=== PATIENT | male | born 1940 | race Caucasian/White ===

== ENCOUNTER → 2018-01-02 02:54 | Outpatient (CLI) | payer MEDICARE, BC, SELFPAY ==
--- NOTE | 2018-01-02 15:45 | DI.REPORT_ITS ---
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 There is a mild mid cervical kyphosis. Imaging obtained through the posterior fossa is unremarkable. The spinal cord shows normal diameter and normal signal throughout. There is prominence of the disc osteophyte complex at the C 6 - 7 level. This causes mild narrowing of the spinal canal in the AP diameter without a clear cut central canal spinal stenosis. There is bilateral neural foraminal narrowing at C 6 - 7. At C 5 - 6 there is mild bilateral neural foraminal narrowing and no gross disc abnormality. At C 4 - 5 there appears to be mild bilateral neural foraminal narrowing. At C 3 - 4 there appears to be mild neural foraminal narrowing bilaterally. CONCLUSION: Multi-level neural foraminal narrowing as described above. Prominence of the disc osteophyte complex at C 6 - 7 without significant cord impingement or central canal spinal stenosis.
== END ==
PROVIDERS: PCP Internal Medicine; Visit Provider Internal Medicine
DX: M48.02 Spinal stenosis, cervical region (principal); M25.78 Osteophyte, vertebrae
CPT/HCPCS: 72141

== ENCOUNTER → 2018-01-07 12:02 | Outpatient (REF) | payer MEDICARE, BC, SELFPAY ==
[2018-01-07 19:33] LABS: Anion Gap 7.6 mmol/L (3-11); BUN 13 mg/dL (7-18); CO2 28.4 mmol/L (21.0-32.0); CREATININE 0.97 mg/dL (0.70-1.30); Calcium 8.6 mg/dL (8.5-10.1); Chloride 106 mmol/L (98-107); Cholesterol 109 mg/dL (50-200); Glucose 85 mg/dL (70-100); HDL Cholesterol 38 mg/dL (40-60); LDL CHOLESTEROL 60 mg/dL (<100); Potassium 3.7 mmol/L (3.5-5.1); Sodium 142 mmol/L (136-145); Triglyceride 100 mg/dL (30-150)
== END ==
LOC: LBN 12:02
PROVIDERS: PCP Internal Medicine; Visit Provider Internal Medicine
DX: E78.5 Hyperlipidemia, unspecified (principal); E88.81 Metabolic syndrome and other insulin resistance; R73.01 Impaired fasting glucose; I48.91 Unspecified atrial fibrillation
CPT/HCPCS: 80048; 80061; 83721

== ENCOUNTER 2018-01-21 14:30 | Outpatient (RCR) | payer MEDICARE, BC, SELFPAY | END 2018-02-08 23:59 | disposition home or self-care (01) | LOC: PRC 14:30 | PROVIDERS: PCP Internal Medicine; Visit Provider Internal Medicine | DX: J44.9 Chronic obstructive pulmonary disease, unspecified (principal); Z51.89 Encounter for other specified aftercare ==

== ENCOUNTER 2018-02-12 09:45 | Outpatient (CLI) | payer MEDICARE, BC, SELFPAY ==
[2018-02-12 10:00] VITALS: BP 113/67; PULSE 63; RESP 20; TEMP 36; O2SAT 97
[2018-02-12] MEDS: Omnipaque 240 MG/ML 50 ML BTL IJ (10:31)
[2018-02-12] MEDS: Dexamethasone Sod. Phos./Pres-Free 10 MG/ML VIAL IJ (10:31)
--- NOTE | 2018-02-12 10:32 | PDOC.PAIN ---
Pain Clinic Procedure Note Current Active Problems Problem Status Onset Lumbar radiculopathy Acute Lumbar Epidural Steroid Injection Procedure Note COMMENTS: He was previously evaluated by Lucy Moreno APRN in our clinic. DANICA CRUZ has been referred to the [facility] for lumbar epidural steroid injection. The patient was greeted by the nurse who verified patients name and . Patient was then taken to the fluoroscopy suite. The patient was interviewed and the medial record reviewed. There were no medical, pharmacologic, radiographic, or other structural contraindications to attempting fluoroscopically guided lumbar epidural steroid injection. Risks and expected side effects as well as potential benefits of the procedure were reviewed and voiced concerns expressed. The patient consent form was signed and witnessed. Standard patient time-out procedure was performed. The patient was placed in the prone position on the fluoroscopy table and automated blood pressure cuff and pulse oximeter applied. The skin entry point for entering/approaching the epidural space at L5-S1 and marked. Following thorough chlorhexadine preparation of the skin and draping and 1% lidocaine infiltration of the skin entry point and subcutaneous tissues, a 18 gauge Touhy needle was placed under fluoroscopic guidance and with loss of resistance technique into the epidural space. Needle tip placement and depth were aided and confirmed by fluoroscopy. There was no paresthesia or return of blood or CSF through the needle. 1 cc's of Omnipaque 240 was injected with clear epidural spread confirmed with fluoroscopy. 15mg Dexamethasone was injected. There was not any unusual discomfort expressed by DANICA CRUZ. Patient's vital signs were stable throughout the procedure and were as recorded in nursing records. Follow up plans and appointments were discussed with patient. Post procedure instruction was given as documented in nursing records and having met discharge criteria and was discharged from the [facility]. COMMENTS: This procedure can be completed up to 3 times per 12 months.
--- NOTE | 2018-02-12 10:37 | DI.RAD_ITS ---
SYMPTOMS/DIAGNOSIS: LUMBAR RADICULOPATHY PAIN CLINIC: Fluoroscopy Time: 16.6 sec Fluoroscopy was utilized by Dr. Card during the performance of a lumbar epidural steroid injection. Please refer to the procedure report for complete details.
[2018-02-12 10:50] VITALS: BP 123/61; PULSE 83; RESP 16; O2SAT 96
== END 2018-02-12 10:05 ==
PROVIDERS: PCP Internal Medicine; Visit Provider Preventive Medicine Occupational Medicine
DX: M54.16 Radiculopathy, lumbar region (principal)
CPT/HCPCS: 62323; 72100; Q9967

== ENCOUNTER 2018-02-16 16:15 | Outpatient (RCR) | payer MEDICARE, BC, SELFPAY | END 2018-03-11 23:59 | disposition home or self-care (01) | LOC: PRC 16:15 | PROVIDERS: PCP Internal Medicine; Visit Provider Internal Medicine | DX: J44.9 Chronic obstructive pulmonary disease, unspecified (principal); Z51.89 Encounter for other specified aftercare | CPT/HCPCS: G0424 ==

== ENCOUNTER 2018-02-23 01:14 | Outpatient (CLI) | payer MEDICARE, BC, SELFPAY ==
--- NOTE | 2018-02-23 14:00 | MERGE_ITS ---
*[facility]* *[facility]* [address] [place] [address] Date of study: 02/23/2018 Transthoracic Echocardiography M-mode, complete 2D, complete spectral Doppler, and color Doppler *STUDY CONCLUSIONS* Summary: 1. Left ventricle: The cavity size was normal. Systolic function was normal. The estimated ejection fraction was 60-65%. There was no evidence of elevated ventricular filling pressure by Doppler parameters. 2. Mitral valve: There was mild regurgitation. 3. Right ventricle: The cavity size was normal. Wall thickness was normal. Systolic function was normal. 4. Atrial septum: No defect or patent foramen ovale was identified. 5. Tricuspid valve: There was moderate regurgitation. 6. Pulmonary arteries: Pulmonary systolic pressure was in the range of 40mm Hg to 50mm Hg. 7. Inferior vena cava: The vessel was patent and normal in size. The respirophasic diameter changes were in the normal range (greater than or equal to 50%), consistent with normal central venous pressure. *PATIENT PRESENTATION* Height: 182.9cm ((72in) ) S/D Pressure: 87 / 50 Weight: 108.9kg ((239.5lb) ) BSA: 2.38m^2 Test start time: 02:10 PM. Test stop time: 03:10 PM. PERFORMING Unknown ORDERING Osiris Gibson REFERRING Osiris Gibson PERFORMING [facility] DIRECTOR OF ANALYTICS RT Pawel Loja)(ALISSA)TIMBO *PROCEDURE DATA* Procedure information: The patient was identified by two identifiers. This study was interpreted by [facility]. Pertinent images and digital data are archived for permanent storage and are available for subsequent review. Comparison was made to the study of 01/05/2016. Study status: Routine. Transthoracic echocardiography. M-mode, complete 2D, complete spectral Doppler, and color Doppler. A Transthoracic Echocardiogram was performed. Scanning was performed from the parasternal, apical, subcostal, and suprasternal notch acoustic windows. Images were obtained using an [id number] cardiac ultrasound machine. Image quality was adequate. Study completion: The patient tolerated the procedure well. History: PMH: Afib. hyperlipidemia, TR, *CARDIAC ANATOMY* Left ventricle: The cavity size was normal. Systolic function was normal. The estimated ejection fraction was 60-65%. The tissue Doppler parameters were normal. Diastolic parameters were normal for age. There was no evidence of elevated ventricular filling pressure by Doppler parameters. Aortic valve: Trileaflet. Doppler: There was no stenosis. There was no significant regurgitation. VTI ratio of LVOT to aortic valve: 0.73. Valve area (VTI): 2.2cm^2. Indexed valve area (VTI): 0.9cm^2/m^2. Peak velocity ratio of LVOT to aortic valve: 0.68. Valve area (Vmax): 2.1cm^2. Indexed valve area (Vmax): 0.9cm^2/m^2. Mean velocity ratio of LVOT to aortic valve: 0.68. Valve area (Vmean): 2.1cm^2. Indexed valve area (Vmean): 0.9cm^2/m^2. Mean gradient (S): 6.1mm Hg. Peak gradient (S): 10.2mm Hg. Aorta: Aortic root: The aortic root was normal in size. Ascending aorta: The ascending aorta was mildly dilated. Mitral valve: Doppler: There was no evidence for stenosis. There was mild regurgitation. Valve area by pressure half-time: 4.9cm^2. Indexed valve area by pressure half-time: 2.1cm^2/m^2. Peak gradient (D): 4.3mm Hg. Left atrium: The atrium was normal in size. Atrial septum: No defect or patent foramen ovale was identified. Right ventricle: The cavity size was normal. Wall thickness was normal. Systolic function was normal. Pulmonic valve: Doppler: There was no evidence for stenosis. There was mild regurgitation. Peak gradient (S): 3.9mm Hg. Tricuspid valve: Doppler: There was moderate regurgitation. Pulmonary artery: Poorly visualized. Pulmonary systolic pressure was in the range of 40mm Hg to 50mm Hg. Right atrium: The atrium was normal in size. Pericardium: There was no pericardial effusion. Systemic veins: Inferior vena cava: Well visualized. The vessel was patent and normal in size. The respirophasic diameter changes were in the normal range (greater than or equal to 50%), consistent with normal central venous pressure. Baseline ECG: Atrial fibrillation. Measurements Left ventricle Value Reference LV ID, ED, PLAX 5.3 cm 3.5 - 6.0 LV ID, ES, PLAX 3.9 cm 2.1 - 4.0 LV PW thickness, ED, PLAX 1.0 cm LV end-diastolic volume, 1-p A2C 79 ml LV ejection fraction, 1-p A2C 62 % LV end-diastolic volume, 1-p A4C 73 ml LV ejection fraction, 1-p A4C 59 % LV e', lateral 0.147 m/sec LV E/e', lateral 7 LV e', medial 0.091 m/sec LV E/e', medial 11 LV e', average 0.119 m/sec LV E/e', average 9 Ventricular septum Value Reference IVS thickness, ED, PLAX 1.3 cm LVOT Value Reference LVOT ID, A-P 2.0 cm LVOT area 3.1 cm^2 LVOT peak velocity, S 1.09 m/sec LVOT mean velocity, S 0.8 m/sec LVOT VTI, S 22.7 cm LVOT peak gradient, S 4.8 mm Hg LVOT mean gradient, S 2.8 mm Hg Stroke volume (SV), LVOT DP 70 ml Stroke index (SV/bsa), LVOT DP 29 ml/m^2 Aortic valve Value Reference Aortic valve peak velocity, S 1.6 m/sec Aortic valve mean velocity, S 1.18 m/sec Aortic valve VTI, S 31.0 cm Aortic mean gradient, S 6.1 mm Hg Aortic peak gradient, S 10.2 mm Hg VTI ratio, LVOT/AV 0.73 Aortic valve area, VTI 2.2 cm^2 Velocity ratio, peak, LVOT/AV 0.68 Aortic valve area, peak velocity 2.1 cm^2 Velocity ratio, mean, LVOT/AV 0.68 Aortic valve area, mean velocity 2.1 cm^2 Aortic valve area/bsa, mean velocity 0.9 cm^2/m^2 Aorta Value Reference Aortic root ID, ED 3.3 cm Ascending aorta ID, A-P, S 3.7 cm RVOT Value Reference RVOT VTI, S 16.7 cm Left atrium Value Reference LA ID, A-P, ES 4.6 cm LA ID/bsa, A-P 1.9 cm/m^2 <=2.2 LA area, ES, A4C (H) 26.4 cm^2 8.8 - 23.4 LA area, ES, A2C 24 cm^2 LA volume/bsa, ES, 1-p A4C 35 ml/m^2 LA volume, ES, 2-p 73 ml LA volume/bsa, ES, 2-p 31 ml/m^2 LA/aortic root ratio 1.42 Mitral valve Value Reference Mitral E-wave peak velocity 1.04 m/sec Mitral deceleration time 154 ms 150 - 230 Mitral pressure half-time 45 ms Mitral peak gradient, D 4.3 mm Hg Mitral valve area, PHT, DP 4.9 cm^2 Mitral peak LV-LA gradient, S 103.4 mm Hg Mitral maximal regurg velocity, PISA 5.08 m/sec Mitral regurg VTI, PISA 161.8 cm Tricuspid valve Value Reference Tricuspid regurg peak velocity 3 m/sec Tricuspid peak RV-RA gradient 35.2 mm Hg Right atrium Value Reference RA area, ES, A4C (H) 26.9 cm^2 8.3 - 19.5 Pulmonic valve Value Reference Pulmonic peak gradient, S 3.9 mm Hg Legend: (L) and (H) андрей values outside specified reference range. I have personally reviewed the images and have reviewed and edited the reported findings. Electronically signed by Tomas Guillermo MD 02/23/2018 17:18
== END 2018-02-23 01:34 ==
PROVIDERS: PCP Internal Medicine; Visit Provider Internal Medicine Cardiovascular Disease
DX: I48.91 Unspecified atrial fibrillation (principal); E78.5 Hyperlipidemia, unspecified; I08.1 Rheumatic disorders of both mitral and tricuspid valves
CPT/HCPCS: 93306

== ENCOUNTER → 2018-03-05 11:00 | Outpatient (BNVA) | payer MEDICARE, BC, SELFPAY | PROVIDERS: PCP Internal Medicine; Visit Provider Internal Medicine Cardiovascular Disease | DX: I48.2 Chronic atrial fibrillation (principal); I36.1 Nonrheumatic tricuspid (valve) insufficiency; I27.20 Pulmonary hypertension, unspecified; E78.5 Hyperlipidemia, unspecified; J44.9 Chronic obstructive pulmonary disease, unspecified; Z87.891 Personal history of nicotine dependence | CPT/HCPCS: 99214 ==

== ENCOUNTER 2018-05-19 08:31 | Outpatient (CLI) | payer MEDICARE, BC, SELFPAY ==
--- NOTE | 2018-05-19 06:00 | DI.RAD_ITS ---
SYMPTOM/DIAGNOSIS: LUMBAR RADICULOPATHY, EPIDURAL STEROID INJECTION C-ARM: Fluoroscopy Time: 18.3 seconds Fluoroscopy was utilized by Dr. Card during the performance of a lumbar epidural steroid injection. Please refer to the procedure report for complete details.
[2018-05-19 08:40] VITALS: BP 114/70; PULSE 85; RESP 24; TEMP 36.6; O2SAT 97
[2018-05-19 09:26] LABS: PTT Activated 24.1 sec (21.0-31.4); Prothrombin Time 9.6 sec (9.3-11.0)
[2018-05-19] MEDS: Omnipaque 240 MG/ML 50 ML BTL IJ (10:06)
--- NOTE | 2018-05-19 10:06 | PDOC.PAIN ---
Pain Clinic Procedure Note Current Active Problems Problem Status Onset Lumbar radiculopathy Acute Lumbar Epidural Steroid Injection Procedure Note COMMENTS: He has done very well since the last LESI on 02/12/18. His radicular complaints have been greatly reduced. He has been off Eliquis for 5 days and his PT/PTT/INR are normal today. DX: Lumbosacral radiculopathy DANICA CRUZ has been referred to the [facility] for lumbar epidural steroid injection. The patient was greeted by the nurse who verified patients name and . Patient was then taken to the fluoroscopy suite. The patient was interviewed and the medial record reviewed. There were no medical, pharmacologic, radiographic, or other structural contraindications to attempting fluoroscopically guided lumbar epidural steroid injection. Risks and expected side effects as well as potential benefits of the procedure were reviewed and voiced concerns expressed. The patient consent form was signed and witnessed. Standard patient time-out procedure was performed. The patient was placed in the prone position on the fluoroscopy table and automated blood pressure cuff and pulse oximeter applied. The skin entry point for entering/approaching the epidural space at L5-S1 and marked. Following thorough chlorhexadine preparation of the skin and draping and 1% lidocaine infiltration of the skin entry point and subcutaneous tissues, a 18 gauge Touhy needle was placed under fluoroscopic guidance and with loss of resistance technique into the epidural space. Needle tip placement and depth were aided and confirmed by fluoroscopy. There was no paresthesia or return of blood or CSF through the needle. 1 cc's of Omnipaque 240 was injected with clear epidural spread confirmed with fluoroscopy. 80mg depomedrol was injected. There was not any unusual discomfort expressed by DANICA CRUZ. Patient's vital signs were stable throughout the procedure and were as recorded in nursing records. Follow up plans and appointments were discussed with patient. Post procedure instruction was given as documented in nursing records and having met discharge criteria and was discharged from the [facility]. COMMENTS: This procedure can be completed up to 3 times per 12 months if it is found to be helpful.
[2018-05-19] MEDS: methylPREDNISolone ACETATE 80 MG/ML VIAL IM (10:18)
[2018-05-19 10:19] VITALS: BP 133/74; PULSE 89; RESP 19; O2SAT 97
== END 2018-05-19 08:51 ==
PROVIDERS: PCP Internal Medicine; Visit Provider Preventive Medicine Occupational Medicine
DX: M54.16 Radiculopathy, lumbar region (principal); Z79.01 Long term (current) use of anticoagulants
CPT/HCPCS: 62323; 72100; 85610; 85730; J1040; Q9967

== ENCOUNTER 2018-05-19 09:15 | Outpatient (CLI) | payer MEDICARE, BC, SELFPAY | END 2018-05-19 09:35 | PROVIDERS: PCP Internal Medicine; Visit Provider Preventive Medicine Occupational Medicine | DX: Z79.01 Long term (current) use of anticoagulants (principal) | CPT/HCPCS: 85610; 85730 ==

== ENCOUNTER 2018-05-25 08:53 | Emergency (ER) | payer MEDICARE, BC, SELFPAY ==
[2018-05-25] VITALS (44 sets, daily range): BP systolic 107–153; BP diastolic 69–121; PULSE 67–182; RESP 12–32; TEMP 37.1–37.2; O2SAT 91–97
--- NOTE | 2018-05-25 08:58 | ED.GENADUL_ITS ---
Discharge Plan Disposition Patient Disposition: HOME Condition: Fair Discharge Details Chief Complaint: GI Bleed Clinical Impression: Colitis Primary Care Provider: Sandra Piedra ED Provider: Tatyana Salinas Home Meds and New Rx's Prescriptions: New azithromycin 500 mg tablet 500 mg PO BID Qty: 6 RF: 0 Continued metoprolol succinate 100 mg tablet extended release 24 hr 150 mg PO DAILY Qty: 135 RF: 3 mupirocin 2 % ointment 1 applic TP TID Qty: 22 RF: 0 nystatin 100,000 unit/gram cream 1 applic TP TID Qty: 30 RF: 2 pantoprazole 40 mg tablet,delayed release (DR/EC) 40 mg PO DAILY Qty: 90 RF: 3 multivitamin 1 EACH tablet 1 ea PO DAILY RF: 0 lysine [L-Lysine] 500 MG tablet 500 mg PO DAILY RF: 0 One-Per-Day [place]-3 1 EACH capsule,delayed release(DR/EC) 1 ea PO DAILY RF: 0 polyethylene glycol 3350 [Miralax] 17 GM powder in packet 17 gm PO BID PRNRF: 0 acetaminophen 500 MG tablet 1,000 mg PO Q8H PRN RF: 0 Eliquis 5 MG tablet 5 mg PO BID 90 Days Qty: 180 RF: 3 Symbicort 10.2 GM HFA aerosol inhaler 2 puff Inhalation BID Qty: 3 RF: 3 Atorvastatin Calcium 20 MG tablet 20 mg PO DAILY Qty: 90 RF: 3 diltiazem HCl 240 MG capsule,extended release 24hr 240 mg PO DAILY Qty: 90 RF: 3 bupropion HCl 150 MG tablet extended release 24 hr 150 mg PO BID Qty: 180 RF: 3 Spiriva with HandiHaler 18 MCG capsule, w/inhalation device 18 mcg Inhalation DAILY Qty: 3 RF: 3 ProAir HFA 90 mcg/actuation HFA aerosol inhaler 2 puff Inhalation Q4H PRN Qty: 3 RF: 3 duloxetine 20 mg capsule,delayed release(DR/EC) 20 mg PO DAILY Qty: 90 RF: 1 vitamin B complex [B Complex 1] Tablet 1 tab PO DAILY RF: 0 gabapentin 600 mg tablet 600 mg PO TID RF: 0 Discharge Instructions Instructions: Colitis (ED) Additional Instructions: Encourage hydration. Take Azithromycin as prescribed. Continue with other medications as previously prescribed. You have repeat blood work ordered by primary care, this needs to be completed in the next 48 hours. Primary care will contact you with follow up appointment this week. If you develop fevers/chills, inability to stay hydrated, abdominal pain, increased bleeding, weakness or other new/worsening symptoms please seek care urgently once again. Referrals: Sandra Piedra MD [Primary Care Provider] - Medical Decision Making <REILLY Álvarez - Last Filed: 05/25/18 13:40> Patient is a 78 year old male with history of lumbar radiculopathy, spinal stenosis, sciatica, cardiomyopathy, emphesema, PVD, MARK, obesity, OA, elevated cholesterol, gout, depression, Afib, BPH, anxiety, depression and alcohol abuse. He is presenting today with c/c of bright red blood per rectum. Has had 3 such episodes over the past 3 days. Patient is on Eliquis for atrial fibrillation. Patient appears comfortable. He is tachycardic with irregularly irregular rhythm, HR 108. Patient typically takes Diltiazem and Metoprolol daily but has not had this yet today, will give his typical morning dose. Heme positive stool. No hemorrhoids noted, normal rectal tone, no prostate discomfort. Patient has obese abdomen with no tenderness on exam. However, given his cramping that is primarily located low on his abdomen, will obtain imaging to evaluate for possible diverticulitis, colitis vs. other etiology. EKG reviewed by Dr. Johnson. Noted to be in atrial fibrillation with rate 99 and irregular. Please see his note. Labs signficant for elevated WBC at 17.02. He is not anemic. Alk phos elevated at 125, this is new for the patient. Imaging pending consulted with radiologist regarding CT. She advised that she does see diverticulosis but no evidence of diverticulitis. He does have wall thickening of sigmoid colon concerning for colitis. This is consistent with patients cu rrent symptoms. contacted PCP to discuss Eliquis, awaiting call back. Consulted with Ofe Stockton NP, we discussed risks/benefits of continued Eliquis. She advised continuing with close monitoring with repeat CBC in the next 48 hours. She placed order and will have office staff contact the patient with prompt follow up appointment. Discussed this plan with the patient and his . Will place on Azithromycin for colitis per UpToDate recommendations. Enocuaged hydration. he will continue with medications as otherwise prescribed. He was given strict return precautions. Will follow up with PCP this week. All of their questions and concerns were addressed, they are in agreement with this plan. <Tomas Johnson MD - Last Filed: 05/25/18 09:22> ECG Data Attestation: I personally reviewed and interpreted this ECG (s) as follows: Prior ECG tracings: available for review Interpretation: atrial fibrillation, rate of 99, qtc 426, no acute st t wave ischemic findings HPI <REILLY Álvarez - Last Filed: 05/25/18 13:40> General Mode of arrival: wheelchair . Date/Time Provider Initiated Documentation: 05/25/18 08:54 . Limitations to Documentation: no limitations . Information obtained by: patient and family (accompanied by ) . HPI Narrative: Patient is a 78 year old male, accompanied by , with c/c of bright red blood per rectum. Reports that it started 3 days ago and has been p ersistent in his otherwise normal AM BM. States that he may have some cramping but is otherwise asymptomatic. Denies fevers/chills, no pain with BM, is not feeling weaker than typical. Endorses SOB at baseline with no recent change in this. Patient states that he has had difficulty with consitpation over the past few years. No change in urinary habits. States that he has had blood in stool before but that at that time it was associated with upper GI bleed, states that at that time stools were black. Surgical history significant for appendectomy and EGD for cauterization of bleeding ulcer. Denies recent illness. Anticoagulated on Eliquis, last took this last night. Related Data Home Medications Medication Instructions Recorded Confirmed One-Per-Day [place]-3 1 ea PO DAILY 07/20/12 05/25/18 lysine [L-Lysine] 500 mg PO DAILY 07/20/12 05/25/18 multivitamin 1 ea PO DAILY 07/20/12 05/25/18 acetaminophen 1,000 mg PO Q8H PRN tab-cap 03/10/17 05/25/18 polyethylene glycol 3350 [Miralax] 17 gm PO BID PRN gm 03/10/17 05/25/18 Eliquis 5 mg PO BID 90 Days #180 tab-cap 09/01/17 05/25/18 Symbicort 2 puff INHALATION BID #3 inhaler 10/17/17 05/25/18 Spiriva with HandiHaler 18 mcg INHALATION DAILY #3 box 01/07/18 05/25/18 bupropion HCl 150 mg PO BID #180 tabcr 01/07/18 05/25/18 diltiazem HCl 240 mg PO DAILY #90 tab-cap 01/07/18 05/25/18 nystatin 100,000 unit/gram topical 1 applic TP TID #30 gm 02/10/18 05/25/18 cream pantoprazole 40 mg tablet,delayed 40 mg PO DAILY #90 tabcr 02/10/18 05/25/18 release metoprolol succinate ER 100 mg 150 mg PO DAILY #135 tab 03/05/18 05/25/18 tablet,extended release 24 hr mupirocin 2 % topical ointment 1 applic TP TID #22 gm 03/11/18 05/25/18 albuterol sulfate HFA 90 2 puff INHALATION Q4H PRN #3 04/03/18 05/25/18 mcg/actuation aerosol inhaler inhaler duloxetine 20 mg capsule,delayed 20 mg PO DAILY #90 cap 04/21/18 05/25/18 release azithromycin 500 mg PO BID #6 tab 05/25/18 gabapentin 600 mg PO TID 05/25/18 05/25/18 vitamin B complex [B Complex 1] 1 tab PO DAILY 05/25/18 05/25/18 Previous Rx's Medication Instructions Recorded Eliquis 5 mg PO BID 90 Days #180 tab-cap 09/01/17 Symbicort 2 puff INHALATION BID #3 inhaler 10/17/17 Spiriva with HandiHaler 18 mcg INHALATION DAILY #3 box 01/07/18 bupropion HCl 150 mg PO BID #180 tabcr 01/07/18 diltiazem HCl 240 mg PO DAILY #90 tab-cap 01/07/18 nystatin 100,000 unit/gram topical 1 applic TP TID #30 gm 02/10/18 cream pantoprazole 40 mg tablet,delayed 40 mg PO DAILY #90 tabcr 02/10/18 release metoprolol succinate ER 100 mg 150 mg PO DAILY #135 tab 03/05/18 tablet,extended release 24 hr mupirocin 2 % topical ointment 1 applic TP TID #22 gm 03/11/18 albuterol sulfate HFA 90 2 puff INHALATION Q4H PRN #3 04/03/18 mcg/actuation aerosol inhaler inhaler duloxetine 20 mg capsule,delayed 20 mg PO DAILY #90 cap 04/21/18 release azithromycin 500 mg PO BID #6 tab 05/25/18 Allergies Allergy/AdvReac Type Severity Reaction Status Date / Time No Known Allergies Allergy Verified 05/25/18 09:25 Review of Systems <REILLY Álvarez - Last Filed: 05/25/18 13:40> Constitutional Reports as per HPI, Denies chills, Denies fatigue, Denies fever(s), Denies headache(s), Denies poor appetite and Denies weakness ENT Denies headache(s) Cardiovascular Reports as per HPI, Denies chest pain and Reports dyspnea (chronic, unchanged. Associated with COPD) Respiratory Denies chest congestion, Denies cough and Reports dyspnea (chronic, unchanged. Associated with COPD) Gastrointestinal Reports as per HPI, Denies bloating, Reports change in bowel habits (intermittent constipation for several years), Denies diarrhea, Denies nausea and Denies vomiting Genitourinary Denies system reviewed and no additional complaints, except as docu (patient denies any change in urinary habits) Musculoskeletal Reports as per HPI and Reports back pain (chronic back pain, no recent change) Integumentary/Breasts Reports as per HPI and Denies rash Neurologic Denies headache(s) and Denies weakness Endocrine Denies fatigue PFSH <REILLY Álvarez - Last Filed: 05/25/18 13:40> Medical History Actinic keratosis Anxiety disorder Atrial fibrillation BPH (benign prostatic hyperplasia) Basal cell carcinoma COPD (chronic obstructive pulmonary disease) Cardiomyopathy Central stenosis of spinal canal Chronic pruritus Chronic toe pain, bilateral DJD (degenerative joint disease) Depression Diastasis recti Diverticula of colon Dyslipidemia Dysmetabolic syndrome Epididymitis Gout History of ETOH abuse Left testicular pain MARK (obstructive sleep apnea) Obesity Orchitis PVD (peripheral vascular disease) Peripheral sensory neuropathy Prostatism Pulmonary emphysema Right sided sciatica Sciatica Tubular adenoma Surgical History EGD w/ BX 04/18/16 L ant Total Hip Arthroplasty (03/03/17) Shave C and D, biopsy proven BCCA (08/04/14) egd/KELLI test, cauterization of ulcer (12/30/15) Family History Mother No problems noted. Father No problems noted. Brother No problems noted. Brother Age: 75 No problems noted. Brother Age: 68 No problems noted. 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 working smoke detector in home: Yes fire extinguisher in home: Yes carbon monox detector in home: Yes Exam <REILLY Álvarez - Last Filed: 05/25/18 13:40> Const General: cooperative, healthy appearing, comfortable, no acute distress and well developed Nutritional Appearance: average body habitus and well nourished Orientation: alert and awake HENMT Head: normal to inspection Mouth: moist mucous membranes Resp Effort & Inspection: normal respiratory effort, able to speak in complete sentences and no respiratory distress Auscultation: clear to auscultation bilaterally, no rales, no rhonchi and no wheezes Cardio Rate: tachycardic Rhythm: abnormal rhythm irregularly irregular Heart Sounds: S1 normal and S2 normal GI Inspection: no edema, obesity and no visible herniation Palpation: soft, no hepatosplenomegaly, no aortic enlargement, not firm, no guarding, no hernias, not rigid and nontender Percussion: normal to percussion Auscultation: normal bowel sounds Rectal Exam: visual inspection normal, normal sphincter tone, prostate normal, heme positive stool, No hemorrhoids and No laceration Back/Spine/Pelvis Back: no CVA tenderness Skin General skin exam: no rashes or lesions noted Trauma: no lacerations or abrasions Neuro General: alert and awake Cognition: normal cognition Speech: speech normal Psych Appearance: grossly normal and well kempt Mental Status: mental status grossly normal Speech and Movement: speech and movement normal
[2018-05-25] MEDS: Normal Saline Flush 10 ML SYR IVP (09:00)
[2018-05-25] MEDS: Normal Saline 1,000 ML 125 ML IV (09:15)
[2018-05-25 09:17] LABS: HCT 46.6 % (40.0-50.0); HGB 14.8 g/dL (13.5-17.5); Mean Corp. HGB Concentration 31.8 g/dL (32.0-36.0); Mean Corpuscular Hemoglobin 27.4 pg (27.0-33.0); Mean Corpuscular Volume 86.3 fL (80-95); Mean Platelet Volume 9.5 fL (8.0-11.0); Platelet Count 337 x1000/uL (130-400); RBC Distribution Width 16.3 % (11.8-14.1); White Blood Cell Count 17.02 k/cumm (4.4-10.8)
[2018-05-25 09:30] LABS: Prothrombin Time 10.1 sec (9.3-11.0)
[2018-05-25 09:41] LABS: ALT 19 U/L (12-78); AST 15 U/L (15-37); Absolute Neutrophil Count 11.74 k/cumm (1.2-6.7); Albumin 3.7 g/dL (3.4-5.0); Alkaline Phosphatase 125 U/L (46-116); Anion Gap 8.7 mmol/L (3-11); Atypical Lymphocytes % 3; BUN 15 mg/dL (7-18); Bilirubin, Total 0.8 mg/dL (0.2-1.0); CO2 28.3 mmol/L (21.0-32.0); CREATININE 1.13 mg/dL (0.70-1.30); Calcium 9.2 mg/dL (8.5-10.1); Chloride 103 mmol/L (98-107); Glucose 115 mg/dL (70-100); Lipase 82 U/L (73-393); Magnesium 1.9 mg/dL (1.8-2.4); Potassium 4.2 mmol/L (3.5-5.1); Sodium 140 mmol/L (136-145); Total Protein 7.5 g/dL (6.4-8.2); Troponin I < 0.02 ng/mL (0.00-0.06)
[2018-05-25 09:42] LABS: Absolute Lymphocyte Count 3.57 k/cumm (1.2-3.4); Absolute Monocyte Count 1.02 k/cumm (0.11-0.7)
[2018-05-25 09:43] LABS: Diff Comment Manual Differential; RBC Morphology Normal
[2018-05-25] MEDS: Metoprolol 50 MG TAB 100 MG PO (09:53)
[2018-05-25] MEDS: Metoprolol 50 MG TAB PO (09:59)
[2018-05-25] MEDS: Breeza Beverage 473 ML BTL PO (10:00)
[2018-05-25] MEDS: Omnipaque 350 MG/ML 50 ML BTL PO (10:00)
[2018-05-25] MEDS: Omnipaque 350 MG/ML 100 ML BTL IJ (11:07)
--- NOTE | 2018-05-25 11:30 | DI.CT_ITS ---
SYMPTOM/DIAGNOSIS: BLOOD IN STOOL, 'CRAMPING' IN LOWER ABDOMEN. CT ABDOMEN AND PELVIS: Comparison is made with August 21. Images were performed from the lung bases through the ischial tuberosities after IV and oral contrast. The oral contrast extends to the level of the rectum. The colon is mainly decompressed. There is no significant stool. Diverticula are noted. There is no evidence of diverticulitis There is a question of wall thickening of the distal sigmoid and rectum which could indicate colitis vs decompressed bowel. There is no small bowel dilatation, free air or free fluid. The lung bases show mild respiratory motion. The liver, gallbladder, spleen, adrenals and pancreas are unremarkable. There are multiple small bilateral renal cysts. No stones or hydronephrosis is seen. There is symmetric renal perfusion. There is mild bilateral perinephric stranding. The prostate is enlarged. There is a left hip prosthesis which creates artifact in the pelvis. The urinary bladder is somewhat distended. No focal mass or wall thickening is visible. There is calcification in the abdominal aorta which shows slight dilatation distally to 2.8 cm. IMPRESSION: Question of wall thickening of the rectosigmoid vs decompression. Enlarged prostate and distended urinary bladder.
[2018-05-25 11:55] LABS: Bilirubin Negative (Negative); Blood Negative (Negative); Clarity Clear; Glucose Negative (Negative); Ketones Negative (Negative); Leukocyte Esterase Negative (Negative); Nitrite Negative (Negative); Urobilinogen 0.2 EU/dL (Up TO 0.2)
--- NOTE | 2018-05-25 13:37 | NUR.NOTE ---
Nursing Note: PLEASE NOTE THE TELE HR READING IS HIGH BECAUSE THE MONITOR WAS DOUBLE COUNTING PLEASE USE THE SPO2 MONITOR RATE.
== END 2018-05-25 13:34 | disposition home or self-care (01) ==
PROVIDERS: Emergency Provider Physician Assistant; PCP Internal Medicine
DX: K52.9 Noninfective gastroenteritis and colitis, unspecified (principal); R00.0 Tachycardia, unspecified; K57.31 Diverticulosis of large intestine without perforation or abscess with bleeding; I48.91 Unspecified atrial fibrillation; Z79.01 Long term (current) use of anticoagulants
CPT/HCPCS: 36415; 80053; 83690; 93005; 96360; 96361; 99285; 74177; 81003; 83735; 84484; 85025; 85610; 93010; J3490; Q9967

== ENCOUNTER 2018-05-26 10:28 | Outpatient (CLI) | payer MEDICARE, BC, SELFPAY ==
[2018-05-26 11:21] LABS: Abs Immature Grans 0.35 k/cumm (0.0-0.09); HCT 44.4 % (40.0-50.0); HGB 14.2 g/dL (13.5-17.5); Mean Corpuscular Hemoglobin 27.4 pg (27.0-33.0); Mean Corpuscular Volume 85.7 fL (80-95); Mean Platelet Volume 9.9 fL (8.0-11.0); Platelet Count 309 x1000/uL (130-400); RBC 5.18 m/cumm (4.50-6.00); RBC Distribution Width 16.1 % (11.8-14.1); White Blood Cell Count 15.27 k/cumm (4.4-10.8)
[2018-05-26 11:53] LABS: Absolute Lymphocyte Count 1.83 k/cumm (1.2-3.4); Absolute Monocyte Count 1.53 k/cumm (0.11-0.7); Absolute Neutrophil Count 11.61 k/cumm (1.2-6.7); Atypical Lymphocytes % 3; Diff Comment Manual Differential
[2018-05-26 11:54] LABS: Polychromasia Present
== END 2018-05-26 10:48 ==
PROVIDERS: Nurse Practitioner Adult Health; PCP Internal Medicine; Visit Provider Internal Medicine
DX: D72.829 Elevated white blood cell count, unspecified (principal); K62.5 Hemorrhage of anus and rectum
CPT/HCPCS: 36415; 85025

== ENCOUNTER 2018-08-06 08:54 | Outpatient (CLI) | payer MEDICARE, BC, SELFPAY ==
[2018-08-06 10:26] LABS: Anion Gap 10.6 mmol/L (3-11); BUN 13 mg/dL (7-18); CO2 25.4 mmol/L (21.0-32.0); CREATININE 1.01 mg/dL (0.70-1.30); Calcium 9.1 mg/dL (8.5-10.1); Chloride 105 mmol/L (98-107); Glucose 112 mg/dL (70-100); NT-proBNP 408 pg/mL; Sodium 141 mmol/L (136-145)
== END 2018-08-06 09:14 ==
PROVIDERS: PCP Internal Medicine; Visit Provider Internal Medicine
DX: R60.0 Localized edema (principal); R06.02 Shortness of breath
CPT/HCPCS: 36415; 80048; 83880

== ENCOUNTER → 2018-09-10 12:55 | Outpatient (BNVA) | payer MEDICARE, BC, SELFPAY | PROVIDERS: PCP Internal Medicine; Visit Provider Internal Medicine Cardiovascular Disease | DX: I48.2 Chronic atrial fibrillation (principal); Z79.01 Long term (current) use of anticoagulants; E78.5 Hyperlipidemia, unspecified; I36.1 Nonrheumatic tricuspid (valve) insufficiency; I27.20 Pulmonary hypertension, unspecified; J44.9 Chronic obstructive pulmonary disease, unspecified; Z87.891 Personal history of nicotine dependence | CPT/HCPCS: 99214 ==

== ENCOUNTER → 2018-10-12 08:42 | Outpatient (BNVA) | payer MEDICARE, BC, SELFPAY | PROVIDERS: PCP Internal Medicine; Visit Provider Urology | DX: N50.812 Left testicular pain (principal); J44.9 Chronic obstructive pulmonary disease, unspecified | CPT/HCPCS: 99213 ==

== ENCOUNTER → 2019-03-18 10:57 | Outpatient (BNVA) | payer MEDICARE, BC, SELFPAY | PROVIDERS: PCP Internal Medicine; Referring Provider Internal Medicine; Visit Provider Internal Medicine Cardiovascular Disease | DX: I48.20 Chronic atrial fibrillation, unspecified (principal); Z79.01 Long term (current) use of anticoagulants; R06.02 Shortness of breath; J44.9 Chronic obstructive pulmonary disease, unspecified; Z87.891 Personal history of nicotine dependence | CPT/HCPCS: 99214 ==

== ENCOUNTER 2019-05-13 09:32 | Outpatient (CLI) | payer MEDICARE, BC, SELFPAY ==
[2019-05-13 09:47] LABS: HCT 41.8 % (40.0-50.0); HGB 13.6 g/dL (13.5-17.5); Mean Corp. HGB Concentration 32.5 g/dL (32.0-36.0); Mean Corpuscular Hemoglobin 28.9 pg (27.0-33.0); Mean Corpuscular Volume 88.7 fL (80-95); Mean Platelet Volume 9.2 fL (8.0-11.0); Platelet Count 299 x1000/uL (130-400); RBC 4.71 m/cumm (4.50-6.00); White Blood Cell Count 13.37 k/cumm (4.4-10.8)
[2019-05-13 10:43] LABS: Anion Gap 9.9 mmol/L (3-11); BUN 14 mg/dL (7-18); CO2 30.1 mmol/L (21.0-32.0); CREATININE 1.11 mg/dL (0.70-1.30); Calculated LDL 79 mg/dL; Chloride 104 mmol/L (98-107); Cholesterol 142 mg/dL (<200); Glucose 103 mg/dL (74-106); HDL Cholesterol 35 mg/dL (40-60); Potassium 4.5 mmol/L (3.5-5.1); Sodium 144 mmol/L (136-145); Triglyceride 141 mg/dL (<150)
== END 2019-05-13 09:52 ==
PROVIDERS: PCP Internal Medicine; Visit Provider Internal Medicine
DX: I10 Essential (primary) hypertension (principal); E78.5 Hyperlipidemia, unspecified; E88.81 Metabolic syndrome and other insulin resistance; J44.9 Chronic obstructive pulmonary disease, unspecified
CPT/HCPCS: 36415; 80048; 80061; 85027

== ENCOUNTER 2019-06-08 01:31 | Outpatient (CLI) | payer MEDICARE, BC, SELFPAY ==
--- NOTE | 2019-06-08 13:31 | PFT_ITS ---
PULMONARY FUNCTION TEST REPORT DATE OF SERVICE: June 08, 2019 REQUESTING PROVIDER: Dr. Sandra Piedra Spirometry shows severe obstructive airways disease with significant bronchodilator response. Lung volumes show no evidence of restriction. There is mild hyperinflation and air trapping. Diffusion capacity severely reduced, which is mildly reduced when corrected to alveolar volume. Airways resistance markedly elevated. IMPRESSION: Severe obstructive airways disease with significant bronchodilator response. This is associated with severe diffusion defect and mild to moderate hyperinflation and air trapping. Clinical correlation recommended. When this study was compared to previous ones from 05/08/05, 11/08/05, 12/02/05, 01/14/07, 05/31/10, 04/13/13, the patient has a gradual and substantial decline in FVC of a total of 2510 cc's. FEV1 overall has declined by 1440 cc's. Since 2012 there is a 480 cc's decline in FVC and a 310 cc's decline in FEV1. ISABEL/rohan D/
== END 2019-06-08 01:51 ==
PROVIDERS: PCP Internal Medicine; Visit Provider Internal Medicine
DX: J44.9 Chronic obstructive pulmonary disease, unspecified (principal)
CPT/HCPCS: 94060; 94726; 94729

== ENCOUNTER 2019-07-09 14:00 | Outpatient (RCR) | payer MEDICARE, BC, SELFPAY | END 2019-07-10 23:59 | disposition home or self-care (01) | LOC: PRC 14:00 | PROVIDERS: PCP Internal Medicine; Visit Provider Family Medicine | DX: J44.9 Chronic obstructive pulmonary disease, unspecified (principal); G47.33 Obstructive sleep apnea (adult) (pediatric); Z51.89 Encounter for other specified aftercare | CPT/HCPCS: G0424 ==

== ENCOUNTER 2019-07-19 14:00 | Outpatient (RCR) | payer MEDICARE, BC, SELFPAY | END 2019-08-10 23:59 | disposition home or self-care (01) | LOC: PRC 14:00 | PROVIDERS: PCP Internal Medicine; Visit Provider Family Medicine | DX: J44.9 Chronic obstructive pulmonary disease, unspecified (principal); G47.33 Obstructive sleep apnea (adult) (pediatric); Z51.89 Encounter for other specified aftercare | CPT/HCPCS: G0424 ==

== ENCOUNTER 2019-07-26 00:28 | Outpatient (CLI) | payer MEDICARE, BC, SELFPAY ==
--- NOTE | 2019-07-26 | DI.CT_ITS ---
EXAM: CT CHEST WO CLINICAL HISTORY: CHRONIC OBSTRUCTIVE LUNG DISEASE, J44.9. TECHNIQUE: Imaging protocol: Axial computed tomography images were obtained and coronal and sagittal reformatted images were created and reviewed. COMPARISON: CHEST WITH CONTRAST from 08/19/2011 FINDINGS: Tracheobronchial tree: Patent where visualized. Mediastinum and [place]: There is a 4.9 transverse by 3.2 AP by 3.2 craniocaudad cm mass in the superior mediastinum. It is isodense to muscle. It is contiguous with the thyroid gland. Pulmonary parenchyma: No areas of consolidation. There is a 0.8 cm nodule in the posterior aspect of the right upper lobe. Atelectasis or scarring is seen in the lung bases. Pleura: No effusion or pneumothorax. Heart: The heart is not dilated. Mild coronary artery calcification. Significant pericardial effusio n. Aorta: Thoracic aorta non-dilated. Atherosclerosis. Upper abdomen: Colonic diverticulosis. No evidence of acute diverticulitis. Right renal cyst. Lymph nodes: Within normal limits. Bones:Degenerative changes. Old healed sternal fracture. IMPRESSION: 1. 0.8 cm pulmonary nodule in the right upper lobe. Please correlate with the patient's past medical history. Follow-up CT scan in 6 months is recommended for re-evaluation. 2. 4.9 x 3.2 x 3.2 cm superior mediastinal mass. Diagnostic considerations include thyroid or thymic mass. Thoracic adenopathy should be considered. A post contrast CT scan of the chest is recommende d. Thyroid imaging may also be considered. DATA REPOSITORY: All CT scans at this facility are submitted to the National Radiology Data Registry (NRDR) Dose Index Registry (DIR) with the [employer] ([employer]). RADIATION OPTIMIZATION: All CT scans at this facility use at least one of these dose optimization te chniques: automated exposure control; mA and/or kV adjustment per patient size (includes targeted exa ms where dose is matched to clinical indication); or iterative reconstruction.
== END 2019-07-26 00:48 ==
PROVIDERS: PCP Internal Medicine; Visit Provider Internal Medicine
DX: J44.9 Chronic obstructive pulmonary disease, unspecified (principal); R91.1 Solitary pulmonary nodule; I31.3 Pericardial effusion (noninflammatory); J98.59 Other diseases of mediastinum, not elsewhere classified
CPT/HCPCS: 71250

== ENCOUNTER 2019-07-30 11:28 | Outpatient (CLI) | payer MEDICARE, BC, SELFPAY ==
[2019-07-30 12:41] LABS: CREATININE 1.17 mg/dL (0.70-1.30)
== END 2019-07-30 11:48 ==
PROVIDERS: PCP Internal Medicine; Visit Provider Internal Medicine
DX: R22.2 Localized swelling, mass and lump, trunk (principal)
CPT/HCPCS: 36415; 82565

== ENCOUNTER 2019-09-30 02:08 | Outpatient (CLI) | payer MEDICARE, BC, SELFPAY ==
--- NOTE | 2019-09-30 | DI.CT_ITS ---
EXAM: CT NECK W CLINICAL HISTORY: PRIMARY THYROID CA,C73,SMALL 8-10 MM SUSPICIOUS LATERAL. TECHNIQUE: Imaging Protocol: Axial computed tomography images with coronal and sagittal reformatted images were created and reviewed CONTRAST MATERIAL: Intravenous: Omnipaque 350 Contrast volume:100 mL COMPARISON: CT CT CHEST WO from 07/26/2019 FINDINGS: Parotids/submandibular: Within normal limits. Thyroid gland: There is a complex cystic and solid mass centered at the isthmus of the thyroid gland . It measures 5.1 x 3.8 x 4.4 cm. Lymphadenopathy: There is scattered lymph nodes seen along the level one to level three all measurin g less than 8 mm in short axis diameter which are physiologic in nature. Carotids/Jugular: Within normal limits. Minimal atherosclerosis in the carotid arteries. Oropharynx: Within normal limits. Nasopharynx: Within normal limits. Retropharyngeal space: Within normal limits. Larynx: Within normal limits. Bones: Within normal limits for the patient's age. Multilevel degenerative changes are present. Orbits and orbital soft tissues: Within normal limits. Visualized paranasal sinuses: Clear. Lung apices: Unchanged scarring in the right upper lobe. Soft tissues: Within normal limits. IMPRESSION: 5.1 x 3.8 x 4.4 cm complex mass centered in the isthmus of the thyroid gland. Primary diagnostic con cern is thyroid carcinoma. Adenoma or lymphoma may also be considered. No significant cervical diamond opathy. RADIATION DOSE DELIVERED: 652.6mGy.cm Total DLP DATA REPOSITORY: All CT scans at this facility are submitted to the National Radiology Data Registry (NRDR) Dose Index Registry (DIR) with the [employer] (ACR). RADIATION OPTIMIZATION: All CT scans at this facility use at least one of these dose optimization te chniques: automated exposure control; mA and/or kV adjustment per patient size (includes targeted exa ms where dose is matched to clinical indication); or iterative reconstruction.
[2019-09-30 14:46] LABS: CREATININE 1.14 mg/dL (0.70-1.30)
[2019-09-30] MEDS: Normal Saline Flush 10 ML SYR IVP (15:14)
[2019-09-30] MEDS: Omnipaque 350 MG/ML 100 ML BTL IJ (15:15)
[2019-09-30] MEDS: Normal Saline - Diluent 50 ML VIAL IV (15:16)
== END 2019-09-30 02:28 ==
PROVIDERS: PCP Internal Medicine; Visit Provider Nurse Practitioner Adult Health
DX: C73 Malignant neoplasm of thyroid gland (principal); R59.0 Localized enlarged lymph nodes; J98.4 Other disorders of lung; Z13.89 Encounter for screening for other disorder
CPT/HCPCS: 36415; 70491; 82565; J3490

== ENCOUNTER 2019-10-10 13:51 | Emergency (ER) | payer MEDICARE, BC, SELFPAY ==
[2019-10-10 13:58] VITALS: BP 93/68; PULSE 103; RESP 16; TEMP 36.8; O2SAT 94
--- NOTE | 2019-10-10 14:13 | W.ED.GENAD ---
Discharge Plan Disposition Patient Disposition: HOME Condition: Stable Discharge Details Chief Complaint: GenMedical Clinical Impression: Beauchamp catheter problem Primary Care Provider: Sandra Piedra ED Provider: Braydon Douglas Home Meds and New Rx's Prescriptions: Continued albuterol sulfate [ProAir HFA] 90 mcg/actuation HFA aerosol inhaler 2 puff Inhalation Q4H PRN Qty: 3 RF: 3 duloxetine 20 mg capsule,delayed release(DR/EC) 20 mg PO .4x/week RF: 0 Hold Instructions: Home Medication placed on hold at Doctor's office multivitamin 1 EACH tablet 1 ea PO DAILY RF: 0 acetaminophen 500 MG tablet 1,000 mg PO Q8H PRN RF: 0 atorvastatin 20 mg tablet 20 mg PO QHS Qty: 90 RF: 2 budesonide-formoterol [Symbicort] 160-4.5 mcg/actuation HFA aerosol inhaler 2 puff Inhalation BID Qty: 3 RF: 3 bupropion HCl 150 mg tablet extended release 24 hr 150 mg PO BID Qty: 180 RF: 3 diltiazem HCl 240 mg capsule,extended release 24hr 240 mg PO DAILY Qty: 90 RF: 3 pantoprazole 40 mg tablet,delayed release (DR/EC) 40 mg PO DAILY Qty: 90 RF: 3 Eliquis 5 mg tablet 5 mg PO BID Qty: 180 RF: 3 metoprolol succinate 100 mg tablet extended release 24 hr 150 mg PO DAILY Qty: 135 RF: 3 furosemide 20 mg tablet 20 mg PO DAILY Qty: 90 RF: 2 Stiolto Respimat 2.5-2.5 mcg/actuation mist 2 puff IH DAILY RF: 0 gabapentin 600 mg tablet 600 mg PO TID Qty: 270 RF: 1 Discharge Instructions Instructions: Beauchamp Catheter Placement and Care (ED) Additional Instructions: It appears that your Beauchamp catheter was clogged, it flushed easily and is now functioning properly. Urinalysis does not reveal any obvious signs of infection, culture pending. Please watch for new or worsening symptoms and return to the ER for any concerns. I do recommend following up with your surgical team this week as already scheduled for postsurgical care and Beauchamp catheter removal Medical Decision Making <REILLY Borrero - Last Filed: 10/10/19 14:51> Patient presents status post thyroidectomy at [facility] 3 days ago for Beauchamp catheter leaking. He is otherwise asymptomatic. He appears well, nontoxic. Initial vital signs did reveal mild tachycardia and hypotension however multiple subsequent vital sign checks revealed heart rate in the 80s and 90s and he was normotensive. Beauchamp catheter easily flushed and now appears to be functioning normally. Urinalysis obtained, no obvious UTI, culture is pending. Case discussed with Dr. Hollingsworth who evaluated the patient in the ER. Please see her note Medical Records Medical records reviewed: Yes I reviewed the patient's medical records. Lab Data Lab results reviewed: Yes I reviewed the patient's lab results. Lab results narrative: 10/10/19 14:15 Urine - Reflex from Ua Urine Culture - Pending Laboratory Tests Range/Units 10/10/19 14:15 Urine Color (Yellow) Yellow Urine Clarity (Clear) Clear Urine pH (5-8) 5.5 Ur Specific [place] (1.005-1.025) 1.015 Urine Protein (Negative) mg/dL Negative Urine Ketones (Negative) mg/dL Negative Urine Blood (Negative) Moderate H Urine Nitrite (Negative) Negative Urine Bilirubin (Negative) Negative Urine Urobilinogen (Up TO 0.2) EU/dL 0.2 Ur Leukocyte Esterase (Negative) Trace H Urine RBC (0-2) HPF >50 H Urine WBC (0-5) HPF 3-5 Ur Epithelial Cells (Negative) HPF Rare Urine Crystals (Negative) HPF Negative Urine Bacteria (Negative) HPF Few Urine Casts (Negative) LPF 5-10 hyaline Urine Mucus (Negative) Trace Ur Culture Indicated? Yes Urine Glucose (Negative) mg/dL Negative <Tona Hollingsworth DO - Last Filed: 10/10/19 14:48> I have seen and examined this patient. I discussed case and reviewed note with the PA and I agree with plan and note as documented. Patient is post thyroidectomy at [facility] 3 days ago with Beauchamp catheter placement. Presented with leakage around Beauchamp catheter which was likely due to obstruction which resolved with flushing. He had no fever, nausea, vomiting or pain. Patient felt much better after catheter flushed. Plan is for follow-up with PCP Dr. Piedra with referral to Dr. Murrieta for Beauchamp removal. Medical Records Medical records reviewed: Yes I reviewed the patient's medical records. HPI <REILLY Borrero - Last Filed: 10/10/19 14:51> General Mode of arrival: ambulatory. Date/Time Provider Initiated Documentation: 10/10/19 13:52. Limitations to Documentation: no limitations. Information obtained by: patient. HPI Narrative: 79-year-old gentleman with a past medical history of A. fib, BPH, cardiomyopathy, spinal stenosis, COPD, depression, obesity, PVD, anticoagulated, who reports a thyroidectomy last at [facility] presenting because he is having issues with his Beauchamp catheter. Catheter was placed at time of the surgery, last night he was manipulating the tubing and felt as though he may have caused an issue. This morning he noticed that there was leaking around the catheter from his penis. He is otherwise asymptomatic. Reports the surgery went well, denies fever, chest pain, change of his chronic shortness of breath, abdominal pain, dysuria, hematuria. He is scheduled to be seen this week to have the catheter removed. Related Data Home Medications Medication Instructions Recorded Confirmed multivitamin 1 ea PO DAILY 07/20/12 10/10/19 acetaminophen 1,000 mg PO Q8H PRN tab-cap 03/10/17 10/10/19 atorvastatin 20 mg tablet 20 mg PO QHS #90 tab 10/20/18 10/10/19 budesonide-formoterol HFA 160 2 puff INHALATION BID #3 inhaler 10/28/18 10/10/19 mcg-4.5 mcg/actuation aerosol inhaler bupropion HCl 150 mg 24 hr tablet, 150 mg PO BID #180 tabcr 01/12/19 10/10/19 extended release diltiazem HCl 240 mg 240 mg PO DAILY #90 tab-cap 01/12/19 10/10/19 capsule,extended release 24 hr pantoprazole 40 mg tablet,delayed 40 mg PO DAILY #90 tabcr 02/09/19 10/10/19 release apixaban 5 mg tablet 5 mg PO BID #180 tab-cap 03/15/19 10/10/19 duloxetine 20 mg capsule,delayed 20 mg PO .4x/week cap 03/18/19 10/10/19 release metoprolol succinate 100 mg 150 mg PO DAILY #135 tab 03/30/19 10/10/19 tablet,extended release 24 hr albuterol sulfate 90 mcg/actuation 2 puff INHALATION Q4H PRN #3 04/21/19 10/10/19 aerosol inhaler inhaler furosemide 20 mg tablet 20 mg PO DAILY #90 tab 06/29/19 10/10/19 tiotropium 2.5 mcg-olodaterol 2.5 2 puff IH DAILY 07/22/19 10/10/19 mcg/actuation mist for inhalation gabapentin 600 mg tablet 600 mg PO TID #270 tab 08/10/19 10/10/19 Previous Rx's Medication Instructions Recorded atorvastatin 20 mg tablet 20 mg PO QHS #90 tab 10/20/18 budesonide-formoterol HFA 160 2 puff INHALATION BID #3 inhaler 10/28/18 mcg-4.5 mcg/actuation aerosol inhaler bupropion HCl 150 mg 24 hr tablet, 150 mg PO BID #180 tabcr 01/12/19 extended release diltiazem HCl 240 mg 240 mg PO DAILY #90 tab-cap 01/12/19 capsule,extended release 24 hr pantoprazole 40 mg tablet,delayed 40 mg PO DAILY #90 tabcr 02/09/19 release apixaban 5 mg tablet 5 mg PO BID #180 tab-cap 03/15/19 metoprolol succinate 100 mg 150 mg PO DAILY #135 tab 03/30/19 tablet,extended release 24 hr albuterol sulfate 90 mcg/actuation 2 puff INHALATION Q4H PRN #3 04/21/19 aerosol inhaler inhaler furosemide 20 mg tablet 20 mg PO DAILY #90 tab 06/29/19 gabapentin 600 mg tablet 600 mg PO TID #270 tab 08/10/19 Allergies Allergy/AdvReac Type Severity Reaction Status Date / Time No Known Allergies Allergy Verified 10/10/19 14:01 General Stated Complaint: GenMedical ANDERS: 3 Review of Systems <REILLY Borrero - Last Filed: 10/10/19 14:51> Constitutional Constitutional: Denies fever(s) Cardiovascular Cardiovascular: Denies chest pain Respiratory Respiratory: Denies cough Gastrointestinal Gastrointestinal: Denies abdominal pain, Denies nausea and Denies vomiting Genitourinary Genitourinary: Denies hematuria and Denies dysuria Integumentary/Breasts Skin/Breast: Denies rash PFSH <REILLY Borrero - Last Filed: 10/10/19 14:51> Medical History Actinic keratosis Anxiety disorder Atrial fibrillation Basal cell carcinoma BPH (benign prostatic hyperplasia) Cardiomyopathy Central stenosis of spinal canal Chronic pruritus Chronic toe pain, bilateral COPD (chronic obstructive pulmonary disease) Depression Depressive disorder (Chronic 05/22/11) Diastasis recti Diverticula of colon DJD (degenerative joint disease) Dyslipidemia Dysmetabolic syndrome Epididymitis Gout History of ETOH abuse 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 Cooper Dsouza Family History Mother , old age at age 93. No problems noted. Father , CVA at age 82. No problems noted. Brother No problems noted. Brother Age: 76 No problems noted. Brother Age: 70 No problems noted. Other Alcohol abuse Social History Smoking/Tobacco Use Status: Former Tobacco Use Quit Date: 08/10/1968 Alcohol Intake: former Drug use: Never Substance use type: does not use Household members: spouse Housing: house Number of Children: 2 Communication Needs: Corrective Lenses current occupation: Retired [employer] Pets and animals: No Current gender identity: male What is your relationship status?: Panel score (0-1 are the most socially isolated patients): 1 What type of physical activity do you participate in: none Frequency: 1-2 times per week Seatbelt use: always Drive intox or ride w/intox refuse driver: No Working smoke detector in home: Yes Fire extinguisher in home: Yes Carbon monox detector in home: Yes Do you feel safe at home: Yes Do you feel safe in your relationship?: Yes Exam <REILLY Borrero - Last Filed: 10/10/19 14:51> Const General: cooperative, healthy appearing, comfortable and no acute distress Orientation: alert, awake and oriented x3 HENMT Head: normal to inspection, normocephalic and atraumatic Mouth: moist mucous membranes Eyes Conjunctivae: conjunctivae normal Neck Neck: trachea midline, supple and other (Anterior aspect with ecchymosis, well-healing surgical incision) Resp Effort & Inspection: normal respiratory effort and able to speak in complete sentences Auscultation: clear to auscultation bilaterally Cardio Rhythm: abnormal rhythm irregularly irregular (Rate in the 80s) GI Inspection: normal to inspection Palpation: soft, not firm, no guarding, not rigid and nontender Auscultation: normal bowel sounds Male General Exam: Yes normal external exam (Beauchamp catheter in place) Skin General skin exam: no rashes or lesions noted Neuro General: patient alert, patient awake, moves all extremities and no focal motor deficits Sensory Exam: no sensory deficits noted Psych Appearance: grossly normal Mental Status: mental status grossly normal Course <REILLY Borrero - Last Filed: 10/10/19 14:51> Vital Signs Vital signs: Vital Signs Temperature 36.8 C 10/10/19 13:58 Pulse 103 H 10/10/19 13:58 Respiratory Rate 16 10/10/19 13:58 Blood Pressure 93/68 L 10/10/19 13:58 Pulse Oximetry 94 L 10/10/19 13:58 Temperature 36.8 C 10/10/19 13:58 Temperature Source Tympanic 10/10/19 13:58 Pulse 103 H 10/10/19 13:58 Respiratory Rate 16 10/10/19 13:58 Respiratory Effort Non-Labored 10/10/19 14:00 Blood Pressure 93/68 L 10/10/19 13:58 Blood Pressure Position Sitting 10/10/19 13:58 Pulse Oximetry 94 L 10/10/19 13:58 Oxygen Delivery Method Room Air 10/10/19 13:58 Oxygen Flow Rate 0 10/10/19 13:58 Pain Level 0 10/10/19 13:58
[2019-10-10 14:14] VITALS: RESP 16
[2019-10-10 14:19] LABS: Bilirubin Negative (Negative); Blood Moderate (Negative); Clarity Clear (Clear); Glucose Negative (Negative); Ketones Negative (Negative); Leukocyte Esterase Trace (Negative); Nitrite Negative (Negative); Specific Gravity 1.015 (1.005-1.025); Urobilinogen 0.2 EU/dL (Up TO 0.2); pH 5.5 (5-8)
[2019-10-10 14:31] LABS: Bacteria Few HPF (Negative); C & S Indicated? Yes; Casts 5-10 Hyaline LPF (Negative); Crystals Negative HPF (Negative); Epithelial Cells Rare HPF (Negative); Mucus Trace (Negative); RBC >50 HPF (0-2)
== END 2019-10-10 14:50 | disposition home or self-care (01) ==
PROVIDERS: Emergency Provider Physician Assistant; PCP Internal Medicine
DX: T83.031A Leakage of indwelling urethral catheter, initial encounter (principal); T83.091A Other mechanical complication of indwelling urethral catheter, initial encounter; Y84.6 Urinary catheterization as the cause of abnormal reaction of the patient, or of later complication, without mention of misadventure at the time of the procedure; N40.0 Benign prostatic hyperplasia without lower urinary tract symptoms; R00.0 Tachycardia, unspecified; J44.9 Chronic obstructive pulmonary disease, unspecified; Z87.891 Personal history of nicotine dependence
CPT/HCPCS: 99284; 81003; 81015; 87086; 99283

== ENCOUNTER → 2019-10-12 12:20 | Outpatient (BNVA) | payer MEDICARE, BC, SELFPAY | PROVIDERS: PCP Internal Medicine; Referring Provider Internal Medicine; Visit Provider Urology | DX: N99.89 Other postprocedural complications and disorders of genitourinary system (principal); R33.8 Other retention of urine; J44.9 Chronic obstructive pulmonary disease, unspecified; Z87.891 Personal history of nicotine dependence | CPT/HCPCS: 99212; 99213 ==

== ENCOUNTER → 2019-10-15 10:00 | Outpatient (BNVA) | payer MEDICARE, BC, SELFPAY | PROVIDERS: PCP Internal Medicine; Referring Provider Internal Medicine; Visit Provider Urology | DX: N40.0 Benign prostatic hyperplasia without lower urinary tract symptoms (principal); J44.9 Chronic obstructive pulmonary disease, unspecified; Z87.891 Personal history of nicotine dependence | CPT/HCPCS: 81003; 99213 ==

== ENCOUNTER 2019-10-15 16:06 | Outpatient (REF) | payer MEDICARE, BC, SELFPAY | END 2019-10-15 16:26 | LOC: LBN 16:06 | PROVIDERS: PCP Internal Medicine; Visit Provider Urology | DX: R30.0 Dysuria (principal); N40.0 Benign prostatic hyperplasia without lower urinary tract symptoms | CPT/HCPCS: 87077; 87086; 87186 ==

== ENCOUNTER → 2019-10-25 10:50 | Outpatient (BNVA) | payer MEDICARE, BC, SELFPAY | PROVIDERS: PCP Internal Medicine; Referring Provider Internal Medicine; Visit Provider Internal Medicine Cardiovascular Disease | DX: I48.20 Chronic atrial fibrillation, unspecified (principal); J44.9 Chronic obstructive pulmonary disease, unspecified; Z87.891 Personal history of nicotine dependence; R06.02 Shortness of breath | CPT/HCPCS: 99214; 99442 ==

== ENCOUNTER 2019-12-28 22:49 | Outpatient (REF) | payer MEDICARE, BC, SELFPAY ==
[2019-12-28 20:26] LABS: Anion Gap 10.3 mmol/L (3-11); BUN 16 mg/dL (7-18); CO2 26.7 mmol/L (21.0-32.0); CREATININE 1.41 mg/dL (0.70-1.30); Calcium 9.4 mg/dL (8.5-10.1); Chloride 104 mmol/L (98-107); Estimated GFR 48.61 (mL/min/1.73m2); Glucose 152 mg/dL (74-106); Potassium 4.5 mmol/L (3.5-5.1); Sodium 141 mmol/L (136-145)
== END 2019-12-28 23:09 ==
LOC: LBN 22:49
PROVIDERS: PCP Internal Medicine; Visit Provider Internal Medicine
DX: I95.9 Hypotension, unspecified (principal)
CPT/HCPCS: 80048

== ENCOUNTER 2020-01-02 14:56 | Inpatient (IN) | payer MEDICARE, BC, SELFPAY ==
[2020-01-02] VITALS (117 sets, daily range): BP systolic 80–145; BP diastolic 44–128; PULSE 51–97; RESP 12–23; TEMP 36.8–36.9; O2SAT 93–100
--- NOTE | 2020-01-02 15:15 | DI.RAD_ITS ---
EXAM: XR TIB/FIB RT CLINICAL HISTORY: s/p fall, r/o acute fracture TECHNIQUE: COMPARISON: CR XR ANKLE RT COMPLETE from 01/02/2020 FINDINGS: Three views of the leg and three views of the ankle were obtained. There is a fracture dislocation w ith comminuted fracture of the distal fibula and marked displacement of the tibia from the tibiotalar joint. The distal fibula appears fairly normally aligned with regard to the talofibular joint. Posterior aspect of the distal tibia is poorly visualized and there may be a fracture of the posterio r malleolus as well. Additional evaluation with CT suggested to more accurately define the fracture. IMPRESSION: RADIATION DOSE DELIVERED: Total DLP
--- NOTE | 2020-01-02 15:15 | RT.EKG_ITS ---
APPROVED REPORT Exam: Resting ECG Patient Location: E HR:65 bpm ECG Measurements Heart Rate 65 AXIS W[place] [id number] P [id number] QRSd 97 QRS 16 QT 422 T 50 QTc 439 Conclusion Atrial fibrillation...V-rate 57- 57, irreg A-activity Ventricular premature complex...V complex w/ short R-R interval Low voltage, extremity leads...all extremity leads <0.5mV Consider anterior infarct...Q >30mS in V2-V5 Repol abnrm, prob ischemia, anterolateral lds...ST dep, T neg, I aVL V2-V6. Occasional PVCs. Less than 1mm ST depression. No STEMI.
--- NOTE | 2020-01-02 15:26 | W.ED.GENAD ---
Discharge Plan Disposition Patient Disposition: [facility] INPATIENT Condition: Stable Discharge Details Chief Complaint: GenMedical Clinical Impression: Displaced trimalleolar fracture of right ankle, Dizziness, Generalized weakness, UTI (urinary tract infection) Primary Care Provider: Sandra Piedra ED Provider: Tona Hollingsworth Home Meds and New Rx's Prescriptions: No Action albuterol sulfate [ProAir HFA] 90 mcg/actuation HFA aerosol inhaler 2 puff Inhalation Q4H PRN Qty: 3 RF: 3 bupropion HCl 150 mg tablet extended release 24 hr 150 mg PO BID Qty: 180 RF: 3 diltiazem HCl 240 mg capsule,extended release 24hr 240 mg PO DAILY Qty: 90 RF: 3 gabapentin 600 mg tablet 600 mg PO TID Qty: 270 RF: 3 duloxetine 20 mg capsule,delayed release(DR/EC) 20 mg PO .4x/week RF: 0 Hold Instructions: Home Medication placed on hold at Doctor's office multivitamin 1 EACH tablet 1 ea PO DAILY RF: 0 acetaminophen 500 MG tablet 1,000 mg PO Q8H PRN RF: 0 pantoprazole 40 mg tablet,delayed release (DR/EC) 40 mg PO DAILY Qty: 90 RF: 3 Eliquis 5 mg tablet 5 mg PO BID Qty: 180 RF: 3 metoprolol succinate 100 mg tablet extended release 24 hr 150 mg PO DAILY Qty: 135 RF: 3 furosemide 20 mg tablet 20 mg PO DAILY Qty: 90 RF: 2 Hold Instructions: dehydration Stiolto Respimat 2.5-2.5 mcg/actuation mist 2 puff IH DAILY RF: 0 levothyroxine 200 mcg tablet 200 mcg PO DAILY RF: 0 atorvastatin 20 mg tablet 20 mg PO QHS Qty: 90 RF: 3 budesonide-formoterol [Symbicort] 160-4.5 mcg/actuation HFA aerosol inhaler 2 puff Inhalation BID Qty: 3 RF: 3 Medical Decision Making 1530 -- 79-year-old male with multiple medical problems including atrial fibrillation on Eliquis, COPD, thyroid cancer, obesity, peripheral vascular disease presents for right ankle injury after legs gave out yesterday during an episode of weakness. Right ankle appears deformed with tenting of skin and small bleeding abrasion on medial malleolus. Neurovascularly intact. 1+ pitting edema to the right lower extremity. As patient complained of dizziness and weakness while walking, will check screening labs, urinalysis and give fluids, pain control and obtain a right ankle and tib-fib x-rays. 1700 -- Labs and imaging reviewed. White blood cell count 13. Urinalysis notes UTI. Troponin negative. EKG notes a rate of 65, atrial fibrillation with no evidence of STEMI. Right ankle x-ray notes trimalleolar fracture with disruption of ankle mortise. Case discussed with Dr. Webber who agrees with plan for attempting reduction here and splinting. Will need surgical fixation. Patient given 4 mg of morphine, 1 mg of Versed and reduction attempted at bedside with what appeared to be minimal reduction and improvement of deformity. X-rays did not note any significant reduction. This was discussed with Dr. Webber who states this is likely expected given the injury yesterday and need for surgical repair Considering patient's age and history, would be beneficial for admission overnight with plan for operative repair in the morning. Patient and agreeable with this plan. 1819 -- Case discussed with hospitalist who accepts patient for admission. Rocephin ordered for UTI. Medical Records Medical records reviewed: Yes I reviewed the patient's medical records. Imaging Data Radiologic Study: Radiologist's impression: XR TIB/FIB RT CLINICAL HISTORY: s/p fall, r/o acute fracture TECHNIQUE: COMPARISON: CR XR ANKLE RT COMPLETE from 01/02/2020 FINDINGS: Three views of the leg and three views of the ankle were obtained. There is a fracture dislocation with comminuted fracture of the distal fibula and marked displacement of the tibia from the tibiotalar joint. The distal fibula appears fairly normally aligned with regard to the talofibular joint. Posterior aspect of the distal tibia is poorly visualized and there may be a fracture of the posterior malleolus as well. Additional evaluation with CT suggested to more accurately define the fracture. XR Right Ankle Exam date and time: 01/02/2020 6:08 PM Age: 79 years old Clinical indication: Other: S/P fall, post reduction xray, assess reduction TECHNIQUE: Imaging protocol: XR Right ankle. Views: 1 or 2 views. COMPARISON: CR XR ANKLE RT COMPLETE 01/02/2020 4:13 PM FINDINGS: Bones/joints: Appearance of the ankle and imaged foot including comminuted fibular fracture and dislocation/subluxation of the tibia in relation to the talus and likely of the talus in relation to the calcaneus is not significantly changed since the prior study. Bony detail is slightly limited due to overlying material now present on the current study. Soft tissues: Redemonstrated prominent soft tissue swelling about the ankle. IMPRESSION: No significant change in appearance or alignment of the ankle compared to prior same-day dam. XR Chest, 1 View Exam date and time: 01/02/2020 7:27 PM Age: 79 years old Clinical indication: Patient HX: Dizziness, R/O acute disease TECHNIQUE: Imaging protocol: XR of the chest Views: 1 view. COMPARISON: No relevant comparison study. FINDINGS: Lungs: Increased left retrocardiac density consistent with atelectasis versus infiltrate. Right upper lobe lateral pleural thickening. Pleural space: Indistinctness or blunting of the left lateral costophrenic angle may represent a pleural effusion. Heart/Mediastinum: Cardiomegaly. Bones/joints: Multilevel degenerative changes of the thoracic spine. IMPRESSION: 1. Cardiomegaly. 2. Left retrocardiac density with blunting of the left costophrenic angle may represent a small effusion, atelectasis, or infiltrate. 3. Right upper lobe pleural thickening. Lab Data Lab results reviewed: Yes I reviewed the patient's lab results. Labs: 01/02/20 16:28 Urine - Reflex from Ua Urine Culture - Pending Laboratory Tests Range/Units 01/02/20 01/02/20 01/02/20 15:47 15:47 15:47 WBC (4.4-10.8) 10^3/uL 13.34 H RBC (4.36-5.78) 10^6/uL 4.11 L Hgb (13.5-17.5) g/dL 11.7 L Hct (40.0-50.0) % 36.1 L MCV (80-95) fL 87.8 MCH (27.0-33.0) pg 28.5 MCHC (32.0-36.0) % 32.4 RDW (11.8-14.1) % 16.6 H Plt Count (130-400) 10^3/uL 277 MPV (8.0-11.0) fL 10.3 Immature Gran % 0.9 Neutrophils % 73.8 Lymphocytes % 10.5 Monocytes % 14.2 Eosinophils % 0.5 Basophils % 0.1 Nucleated RBC % % 0 Absolute Neutrophils (1.2-6.7) 10^3/uL 9.84 H Absolute Lymphocytes (1.2-3.4) 10^3/uL 1.40 Absolute Monocytes (0.1-0.8) 10^3/uL 1.89 H Absolute Eosinophils (0.0-0.7) 10^3/uL 0.07 Absolute Basophils (0.0-0.2) 10^3/uL 0.01 PT (9.3-11.0) sec 11.3 H INR (0.9-1.1) 1.1 APTT (21.0-31.4) sec 27.7 Sodium (136-145) mmol/L 135 L Potassium (3.5-5.1) mmol/L 4.5 Chloride (98-107) mmol/L 99 Carbon Dioxide (21.0-32.0) mmol/L 29.6 Anion Gap (3-11) mmol/L 6.4 BUN (7-18) mg/dL 18 Creatinine (0.70-1.30) mg/dL 1.61 H Estimated GFR/1.73 m2 (mL/min/1.73m2) 41.71 Glucose (74-106) mg/dL 121 H Calcium (8.5-10.1) mg/dL 8.6 Magnesium (1.8-2.4) mg/dL 2.3 Total Bilirubin (0.2-1.0) mg/dL 1.3 H AST (15-37) U/L 19 ALT (16-63) U/L 18 Alkaline Phosphatase (46-116) U/L 101 Troponin I (<0.06) ng/mL < 0.05 Total Protein (6.4-8.2) g/dL 7.2 Albumin (3.4-5.0) g/dL 3.5 Urine Color (Yellow) Urine Clarity (Clear) Urine pH (5-8) Ur Specific [place] (1.005-1.025) Urine Protein (Negative) mg/dL Urine Ketones (Negative) mg/dL Urine Blood (Negative) Urine Nitrite (Negative) Urine Bilirubin (Negative) Urine Urobilinogen (Up TO 0.2) EU/dL Ur Leukocyte Esterase (Negative) Urine RBC Urine WBC (0-5) HPF Ur Epithelial Cells Urine Crystals Urine Bacteria (Negative) HPF Urine Mucus Ur Culture Indicated? Urine Glucose (Negative) mg/dL Range/Units 01/02/20 16:28 WBC (4.4-10.8) 10^3/uL RBC (4.36-5.78) 10^6/uL Hgb (13.5-17.5) g/dL Hct (40.0-50.0) % MCV (80-95) fL MCH (27.0-33.0) pg MCHC (32.0-36.0) % RDW (11.8-14.1) % Plt Count (130-400) 10^3/uL MPV (8.0-11.0) fL Immature Gran % Neutrophils % Lymphocytes % Monocytes % Eosinophils % Basophils % Nucleated RBC % % Absolute Neutrophils (1.2-6.7) 10^3/uL Absolute Lymphocytes (1.2-3.4) 10^3/uL Absolute Monocytes (0.1-0.8) 10^3/uL Absolute Eosinophils (0.0-0.7) 10^3/uL Absolute Basophils (0.0-0.2) 10^3/uL PT (9.3-11.0) sec INR (0.9-1.1) APTT (21.0-31.4) sec Sodium (136-145) mmol/L Potassium (3.5-5.1) mmol/L Chloride (98-107) mmol/L Carbon Dioxide (21.0-32.0) mmol/L Anion Gap (3-11) mmol/L BUN (7-18) mg/dL Creatinine (0.70-1.30) mg/dL Estimated GFR/1.73 m2 (mL/min/1.73m2) Glucose (74-106) mg/dL Calcium (8.5-10.1) mg/dL Magnesium (1.8-2.4) mg/dL Total Bilirubin (0.2-1.0) mg/dL AST (15-37) U/L ALT (16-63) U/L Alkaline Phosphatase (46-116) U/L Troponin I (<0.06) ng/mL Total Protein (6.4-8.2) g/dL Albumin (3.4-5.0) g/dL Urine Color (Yellow) Yellow Urine Clarity (Clear) Cloudy Urine pH (5-8) 6.0 Ur Specific [place] (1.005-1.025) 1.020 Urine Protein (Negative) mg/dL Trace H Urine Ketones (Negative) mg/dL Negative Urine Blood (Negative) Small H Urine Nitrite (Negative) Positive H Urine Bilirubin (Negative) Negative Urine Urobilinogen (Up TO 0.2) EU/dL 1.0 H Ur Leukocyte Esterase (Negative) Large H Urine RBC Not Applicable Urine WBC (0-5) HPF >50 H Ur Epithelial Cells Not Applicable Urine Crystals Not Applicable Urine Bacteria (Negative) HPF Packed Urine Mucus Not Applicable Ur Culture Indicated? Yes Urine Glucose (Negative) mg/dL Negative ECG Data Attestation: I personally reviewed and interpreted this ECG (s) as follows: Interpretation: Rate of 65, atrial fibrillation, less than [address] depression in lead II. No acute ST elevation. Occasional PVCs. WI 214. QRS 97. QTc 439. HPI General Mode of arrival: EMS. Date/Time Provider Initiated Documentation: 01/02/20 15:10. Limitations to Documentation: no limitations. Information obtained by: patient. HPI Narrative: Patient is a 79-year-old male with multiple medical problems including atrial fibrillation on Eliquis, COPD, depression, gout, thyroid cancer, obesity, former alcohol abuse who presents for ankle injury that was sustained yesterday. Patient states he started a diet recently in preparation for his radiation for his thyroid cancer and he feels that this is making him weak. He states yesterday he was walking when his legs gave out due to his weakness and he twisted his right ankle. He has been ambulating on it since yesterday. He denies any other injuries. He denies chest pain or shortness of breath prior to fall. Related Data Home Medications Medication Instructions Recorded Confirmed multivitamin 1 ea PO DAILY 07/20/12 01/02/20 acetaminophen 1,000 mg PO Q8H PRN tab-cap 03/10/17 01/02/20 pantoprazole 40 mg tablet,delayed 40 mg PO DAILY #90 tabcr 02/09/19 01/02/20 release apixaban 5 mg tablet 5 mg PO BID #180 tab-cap 03/15/19 01/02/20 duloxetine 20 mg capsule,delayed 20 mg PO .4x/week cap 03/18/19 01/02/20 release metoprolol succinate 100 mg 150 mg PO DAILY #135 tab 03/30/19 01/02/20 tablet,extended release 24 hr albuterol sulfate 90 mcg/actuation 2 puff INHALATION Q4H PRN #3 04/21/19 01/02/20 aerosol inhaler inhaler furosemide 20 mg tablet 20 mg PO DAILY #90 tab 06/29/19 01/02/20 tiotropium 2.5 mcg-olodaterol 2.5 2 puff IH DAILY 07/22/19 01/02/20 mcg/actuation mist for inhalation levothyroxine 200 mcg tablet 200 mcg PO DAILY 10/11/19 01/02/20 atorvastatin 20 mg tablet 20 mg PO QHS #90 tab 11/02/19 01/02/20 budesonide-formoterol HFA 160 2 puff INHALATION BID #3 inhaler 11/02/19 01/02/20 mcg-4.5 mcg/actuation aerosol inhaler bupropion HCl 150 mg 24 hr tablet, 150 mg PO BID #180 tabcr 12/29/19 01/02/20 extended release diltiazem HCl 240 mg 240 mg PO DAILY #90 tab-cap 12/29/19 01/02/20 capsule,extended release 24 hr gabapentin 600 mg tablet 600 mg PO TID #270 tab 12/29/19 01/02/20 Previous Rx's Medication Instructions Recorded pantoprazole 40 mg tablet,delayed 40 mg PO DAILY #90 tabcr 02/09/19 release apixaban 5 mg tablet 5 mg PO BID #180 tab-cap 03/15/19 metoprolol succinate 100 mg 150 mg PO DAILY #135 tab 03/30/19 tablet,extended release 24 hr albuterol sulfate 90 mcg/actuation 2 puff INHALATION Q4H PRN #3 04/21/19 aerosol inhaler inhaler furosemide 20 mg tablet 20 mg PO DAILY #90 tab 06/29/19 atorvastatin 20 mg tablet 20 mg PO QHS #90 tab 11/02/19 budesonide-formoterol HFA 160 2 puff INHALATION BID #3 inhaler 11/02/19 mcg-4.5 mcg/actuation aerosol inhaler bupropion HCl 150 mg 24 hr tablet, 150 mg PO BID #180 tabcr 12/29/19 extended release diltiazem HCl 240 mg 240 mg PO DAILY #90 tab-cap 12/29/19 capsule,extended release 24 hr gabapentin 600 mg tablet 600 mg PO TID #270 tab 12/29/19 Allergies Allergy/AdvReac Type Severity Reaction Status Date / Time No Known Allergies Allergy Verified 01/02/20 15:06 General Stated Complaint: Orthopedic ANDERS: 4 Review of Systems All systems reviewed & are unremarkable except as noted in HPI and below Constitutional Constitutional: Reports as per HPI, Denies chills, Denies fever(s) and Reports weakness Eyes Eyes: Denies blurry vision ENT Ears, Nose, Mouth, and Throat: Denies dizziness, Denies sore throat and Denies throat swelling Cardiovascular Cardiovascular: Denies chest pain and Denies dyspnea Respiratory Respiratory: Denies cough and Denies dyspnea Gastrointestinal Gastrointestinal: Denies abdominal pain, Denies diarrhea and Denies vomiting Genitourinary Genitourinary: Denies hematuria and Denies dysuria Musculoskeletal Musculoskeletal: Denies back pain, Denies numbness and Reports other (Right ankle injury) Integumentary/Breasts Skin/Breast: Denies lesions and Denies rash Neurologic Neurologic: Denies dizziness, Denies localized weakness, Denies numbness and Reports weakness Allergic/Immunologic Allergic/Immunologic: Denies throat swelling [facility] Medical History (Updated 01/02/20 @ 18:23 by Tona Hollingsworth DO) Actinic keratosis Anxiety disorder Atrial fibrillation Basal cell carcinoma BPH (benign prostatic hyperplasia) Cardiomyopathy Central stenosis of spinal canal Chronic pruritus Chronic toe pain, bilateral COPD (chronic obstructive pulmonary disease) Depression Depressive disorder (Chronic 05/22/11) Diastasis recti Diverticula of colon DJD (degenerative joint disease) Dyslipidemia Dysmetabolic syndrome Epididymitis Gout History of ETOH abuse 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 Cooper Dsouza Status post thyroidectomy (Acute 10/09/19) Limited neck dissection Family History Mother , old age at age 93. No problems noted. Father , CVA at age 82. No problems noted. Brother No problems noted. Brother Age: 76 No problems noted. Brother Age: 70 No problems noted. Other Alcohol abuse Social History Smoking/Tobacco Use Status: Former Tobacco Use Quit Date: 08/10/1968 Alcohol Intake: former Drug use: Never Substance use type: does not use Household members: spouse Housing: house Number of Children: 2 Communication Needs: Corrective Lenses current occupation: Retired [employer] Pets and animals: No Current gender identity: male What is your relationship status?: Panel score (0-1 are the most socially isolated patients): 1 What type of physical activity do you participate in: none Frequency: 1-2 times per week Seatbelt use: always Drive intox or ride w/intox stud driver: No Working smoke detector in home: Yes Fire extinguisher in home: Yes Carbon monox detector in home: Yes Do you feel safe at home: Yes Do you feel safe in your relationship?: Yes Exam Const General: cooperative, no acute distress and ill appearing chronically Orientation: alert, awake and oriented x3 [facility] Head: normal to inspection Face and sinus: normal facial exam Eyes General: appearance normal, both eyes and all related structures EOM: EOM intact bilaterally Neck Neck: normal visual inspection and No submandibular swelling Lymphatic: no lymphadenopathy noted Chest Chest: normal inspection of the chest and no tenderness Resp Effort & Inspection: normal respiratory effort and able to speak in complete sentences Auscultation: clear to auscultation bilaterally Cardio Rate: regular rate Rhythm: regular rhythm GI Inspection: normal to inspection and obesity Palpation: soft, not firm, not rigid and nontender Auscultation: normal bowel sounds Skin General skin exam: no rashes or lesions noted Neuro General: patient alert, patient awake and patient oriented x3 Cognition: normal cognition Speech: speech normal Motor: muscle tone normal throughout Sensory Exam: no sensory deficits noted Extrem Other: Deformity noted to right ankle with tenting of skin on medial malleolus. Distal leg deviated medially and right foot deviated laterally. Right DP/PT pulses intact. There is 1+ pitting edema to the right lower extremity with fluid-filled blisters noted anteriorly. Psych Appearance: grossly normal Mental Status: mental status grossly normal Speech and Movement: speech and movement normal Affect: normal affect Course Vital Signs Vital signs: Vital Signs Temperature 98.4 F 01/02/20 14:59 Pulse 69 01/02/20 14:59 Respiratory Rate 16 01/02/20 14:59 Blood Pressure 108/53 L 01/02/20 14:59 Pulse Oximetry 96 01/02/20 14:59 Temperature 98.4 F 01/02/20 14:59 Temperature Source Skin 01/02/20 14:59 Pulse 69 01/02/20 14:59 Respiratory Rate 16 01/02/20 14:59 Respiratory Effort Non-Labored 01/02/20 14:59 Blood Pressure 108/53 L 01/02/20 14:59 Blood Pressure Position Supine 01/02/20 14:59 Pulse Oximetry 96 01/02/20 14:59 Oxygen Delivery Method Room Air 01/02/20 14:59 Oxygen Flow Rate 0 01/02/20 14:59 Pain Level 10 01/02/20 15:13 Procedures Orthopedic Fracture Reduction Fracture #1: Time Out Performed: Yes Side: right Fracture Reduction Location: tibia and fibula Analgesia: procedural sedation Technique: direct manipulation Post Reduction X-rays Demonstrate: other (no significant reduction) Post-reduction neuro exam: intact Post-reduction vascular exam: intact Splint Applied: Yes Patient Tolerated Procedure: well
[2020-01-02 15:54] LABS: Abs Immature Grans 0.12 10^3/uL (0.0-0.06); Absolute Eosinophil Count 0.07 10^3/uL (0.0-0.7); Absolute Monocyte Count 1.89 10^3/uL (0.1-0.8); Absolute Neutrophil Count 9.84 10^3/uL (1.2-6.7); Basophils % 0.1; Eosinophils % 0.5; HCT 36.1 % (40.0-50.0); HGB 11.7 g/dL (13.5-17.5); Immature Grans % 0.9; Lymphocytes % 10.5; MCH 28.5 pg (27.0-33.0); MCHC 32.4 % (32.0-36.0); MCV 87.8 fL (80-95); MPV 10.3 fL (8.0-11.0); Monocytes % 14.2; Neutrophils % 73.8; Nucleated RBC 0 %; Platelet Count 277 10^3/uL (130-400); RBC 4.11 10^6/uL (4.36-5.78); RDW 16.6 % (11.8-14.1); WBC 13.34 10^3/uL (4.4-10.8)
[2020-01-02 15:55] LABS: Absolute Basophil Count 0.01 10^3/uL (0.0-0.2)
[2020-01-02 16:10] LABS: ALT 18 U/L (16-63); AST 19 U/L (15-37); Albumin 3.5 g/dL (3.4-5.0); Alkaline Phosphatase 101 U/L (46-116); Anion Gap 6.4 mmol/L (3-11); BUN 18 mg/dL (7-18); Bilirubin, Total 1.3 mg/dL (0.2-1.0); CO2 29.6 mmol/L (21.0-32.0); CREATININE 1.61 mg/dL (0.70-1.30); Calcium 8.6 mg/dL (8.5-10.1); Chloride 99 mmol/L (98-107); Estimated GFR 41.71 (mL/min/1.73m2); Glucose 121 mg/dL (74-106); INR 1.1 (0.9-1.1); Magnesium 2.3 mg/dL (1.8-2.4); PTT Activated 27.7 sec (21.0-31.4); Potassium 4.5 mmol/L (3.5-5.1); Prothrombin Time 11.3 sec (9.3-11.0); Sodium 135 mmol/L (136-145); Total Protein 7.2 g/dL (6.4-8.2); Troponin I < 0.05 ng/mL (<0.06)
[2020-01-02 16:16] LABS: Diff Comment Agrees w/ Instrument
[2020-01-02 16:43] LABS: Bilirubin Negative (Negative); Blood Small (Negative); Clarity Cloudy (Clear); Glucose Negative (Negative); Ketones Negative (Negative); Leukocyte Esterase Large (Negative); Nitrite Positive (Negative)
[2020-01-02] MEDS: Normal Saline 250 ML IV ×2 (16:44→16:55)
[2020-01-02 17:08] LABS: Bacteria Packed HPF (Negative); C & S Indicated? Yes; WBC >50 HPF (0-5)
[2020-01-02] MEDS: Midazolam 2 MG/2 ML VIAL IVP (17:44)
[2020-01-02] MEDS: fentaNYL 100 MCG/2 ML VIAL IVP (17:55)
--- NOTE | 2020-01-02 18:15 | DI.RAD_ITS ---
EXAM: XR ANKLE RT 2V CLINICAL HISTORY: s/p fall, post reduction xray, assess reduction TECHNIQUE: COMPARISON: CR XR ANKLE RT COMPLETE from 01/02/2020 FINDINGS: Two views were obtained and show the ankle in a splint. Fractures of the distal tibia and fibula aga in noted with persistent marked displacement at the tibiotalar joint. IMPRESSION: RADIATION DOSE DELIVERED: Total DLP
--- NOTE | 2020-01-02 18:51 | DI.VRAD_ITS ---
PROCEDURE INFORMATION: Exam: XR Right Ankle Exam date and time: 01/02/2020 6:08 PM Age: 79 years old Clinical indication: Other: S/P fall, post reduction xray, assess reduction TECHNIQUE: Imaging protocol: XR Right ankle. Views: 1 or 2 views. COMPARISON: CR XR ANKLE RT COMPLETE 01/02/2020 4:13 PM FINDINGS: Bones/joints: Appearance of the ankle and imaged foot including comminuted fibular fracture and dislocation/subluxation of the tibia in relation to the talus and likely of the talus in relation to the calcaneus is not significantly changed since the prior study. Bony detail is slightly limited due to overlying material now present on the current study. Soft tissues: Redemonstrated prominent soft tissue swelling about the ankle. IMPRESSION: No significant change in appearance or alignment of the ankle compared to prior same-day dam. Dictated and Authenticated by: Nas Seymour MD. Ordering:RYAN Carbone MD
[2020-01-02] MEDS: fentaNYL 100 MCG/2 ML VIAL 50 MCG IVP (19:20)
[2020-01-02] MEDS: cefTRIAXone 1 GM/50 ML BAG IVPB (19:21)
--- NOTE | 2020-01-02 19:25 | DI.RAD_ITS ---
EXAM: XR PORTABLE CHEST AP CLINICAL HISTORY: dizziness, r/o acute disease TECHNIQUE: COMPARISON: CR CHEST 2 VIEWS PA,LAT from 01/02/2018 FINDINGS: Heart is at the upper limits of normal in size. Question streaky retrocardiac radiodensity, consolid ation and/or atelectasis may be present. Otherwise lungs are grossly clear. IMPRESSION: Question left lower lobe process, PA and lateral chest suggested for correlation. RADIATION DOSE DELIVERED: Total DLP
--- NOTE | 2020-01-02 19:52 | DI.VRAD_ITS ---
PROCEDURE INFORMATION: Exam: XR Chest, 1 View Exam date and time: 01/02/2020 7:27 PM Age: 79 years old Clinical indication: Patient HX: Dizziness, R/O acute disease TECHNIQUE: Imaging protocol: XR of the chest Views: 1 view. COMPARISON: No relevant comparison study. FINDINGS: Lungs: Increased left retrocardiac density consistent with atelectasis versus infiltrate. Right upper lobe lateral pleural thickening. Pleural space: Indistinctness or blunting of the left lateral costophrenic angle may represent a pleural effusion. Heart/Mediastinum: Cardiomegaly. Bones/joints: Multilevel degenerative changes of the thoracic spine. IMPRESSION: 1. Cardiomegaly. 2. Left retrocardiac density with blunting of the left costophrenic angle may represent a small effusion, atelectasis, or infiltrate. 3. Right upper lobe pleural thickening. Dictated and Authenticated by: Ryann Torres MD. Ordering:RYAN Carbone MD
[2020-01-02] MEDS: ACETAMINOPHEN 1,000 MG/100 ML BTL 400 MG IVPB (20:43)
--- NOTE | 2020-01-02 22:21 | HPE_ITS ---
Date of service: 01/02/20 Time of Service: 22:21 Assessment and Plan Assessment and plan (1) Generalized weakness: Status: Acute Assessment and plan: Patient's fall and ankle fracture excluded precipita db by progressive general weakness. Is evident this weakness followed his diet changes including a drastic reduction in sodium intake, which resulted in a significant decrease in his blood pressure. I am going to slightly decrease his diltiazem in an effort to allow the blood pressure to come up somewhat. He would like to go back to regular diet after surgery, which will also likely increase his blood pressure and improve his symptoms. Not improving, consider repeat echocardiogram. (2) Displaced trimalleolar fracture of right ankle: Status: Acute Assessment and plan: Case was reviewed with Dr. Webber, who feels like a surgical approach is the best option. Patient will be n.p.o. pending surgery tomorrow. He can take his regular medications with sips of water. This difficult to assess the patient's functional status with his recent symptoms, however before the symptoms he was reaching 4 METS. At some uncertainty, I do not think the patient would benefit from postponing the surgery for any further preoperative cardiac testing. Regional anesthesia would be preferable to limit marcelina-cardiac risk. Is not taking his apixaban since this morning, will continue to hold it. I will defer to his surgeon whether skipping 2 doses is enough prior to his procedure is tentatively scheduled for tomorrow. (3) UTI (urinary tract infection): Status: Acute Assessment and plan: Patient's urinalysis is quite consistent with UTI with many white cells and positive nitrate. His weakness may be partially attributed to this. Will treat with ceftriaxone. (4) Hurthle cell carcinoma of thyroid: Status: Acute Assessment and plan: Patient is status post thyroidectomy, with radioactive ablation planned for this week. I encouraged the patient not to give up on this procedure, as it is typically very well-tolerated with minimal side effects, and is already under the worst part of the procedure, which is the dietary changes leading up to it. I hate to see him risk similar injuries in the future due to going through another several weeks dietary restriction. He w as eating a turkey sandwich with mustard when I came in the room, as he is decided to postpone his treatment. I think this point, we should touch base with his treating radiation oncologist about his options after surgery. (5) Chronic airway obstruction, not elsewhere classified: Status: Chronic Assessment and plan: No active exacerbation, continue chronic inhalers (6) Obstructive sleep apnea syndrome: Status: Chronic Assessment and plan: Try to get his home BiPAP (7) Atrial fibrillation: Status: Acute Assessment and plan: Has been controlled on metoprolol and diltiazem. His rate has not been high, so I think he can tolerate a reduction in his diltiazem. His apixaban is held due to pending surgery. Qualifiers: Atrial fibrillation type: chronic Qualified Code(s): I48.2 - Chronic atrial fibrillation (8) Peripheral vascular disease of lower extremity: Status: Chronic Assessment and plan: Does not appear to be acutely worse. Continue sta tin. (9) Acute kidney injury: Status: Acute Assessment and plan: Creatinine is above baseline. I think this is prerenal with diminished perfusion with a low blood pressure. Will follow. (10) DVT prophylaxis: Status: Acute Assessment and plan: Holding apixaban, resume after surgery (11) Discharge planning issues: Status: Acute Assessment and plan: Confirm DNR/DNI, we did discuss this may be waived during surgery. History of Present Illness History of Present Illness Chief Complaint: Fall with ankle trauma, generally weak Narrative: 71-year-old man with history of Hurthle cell thyroid cancer, COPD, peripheral artery disease, and atrial fibrillation on apixaban presented to the emergency room after a fall with severe right ankle trauma and pain that happened in the setting of generalized weakness progressing over the past 2 weeks. Patient states that he has felt more generally weak than usual over the past 6 weeks since he had to start restricting his diet to avoid all forms of iodide in preparation for radioactive iodide I-131 ablation. General weakness associated with lightheadedness while standing got worse over the past 2 weeks. On December 27, presented to his primary care physician Dr. Piedra with these complaints, was found to have a blood pressure of 90/60. There is instructed to stop his furosemide for now, but his symptoms have not significantly improved. The day prior to admission, he felt like his legs gave out while walking and he fell resulting in right ankle pain and deformity. Pain was increasing and pres ented to the emergency room today. Patient has been following a strict low iodine diet, which precludes many of his regular foods including anything with added salt. He attributes his symptoms to this diet. Denies any other medical changes other than stopping the furosemide as above. Patient received 1 dose of medication which I presume was recombinant thyrotropin in preparation for his ablation, which is scheduled on January 03. He was scheduled to have another injection tomorrow. Reduction was attempted in the emergency room, without complete success. Case was discussed with Dr. Webber in the emergency room. Review of Systems Narrative: General: No fevers or chills. No weight changes. Normal appetite HEENT: No headaches. No vision changes or double vision. No sore throat or nasal congestion. His voice has been hoarse since his thyroid surgery at the end of September, but this has improved. No difficulty swallowing. He has not noted any neck lumps or swelling. Lungs: No coughing or wheezing. No shortness of breath. Cardiovascular: No chest pain currently or associated with the generalized weakness. No palpitations. No orthopnea or increased swelling. GI: No nausea or vomiting. No diarrhea or constipation, though he is rest regular since his change in diet. No blood in the stool or melena : No difficulty urinating or change in urine flow. No dysuria or polyuria. MSK: It he has chronic sciatica, but no new back or joint pain. Skin: No rashes, large bruising, or other skin lesions. Heme: No bleeding or significant bruising. Neurologic: No focal weakness. He does feel like his right foot is a little numb around his injury when they recommended up. He states he has some chronic numbness in the left leg from his sciatica. No vertigo. No tremor. Psychologic: No mood changes. 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 Cooper Dsouza Status post thyroidectomy (Acute 10/09/19) Limited neck dissection Family History Mother , old age at age 93. No problems noted. Father , CVA at age 82. No problems noted. Brother No problems noted. Brother Age: 76 No problems noted. Brother Age: 70 No problems noted. Other Alcohol abuse Social History (Updated 01/02/20 @ 22:32 by Tima Cameron) Smoking/Tobacco Use Status: Former Tobacco Use Quit Date: 08/10/1968 Alcohol Intake: former Drug use: Never Substance use type: does not use Household members: spouse Housing: house Number of Children: 2 Communication Needs: Corrective Lenses current occupation: Retired [employer] Pets and animals: No Current gender identity: male What is your relationship status?: Panel score (0-1 are the most socially isolated patients): 1 What type of physical activity do you participate in: none Frequency: 1-2 times per week Seatbelt use: always Drive intox or ride w/intox city route driver: No Working smoke detector in home: Yes Fire extinguisher in home: Yes Carbon monox detector in home: Yes Do you feel safe at home: Yes Do you feel safe in your relationship?: Yes Additional Social history: Lives with in [place]. Former [place] [employer], retired in early . Meds Home Medications and Allergies Home Medications Medication Instructions Recorded Confirmed Type multivitamin 1 ea PO DAILY 07/20/12 01/02/20 History acetaminophen 1,000 mg PO Q8H PRN tab-cap 03/10/17 01/02/20 History pantoprazole 40 mg tablet,delayed 40 mg PO DAILY #90 tabcr 02/09/19 01/02/20 Rx release apixaban 5 mg tablet 5 mg PO BID #180 tab-cap 03/15/19 01/02/20 Rx duloxetine 20 mg capsule,delayed 20 mg PO .4x/week cap 03/18/19 01/02/20 His tory release metoprolol succinate 100 mg 150 mg PO DAILY #135 tab 03/30/19 01/02/20 Rx tablet,extended release 24 hr albuterol sulfate 90 mcg/actuation 2 puff INHALATION Q4H PRN #3 04/21/19 01/02/20 Rx aerosol inhaler inhaler furosemide 20 mg tablet 20 mg PO DAILY #90 tab 06/29/19 01/02/20 Rx tiotropium 2.5 mcg-olodaterol 2.5 2 puff IH DAILY 07/22/19 01/02/20 History mcg/actuation mist for inhalation levothyroxine 200 mcg tablet 200 mcg PO DAILY 10/11/19 01/02/20 History atorvastatin 20 mg tablet 20 mg PO QHS #90 tab 11/02/19 01/02/20 Rx budesonide-formoterol HFA 160 2 puff INHALATION BID #3 inhaler 11/02/19 01/02/20 Rx mcg-4.5 mcg/actuation aerosol inhaler bupropion HCl 150 mg 24 hr tablet, 150 mg PO BID #180 tabcr 12/29/19 01/02/20 Rx extended release diltiazem HCl 240 mg 240 mg PO DAILY #90 tab-cap 12/29/19 01/02/20 Rx capsule,extended release 24 hr gabapentin 600 mg tablet 600 mg PO TID #270 tab 12/29/19 01/02/20 Rx Allergies Allergy/AdvReac Type Severity Reaction Status Date / Time No Known Allergies Allergy Verified 01/02/20 15:06 Exam Narrative Exam Narrative: General: Alert and oriented x3. Lying in bed sitting speaking in full sentences with no apparent distress. Gives a coherent history. Pleasant. HEENT: Atraumatic. Pupils equal round reactive light with extraocular motions intact. Conjunctive are clear, no icterus. No rhinorrhea. Mucous membranes moist with oropharynx benign. Neck is supple with surgical scars well-healed and no masses or lymphadenopathy palpable. Lungs: Diffusely diminished, but clear to auscultation bilaterally with no rales or wheezes. Cardiovascular: Somewhat irregular, no murmurs, gallops, rubs. Abdomen: Active bowel sounds, soft, nontender nondistended. No hepatosplenomegaly or other masses. MSK: No joint redness or swelling Extremities: Right ankle wrapped with a splint. No cyanosis or clubbing. Cap refill less than 2 seconds in toes bilaterally. Trace edema on left, unable to fully assess on right. Neurologic: Cranial nerves II through XII grossly intact. Moving all 4 extremities. No tremor. Psychiatric: Normal mood and affect. Results Imaging EKG: report reviewed Labs Result diagrams: 01/02/20 15:47 01/02/20 15:47 Labs: Laboratory Results - last 24 hr 01/02/20 01/02/20 01/02/20 15:47 15:47 15:47 WBC 13.34 H RBC 4.11 L Hgb 11.7 L Hct 36.1 L MCV 87.8 MCH 28.5 MCHC 32.4 RDW 16.6 H Plt Count 277 MPV 10.3 Immature Gran % 0.9 Neutrophils % 73.8 Lymphocytes % 10.5 Monocytes % 14.2 Eosinophils % 0.5 Basophils % 0.1 Nucleated RBC % 0 Absolute Neutrophils 9.84 H Absolute Lymphocytes 1.40 Absolute Monocytes 1.89 H Absolute Eosinophils 0.07 Absolute Basophils 0.01 PT 11.3 H INR 1.1 APTT 27.7 Sodium 135 L Potassium 4.5 Chloride 99 Carbon Dioxide 29.6 Anion Gap 6.4 BUN 18 Creatinine 1.61 H Estimated GFR/1.73 m2 41.71 Glucose 121 H Calcium 8.6 Magnesium 2.3 Total Bilirubin 1.3 H AST 19 ALT 18 Alkaline Phosphatase 101 Troponin I < 0.05 Total Protein 7.2 Albumin 3.5 Urine Color Urine Clarity Urine pH Ur Specific [place] Urine Protein Urine Ketones Urine Blood Urine Nitrite Urine Bilirubin Urine Urobilinogen Ur Leukocyte Esterase Urine RBC Urine WBC Ur Epithelial Cells Urine Crystals Urine Bacteria Urine Mucus Ur Culture Indicated? Urine Glucose 01/02/20 16:28 WBC RBC Hgb Hct MCV MCH MCHC RDW Plt Count MPV Immature Gran % Neutrophils % Lymphocytes % Monocytes % Eosinophils % Basophils % Nucleated RBC % Absolute Neutrophils Absolute Lymphocytes Absolute Monocytes Absolute Eosinophils Absolute Basophils PT INR APTT Sodium Potassium Chloride Carbon Dioxide Anion Gap BUN Creatinine Estimated GFR/1.73 m2 Glucose Calcium Magnesium Total Bilirubin AST ALT Alkaline Phosphatase Troponin I Total Protein Albumin Urine Color Yellow Urine Clarity Cloudy Urine pH 6.0 Ur Specific [place] 1.020 Urine Protein Trace H Urine Ketones Negative Urine Blood Small H Urine Nitrite Positive H Urine Bilirubin Negative Urine Urobilinogen 1.0 H Ur Leukocyte Esterase Large H Urine RBC Not Applicable Urine WBC >50 H Ur Epithelial Cells Not Applicable Urine Crystals Not Applicable Urine Bacteria Packed Urine Mucus Not Applicable Ur Culture Indicated? Yes Urine Glucose Negative Last Vital Signs Temp 36.8 C 01/02/20 21:37 Pulse 61 01/02/20 21:37 Resp 18 01/02/20 21:37 BP 105/55 L 01/02/20 21:37 Pulse Ox 97 01/02/20 21:37 COVID-19 Screening Have you,or household,traveled outside [place] in last 14 days?: No Had IN PERSON contact w/suspected or confirmed C-19 person: No
[2020-01-02] MEDS: Atorvastatin 20 MG TAB PO (22:47)
[2020-01-03] VITALS (8 sets, daily range): BP systolic 104–126; BP diastolic 39–68; PULSE 67–76; RESP 16–22; TEMP 36.4–37.2; O2SAT 94–99
[2020-01-03] MEDS: Levothyroxine 200 MCG TAB PO (06:48)
[2020-01-03] MEDS: Budesonide/Formoterol 160/4.5 6 GM 60 PUFF INH IH ×2 (08:22→21:24)
[2020-01-03] MEDS: Metoprolol CR 100 MG TABCR 150 MG PO (08:44)
[2020-01-03] MEDS: dilTIAZem CD 180 MG CAPCR PO (08:45)
[2020-01-03] MEDS: Normal Saline Flush 10 ML SYR IVP (09:07)
[2020-01-03] MEDS: Lidocaine 2% Jelly 11 ML SYR UR (09:09)
[2020-01-03] MEDS: Acetaminophen 500 MG TAB 1000 MG PO (11:27)
--- NOTE | 2020-01-03 12:05 | INITIAL_ITS ---
- If Service Date Differs Date of service: 01/03/20 Time of Service: 14:38 Care Management Initial Assess REASON FOR HOSPITALIZATION:: Ankle fracture, weakness, UTI PAST MEDICAL HISTORY/PAST SURGICAL HISTORY:: Atrial fibrillation, COPD, Fractured sternum (2004), Hyperlipidemia, Shingles, Osteoarthritis (L) Hip, Alcoholism. PREVIOUS FUNCTIONAL STATUS/SOCIAL/FAMILY SUPPORTS:: Mario resides with his of 53 years; Bekah in [place]. The couple have two children, a son in [place], and a daughter in [place], [place], Mario shares both of his children are very supportive. Mario also reports he no longer drives, and his assists with transportation when needed. 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 CURRENT FUNCTIONAL STATUS:: Mario was brought to the OR today, and will be evaluated further during recovery. Anticipate PT/OT consults. CM continues to follow. ADVANCE DIRECTIVES:: None on file at [facility]. Has patient been provided with info about the portal/API?: Yes Did the patient sign up for the portal?: No CODE STATUS:: Full Code INSURANCE COVERAGE / FINANCIAL ISSUES:: Medicare. BC/BS CURRENT HOME/COMMUNITY SERVICES/EQUIPMENT:: Cane which is utilized, walker in the home. PRIMARY CARE PHYSICIAN:: Sandra Piedra POTENTIAL DISCHARGE NEEDS:: Follow up appointments with outpatient providers. PT evaluation. PATIENT/FAMILY EDUCATION NEEDS:: Review discharge instructions, discuss Ask Me Three to confirm patient understanding of self care needs upon discharge. ANTICIPATED BARRIERS TO DISCHARGE:: None identified. TRANSPORTATION:: Via private vehicle with his , Bekah. PLAN:: Mario will continue to be monitored at this time and discharge home when ready per MD. No additional services anticipated at this time. Mario will transport via private vehicle with his , Bekah.
[2020-01-03] MEDS: Gabapentin 600 MG TAB PO ×2 (12:17→21:23)
[2020-01-03] MEDS: Pantoprazole 40 MG TABCR PO (12:17)
--- NOTE | 2020-01-03 13:03 | W.NUTRFU ---
Date of service: 01/03/20 Time of Service: 13:03 Nutritional Follow up NOTE: 79 year old male admitted with ankle fracture, NPO for surgery later today. Hx of Thyroid cancer, when diet advanced will provide Low Iodine Diet- no diary, seafood, egg or iodized salt or products containing such. BMI indicates class 1 obesity, has been stable > 1 year. Will follow/monitor. Time Spent in Nutritional Counseling and Treatment: 0 time spent face to face
[2020-01-03 13:24] LABS: HCT 31.4 % (40.0-50.0); HGB 9.8 g/dL (13.5-17.5); MCHC 31.2 % (32.0-36.0); MCV 89.7 fL (80-95); MPV 10.6 fL (8.0-11.0); Platelet Count 225 10^3/uL (130-400); RDW 16.6 % (11.8-14.1); RDW-SD 54.1 fL; WBC 11.84 10^3/uL (4.4-10.8)
[2020-01-03 13:30] LABS: Anion Gap 7.3 mmol/L (3-11); BUN 17 mg/dL (7-18); CO2 24.7 mmol/L (21.0-32.0); Calcium 8.3 mg/dL (8.5-10.1); Chloride 106 mmol/L (98-107); Estimated GFR 49.01 (mL/min/1.73m2); Glucose 96 mg/dL (74-106); Potassium 4.1 mmol/L (3.5-5.1); Sodium 138 mmol/L (136-145)
--- NOTE | 2020-01-03 13:38 | W.PM.PROGNOT ---
Date of Service Date of service: 01/03/20 Time of Service: 13:38 Assessment and Plan Assessment and plan (1) Displaced trimalleolar fracture of right ankle: Status: Acute Assessment and plan: The plan is for Mr. Gallardo to go to the OR for repair with Dr. Webber today. He reports pain 10/10, throbbing, advised that he has PRN IV morphine. Apixiban on hold for surgery (last dose 01/01 am). Morphine for pain. (2) UTI (urinary tract infection): Status: Acute Assessment and plan: Urine culture growing Gram negative rods. Dixon placed for retention, initially bloody urine, appears to be clearing. H&H down slightly, stable. Continue ceftriaxone, monitor cultures. Repeat CBC, BMP tomorrow morning. 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 The procedure will be postponed at this point, per patient. He was supposed to be admitted to [facility] tomorrow. He has been on a low iodine diet, resume low iodine diet after surgery. Follow up with oncology as an outpatient. (4) Chronic airway obstruction, not elsewhere classified: Status: Chronic Assessment and plan: No acute exacerbation. Continue chronic inhalers, pharmacy reviewing inhaler orders. (5) Obstructive sleep apnea syndrome: Status: Chronic Assessment and plan: On BiPAP at home. Family to bring his unit from home. (6) Atrial fibrillation: Status: Acute Assessment and plan: Rate controlled on BB and diltiazem. Diltiazem dose decreased on admission due to lightheadedness with fall. Apixiban held for surgery. Resume Apixiban after surgery based on ortho recommendations. Qualifiers: Atrial fibrillation type: chronic Qualified Code(s): I48.2 - Chronic atrial fibrillation (7) Acute kidney injury: Status: Acute Assessment and plan: Improved, cr 1.4, not yet at baseline. Continue IV fluids. Repeat BMP tomorrow morning. (8) Generalized weakness: Status: Acute Assessment and plan: Likely r/t hypotension in the setting of low iodine diet. His weakness has been progressive and was noted to have low blood pressure in the recent past. Diltiazem decreased on admission. BP stable, continue to monitor. (9) DVT prophylaxis: Status: Acute Assessment and plan: As above, apixiban on hold for surgery, to be resumed after procedure. (10) Discharge planning issues: Status: Acute Assessment and plan: He is a DNR/DNI. He will likely be discharged home within 24 hours of surgery. Subjective Subjective Interval history since last seen: Mr. Gallardo continues to have right foot pain. He describes the pain as throbbing. He rates the pain 10/10. He has only taken APAP. He is advised that he has Morphine IV ordered PRN. He was mildly nauseated this morning, the nausea has resolved. He had difficulty urinating this morning. A dixon catheter was placed, there was initially blood in the dixon bag, the urine appears to be clearing. He was seen by Dr. Webber. The plan is to go to the OR this afternoon for repair of his right trimaleolar ankle fracture. Exam Narrative Exam Narrative: General: pale appearing 79 year old man, laying in bed, in NAD. Alert and oriented, pleasant and cooperative. HEENT: normocephalic, atraumatic, pupils equal and round, EOMI, mucous membranes moist. Neck: supple. Cardiovascular: heart has regular rate and rhythm, no murmur appreciated. Respiratory: respirations appear even and unlabored, lung sounds clear on anterior and lateral exam. GI: large, round abdomen, +bowel sounds, nontender on palpation, nondistended. : dixon catheter draining bloody urine, appears to be clearing. Extremities: RLE splinted, cap refill <3 seconds, toes pink and warm, pt can move his toes. LLE without edema, pedal pulse faint. Objective Objective Clinical Data: Abnormal lab results 01/02/20 01/02/20 01/02/20 Range/Units 15:47 15:47 15:47 WBC 13.34 H (4.4-10.8) 10^3/uL RBC 4.11 L (4.36-5.78) 10^6/uL Hgb 11.7 L (13.5-17.5) g/dL Hct 36.1 L (40.0-50.0) % MCHC (32.0-36.0) % RDW 16.6 H (11.8-14.1) % Absolute Neutrophils 9.84 H (1.2-6.7) 10^3/uL Absolute Monocytes 1.89 H (0.1-0.8) 10^3/uL PT 11.3 H (9.3-11.0) sec Sodium 135 L (136-145) mmol/L Creatinine 1.61 H (0.70-1.30) mg/dL Glucose 121 H (74-106) mg/dL Calcium (8.5-10.1) mg/dL Total Bilirubin 1.3 H (0.2-1.0) mg/dL Urine Protein (Negative) mg/dL Urine Blood (Negative) Urine Nitrite (Negative) Urine Urobilinogen (Up TO 0.2) EU/dL Ur Leukocyte Esterase (Negative) Urine WBC (0-5) HPF 01/02/20 01/03/20 01/03/20 Range/Units 16:28 12:50 12:50 WBC 11.84 H (4.4-10.8) 10^3/uL RBC 3.50 L (4.36-5.78) 10^6/uL Hgb 9.8 L (13.5-17.5) g/dL Hct 31.4 L (40.0-50.0) % MCHC 31.2 L (32.0-36.0) % RDW 16.6 H (11.8-14.1) % Absolute Neutrophils (1.2-6.7) 10^3/uL Absolute Monocytes (0.1-0.8) 10^3/uL PT (9.3-11.0) sec Sodium (136-145) mmol/L Creatinine 1.40 H (0.70-1.30) mg/dL Glucose (74-106) mg/dL Calcium 8.3 L (8.5-10.1) mg/dL Total Bilirubin (0.2-1.0) mg/dL Urine Protein Trace H (Negative) mg/dL Urine Blood Small H (Negative) Urine Nitrite Positive H (Negative) Urine Urobilinogen 1.0 H (Up TO 0.2) EU/dL Ur Leukocyte Esterase Large H (Negative) Urine WBC >50 H (0-5) HPF Vital Signs Temperature 37.2 C 01/03/20 07:35 Temperature Source Temporal Artery Scan 01/03/20 07:35 Pulse 67 01/03/20 07:35 Pulse Rhythm Regular 01/03/20 08:27 Pulse 65 08/23/20 21:01 Respiratory Rate 18 01/03/20 07:35 Respiratory Effort 01/03/20 08:27 Respiratory Depth Normal 01/03/20 08:27 Respiratory Pattern Normal 01/03/20 08:27 Blood Pressure 113/60 01/03/20 07:35 Blood Pressure Mean 65 01/02/20 21:01 Blood Pressure Position Supine 01/02/20 14:59 Pulse Oximetry 95 01/03/20 07:35 Respiratory End-tidal CO2 9 01/02/20 20:49 Oxygen Delivery Method Room Air 01/03/20 07:35 Oxygen Flow Rate 0 01/03/20 07:35 Pain Level 10 01/03/20 11:27 Intake & Output 01/02/20 01/03/20 01/03/20 23:59 11:59 23:59 Intake Total 550 / 550 Output Total 1150 / 1150 Balance 550 / 550 -1150 / -1150 Weight 111.13 kg Intake: IV 550 / 550 Output: Urine 1150 / 1150 Other: Urine Color Straw Urine Appearance Cloudy Comment output blood tinged, thick, yellow, team updated Voiding Methods Urinal Laboratory Results WBC 11.84 10^3/uL (4.4-10.8) H 01/03/20 12:50 RBC 3.50 10^6/uL (4.36-5.78) L 01/03/20 12:50 Hgb 9.8 g/dL (13.5-17.5) L 01/03/20 12:50 Hct 31.4 % (40.0-50.0) L 01/03/20 12:50 MCV 89.7 fL (80-95) 01/03/20 12:50 MCH 28.0 pg (27.0-33.0) 01/03/20 12:50 MCHC 31.2 % (32.0-36.0) L 01/03/20 12:50 RDW 16.6 % (11.8-14.1) H 01/03/20 12:50 Plt Count 225 10^3/uL (130-400) 01/03/20 12:50 MPV 10.6 fL (8.0-11.0) 01/03/20 12:50 Immature Gran % 0.9 01/02/20 15:47 Neutrophils % 73.8 08/23/20 15:47 Lymphocytes % 10.5 01/02/20 15:47 Monocytes % 14.2 01/02/20 15:47 Eosinophils % 0.5 01/02/20 15:47 Basophils % 0.1 01/02/20 15:47 Nucleated RBC % 0 % 01/02/20 15:47 Absolute Neutrophils 9.84 10^3/uL (1.2-6.7) H 01/02/20 15:47 Absolute Lymphocytes 1.40 10^3/uL (1.2-3.4) 01/02/20 15:47 Absolute Monocytes 1.89 10^3/uL (0.1-0.8) H 01/02/20 15:47 Absolute Eosinophils 0.07 10^3/uL (0.0-0.7) 01/02/20 15:47 Absolute Basophils 0.01 10^3/uL (0.0-0.2) 01/02/20 15:47 PT 11.3 sec (9.3-11.0) H 01/02/20 15:47 INR 1.1 (0.9-1.1) 01/02/20 15:47 APTT 27.7 sec (21.0-31.4) 01/02/20 15:47 Sodium 138 mmol/L (136-145) 01/03/20 12:50 Potassium 4.1 mmol/L (3.5-5.1) 01/03/20 12:50 Chloride 106 mmol/L (98-107) 01/03/20 12:50 Carbon Dioxide 24.7 mmol/L (21.0-32.0) 01/03/20 12:50 Anion Gap 7.3 mmol/L (3-11) 01/03/20 12:50 BUN 17 mg/dL (7-18) 01/03/20 12:50 Creatinine 1.40 mg/dL (0.70-1.30) H 01/03/20 12:50 Estimated GFR/1.73 m2 49.01 (mL/min/1.73m2) 01/03/20 12:50 Glucose 96 mg/dL (74-106) 01/03/20 12:50 Calcium 8.3 mg/dL (8.5-10.1) L 01/03/20 12:50 Magnesium 2.3 mg/dL (1.8-2.4) 01/02/20 15:47 Total Bilirubin 1.3 mg/dL (0.2-1.0) H 01/02/20 15:47 AST 19 U/L (15-37) 01/02/20 15:47 ALT 18 U/L (16-63) 01/02/20 15:47 Alkaline Phosphatase 101 U/L (46-116) 01/02/20 15:47 Troponin I < 0.05 ng/mL (<0.06) 01/02/20 15:47 Total Protein 7.2 g/dL (6.4-8.2) 01/02/20 15:47 Albumin 3.5 g/dL (3.4-5.0) 01/02/20 15:47 Urine Color Yellow (Yellow) 01/02/20 16:28 Urine Clarity Cloudy (Clear) 01/02/20 16:28 Urine pH 6.0 (5-8) 01/02/20 16:28 Ur Specific [place] 1.020 (1.005-1.025) 01/02/20 16:28 Urine Protein Trace mg/dL (Negative) H 01/02/20 16:28 Urine Ketones Negative mg/dL (Negative) 01/02/20 16:28 Urine Blood Small (Negative) H 01/02/20 16:28 Urine Nitrite Positive (Negative) H 01/02/20 16:28 Urine Bilirubin Negative (Negative) 01/02/20 16:28 Urine Urobilinogen 1.0 EU/dL (Up TO 0.2) H 01/02/20 16:28 Ur Leukocyte Esterase Large (Negative) H 01/02/20 16:28 Urine RBC Not Applicable 01/02/20 16:28 Urine WBC >50 HPF (0-5) H 01/02/20 16:28 Ur Epithelial Cells Not Applicable 01/02/20 16:28 Urine Crystals Not Applicable 01/02/20 16:28 Urine Bacteria Packed HPF (Negative) 01/02/20 16:28 Urine Mucus Not Applicable 01/02/20 16:28 Ur Culture Indicated? Yes 01/02/20 16:28 Urine Glucose Negative mg/dL (Negative) 01/02/20 16:28
[2020-01-03 14:47] LABS: COVID-19 RT-PCR UVMMC Result Negative (Negative)
--- NOTE | 2020-01-03 15:00 | DI.RAD_ITS ---
EXAM: XR ANKLE RT 2V CLINICAL HISTORY: RIGHT ANKLE ORIF TECHNIQUE: COMPARISON: CR,XR XR ANKLE RT 2V from 01/02/2020 FINDINGS: C-arm fluoroscopy was utilized by Dr. Franchesca brown during open reduction and internal fixation of fracture dislocation of the ankle. Hard copies show plate and screw fixation of the distal fibula and tibial fibular joint with suture anchor in place in the anterior tibia as well. There is mild asymmetry of the ankle mortise with a valgus talar tilt. Fluoro time, 15 seconds. IMPRESSION: RADIATION DOSE DELIVERED: Total DLP
[2020-01-03] MEDS: Lactated Ringers 1,000 ML 30 ML IV (15:30)
--- NOTE | 2020-01-03 17:26 | DI.RAD_ITS ---
EXAM: XR ANKLE RT COMPLETE CLINICAL HISTORY: check reduction after ORIF of Bimalleolar Fx ankle TECHNIQUE: COMPARISON: CR,XR XR ANKLE RT 2V from 01/02/2020 FINDINGS: Three views were obtained and show plate and screw fixation of the distal fibula and tibial fibular j oint with a suture anchor in place in the anterior tibia medially. Posterior malleolar fracture agai n noted. Ankle mortise appears well maintained. IMPRESSION: RADIATION DOSE DELIVERED: Total DLP
--- NOTE | 2020-01-03 17:39 | W.PM.OP ---
Date of service: 01/03/20 Time of Service: 16:00 Operative Note Operative Note DATE OF PROCEDURE: 01/03/20 PRE-OP DIAGNOSIS: Bimalleolar fracture equivalent right ankle POST-OP DIAGNOSIS: same PROCEDURE: ORIF of bimalleolar fracture equivalent right ankle, application of Cantu compressive dressing and short leg posterior splint. SURGEON: Power Webber FUNCTIONAL TESTER: Edouard Fernández ANESTHESIA: GETA PATHOLOGY: none sent COMPLICATIONS: None Patient was transported to: PACU Patient's condition: stable Implants: 7 hole Synthes recon plate on fibula, 5 mm suture anchor in the medial malleolus. Indications: Is a 71-year-old white male with multiple significant medical conditions who fell in his garage and twisted his ankle on 01/01/2020. He did not seek medical attention until the following afternoon when he went to the ER. In the ER he was noted to have a bimalleolar fracture dislocation of his right ankle. He had a fracture of his fibula at the level of the tibial plafond as well as a complete rupture of the deltoid ligament. The callus was dislocated laterally about 50% of its width. Close reduction of the dislocation was attempted unsuccessfully. There appeared to be a soft tissue block to reduction. Patient was placed in a posterior splint admitted to the hospital for definitive treatment on 01/03/2020. Open reduction internal fixation was recommended as optimal choice. The risk complication procedure explained to the patient and his in detail preop. It was having proceed soon as possible. Findings: Patient had a significant abrasion over the medial malleolus but it was not full-thickness. Patient was developing fracture blisters on his anterior leg proximal to the fracture. The blisters were not near any of the incisions. Procedure Description: Patient was taken the operating room in the afternoon on 01/03/2020. Ankle block was administered. After successful ankle block patient was made supine operating table in a generalized that was administered. Proximal tourniquet was applied to the right thigh. The right foot ankle and lower leg were then prepped and draped free in usual sterile fashion. Under proximal tourniquet control I first made a slightly curved the anterior incision of the medial malleolus. Incision was placed anterior to the abraded skin over the medial malleolus. After I cut through the skin and subcu I was immediately into the ankle joint. Ankle joint was irrigated and the articular surfaces were inspected. There was no injury to the articular cartilage of the tibial plafond or the talus. The posterior tibial tendon was interposed between the talus and the medial malleolus preventing reduction of the talus. Using a clamp I simply push the posterior tibial tendon posteriorly and medial along the talus to reduce. There was significant tearing of the periosteum and joint capsule on either medial portion of his ankle joint. Attention was turned to the lateral side. A longitudinal incision was made beginning at the distal tip of the fibula and extending proximally about 5 to 6 inches. Incision was carried down through the skin and subcu to the fibula. Proximally the sural nerve was identified and protected. Fracture hematoma was then irrigated and curetted from the fracture site of the distal fibula. With the talus allowed to reduce, I was able to be easily reduced the fibular fracture with a self-centering towel clip. C-arm imaging showed an anatomic reduction of the fibula fracture and an anatomic reduction of the ankle mortise. I then proceeded to secure the reduction with a 7 hole Synthes reconstruction plate contoured to fit the lateral fibula. I chose the recon plate because it was stronger than the one third tubular plate. I felt because of his medical comorbidities and his size that a stronger plate would be more protective in preserving his anatomic reduction. I secured the plate to the fibula with a nonlocking 3.5 cortical screw. I then fixed the distal 2 screw holes with appropriate length locking 3.5 cortical screws. Through the hole that was 3 screw holes from the distal end of the plate I placed a 3.5 cortical screw through the plate and through the lateral cortex of the tibia for additional strength to the fixation construct. 3 plate holes proximal to the fracture were filled with appropriate length 3.5 cortical screws. Reduction was then checked with the C-arm image intensifier. The reduction was anatomic in AP and lateral views. At the shoulder of the medial ankle joint I placed a 5 mm suture anchor. I predrilled with a 2.5 drill. I then took the preloaded #2 FiberWire sutures from the anchor and passed them through the anterior capsule and periosteum on the medial side of the joint in a horizontal mattress fashion. The sutures were then tied approximating the capsule to the periosteum. Wounds were irrigated with Betadine and saline solution. The wound margins were infiltrated 0.5% Marcaine with epinephrine solution. The medial skin edges were approximated with near far far near sutures of the 3-0 nylon to take all tension off the skin edges. In the lateral incision the subcu was approximated interrupted 2-0 Vicryl sutures and skin edges were approximated with near far far near tension relieving sutures of 3-0 nylon. Wounds were dressed with Xeroform gauze, gauze 4 x 4's, ABD pads and wrapped with a 4 inch Kerlix bandage. A short leg Cantu compressive dressing was then applied. A short leg posterior splint was then applied over the Cantu dressing with 6 inch Brennan bandages. The tourniquet was released. There is no breakthrough bleeding through the dressings. Patient's anesthesia was reversed without complications. He was discharged to recovery room in good condition.
[2020-01-03] MEDS: cefTRIAXone 1 GM/50 ML BAG IVPB (18:54)
[2020-01-03] MEDS: Normal Saline 1,000 ML 100 ML IV (18:56)
[2020-01-03] MEDS: Atorvastatin 20 MG TAB PO (21:23)
[2020-01-03] MEDS: buPROPion-XL 150 MG TABCR PO (21:23)
[2020-01-04] VITALS (8 sets, daily range): BP systolic 106–111; BP diastolic 61–66; PULSE 82–100; RESP 17–20; TEMP 35.9–36.9; O2SAT 90–99
--- NOTE | 2020-01-04 02:42 | PTTR_ITS ---
Date of service: 01/04/20 Time of Service: 14:42 PT Notes Visit Reasons: ANKLE FRACTURE,WEAKNESS,UTI PT Inpatient Treatment Note Date: 01/04/2020 Precautions: Fall. Standard. NWB on R LE. Subjective: Reported fatigue after strengthening activity but felt good. he said he has not worked out like that before and he knows he really needs to get more fit. and patient are both considering SNF placement for increased mobility performance. Objective: General Observation: RAMONE wraps over Cantu compression dressing and posterior splint on the R leg and foot. Beauchamp catheter in place. IV in the R UE. TEDS on the L leg. Mental Status: Alert and oriented x4 Pain: Reported 4?5/10 in the right LE with NWB stance; discomfort in B UE with WB Bed Mobility/Transfers: Rolling standby assist Supine to sit standby assist with HOB at 45 degrees Sit to stand minimal assist Stand to sit moderate assist THERA EX: Patient tolerated strengthening exercises consisting of seated LAQs x 10, seated hip flexion x 10, seated knee flexion x 10, and ankle [umps using a 2.5 lb AW. UE strengthening ex included shoulder flexion/extension x 10, elbow flexion/extension x 10, chair push-ups x 10 with minimal assist, and chest expansion exercises incorporating shoulder horizontal abduction adduction x 5 for 5 sets after each exercise. Balance: Normal Static Sitting: Normal Dynamic Sitting: Normal Static Standing: Poor Dynamic Standing: Poor Assessment: Mario demonstrates significant functional mobility decline requiring physical assistance and use of a front wheel walker for all mobility ADL performance, difficulty with walking, unsteadiness with gait, discomfort in BUE/LE, and increased risk for falling due to admitting diagnoses and postoperative status. 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 Plan of Care/Treatment Plan: 1-2x/day, 7 days/week x 1 week. Plan of care has been reviewed with the GROUP MANAGING DIRECTOR providing the service under Physical Therapy direction. Initiate Physical Therapy intervention for strengthening, bed mobility, transfers, gait, stairs, balance training, use of assistive device. DISCHARGE RECOMMENDATIONS: Patient will benefit from senior living facility placement for continued skilled physical therapy services in order to progress mobility level, strength, and balance in preparation for a safe discharge to home. TREATMENT CODE/TIME: 89111 x 28 minutes beginning at 2:42 PM.
[2020-01-04] MEDS: Normal Saline 1,000 ML 100 ML IV (05:30)
[2020-01-04] MEDS: Levothyroxine 200 MCG TAB PO (05:30)
[2020-01-04 07:30] LABS: HCT 29.4 % (40.0-50.0); HGB 9.3 g/dL (13.5-17.5); MCH 28.2 pg (27.0-33.0); MCHC 31.6 % (32.0-36.0); MCV 89.1 fL (80-95); MPV 10.7 fL (8.0-11.0); Platelet Count 201 10^3/uL (130-400); RDW 16.3 % (11.8-14.1); RDW-SD 53.2 fL; WBC 12.14 10^3/uL (4.4-10.8)
[2020-01-04] MEDS: dilTIAZem CD 180 MG CAPCR PO (07:57)
[2020-01-04] MEDS: Gabapentin 600 MG TAB PO ×2 (07:57→20:00)
[2020-01-04] MEDS: DULoxetine 20 MG CAP PO (07:57)
[2020-01-04] MEDS: buPROPion-XL 150 MG TABCR PO ×2 (07:57→19:59)
[2020-01-04] MEDS: Pantoprazole 40 MG TABCR PO (07:58)
[2020-01-04] MEDS: Metoprolol CR 100 MG TABCR 150 MG PO (07:58)
[2020-01-04] MEDS: oxyCODONE 5 mg/Acetaminophen 325 mg TAB 1 TAB PO (08:07)
[2020-01-04 08:09] LABS: Anion Gap 5.9 mmol/L (3-11); BUN 16 mg/dL (7-18); CO2 27.1 mmol/L (21.0-32.0); CREATININE 1.11 mg/dL (0.70-1.30); Calcium 8.1 mg/dL (8.5-10.1); Chloride 108 mmol/L (98-107); Glucose 138 mg/dL (74-106); Potassium 4.6 mmol/L (3.5-5.1); Sodium 141 mmol/L (136-145)
--- NOTE | 2020-01-04 08:19 | IN_ITS ---
Date of service: 01/04/20 Time of Service: 08:19 PT Notes Visit Reasons: ANKLE FRACTURE,WEAKNESS,UTI Physical Therapy Inpatient Initial Evaluation Date: 01/04/2020 Referring Doctor: Power Webber MD PT Orders: PT CONSULT: Status post Ortho surgery. NWB on right foot. Precautions: Fall. Standard. NWB on R LE. Patient Profile/Admitting Diagnosis: Mario is a 79-year-old male who presented to the ED on 01/02/2020 with a right ankle injury sustained from a fall due to legs giving out from progressive weakness. Patient is diagnosed with acute kidney injury, atrial fibrillation, Hurthle Cell Carcinoma of thyroid, dizziness, generalized weakness, urinary tract infection, and displaced trimalleolar fracture of the right ankle and is status post ORIF with application of Cantu compression dressing and short leg posterior splint on 01/03/2020. 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 Cooper Dsouza Status post thyroidectomy (Acute 10/09/19) Limited neck dissection Social History/Home Situation: Lives with in a private home with 2 steps to enter Equipment Owned/DME: Front wheel walker, single-point cane, shower chair Subjective: Mario reports that he has pre-existing neuropathy in both of his feet which limits his ability to walk. He also states that he has had right s ided sciatica that has also compounded his mobility ADL performance. He voices that his has been really feeling the burden of assisting with all his ADL needs that he hopes to get help from home health as soon as he goes home. He complained of fatigue, weakness, and discomfort in his B LE and UE while walking a short distance from his bed during thsi consult. Objective: General Observation: RAMONE wraps over Cantu compression dressing and posterior splint on the R leg and foot. Beauchamp catheter in place. IV in the R UE. TEDS on the L leg. Mental Status: Alert and oriented x4 Pain: Reported 4?5/10 in the right LE with NWB stance; discomfort in B UE with WB ROM: Right Upper Extremity: Shoulder Flexion WFL. Shoulder abduction WFL. Elbow flexion WFL. Wrist flexion WFL. Opening and closing of hand WFL. Left Upper Extremity: Shoulder Flexion WFL. Shoulder abduction WFL. Elbow flexion WFL. Wrist flexion WFL. Opening and closing of hand WFL. Right Lower Extremity: Hip flexion WFL. Hip abduction WFL. Knee flexion WFL. Ankle dorsiflexion WFL. Ankle plantarflexion WFL. Left Lower Extremity: Hip flexion WFL. Hip abduction WFL. Knee flexion WFL. Ankle dorsiflexion NT. Ankle plantarflexion NT. Strength: Right Upper Extremity: Shoulder flexors 5/5. Shoulder abductors 5/5. Elbow flexors 5/5. Elbow extensors 5/5. Plywood Layup Line Core Feeder strong. Left Upper Extremity: Shoulder flexors 5/5. Shoulder abductors 5/5. Elbow flexors 5/5. Elbow extensors 5/5. Plywood Layup Line Core Feeder strong. Right Lower Extremity: Hip flexors 4/5. Hip abductors 4/5. Knee flexors 4/5. Knee extensors 4/5. Ankle dorsiflexors 4/5. Ankle plantarflexors 4/5. Left Lower Extremity:Hip flexors -=/5. Hip abductors 4-/5. Knee flexors 3/5. Knee extensors NT. Ankle dorsiflexors NT. Ankle plantarflexors NT. Sensation: Reports numbness in B feet Bed Mobility/Transfers: Rolling standby assist Supine to sit standby assist with HOB at 45 degrees Sit to stand minimal assist Stand to sit moderate assist Bed to chair moderate assist Chair to bed moderate assist Gait: Patient only tolerated 8 feet short distance ambulation using front wheeled walker with NWB on the right LE requiring minimal assist of 2 for safety with report of pain in back and BUE/LE. Decreased dixie. Not fully compliant with NWB status due to fear of falling requiring cueing for overall safety. Balance: Normal Static Sitting: Normal Dynamic Sitting: Normal Static Standing: Poor Dynamic Standing: Poor Special Tests: Mobility Limitations Standardized Measure [facility] AM-PAC 6 clicks Basic Mobility Inpatient Short Form: Raw Score: 14 CMS Score: 61% deficit Informed Consent/Education: Patient instructed in purpose of PT consult and plan of care. Assessment: Mario demonstrates significant functional mobility decline requiring physical assistance and use of a front wheel walker for all mobility ADL performance, difficulty with walking, unsteadiness with gait, discomfort in BUE/LE, and increased risk for falling due to admitting diagnoses and postoperative status. His non-weight bearing status on the right LE, pre- existing bilateral peripheral neuropathy in B legs and feet, dizziness, right- sided sciatica, and generalized weakness may require assisted facility placement in order to facilitate independent mobility level as may not be able to physically provide assistance for patient at home at this time. Patient presents with clinical signs and symptoms consistent with current/admitting diagnoses that have resulted to mobility limitations, gait instability, generalized weakness, and impairment of motor control as demonstrated by the following impairment level findings: 1. Decreased strength to be LE major muscle groups 2. Impaired standing balance 3. Impaired activity tolerance 4. Limitation of joint range of motion in right ankle Impairments are contributing to the following functional limitations: 1. Dependent bed mobility skills 2. Increased dependence with transfers 3. Inability to safely ambulate without assistive device and physical assistance 4. Increase completion time for mobility ADL performance 5. Increased fall risk 6. Inability to negotiate steps alone safely Patient is assessed as a 72304 high complexity based on the following: History: 79-year-old male with impairment level findings, functional limitations, and past medical history as indicated above Examination: Demonstrable impairment in strength, balance, and mobility level with underlying impairments and functional limitations as documented above Presentation:Evolving Decision Makin high complexity Goals: Goals X1 week 1. Supine-Sit independent 2. Sit-Supine independent 3. Sit-Stand standby assist 4. Stand-Sit standby assist 5. Bed-Chair standby assist 6. Chair-Bed standby assist 7. Standby assist gait on level surface with use of least restrictive device for at least 300 feet without report of pain nor dyspnea 8. Standby assist stair negotiation while holding onto bilateral rails for at least 10 steps without report of pain nor dyspnea 9. Independent with home exercise program 10. Good static and dynamic standing balance/tolerance Plan of Care/Treatment Plan: 1-2x/day, 7 days/week x 1 week. Plan of care has been reviewed with the PRENATAL NURSE providing the service under Physical Therapy direction. Initiate Physical Therapy intervention for strengthening, bed mobility, transfers, gait, stairs, balance training, use of assistive device. DISCHARGE RECOMMENDATIONS: Patient will benefit from assisted facility placement for continued skilled physical therapy services in order to progress mobility level, strength, and balance in preparation for a safe discharge to home. TREATMENT CODE/TIME: 65583 x 30 minutes, 58980 x 10 minutes beginning at 8:19 AM. Thank you for the opportunity to participate in the care of this patient. Basia Urrutia PT, DPT, CLT [facility] [place], [place]
[2020-01-04] MEDS: Tiotropium/Olodaterol 10 PUFF INHALER 2 PUFF IH (08:22)
[2020-01-04] MEDS: Budesonide/Formoterol 160/4.5 6 GM 60 PUFF INH IH ×2 (08:23→20:38)
--- NOTE | 2020-01-04 09:44 | PDOC.CMPRO ---
Care Management Progress Note S/O: Mario was sitting up in his chair when CM met with him. He described his reasoning for seeking SNF, which PT recommends as well. CM faxed referrals to [facility] and will follow up for bed availability. CM continues to follow. A: 79 year old male admitted to [facility] 01/02/20 for Ankle fracture, Weakness, UTI P: Mario will continue to be monitored at this time and discharge home when ready per MD. SNF recommended for discharge at this time, referrals faxed to local facilities. Mario will transport via private vehicle with his , Bekah.
--- NOTE | 2020-01-04 11:58 | W.PM.PROGNOT ---
Date of Service Date of service: 01/04/20 Time of Service: 11:58 Assessment and Plan Assessment and plan (1) Displaced trimalleolar fracture of right ankle: Start date: 01/04/20 Start time: 12:07 Status: Acute Assessment and plan: POD 1, pain improved. Leg elevated in reclining care in cast Multiple modalities for pain management Followed by ortho, will seek recommendation when to restart apixaban PT/OT IS (2) UTI (urinary tract infection): Start date: 01/04/20 Start time: 12:14 Status: Acute Assessment and plan: Urine culture growing kleb, oxyt sensitive to ceftriaxone Dixon placed for retention H&H, stable. Continue ceftriaxone, monitor cultures. Repeat CBC, BMP tomorrow morning. (3) Hurthle cell carcinoma of thyroid: Start date: 01/04/20 Start time: 12:17 Status: Acute Assessment and plan: Patient is status post thyroidectomy, with radioactive ablation planned for today. The procedure will be postponed at this point, per patient. He was supposed to be admitted to [facility] today He has been on a low iodine diet, resume low iodine diet after surgery. Follow up with oncology as an outpatient. (4) Chronic airway obstruction, not elsewhere classified: Start date: 01/04/20 Start time: 12:18 Status: Chronic Assessment and plan: No acute exacerbation. Continue chronic inhalers, pharmacy reviewing inhaler orders. (5) Obstructive sleep apnea syndrome: Start date: 01/04/20 Start time: 12:18 Status: Chronic Assessment and plan: On BiPAP at home. Family to bring his unit from home. (6) Atrial fibrillation: Start date: 01/04/20 Start time: 12:18 Status: Acute Assessment and plan: Rate controlled on BB and diltiazem. Diltiazem dose decreased on admission due to lightheadedness with fall. Apixiban held for surgery. Will Resume Apixiban based on ortho recommendations. Qualifiers: Atrial fibrillation type: chronic Qualified Code(s): I48.2 - Chronic atrial fibrillation (7) Acute kidney injury: Start date: 01/04/20 Start time: 12:19 Status: Acute Assessment and plan: Improved at baseline 1.11. Tolerating liquids will d/c IVF and Repeat BMP tomorrow morning. (8) Generalized weakness: Start date: 01/04/20 Start time: 12:21 Status: Acute Assessment and plan: Likely r/t hypotension in the setting of low iodine diet. His weakness has been progressive . Diltiazem decreased on admission. BP stable, continue to monitor. He would benefit from rehab admission of strength (9) DVT prophylaxis: Start date: 01/04/20 Start time: 12:21 Status: Acute Assessment and plan: As above, apixiban on hold for surgery, to be resumed after procedure. (10) Discharge planning issues: Start date: 01/04/20 Start time: 12:21 Status: Acute Assessment and plan: He is a DNR/DNI. There is concern for being discharged home. At this time patient is unable to make it in the house. feels she can not safely take care of at home and if an emergency were to happen he would not make outside. I have spoke with CM regarding their concerns. He has lost what sounds to be a lot of strength over last couple of weeks especially with change in diet and will need to resume diet. He would benefit from rehab. above case discussed with Dr. Dawson who is in agreement. Subjective Subjective Interval history since last seen: Pain improved. He does feel weaker, he was due for his second dose of medication yesterday with ablation today. Due to inability to receive dose and ablation he will have to restart the diet on discharge, at this time, he is concerned for inability to be able to get into house. He has deconditioning and weakness due to diet, coupled with the fact he will have to restart diet he would benefit from inpatient rehab for strength training and stability. Both him and his are concerned that he would not be able to easily get in and out of the house, especially in case of emergency. Spoke with CM and they will speak to patient and and refer to rehab. He denies CP, SOB, n/v/d. Exam Narrative Exam Narrative: General: pale appearing 79 year old man, sitting up in recliner, in NAD. Alert and oriented, pleasant and cooperative. HEENT: normocephalic, atraumatic, pupils equal and round, EOMI, mucous membranes moist. Neck: supple. Cardiovascular: heart has regular rate and rhythm, no murmur appreciated. Respiratory: respirations appear even and unlabored, lung sounds clear on anterior and lateral exam. GI: large, round abdomen, +bowel sounds, nontender on palpation, nondistended. : dixon catheter draining bloody urine, appears to be clearing. Extremities: RLE is elevated in cast with jane wraps, sock over toe, toes pink and warm, pt can move his toes. LLE without edema, pedal pulse faint. Objective Objective Clinical Data: Abnormal lab results 01/03/20 01/03/20 01/04/20 Range/Units 12:50 12:50 07:05 WBC 11.84 H (4.4-10.8) 10^3/uL RBC 3.50 L (4.36-5.78) 10^6/uL Hgb 9.8 L (13.5-17.5) g/dL Hct 31.4 L (40.0-50.0) % MCHC 31.2 L (32.0-36.0) % RDW 16.6 H (11.8-14.1) % Chloride 108 H (98-107) mmol/L Creatinine 1.40 H (0.70-1.30) mg/dL Glucose 138 H (74-106) mg/dL Calcium 8.3 L 8.1 L (8.5-10.1) mg/dL 01/04/20 Range/Units 07:05 WBC 12.14 H (4.4-10.8) 10^3/uL RBC 3.30 L (4.36-5.78) 10^6/uL Hgb 9.3 L (13.5-17.5) g/dL Hct 29.4 L (40.0-50.0) % MCHC 31.6 L (32.0-36.0) % RDW 16.3 H (11.8-14.1) % Chloride (98-107) mmol/L Creatinine (0.70-1.30) mg/dL Glucose (74-106) mg/dL Calcium (8.5-10.1) mg/dL Vital Signs Temperature 35.9 C L 01/04/20 07:35 Temperature Source Tympanic 01/04/20 07:35 Pulse 84 01/04/20 07:35 Pulse Rhythm Regular 01/04/20 00:20 Pulse 65 01/02/20 21:01 Respiratory Rate 18 01/04/20 07:35 Respiratory Effort 01/04/20 00:20 Respiratory Depth Normal 01/04/20 00:20 Respiratory Pattern Normal 01/04/20 00:20 Blood Pressure 110/66 01/04/20 07:35 Blood Pressure Mean 65 01/02/20 21:01 Blood Pressure Position Supine 01/02/20 14:59 Pulse Oximetry 93 L 01/04/20 09:08 Respiratory End-tidal CO2 29 01/03/20 17:42 Oxygen Delivery Method Room Air 01/04/20 09:08 Oxygen Flow Rate 0 01/04/20 09:08 Pain Level 5 01/04/20 08:07 Comment 01/04/20 00:05 Intake & Output 01/03/20 01/03/20 01/04/20 11:59 23:59 11:59 Intake Total 800 / 800 1780 / 1780 Output Total 1150 / 2000 850 / 2000 500 / 500 Balance -1150 / -1200 -50 / -1200 1280 / 1280 Intake: IV 800 / 800 1010 / 1010 Oral 770 / 770 Output: Urine 1150 / 2000 850 / 2000 500 / 500 Other: Urine Color Straw [place] Straw Urine Appearance Cloudy Cloudy Cloudy Sediment Comment output blood tinged, thick, yellow, team updated Emesis Description None Voiding Methods Urinal Laboratory Results WBC 12.14 10^3/uL (4.4-10.8) H 01/04/20 07:05 RBC 3.30 10^6/uL (4.36-5.78) L 01/04/20 07:05 Hgb 9.3 g/dL (13.5-17.5) L 01/04/20 07:05 Hct 29.4 % (40.0-50.0) L 01/04/20 07:05 MCV 89.1 fL (80-95) 01/04/20 07:05 MCH 28.2 pg (27.0-33.0) 01/04/20 07:05 MCHC 31.6 % (32.0-36.0) L 01/04/20 07:05 RDW 16.3 % (11.8-14.1) H 01/04/20 07:05 Plt Count 201 10^3/uL (130-400) 01/04/20 07:05 MPV 10.7 fL (8.0-11.0) 01/04/20 07:05 Immature Gran % 0.9 01/02/20 15:47 Neutrophils % 73.8 01/02/20 15:47 Lymphocytes % 10.5 01/02/20 15:47 Monocytes % 14.2 01/02/20 15:47 Eosinophils % 0.5 01/02/20 15:47 Basophils % 0.1 01/02/20 15:47 Nucleated RBC % 0 % 01/02/20 15:47 Absolute Neutrophils 9.84 10^3/uL (1.2-6.7) H 01/02/20 15:47 Absolute Lymphocytes 1.40 10^3/uL (1.2-3.4) 01/02/20 15:47 Absolute Monocytes 1.89 10^3/uL (0.1-0.8) H 01/02/20 15:47 Absolute Eosinophils 0.07 10^3/uL (0.0-0.7) 01/02/20 15:47 Absolute Basophils 0.01 10^3/uL (0.0-0.2) 01/02/20 15:47 PT 11.3 sec (9.3-11.0) H 01/02/20 15:47 INR 1.1 (0.9-1.1) 01/02/20 15:47 APTT 27.7 sec (21.0-31.4) 01/02/20 15:47 Sodium 141 mmol/L (136-145) 01/04/20 07:05 Potassium 4.6 mmol/L (3.5-5.1) 01/04/20 07:05 Chloride 108 mmol/L (98-107) H 01/04/20 07:05 Carbon Dioxide 27.1 mmol/L (21.0-32.0) 01/04/20 07:05 Anion Gap 5.9 mmol/L (3-11) 01/04/20 07:05 BUN 16 mg/dL (7-18) 01/04/20 07:05 Creatinine 1.11 mg/dL (0.70-1.30) 01/04/20 07:05 Estimated GFR/1.73 m2 >= 60.00 (mL/min/1.73m2) 01/04/20 07:05 Glucose 138 mg/dL (74-106) H 01/04/20 07:05 Calcium 8.1 mg/dL (8.5-10.1) L 01/04/20 07:05 Magnesium 2.3 mg/dL (1.8-2.4) 01/02/20 15:47 Total Bilirubin 1.3 mg/dL (0.2-1.0) H 01/02/20 15:47 AST 19 U/L (15-37) 01/02/20 15:47 ALT 18 U/L (16-63) 01/02/20 15:47 Alkaline Phosphatase 101 U/L (46-116) 01/02/20 15:47 Troponin I < 0.05 ng/mL (<0.06) 01/02/20 15:47 Total Protein 7.2 g/dL (6.4-8.2) 01/02/20 15:47 Albumin 3.5 g/dL (3.4-5.0) 01/02/20 15:47 Urine Color Yellow (Yellow) 01/02/20 16:28 Urine Clarity Cloudy (Clear) 01/02/20 16:28 Urine pH 6.0 (5-8) 01/02/20 16:28 Ur Specific [place] 1.020 (1.005-1.025) 01/02/20 16:28 Urine Protein Trace mg/dL (Negative) H 01/02/20 16:28 Urine Ketones Negative mg/dL (Negative) 01/02/20 16:28 Urine Blood Small (Negative) H 01/02/20 16:28 Urine Nitrite Positive (Negative) H 01/02/20 16:28 Urine Bilirubin Negative (Negative) 01/02/20 16:28 Urine Urobilinogen 1.0 EU/dL (Up TO 0.2) H 01/02/20 16:28 Ur Leukocyte Esterase Large (Negative) H 01/02/20 16:28 Urine RBC Not Applicable 01/02/20 16:28 Urine WBC >50 HPF (0-5) H 01/02/20 16:28 Ur Epithelial Cells Not Applicable 01/02/20 16:28 Urine Crystals Not Applicable 01/02/20 16:28 Urine Bacteria Packed HPF (Negative) 01/02/20 16:28 Urine Mucus Not Applicable 01/02/20 16:28 Ur Culture Indicated? Yes 01/02/20 16:28 Urine Glucose Negative mg/dL (Negative) 01/02/20 16:28 COVID-19 PCR Negative (Negative) 01/02/20 19:45 Nasopharyn COVID-19 PCR Not Applicable 01/02/20 19:45 Ref Test Perform Site [facility] 01/02/20 19:45
--- NOTE | 2020-01-04 13:42 | PT.INTREAT ---
Date of service: 01/04/20 Time of Service: 14:42 PT Notes Visit Reasons: ANKLE FRACTURE,WEAKNESS,UTI Physical Therapy Inpatient Treatment Note Date: 01/04/2020 Precautions: Fall. Standard. NWB on R LE. Subjective: Mario states that he is agreeable to Dr. Webber's recommendation of going to a nursing home facility for rehabilitation so he can get strong prior to going home with his . present during session and is agreeable to his going to a SNF. Objective: General Observation: RAMONE wraps over Cantu compression dressing and posterior splint on the R leg and foot. Beauchamp catheter in place. IV in the R UE. TEDS on the L leg. Mental Status: Alert and oriented x4 Pain: Reported 5/10 in the right LE at rest THERA EX: Patient tolerated B UE strengthening exercises using 2 lb DB to increase shoulder flexion/extension as ewll as elbow flexion/extension strength. He aslo toelrated B LE exercises in sitting with 2.5 lb AW to L LE working on increasing hip/knee flexion and extension. Functional task training of chair push-ups was introduced to client today and he was able to tolerate x10 reps with minimal assist PT. Chest expansion exercises with deep breathing exercises were incorporated into strengthening to minimize fatigue and SOB. Assessment: Patient tolerated seated exercises incorporating chest expansion exercises well. Mario demonstrates significant functional mobility decline requiring physical assistance and use of a front wheel walker for all mobility ADL performance, difficulty with walking, unsteadiness with gait, discomfort in BUE/LE, and increased risk for falling due to admitting diagnoses and postoperative status. His non-weight bearing status on the right LE, pre-existing peripheral neuropathy in B legs and feet, dizziness, right-sided sciatica, and generalized weakness may require nursing home facility placement in order to facilitate independent mobility level as may not be able to physically provide assistance for patient at home at this time. DISCHARGE RECOMMENDATIONS: Patient will benefit from nursing home facility placement for continued skilled physical therapy services in order to progress mobility level, strength, and balance in preparation for a safe discharge to home. TREATMENT CODE/TIME: 73184 x 28 minutes beginning at 14:42 PM.
--- NOTE | 2020-01-04 14:12 | PGE_ITS ---
Date of Service Date of service: 01/04/20 Time of Service: 14:12 Assessment and Plan Assessment and plan (1) Bimalleolar fracture of right ankle: Status: Acute Assessment and plan: Assessment: Stable postop day #1 ORIF of a bimalleolar fracture dislocation of the right ankle. I think because of his size age and medical comorbidities he is going to be a little slow to mobilize. I think he can go home once he is independent with transfers and limited ambulation. He needs to stay nonweightbearing on the right for 6 weeks postop. Plan: Should follow-up with me in 2 weeks after discharge. Qualifiers: Encounter type: subsequent encounter Fracture type: closed Subjective Subjective Patient reports: feels better, pain is less and tolerating liquids well Exam Narrative Exam Narrative: He is resting comfortably sitting in chair. Toes of right foot are pink with good capillary refill. He has good light touch sensation in the toes and has good active motion of his toes on command. Physical therapy said he was a little bit shaky with ambulation today. Objective Objective Clinical Data: Abnormal lab results 01/04/20 01/04/20 Range/Units 07:05 07:05 WBC 12.14 H (4.4-10.8) 10^3/uL RBC 3.30 L (4.36-5.78) 10^6/uL Hgb 9.3 L (13.5-17.5) g/dL Hct 29.4 L (40.0-50.0) % MCHC 31.6 L (32.0-36.0) % RDW 16.3 H (11.8-14.1) % Chloride 108 H (98-107) mmol/L Glucose 138 H (74-106) mg/dL Calcium 8.1 L (8.5-10.1) mg/dL Vital Signs Temperature 35.9 C L 01/04/20 07:35 Temperature Source Tympanic 01/04/20 07:35 Pulse 84 01/04/20 07:35 Pulse Rhythm Regular 01/04/20 00:20 Pulse 65 01/02/20 21:01 Respiratory Rate 18 01/04/20 07:35 Respiratory Effort 01/04/20 00:20 Respiratory Depth Normal 01/04/20 00:20 Respiratory Pattern Normal 01/04/20 00:20 Blood Pressure 110/66 01/04/20 07:35 Blood Pressure Mean 65 01/02/20 21:01 Blood Pressure Position Supine 01/02/20 14:59 Pulse Oximetry 93 L 01/04/20 09:08 Respiratory End-tidal CO2 29 01/03/20 17:42 Oxygen Delivery Method Room Air 01/04/20 09:08 Oxygen Flow Rate 0 01/04/20 09:08 Pain Level 5 01/04/20 08:07 Comment 01/04/20 00:05 Intake & Output 01/03/20 01/04/20 01/04/20 23:59 11:59 23:59 Intake Total 800 / 800 1780 / 2836.667 1056.667 / 2836.667 Output Total 850 / 2000 500 / 500 Balance -50 / -1200 1280 / 2336.667 1056.667 / 2336.667 Intake: IV 800 / 800 1010 / 1826.667 816.667 / 1826.667 Oral 770 / 1010 240 / 1010 Output: Urine 850 / 2000 500 / 500 Other: Urine Color [place] Straw Dark Laura Urine Appearance Cloudy Cloudy Mucous Threads Sediment Emesis Description None Laboratory Results WBC 12.14 10^3/uL (4.4-10.8) H 01/04/20 07:05 RBC 3.30 10^6/uL (4.36-5.78) L 01/04/20 07:05 Hgb 9.3 g/dL (13.5-17.5) L 01/04/20 07:05 Hct 29.4 % (40.0-50.0) L 01/04/20 07:05 MCV 89.1 fL (80-95) 01/04/20 07:05 MCH 28.2 pg (27.0-33.0) 01/04/20 07:05 MCHC 31.6 % (32.0-36.0) L 01/04/20 07:05 RDW 16.3 % (11.8-14.1) H 01/04/20 07:05 Plt Count 201 10^3/uL (130-400) 01/04/20 07:05 MPV 10.7 fL (8.0-11.0) 01/04/20 07:05 Immature Gran % 0.9 01/02/20 15:47 Neutrophils % 73.8 01/02/20 15:47 Lymphocytes % 10.5 01/02/20 15:47 Monocytes % 14.2 01/02/20 15:47 Eosinophils % 0.5 01/02/20 15:47 Basophils % 0.1 01/02/20 15:47 Nucleated RBC % 0 % 01/02/20 15:47 Absolute Neutrophils 9.84 10^3/uL (1.2-6.7) H 01/02/20 15:47 Absolute Lymphocytes 1.40 10^3/uL (1.2-3.4) 01/02/20 15:47 Absolute Monocytes 1.89 10^3/uL (0.1-0.8) H 01/02/20 15:47 Absolute Eosinophils 0.07 10^3/uL (0.0-0.7) 01/02/20 15:47 Absolute Basophils 0.01 10^3/uL (0.0-0.2) 01/02/20 15:47 PT 11.3 sec (9.3-11.0) H 01/02/20 15:47 INR 1.1 (0.9-1.1) 01/02/20 15:47 APTT 27.7 sec (21.0-31.4) 01/02/20 15:47 Sodium 141 mmol/L (136-145) 01/04/20 07:05 Potassium 4.6 mmol/L (3.5-5.1) 01/04/20 07:05 Chloride 108 mmol/L (98-107) H 01/04/20 07:05 Carbon Dioxide 27.1 mmol/L (21.0-32.0) 01/04/20 07:05 Anion Gap 5.9 mmol/L (3-11) 01/04/20 07:05 BUN 16 mg/dL (7-18) 01/04/20 07:05 Creatinine 1.11 mg/dL (0.70-1.30) 01/04/20 07:05 Estimated GFR/1.73 m2 >= 60.00 (mL/min/1.73m2) 01/04/20 07:05 Glucose 138 mg/dL (74-106) H 01/04/20 07:05 Calcium 8.1 mg/dL (8.5-10.1) L 01/04/20 07:05 Magnesium 2.3 mg/dL (1.8-2.4) 01/02/20 15:47 Total Bilirubin 1.3 mg/dL (0.2-1.0) H 01/02/20 15:47 AST 19 U/L (15-37) 01/02/20 15:47 ALT 18 U/L (16-63) 01/02/20 15:47 Alkaline Phosphatase 101 U/L (46-116) 01/02/20 15:47 Troponin I < 0.05 ng/mL (<0.06) 01/02/20 15:47 Total Protein 7.2 g/dL (6.4-8.2) 01/02/20 15:47 Albumin 3.5 g/dL (3.4-5.0) 01/02/20 15:47 Urine Color Yellow (Yellow) 01/02/20 16:28 Urine Clarity Cloudy (Clear) 01/02/20 16:28 Urine pH 6.0 (5-8) 01/02/20 16:28 Ur Specific [place] 1.020 (1.005-1.025) 01/02/20 16:28 Urine Protein Trace mg/dL (Negative) H 01/02/20 16:28 Urine Ketones Negative mg/dL (Negative) 01/02/20 16:28 Urine Blood Small (Negative) H 01/02/20 16:28 Urine Nitrite Positive (Negative) H 01/02/20 16:28 Urine Bilirubin Negative (Negative) 01/02/20 16:28 Urine Urobilinogen 1.0 EU/dL (Up TO 0.2) H 01/02/20 16:28 Ur Leukocyte Esterase Large (Negative) H 01/02/20 16:28 Urine RBC Not Applicable 01/02/20 16:28 Urine WBC >50 HPF (0-5) H 01/02/20 16:28 Ur Epithelial Cells Not Applicable 01/02/20 16:28 Urine Crystals Not Applicable 01/02/20 16:28 Urine Bacteria Packed HPF (Negative) 01/02/20 16:28 Urine Mucus Not Applicable 01/02/20 16:28 Ur Culture Indicated? Yes 01/02/20 16:28 Urine Glucose Negative mg/dL (Negative) 01/02/20 16:28 COVID-19 PCR Negative (Negative) 01/02/20 19:45 Nasopharyn COVID-19 PCR Not Applicable 01/02/20 19:45 Ref Test Perform Site [facility] lab 01/02/20 19:45
[2020-01-04] MEDS: cefTRIAXone 1 GM/50 ML BAG IVPB (18:05)
[2020-01-04] MEDS: Docusate Sodium 100 MG CAP PO (19:59)
[2020-01-04] MEDS: Apixaban 5 MG TAB PO (20:00)
[2020-01-04] MEDS: Polyethylene Glycol 3350 17 GM PACKET PO (20:00)
[2020-01-04] MEDS: Atorvastatin 20 MG TAB PO (21:07)
[2020-01-05] MEDS: oxyCODONE 5 mg/Acetaminophen 325 mg TAB 1 TAB PO (03:23)
[2020-01-05 05:33] VITALS: BP 107/58; PULSE 98; RESP 18; TEMP 36.4; O2SAT 96
[2020-01-05] MEDS: Levothyroxine 200 MCG TAB PO (05:55)
[2020-01-05 07:28] VITALS: BP 107/67; PULSE 70; RESP 20; TEMP 36.8; O2SAT 95
[2020-01-05] MEDS: Tiotropium/Olodaterol 10 PUFF INHALER 2 PUFF IH (07:41)
[2020-01-05] MEDS: Budesonide/Formoterol 160/4.5 6 GM 60 PUFF INH IH (07:42)
--- NOTE | 2020-01-05 08:12 | OTIE_ITS ---
Occupational Therapy Notes Inpatient Occupational Therapy Evaluation Date: 01/05/20 Referring Doctor: Ofe De La Rosa NP OT Orders: Urgent Precautions: Fall, Standard, DNR/DNI, Non Weightbearing (R) UE PATIENT PROFILE/ADMITTING DIAGNOSIS: Pt is a 79 year old male who presented to the ER on 01/01 for a displaced trimalleolar fx to his (R) ankle, dizziness, generalized weakness and UTI. Pt has a significant past medical hx of A-fib, COPD, thyrod cancer, peripheral vascular disease. 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 Cooper Dsouza Status post thyroidectomy (Acute 10/09/19) Limited neck dissection Current Functional Limitations: Ankle dressing on (R) ankle, Non weightbearing for the next 6 weeks, pain in (R) LE, back pain (chronic), decreased overall strength in (B) LE, decreased functional activity tolerance, impairments in ADL/IADL and leisure activities. Social History/Home Situation: Pt lives in a private home with his . He has 4 steps to go into his home from the front and 4 steps with a (B) railing in the garage. He states that he has a tub shower with a shower bench which he utilized at baseline for his bathing routines as well as grab bars, he has a raised toilet seat as well. He reports that he utilizes an office chair at baseline to sit at when he performs his shaving and oral hygiene. He notes that he was (I) with dressing and he refers to himself as retired and his is retired as well. He is currently undergoing cancer tx at [facility] which he reports he is placing on hold due to his ankle fx. He states that the past month has been exhausting and wearing on him. At baseline he utilizes a FWW and a cane due to his LOB and balance issues. Equipment owned/DME: raised toilet seat, FWW, cane, grab bars, shower bench SUBJECTIVE: Pt states that he is worried about getting into his home due to the stairs. He states that his is there but he doesn't want her to feel overwhelmed. He states that he is receptive to rehab but wants it as a last resort as he would like to return home with services. OBJECTIVE: General Observation: Pleasant and able to answer questions appropriately. Pt has dixon with blood in bad which RN was being notified about per FINAL OPERATIONS TECHNICIAN- pt reports that he was clogged last night and they had to re-insert the dixon which was painful. Mental Status: A&Ox3 Pain: no c/o pain ROM: RUE AROM WFL L UE AROM WFL STRENGTH: RUE Shoulder flexion 5/5, bicep 4/5, tricep 4+/5, title investigator is strong and symmetrical, wrist extensors 5/5, wrist flexors 5/5 LUE Shoulder flexion 5/5, bicep 4+/5, tricep 4+/5, title investigator is strong and symmetrical, wrist extensors 5/5, wrist flexors 5/5 SENSATION: Intact (B) UE FUNCTIONAL MOBILITY/ADLS: Transfers Supine-sit (S) Sit-Stand CGAx2 Stand-sit CGAx2 Bed-Chair Pivot with FWW, CGA x2 and min vc BATHING Pt denies bathing routine and reports that he is not interested in performing this at this time. He was able to transition to the sitting position and demonstrated AROM WFL to be able to perform his bathing routine but would require set up (A)/clean up (A). DRESSING Sitting on side of the bed Dressing UE (I[facility] Dressing LE OT educated and trained pt in adaptive equipment for dressing routine with vc provided to pt that when don and doffing his pants/underwear to go in first (with affected leg), and out last (with affected leg) as his (L) LE is able to bend and move through AROM more freely. Pt was then educated in use of sock aid, systems analysis manager, dressing stick and long handled shoe horn with education provided to pt on sitting ADLs to decrease fatigue and strain on (R) LE. Pt was receptive to education and training and able to demonstrate with good technique with min vc provided. GROOMING NT TOILETING Dixon in place. EATING Sitting in chair pt was (I) with eating routine, able to bring food to mouth with good technique, opening containers and swallowing without difficulty when OT was present. BALANCE: Static sitting Normal Dynamic Sitting Normal Static Standing Fair Dynamic Standing Fair SPECIAL TESTS: Daily Activity Limitations Standardized Measure [facility] AM -PAC ?6 clicks? Daily Activity Inpatient Short Form: Raw score: 18 Standardized score: 38.66 CMS score: 46.65% INFORMED CONSENT/EDUCATION: Pt instructed in purpose of OT Consult and plan of care. ASSESSMENT: Patient is a 79-year-old female referred to occupational therapy services with diagnosis of displaced trimalleolar fx to his (R) ankle, dizziness, generalized weakness and UTI. Pt has a significant past medical hx of A-fib, COPD, thyrod cancer, peripheral vascular disease. Patient presents with clinical signs and symptoms consistent with dx, as demonstrated by the following impairment level findings: Ankle dressing on (R) ankle, Non weightbearing for the next 6 weeks, pain in (R) LE, back pain (chronic), decreased overall strength in (B) LE, decreased functional activity tolerance, impairments in ADL/IADL and leisure activities. Impairments are contributing to the following functional limitations: Not able to perform his ADL/IADL routines at baseline level of function, decrease standing tolerance and functional mobility required for ADLs, decreased LE dressing and bathing, unable to perform stairs limiting him in getting in and out of his home, pain limiting his functional (I). [facility] score 18 Patient is assessed as a Moderate [id number] complexity based on the following: History: See above Examination: see functional limitations as noted above Presentation: Evolving Decision Making: AMPAC score 18 GOALS Goals x1 week 1. Transfers with FWW (S) 2. Dressing- pt will be able to demonstrate mod (I) with dressing (B) LE with pants and mod (I) with sock for (L) LE 3. Bathing- Sitting in chair with max (A) set up/clean up, pt will be able to (I) wash his (B) UE, abdomen, and face as well as [place] area and (B) LE 4. Toileting on commode with min (A) PLAN OF CARE/TREATMENT PLAN: 1x/day, 5 days/ week x 1week Initiate Occupational Therapy Services for bathing, dressing, grooming, toileting, eating, transfer training. DISCHARGE RECOMMENDATIONS- Pt is limited in his functional ADLs/IADLs due to his non weight bearing status and pain in his low back, (L) LE and shoulders with prolonged functional mobility. He is not able to perform his ADLs at his baseline due to these limitations and reports that he is open to SNF but would like to return home. OT feels that pt would benefit from short term stay at SNF to increase his strength, functional activity tolerance and functional (I) in ADLs with modifications/adaptive equipment. Versus, if pt returns home OT feels that pt will require HH OT/PT with a limitation barrier that pt is unable to enter his home at this time due to the stairs into his home and non weight bearing status. Pt is considered a high fall risk due to previous falls prior to fx and significant medical hx. OT will continue to work with patient on progressing his functional (I) with adherence to precautions and protocols. TREATMENT TIME/MINUTES/CODES [id number], [id number], 40 minutes (07:20) Mikayla Thao OTR/L [facility]
[2020-01-05] MEDS: Metoprolol CR 100 MG TABCR 150 MG PO (08:44)
[2020-01-05] MEDS: Apixaban 5 MG TAB PO (08:44)
[2020-01-05] MEDS: buPROPion-XL 150 MG TABCR PO (08:44)
[2020-01-05] MEDS: Gabapentin 600 MG TAB PO (08:45)
[2020-01-05] MEDS: Polyethylene Glycol 3350 17 GM PACKET PO (08:45)
[2020-01-05] MEDS: dilTIAZem CD 180 MG CAPCR PO (08:45)
[2020-01-05] MEDS: Pantoprazole 40 MG TABCR PO (08:45)
[2020-01-05 09:14] LABS: Anion Gap 8.5 mmol/L (3-11); BUN 13 mg/dL (7-18); CO2 26.5 mmol/L (21.0-32.0); CREATININE 1.08 mg/dL (0.70-1.30); Calcium 8.2 mg/dL (8.5-10.1); Chloride 104 mmol/L (98-107); Glucose 124 mg/dL (74-106); Sodium 139 mmol/L (136-145)
[2020-01-05 09:18] LABS: Abs Immature Grans 0.15 10^3/uL (0.0-0.06); Absolute Basophil Count 0.01 10^3/uL (0.0-0.2); Absolute Lymphocyte Count 1.25 10^3/uL (1.2-3.4); Basophils % 0.1; Eosinophils % 0.2; HCT 30.9 % (40.0-50.0); HGB 9.6 g/dL (13.5-17.5); Immature Grans % 1.2; Lymphocytes % 9.9; MCH 28.3 pg (27.0-33.0); MCHC 31.1 % (32.0-36.0); MCV 91.2 fL (80-95); MPV 10.8 fL (8.0-11.0); Monocytes % 9.2; Neutrophils % 79.4; Nucleated RBC 0 %; Platelet Count 230 10^3/uL (130-400); RBC 3.39 10^6/uL (4.36-5.78); RDW 16.7 % (11.8-14.1); RDW-SD 55.8 fL; WBC 12.67 10^3/uL (4.4-10.8)
[2020-01-05 09:22] LABS: Absolute Eosinophil Count 0.03 10^3/uL (0.0-0.7); Absolute Monocyte Count 1.17 10^3/uL (0.1-0.8); Absolute Neutrophil Count 10.06 10^3/uL (1.2-6.7)
[2020-01-05] MEDS: Tamsulosin 0.4 MG CAPCR PO (10:24)
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
--- NOTE | 2020-01-05 12:51 | CMDISCH_ITS ---
- If Service Date Differs Date of service: 01/05/20 Time of Service: 12:51 LACE Index Scoring Tool - Questions: Length of Stay (in days): 3 Acuity (Admit via E.D.?): Yes Comorbidities: Mild Liver/Renal Disease, Any Tumor E.D. Visits: 2 - Answers: Total Score: 13 Risk of Readmission: High Risk Care Management Discharge Reason for Hospitalization: Ankle fracture, weakness, UTI Discharge Plan: Mario will go to [facility] for a short rehab stay prior to returning home. He will transport via [facility] w/c van, coordinated by CM. CM called [facility] to discuss his discharge plan with his RN, Samina. Samina reported that she understood that the plan was for him to hold his cancer treatments until after he recovers from his ankle fracture. She stated that she would discuss this with his Oncologist, and would reach out to the patient if he felt that he should not hold his treatment. [facility] had some concerns that were shared with MENDY, who coordinated with the provider and RN to address the concerns. He is happy with the plan. Patient/Family Education Needs: Review discharge instructions with pt and staff at accepting facility, discussion of self care needs including ask me three. Services Needed at Discharge: Long Term Facility ([facility]), Transportation (w/c van)
--- NOTE | 2020-01-06 07:21 | OTDS_ITS ---
Date of service: 01/06/20 Time of Service: 07:21 Occupational Therapy Notes Occupational Therapy Inpatient Discharge Summary Date: 01/06/20 Dates of Service: 01/05/20 then discharged after consult. Referring Doctor: Ofe De La Rosa NP OT Orders: Urgent Precautions: Fall, Standard, DNR/DNI, Non Weightbearing (R) UE PATIENT PROFILE/ADMITTING DIAGNOSIS: Pt is a 79 year old male who presented to the ER on 01/01 for a displaced trimalleolar fx to his (R) ankle, dizziness, generalized weakness and UTI. Pt has a significant past medical hx of A-fib, COPD, thyrod cancer, peripheral vascular disease. 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 mk Left testicular pain Obesity Orchitis MARK (obstructive sleep apnea) Peripheral sensory neuropathy Prostatism Pulmonary emphysema PVD (peripheral vascular disease) Right sided sciatica Sciatica Tubular adenoma Surgical History EGD w/ BX 04/18/16 egd/KELLI test, cauterization of ulcer (12/30/15) L ant Total Hip Arthroplasty (03/03/17) 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 Cooper Dsouza Status post thyroidectomy (Acute 10/09/19) Limited neck dissection Current Functional Limitations: Ankle dressing on (R) ankle, Non weightbearing for the next 6 weeks, pain in (R) LE, back pain (chronic), decreased overall strength in (B) LE, decreased functional activity tolerance, impairments in ADL/IADL and leisure activities. Social History/Home Situation: Pt lives in a private home with his . He has 4 steps to go into his home from the front and 4 steps with a (B) railing in the garage. He states that he has a tub shower with a shower bench which he utilized at baseline for his bathing routines as well as grab bars, he has a raised toilet seat as well. He reports that he utilizes an office chair at baseline to sit at when he performs his shaving and oral hygiene. He notes that he was (I) with dressing and he refers to himself as retired and his is retired as we ll. He is currently undergoing cancer tx at [facility] which he reports he is placing on hold due to his ankle fx. He states that the past month has been exhausting and wearing on him. At baseline he utilizes a FWW and a cane due to his LOB and balance issues. Equipment owned/DME: raised toilet seat, FWW, cane, grab bars, shower bench SUBJECTIVE: NT OBJECTIVE: Information below is based on Initial Consult- no skilled OT services performed for this documentation, this is a summary of pts care. ROM: RUE AROM WFL L UE AROM WFL STRENGTH: RUE Shoulder flexion 5/5, bicep 4/5, tricep 4+/5, student recruiter is strong and symmetrical, wrist extensors 5/5, wrist flexors 5/5 LUE Shoulder flexion 5/5, bicep 4+/5, tricep 4+/5, student recruiter is strong and symmetrical, wrist extensors 5/5, wrist flexors 5/5 SENSATION: Intact (B) UE FUNCTIONAL MOBILITY/ADLS: Transfers Supine-sit (S) Sit-Stand CGAx2 Stand-sit CGAx2 Bed-Chair Pivot with FWW, CGA x2 and min vc BATHING Pt denies bathing routine and reports that he is not interested in performing this at this time. He was able to transition to the sitting position and demonstrated AROM WFL to be able to perform his bathing routine but would require set up (A)/clean up (A). DRESSING Sitting on side of the bed Dressing UE (I) don and doffing [facility] gown Dressing LE OT educated and trained pt in adaptive equipment for dressing routine with vc provided to pt that when don and doffing his pants/underwear to go in first (with affected leg), and out last (with affected leg) as his (L) LE is able to bend and move through AROM more freely. Pt was then educated in use of sock aid, general ophthalmologist, dressing stick and long handled shoe horn with education provided to pt on sitting ADLs to decrease fatigue and strain on (R) LE. Pt was receptive to education and training and able to demonstrate with good technique with min vc provided. GROOMING NT TOILETING Beauchamp in place. EATING Sitting in chair pt was (I) with eating routine, able to bring food to mouth with good technique, opening containers and swallowing without difficulty when OT was present. BALANCE: Static sitting Normal Dynamic Sitting Normal Static Standing Fair Dynamic Standing Fair ASSESSMENT: Patient is a 79-year-old female referred to occupational therapy services with diagnosis of displaced trimalleolar fx to his (R) ankle, dizziness, generalized weakness and UTI. Pt has a significant past medical hx of A-fib, COPD, thyrod cancer, peripheral vascular disease. Pt was seen for OT consult only and then discharged later that day to [facility]. No assessment on pts goals due to this. GOALS not met as pt was seen for OT consult only and then discharged to &R 1. Transfers with FWW (S) 2. Dressing- pt will be able to demonstrate mod (I) with dressing (B) LE with pants and mod (I) with sock for (L) LE 3. Bathing- Sitting in chair with max (A) set up/clean up, pt will be able to (I) wash his (B) UE, abdomen, and face as well as [place] area and (B) LE 4. Toileting on commode with min (A) PLAN OF CARE/TREATMENT PLAN: Discharged to [facility] on 01/05/20 DISCHARGE RECOMMENDATIONS- Pt is limited in his functional ADLs/IADLs due to his non weight bearing status and pain in his low back, (L) LE and shoulders with prolonged functional mobility. He is not able to perform his ADLs at his baseline due to these limitations and reports that he is open to SNF but would like to return home. OT feels that pt would benefit from short term stay at SNF to increase his strength, functional activity tolerance and functional (I) in ADLs with modifications/adaptive equipment. Versus, if pt returns home OT feels that pt will require HH OT/PT with a limitation barrier that pt is unable to enter his home at this time due to the stairs into his home and non weight bearing status. Pt is considered a high fall risk due to previous falls prior to fx and significant medical hx. TREATMENT TIME/MINUTES/CODES N/A Mikayla Thao, OTR/L [facility]
--- NOTE | 2020-01-10 18:00 | INDS_ITS ---
Date of service: 01/10/20 Time of Service: 16:00 PT Notes Visit Reasons: ANKLE FRACTURE,WEAKNESS,UTI Inpatient Physical Therapy Discharge Summary Dates: 01/10/2020 Dates of Service: 01/04/2020 through 01/05/2020 Referring Doctor: Power Webber MD PT Orders: PT CONSULT: Status post Ortho surgery. NWB on right foot. Precautions: Fall. Standard. NWB on R LE. Patient Profile/Admitting Diagnosis: Mario is a 79-year-old male who presented to the ED on 01/02/2020 with a right ankle injury sustained from a fall due to legs giving out from progressive weakness. Patient is diagnosed with acute kidney injury, atrial fibrillation, Hurthle Cell Carcinoma of thyroid, dizziness, generalized weakness, urinary tract infection, and displaced trimalleolar fracture of the right ankle and is status post ORIF with application of Cantu compression dressing and short leg posterior splint on 01/03/2020. 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 Cooper Dsouza Status post thyroidectomy (Acute 10/09/19) Limited neck dissection Social History/Home Situation: Lives with in a private home with 2 steps to enter Equipment Owned/DME: Front wheel walker, single-point cane, shower chair Subjective: Agreeable to going to a ANF for continued mobility progression. Continues to report pain with movement. Objective: General Observation: RAMONE wraps over Cantu compression dressing and posterior splint on the R leg and foot. Beauchamp catheter in place. IV in the R UE. TEDS on the L leg. Mental Status: Alert and oriented x4 Pain: Reported 5-6/10 in the right LE with NWB stance; discomfort in B UE with WB ROM: Right Upper Extremity: Shoulder Flexion WFL. Shoulder abduction WFL. Elbow flexion WFL. Wrist flexion WFL. Opening and closing of hand WFL. Left Upper Extremity: Shoulder Flexion WFL. Shoulder abduction WFL. Elbow flexion WFL. Wrist flexion WFL. Opening and closing of hand WFL. Right Lower Extremity: Hip flexion WFL. Hip abduction WFL. Knee flexion WFL. Ankle dorsiflexion WFL. Ankle plantarflexion WFL. Left Lower Extremity: Hip flexion WFL. Hip abduction WFL. Knee flexion WFL. Ankle dorsiflexion NT. Ankle plantarflexion NT. Strength: Right Upper Extremity: Shoulder flexors 5/5. Shoulder abductors 5/5. Elbow flexors 5/5. Elbow extensors 5/5. Computer Language Coder strong. Left Upper Extremity: Shoulder flexors 5/5. Shoulder abductors 5/5. Elbow flexors 5/5. Elbow extensors 5/5. Computer Language Coder strong. Right Lower Extremity: Hip flexors 4/5. Hip abductors 4/5. Knee flexors 4/5. Knee extensors 4/5. Ankle dorsiflexors 4/5. Ankle plantarflexors 4/5. Left Lower Extremity:Hip flexors -=/5. Hip abductors 4-/5. Knee flexors 3/5. Knee extensors NT. Ankle dorsiflexors NT. Ankle plantarflexors NT. Sensation: Reports numbness in B feet Bed Mobility/Transfers: Rolling standby assist Supine to sit standby assist with HOB at 45 degrees Sit to stand minimal assist Stand to sit moderate assist Bed to chair moderate assist Chair to bed moderate assist Gait: Patient only tolerated 4-8 feet short distance ambulation using front wheeled walker with NWB on the right LE requiring minimal assist of 2 for safety with report of pain in back and BUE/LE. Decreased dixie. Not fully compliant with NWB status due to fear of falling requiring cueing for overall safety. Balance: Normal Static Sitting: Normal Dynamic Sitting: Normal Static Standing: Poor Dynamic Standing: Poor Assessment: Mario continues to demonstrate significant functional mobility decline requiring physical assistance and use of a front wheel walker for all mo bility ADL performance, difficulty with walking, unsteadiness with gait, discomfort in BUE/LE, and increased risk for falling due to admitting diagnoses and postoperative status. His non-weight bearing status on the right LE, pre- existing bilateral peripheral neuropathy in B legs and feet, dizziness, right- sided sciatica, and generalized weakness may require residential facility placement in order to facilitate independent mobility level as may not be able to physically provide assistance for patient at home at this time. Patient continues to present with clinical signs and symptoms consistent with current/admitting diagnoses that have resulted to mobility limitations, gait instability, generalized weakness, and impairment of motor control as demonstrated by the following impairment level findings: 1. Decreased strength to be LE major muscle groups 2. Impaired standing balance 3. Impaired activity tolerance 4. Limitation of joint range of motion in right ankle Impairments are continuing to contribute to the following functional limitations: 1. Dependent bed mobility skills 2. Increased dependence with transfers 3. Inability to safely ambulate without assistive device and physical assistance 4. Increase completion time for mobility ADL performance 5. Increased fall risk 6. Inability to negotiate steps alone safely Goals: Goals X1 week 1. Supine-Sit independent MET 2. Sit-Supine independent MET 3. Sit-Stand standby assist NOT MET 4. Stand-Sit standby assist NOT MET 5. Bed-Chair standby assist NOT MET 6. Chair-Bed standby assist NOT MET 7. Standby assist gait on level surface with use of least restrictive device for at least 300 feet without report of pain nor dyspnea NOT MET 8. Standby assist stair negotiation while holding onto bilateral rails for at least 10 steps without report of pain nor dyspnea NOT MET 9. Independent with home exercise program NOT MET 10. Good static and dynamic standing balance/tolerance NOT MET DISCHARGE RECOMMENDATIONS: Patient will benefit from residential facility placement for continued skilled physical therapy services in order to progress mobility level, strength, and balance in preparation for a safe discharge to home. TREATMENT CODE/TIME: Session 1- 96096 x 33 minutes beginning at 9:15 AM. Session 2- [id number] x 17 minutes beginning at 10:18 AM. Thank you for the opportunity to participate in the care of this patient. Basia Urrutia PT, DPT, CLT [facility] [place], [place]
== END 2020-01-05 14:27 | disposition skilled nursing facility (03) | DRG 493 ==
LOC: ER 19:00 → MS 21:06
PROVIDERS: Nurse Practitioner; Nurse Practitioner Family; Orthopaedic Surgery; Admitting Provider Family Medicine; Emergency Provider Physician Assistant; PCP Internal Medicine; Visit Provider Internal Medicine
PROC: 0QSJ04Z Reposition Right Fibula with Internal Fixation Device, Open Approach (ICD-10-PCS; CPT 27792; principal; 2020-01-03 15:30)
DX: S82.841A Displaced bimalleolar fracture of right lower leg, initial encounter for closed fracture (principal); N39.0 Urinary tract infection, site not specified; N17.9 Acute kidney failure, unspecified; Z16.11 Resistance to penicillins; Z16.19 Resistance to other specified beta lactam antibiotics; S93.421A Sprain of deltoid ligament of right ankle, initial encounter; W18.39XA Other fall on same level, initial encounter; Y92.015 Private garage of single-family (private) house as the place of occurrence of the external cause; R53.1 Weakness; G89.18 Other acute postprocedural pain; C73 Malignant neoplasm of thyroid gland; E03.8 Other specified hypothyroidism; G47.33 Obstructive sleep apnea (adult) (pediatric); I48.91 Unspecified atrial fibrillation; Z79.01 Long term (current) use of anticoagulants; B96.89 Other specified bacterial agents as the cause of diseases classified elsewhere; J44.9 Chronic obstructive pulmonary disease, unspecified; I73.9 Peripheral vascular disease, unspecified; R33.9 Retention of urine, unspecified; Z74.1 Need for assistance with personal care; Z74.2 Need for assistance at home and no other household member able to render care; Z66 Do not resuscitate
CPT/HCPCS: 27792; 27695; 29515; 36415; 76942; 80048; 80053; 85027; 87077; 93005; 94640; 96361; 96365; 96375; 96376; 97110; 97163; 97166; 97530; 97535; 99222; 99233; 99239; 99285; C1713; NC; U0003; 71045; 73590; 73600; 73610; 81003; 81015; 83735; 84484; 85025; 85610; 85730; 87086; 87186; 93010; J0131; J0690; J0696; J1100; J2001; J2250; J2405; J2704; J3010

== ENCOUNTER 2020-01-10 13:37 | Outpatient (REF) | payer SELFPAY ==
[2020-01-10 13:35] LABS: Bilirubin Moderate (Negative); Blood Moderate (Negative); Clarity Cloudy (Clear); Glucose 100 mg/dL (Negative); Ketones Negative (Negative); Leukocyte Esterase Negative (Negative); Nitrite Negative (Negative); Specific Gravity >= 1.030 (1.005-1.025); Urobilinogen >=8.0 EU/dL (Up TO 0.2)
[2020-01-10 14:01] LABS: WBC 0-2 HPF (0-5)
[2020-01-10 14:02] LABS: Bacteria Negative HPF (Negative); C & S Indicated? No; Casts Negative LPF (Negative); Crystals Negative HPF (Negative); Epithelial Cells Few HPF (Negative); Mucus Negative (Negative)
[2020-01-11 16:26] LABS: COVID-19 RT-PCR Result Not Detected ((See Note))
== END 2020-01-10 13:57 ==
LOC: LBN 13:37
PROVIDERS: PCP Internal Medicine; Visit Provider Family Medicine
DX: N39.0 Urinary tract infection, site not specified (principal); Z11.59 Encounter for screening for other viral diseases
CPT/HCPCS: U0003; 81003; 81015

== ENCOUNTER 2020-01-11 23:29 | Emergency (ER) | payer MEDICARE, BC, SELFPAY ==
[2020-01-11 23:31] VITALS: BP 90/64; PULSE 109; RESP 16; TEMP 36.3; O2SAT 97
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
[2020-01-11 23:54] LABS: Abs Immature Grans 0.28 10^3/uL (0.0-0.06); Absolute Basophil Count 0.02 10^3/uL (0.0-0.2); Basophils % 0.1; Eosinophils % 0.5; HCT 29.7 % (40.0-50.0); HGB 9.4 g/dL (13.5-17.5); Immature Grans % 1.8; Lymphocytes % 7.2; MCH 28.1 pg (27.0-33.0); MCHC 31.6 % (32.0-36.0); MCV 88.9 fL (80-95); MPV 9.7 fL (8.0-11.0); Monocytes % 8.8; Neutrophils % 81.6; Nucleated RBC 0 %; Platelet Count 280 10^3/uL (130-400); RBC 3.34 10^6/uL (4.36-5.78); RDW 16.8 % (11.8-14.1); RDW-SD 54.4 fL; WBC 15.26 10^3/uL (4.4-10.8)
--- NOTE | 2020-01-12 | DI.CT_ITS ---
EXAM: CT ABDOMEN PELVIS W CLINICAL HISTORY: hematuria, abdominal pain TECHNIQUE: Imaging Protocol: Axial computed tomography images with coronal and sagittal reformatted images were created and reviewed CONTRAST MATERIAL: Intravenous: Omnipaque 350 Contrast volume:100 mL Oral: No FINDINGS: ABDOMEN: Lung Bases: Normal where visualized. Liver: Normal density. No measurable mass. Portal, Superior Mesenteric, and Splenic Veins: Unremarkable. Gallbladder and Biliary Tract: No radiodense calculus or dilation. Pancreas: Normal density, no abnormal calcifications or inflammatory process. Spleen: Normal. Adrenals: No masses seen. Kidneys: Normal size, contour and axis. 2 mm nonobstructing stone in the superior pole of the left ki dney. Bilateral renal cysts. Mild bilateral hydroureteronephrosis. Abdominal Aorta: Abdominal aorta measuring 3 cm in transverse diameter. Atherosclerosis. Bowel: No obstruction or bowel wall thickening. No evidence of acute appendicitis. Colonic diverticul osis but no evidence of acute diverticulitis. Peritoneal Cavity: No ascites, collection or mesenteric inflammatory response. Lymph Nodes: Within normal limits. Bones: Artifact from the patient's left total hip replacement. Degenerative changes in the spine. Old L1 compression deformity. Soft Tissues: Unremarkable. PELVIS: Bladder: Distended urinary bladder. There is high density material layering in the dependent portion of the urinary bladder. There is air seen in the dependent portion of the urinary bladder which may r eflect recent instrumentation. Mild stranding around the urinary bladder. Reproductive Organs: Mildly enlarged prostate gland. Lymph Nodes: Within normal limits. Bones: Please see above. IMPRESSION: 1. Urinary bladder distended. Large amount of high-density material layering in the urinary bladder w hich may represent blood/clot. 2. Small amount of air within the urinary bladder which may reflect recent catheterization. 3. Mild infiltration in the surrounding soft tissues about the urinary bladder. This may be an inflam matory infectious process. Bladder injury cannot be excluded. Please correlate clinically. 4. 3 cm abdominal aortic aneurysm. 5. Colonic diverticulosis without evidence of acute diverticulitis. RADIATION DOSE DELIVERED: 1,175.42mGy.cm Total DLP DATA REPOSITORY: All CT scans at this facility are submitted to the National Radiology Data Registry (NRDR) Dose Index Registry (DIR) with the [employer] (ACR). RADIATION OPTIMIZATION: All CT scans at this facility use at least one of these dose optimization te chniques: automated exposure control; mA and/or kV adjustment per patient size (includes targeted exa ms where dose is matched to clinical indication); or iterative reconstruction.
[2020-01-12 00:01] LABS: Absolute Eosinophil Count 0.08 10^3/uL (0.0-0.7); Absolute Monocyte Count 1.34 10^3/uL (0.1-0.8); Absolute Neutrophil Count 12.45 10^3/uL (1.2-6.7)
[2020-01-12 00:07] LABS: ALT 328 U/L (16-63); AST 244 U/L (15-37); Albumin 2.5 g/dL (3.4-5.0); Alkaline Phosphatase 396 U/L (46-116); BUN 12 mg/dL (7-18); Bilirubin, Total 2.3 mg/dL (0.2-1.0); CREATININE 1.31 mg/dL (0.70-1.30); Calcium 8.4 mg/dL (8.5-10.1); Chloride 105 mmol/L (98-107); Estimated GFR 52.92 (mL/min/1.73m2); Glucose 211 mg/dL (74-106); Lipase 56 U/L (73-393); Magnesium 1.9 mg/dL (1.8-2.4); Sodium 139 mmol/L (136-145); Total Protein 6.1 g/dL (6.4-8.2)
[2020-01-12 00:15] VITALS: BP 104/67; PULSE 106; O2SAT 97
[2020-01-12] MEDS: fentaNYL 100 MCG/2 ML VIAL 50 MCG IVP (00:15)
[2020-01-12 00:20] LABS: INR 1.2 (0.9-1.1); PTT Activated 27.4 sec (21.0-31.4); Prothrombin Time 11.9 sec (9.3-11.0)
[2020-01-12] MEDS: Normal Saline 1,000 ML 1000 ML IV (00:31)
[2020-01-12] MEDS: Omnipaque 350 MG/ML 100 ML BTL IJ (00:44)
[2020-01-12] MEDS: Normal Saline - Diluent 50 ML VIAL IV (00:44)
[2020-01-12 00:45] VITALS: BP 122/81; PULSE 101; O2SAT 97
[2020-01-12] MEDS: HYDROmorphone 2 MG/ML VIAL 1 MG IVP (00:50)
[2020-01-12 01:00] VITALS: BP 108/78; PULSE 105; O2SAT 96
--- NOTE | 2020-01-12 01:02 | DI.VRAD_ITS ---
PROCEDURE INFORMATION: Exam: CT Abdomen And Pelvis With Contrast Exam date and time: 01/12/2020 12:35 AM Age: 79 years old Clinical indication: Localized; Prior surgery; Surgery date: 6+ months; Surgery type: Hip replacement; Patient HX: Lower abdominal pain, hematuria TECHNIQUE: Imaging protocol: Computed tomography of the abdomen and pelvis with intravenous contrast. Radiation optimization: All CT scans at this facility use at least one of these dose optimization techniques: automated exposure control; mA and/or kV adjustment per patient size (includes targeted exams where dose is matched to clinical indication); or iterative reconstruction. Contrast material: OMNIPAQUE 350; Contrast volume: 100 ml; Contrast route: INTRAVENOUS (IV); COMPARISON: CT Abdomen^ROUTINE ABDOMEN PELVIS WITH CONTRAST (Adult) 05/25/2018 11:21 AM FINDINGS: Liver: Question minimally nodular contour to the liver No mass. Gallbladder and bile ducts: Normal. No calcified stones. No ductal dilation. Pancreas: Normal. No ductal dilation. Spleen: Normal. No splenomegaly. Adrenals: Normal. No mass. Kidneys and ureters: Renal cysts noted. Mild bilateral hydroureteronephrosis Stomach and bowel: Colonic diverticulosis. No obstruction. No mucosal thickening. Appendix: No evidence of appendicitis. Intraperitoneal space: Unremarkable. No free air. No significant fluid collection. Vasculature: 3 cm abdominal aortic aneurysm noted. Lymph nodes: Unremarkable. No enlarged lymph nodes. Bladder: Distended with large heterogeneous density layering posteriorly and small amount of air. Minimal pericystic fluid/infiltration Reproductive: Moderate enlargement of the prostate gland Bones/joints: Left hip arthroplasty. No acute fracture. Soft tissues: Unremarkable. IMPRESSION: Presumed large amount of blood layering posteriorly/clot in a distended bladder. Small amount of air may be related to recent catheterization. Mild nonspecific infiltration/minimal fluid surrounding the bladder. Subtle bladder injury not excluded Mild bilateral hydroureteronephrosis Incidental 3 cm abdominal aortic aneurysm Colonic diverticulosis without diverticulitis Question cirrhosis Dictated and Authenticated by: Richi Booth MD. Ordering:LIBRADO Marin MD
[2020-01-12 01:15] VITALS: BP 104/68; PULSE 107; O2SAT 93
[2020-01-12 02:00] VITALS: BP 92/49; PULSE 106; O2SAT 96
[2020-01-12 02:08] LABS: Clarity Cloudy (Clear); Specific Gravity 1.025 (1.005-1.025)
[2020-01-12 02:11] LABS: Glucose Color Interference mg/dL (Negative); Leukocyte Esterase Color Interference (Negative); Nitrite Color Interference (Negative)
[2020-01-12 02:12] LABS: Bilirubin Color Interference (Negative); Blood Color Interference (Negative); Ketones Color Interference mg/dL (Negative); Urobilinogen Color Interference EU/dL (Up TO 0.2)
[2020-01-12 02:36] VITALS: BP 92/49; PULSE 106; RESP 13; O2SAT 96
[2020-01-12 06:15] LABS: C & S Indicated? C&S Done As Ordered; RBC >50 HPF (0-2)
== END 2020-01-12 02:20 ==
PROVIDERS: Emergency Provider Emergency Medicine; PCP Internal Medicine
DX: R33.8 Other retention of urine (principal); N32.89 Other specified disorders of bladder; N13.39 Other hydronephrosis; Z79.01 Long term (current) use of anticoagulants; J44.9 Chronic obstructive pulmonary disease, unspecified; Z87.891 Personal history of nicotine dependence
CPT/HCPCS: 36415; 51703; 80053; 83690; 86850; 86900; 86901; 96361; 96374; 96375; 99285; 74177; 81003; 81015; 83735; 85025; 85610; 85730; 87086; J3010; J3490

== ENCOUNTER 2020-01-16 08:23 | Emergency (ER) | payer MEDICARE, BC, SELFPAY ==
[2020-01-16 08:28] VITALS: BP 121/79; PULSE 120; RESP 15; TEMP 36.4; O2SAT 98
--- NOTE | 2020-01-16 09:09 | NUR.NOTE ---
Nursing Note: Bladder scan revealed greater that 999ml urine retained. Urinary catheter flushed and irrigated with sterile water. No visible clots seen, however drainage resumed. 1600 out put obtained.
[2020-01-16 09:29] LABS: Bilirubin Negative (Negative); Blood Large (Negative); Clarity Cloudy (Clear); Glucose Negative (Negative); Ketones Negative (Negative); Leukocyte Esterase Large (Negative); Nitrite Negative (Negative); Urobilinogen 0.2 EU/dL (Up TO 0.2)
[2020-01-16] MEDS: dilTIAZem CD 120 MG CAPCR 240 MG PO (09:36)
[2020-01-16 09:37] LABS: Bacteria Many HPF (Negative); C & S Indicated? Yes; Casts Negative LPF (Negative); Crystals Negative HPF (Negative); Epithelial Cells Few HPF (Negative); Mucus Trace (Negative); RBC 20-50 HPF (0-2); WBC 20-50 HPF (0-5)
--- NOTE | 2020-01-16 09:37 | ED.GENADUL_ITS ---
Discharge Plan Disposition Patient Disposition: HOME Condition: Stable Discharge Details Chief Complaint: Urinary Clinical Impression: Acute urinary retention, UTI (urinary tract infection) Primary Care Provider: Sandra Piedra ED Provider: Braydon Douglas Home Meds and New Rx's Prescriptions: New cephalexin [Keflex] 500 mg capsule 500 mg PO BID 7 Days Qty: 14 RF: 0 Continued diltiazem HCl 240 mg capsule,extended release 24hr 240 mg PO DAILY Qty: 90 RF: 3 gabapentin 600 mg tablet 600 mg PO TID Qty: 270 RF: 3 multivitamin 1 EACH tablet 1 ea PO DAILY RF: 0 acetaminophen 500 MG tablet 1,000 mg PO Q8H PRN PRNRF: 0 pantoprazole 40 mg tablet,delayed release (DR/EC) 40 mg PO DAILY Qty: 90 RF: 3 Eliquis 5 mg tablet 5 mg PO BID Qty: 180 RF: 3 metoprolol succinate 100 mg tablet extended release 24 hr 150 mg PO DAILY Qty: 135 RF: 3 Stiolto Respimat 2.5-2.5 mcg/actuation mist 2 puff IH DAILY RF: 0 levothyroxine 200 mcg tablet 200 mcg PO HS RF: 0 atorvastatin 20 mg tablet 20 mg PO QHS Qty: 90 RF: 3 budesonide-formoterol [Symbicort] 160-4.5 mcg/actuation HFA aerosol inhaler 2 puff Inhalation BID Qty: 3 RF: 3 polyethylene glycol 3350 17 gram Powder In Packet 17 g PO BID Qty: 20 RF: 0 oxycodone-acetaminophen 5-325 mg Tablet 1 tab PO Q4H PRN PRNQty: 20 RF: 0 tamsulosin 0.4 mg Capsule 0.4 mg PO DAILY Qty: 14 RF: 0 docusate sodium [Colace] 100 mg Capsule 100 mg PO BID PRN PRNQty: 20 RF: 0 levofloxacin [Levaquin] 750 mg Tablet 750 mg PO DAILY@1800 Qty: 7 RF: 0 bupropion HCl 150 mg tablet extended release 24 hr 150 mg PO DAILY RF: 0 magnesium hydroxide [Milk of Magnesia] 400 mg/5 mL Suspension 30 ml PO HS PRNRF: 0 phenazopyridine [Pyridium] 100 mg Tablet 100 mg PO Q6H PRN (Reason: Bladder Spasms) RF: 0 Fleet Enema 19-7 gram/118 mL Enema 118 ml MD ONCE PRN (Reason: Constipation) RF: 0 melatonin 5 mg Tablet 5 mg PO HS RF: 0 albuterol sulfate [ProAir HFA] 90 mcg/actuation HFA aerosol inhaler 2 puff Inhalation Q4H PRN PRNRF: 0 finasteride 5 mg tablet 5 mg PO DAILY RF: 0 Discharge Instructions Instructions: Urinary Retention in Men (ED), Urinary Tract Infection in Men (ED) Additional Instructions: Your catheter is working appropriately after flushing. There appears to be an urinary tract infection present, take Keflex as directed. Urinary culture is pending. Continue your Beauchamp care as directed by the urology team at [facility]. I personally spoke with Dr. Murrieta regarding your visit here in the ER today. He would like you to contact his office on Friday and he will direct you as to what the next step in your evaluation will be and when your outpatient appointment will take place. Please watch for new or worsening symptoms and return to the ER for any concerns Referrals: Nguyễn Murrieta MD [ [facility] STAFF PHYSICIAN] - Medical Decision Making 79-year-old gentleman who was seen in our ER earlier this week and subsequently transferred to [facility] secondary to urinary retention and clots within his bladder. He was discharged yesterday after cystoscopy to manually remove the clots, plan is now to keep Beauchamp catheter in place, has discontinued any anticoagulation until reevaluation with urology. Now with urinary retention over the past 12 hours. Bladder scan greater than 1000 cc. I was able to obtain and review the records from [facility]. Patient was transferred there from our ER, subsequently saw urology, cystoscopy, now discharged as of yesterday with indwelling Beauchamp catheter and plan to follow-up with urology as an outpatient here, Dr. Murrieta. Placed a call to Dr. Murrieta. In the meantime we will attempt to flush the catheter and if this is unsuccessful we will likely attempt try to change the catheter. The catheter began freely flowing after flushing, a total of 1600 cc of blood tinged urine with clots. Patient is now asymptomatic. I no longer feel any mass in the suprapubic region. He has not taken his diltiazem today. We will give a single dose of diltiazem now. I was able to speak with Dr. Murrieta, he will reviewed the records from [facility] and he would recommend that the patient contact his office on Friday for outpatient evaluation and further investigation of his hematuria. He has no additional suggestions at this time Urinalysis appears to have early urinary tract infection, will initiate Keflex therapy. I was able to speak with the patient's on the phone, she is getting family to help him get up the ramp at their house into their home. She is comfortable caring for him in his current condition. Medical Records Medical records reviewed: Yes I reviewed the patient's medical records. Lab Data Lab results reviewed: Yes I reviewed the patient's lab results. Lab results narrative: 01/16/20 09:25 Urine - Reflex from Ua Urine Culture - Pending Laboratory Tests Range/Units 01/16/20 09:25 Urine Color (Yellow) Yellow Urine Clarity (Clear) Cloudy Urine pH (5-8) 6.0 Ur Specific [place] (1.005-1.025) 1.010 Urine Protein (Negative) mg/dL 100 H Urine Ketones (Negative) mg/dL Negative Urine Blood (Negative) Large H Urine Nitrite (Negative) Negative Urine Bilirubin (Negative) Negative Urine Urobilinogen (Up TO 0.2) EU/dL 0.2 Ur Leukocyte Esterase (Negative) Large H Urine RBC (0-2) HPF 20-50 H Urine WBC (0-5) HPF 20-50 H Ur Epithelial Cells (Negative) HPF Few Urine Crystals (Negative) HPF Negative Urine Bacteria (Negative) HPF Many Urine Casts (Negative) LPF Negative Urine Mucus (Negative) Trace Ur Culture Indicated? Yes Urine Glucose (Negative) mg/dL Negative HPI General Mode of arrival: EMS . Date/Time Provider Initiated Documentation: 01/16/20 08:30 . Limitations to Documentation: no limitations . Information obtained by: patient and EMS . HPI Narrative: This is a 79-year-old gentleman with history of A. fib, chronic anticoagulation, hypertension, recent bimalleolar fracture of the right ankle and even more recent acute urinary retention. He was seen in our ER on the second, had a high clot burden in his bladder and unable to pass urine. Dr. Murrieta was consulted and subsequently transferred to [facility] for urology consultation. I was able to review there records, it appears as though he required cystoscopy and a subsequent manually remove the clots. He is to hold his Eliquis and will follow-up with Dr. Murrieta. Patient reports that he was discharged from [facility] yesterday and everything was functioning properly. Sometime yesterday evening or late last night he stopped passing urine. He now feels as though he needs to urinate but no urine is coming through the catheter. He reports a lower abdominal pressure but no true pain. Denies fever, nausea, vomiting. Reports that the small amount of urine that is in the leg bag does have a blood tinged appearance Related Data Home Medications Medication Instructions Recorded Confirmed multivitamin 1 ea PO DAILY 07/20/12 01/16/20 acetaminophen 1,000 mg PO Q8H PRN PRN tab-cap 03/10/17 01/16/20 pantoprazole 40 mg tablet,delayed 40 mg PO DAILY #90 tabcr 02/09/19 01/16/20 release apixaban 5 mg tablet 5 mg PO BID #180 tab-cap 03/15/19 01/12/20 metoprolol succinate 100 mg 150 mg PO DAILY #135 tab 03/30/19 01/16/20 tablet,extended release 24 hr tiotropium 2.5 mcg-olodaterol 2.5 2 puff IH DAILY 07/22/19 01/16/20 mcg/actuation mist for inhalation levothyroxine 200 mcg tablet 200 mcg PO HS 10/11/19 01/16/20 atorvastatin 20 mg tablet 20 mg PO QHS #90 tab 11/02/19 01/16/20 budesonide-formoterol HFA 160 2 puff INHALATION BID #3 inhaler 11/02/19 01/16/20 mcg-4.5 mcg/actuation aerosol inhaler diltiazem HCl 240 mg 240 mg PO DAILY #90 tab-cap 12/29/19 01/16/20 capsule,extended release 24 hr gabapentin 600 mg tablet 600 mg PO TID #270 tab 12/29/19 01/16/20 docusate sodium [Colace] 100 mg PO BID PRN PRN #20 cap 01/05/20 01/16/20 levofloxacin [Levaquin] 750 mg PO DAILY@1800 #7 tab 01/05/20 01/16/20 oxycodone-acetaminophen 1 tab PO Q4H PRN PRN #20 tab 01/05/20 01/16/20 polyethylene glycol 3350 17 g PO BID #20 ea 01/05/20 01/16/20 tamsulosin 0.4 mg PO DAILY #14 cap 01/05/20 01/16/20 Fleet Enema 118 ml MD ONCE PRN 01/12/20 01/16/20 albuterol sulfate [ProAir HFA] 2 puff INHALATION Q4H PRN PRN 01/12/20 01/16/20 bupropion HCl 150 mg PO DAILY 01/12/20 01/16/20 magnesium hydroxide [Milk of 30 ml PO HS PRN 01/12/20 01/16/20 Magnesia] melatonin 5 mg PO HS 01/12/20 01/16/20 phenazopyridine [Pyridium] 100 mg PO Q6H PRN 01/12/20 01/16/20 cephalexin [Keflex] 500 mg PO BID 7 Days #14 cap 01/16/20 finasteride 5 mg PO DAILY 01/16/20 01/16/20 Previous Rx's Medication Instructions Recorded pantoprazole 40 mg tablet,delayed 40 mg PO DAILY #90 tabcr 02/09/19 release apixaban 5 mg tablet 5 mg PO BID #180 tab-cap 03/15/19 metoprolol succinate 100 mg 150 mg PO DAILY #135 tab 03/30/19 tablet,extended release 24 hr atorvastatin 20 mg tablet 20 mg PO QHS #90 tab 11/02/19 budesonide-formoterol HFA 160 2 puff INHALATION BID #3 inhaler 11/02/19 mcg-4.5 mcg/actuation aerosol inhaler diltiazem HCl 240 mg 240 mg PO DAILY #90 tab-cap 12/29/19 capsule,extended release 24 hr gabapentin 600 mg tablet 600 mg PO TID #270 tab 12/29/19 docusate sodium [Colace] 100 mg PO BID PRN PRN #20 cap 01/05/20 levofloxacin [Levaquin] 750 mg PO DAILY@1800 #7 tab 01/05/20 oxycodone-acetaminophen 1 tab PO Q4H PRN PRN #20 tab 01/05/20 polyethylene glycol 3350 17 g PO BID #20 ea 01/05/20 tamsulosin 0.4 mg PO DAILY #14 cap 01/05/20 cephalexin [Keflex] 500 mg PO BID 7 Days #14 cap 01/16/20 Allergies Allergy/AdvReac Type Severity Reaction Status Date / Time No Known Allergies Allergy Verified 01/16/20 08:39 General Stated Complaint: Urinary ANDERS: 3 Review of Systems Constitutional Constitutional: Denies fever(s) Cardiovascular Cardiovascular: Denies chest pain and Denies dyspnea Respiratory Respiratory: Denies cough and Denies dyspnea Gastrointestinal Gastrointestinal: Denies abdominal pain, Denies nausea and Denies vomiting Genitourinary Genitourinary: Reports hematuria and Reports urinary hesitancy Musculoskeletal Musculoskeletal: Denies back pain Integumentary/Breasts Skin/Breast: Denies rash Hematologic/Lymphatic Hematologic/Lymphatic: Reports easy bleeding and Reports easy bruising [facility] Medical History Actinic keratosis Alcohol abuse, episodic (Inactive) Alcohol abuse, unspecified (Inactive 08/14/11) [place] [facility] [place] [facility] [place]300,000[place] DWI PROBATION Anxiety disorder Anxiety disorder (Inactive 05/22/11) FAMILY WORK ?OCD Atrial fibrillation Atrial fibrillation (Inactive 05/22/11) 07/2010 CHADS 2 =0 WARFARIN D/C, ECHO 07/2010 45%, MR; repeat ECHO 08/2011 55%; Rpt [facility] 12/2015 60%, pulm hypertension; [id number] score 1 Basal cell carcinoma Benign prostatic hyperplasia (Inactive 05/22/11) BPH (benign prostatic hyperplasia) Cardiomyopathy Central stenosis of spinal canal Central stenosis of spinal canal (Inactive 11/11/17) Chronic airway obstruction, not elsewhere classified (Inactive 05/12/10) emphysema; 04/2013 FEV1 1.5, 43% predicted post bronchodilator GOLD 3 - severe; QUIT SMOKING 08/1968, 2nd hand to 1990 Chronic pruritus Chronic toe pain, bilateral Chronic toe pain, bilateral (Inactive 01/20/17) peripheral neuropathy: stocking glove COPD (chronic obstructive pulmonary disease) Depression Depressive disorder (Inactive 05/22/11) Diastasis recti Discharge planning issues (Inactive) Diverticula of colon Dizziness (Inactive) DJD (degenerative joint disease) Duodenal ulcer (Resolved) Duodenal ulcer hemorrhagic (Resolved) DVT prophylaxis (Inactive) Dyslipidemia Dysmetabolic syndrome Dysmetabolic syndrome X (Inactive 05/22/11) METABOLIC SYNDROME Epididymitis Erectile dysfunction (Inactive) Gout Gout (Inactive 05/22/11) RT FOOT History of ETOH abuse 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 mk Left testicular pain Left testicular pain (Inactive 03/31/17) Lumbar radiculopathy (Inactive) Memory loss or impairment (Inactive) Obesity Obesity (BMI 30-39.9) (Inactive 05/22/11) GOAL 225-230 Orchitis MARK (obstructive sleep apnea) Osteoarthritis of left hip (Inactive) Osteoarthrosis, unspecified whether generalized or localized, forearm (Inactive 05/22/11) L HIP LS SPINE; 12/2011 MOD SEV L HIP XRAY; hip inj [place] Peripheral sensory neuropathy Peripheral vascular disease of lower extremity (Inactive 01/20/17) absent DP pulses Prostatism Pulmonary emphysema PVD (peripheral vascular disease) Right sided sciatica Sciatica Sciatica (Inactive 05/22/11) 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 Cooper Dsouza Status post thyroidectomy (Acute 10/08/19) Limited neck dissection Family History Mother , old age at age 93. No problems noted. Father , CVA at age 82. No problems noted. Brother No problems noted. Brother Age: 76 No problems noted. Brother Age: 70 No problems noted. Other Alcohol abuse Social History Smoking/Tobacco Use Status: Former Tobacco Use Quit Date: 08/10/1968 Alcohol Intake: former Drug use: Never Substance use type: does not use Household members: spouse Housing: house Number of Children: 2 Communication Needs: Corrective Lenses current occupation: Retired [employer] Pets and animals: No Current gender identity: male What is your relationship status?: Panel score (0-1 are the most socially isolated patients): 1 What type of physical activity do you participate in: none Frequency: 1-2 times per week Seatbelt use: always Drive intox or ride w/intox tow motor driver: No Working smoke detector in home: Yes Fire extinguisher in home: Yes Carbon monox detector in home: Yes Do you feel safe at home: Yes Do you feel safe in your relationship?: Yes Additional Social history: Lives with in [place]. 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 01/12/2020: Exam Const General: cooperative, healthy appearing, comfortable and no acute distress Orientation: alert, awake and oriented x3 HENMT Head: normal to inspection, normocephalic and atraumatic Face and sinus: normal facial exam Mouth: moist mucous membranes Eyes Conjunctivae: conjunctivae normal Sclera: sclerae normal Neck Neck: normal visual inspection, full ROM, trachea midline and supple Resp Effort & Inspection: normal respiratory effort and able to speak in complete sentences Auscultation: clear to auscultation bilaterally Cardio Rate: tachycardic (120) Rhythm: abnormal rhythm irregularly irregular GI Inspection: normal to inspection Palpation: soft, mass (Suprapubic region) and nontender Auscultation: normal bowel sounds Penis: normal penis and other (Beauchamp catheter in place) Meatus: meatus normal Scrotum: scrotum normal Testes: normal Back/Spine/Pelvis Back: No back tenderness Skin General skin exam: no rashes or lesions noted Neuro General: patient alert, patient awake, moves all extremities and no focal motor deficits Sensory Exam: no sensory deficits noted Extrem Other: Right lower extremity in a posterior Ortho-Glass splint Psych Appearance: grossly normal Mental Status: mental status grossly normal Course Vital Signs Vital signs: Vital Signs Temperature 36.4 C L 01/16/20 08:28 Pulse 120 H 01/16/20 08:28 Respiratory Rate 15 01/16/20 08:28 Blood Pressure 121/79 01/16/20 08:28 Pulse Oximetry 98 01/16/20 08:28 Temperature 36.4 C L 01/16/20 08:28 Temperature Source Tympanic 01/16/20 08:28 Pulse 120 H 01/16/20 08:28 Respiratory Rate 15 01/16/20 08:28 Respiratory Effort Non-Labored 01/16/20 08:33 Blood Pressure 121/79 01/16/20 08:28 Blood Pressure Position Sitting 01/16/20 08:28 Pulse Oximetry 98 01/16/20 08:28 Oxygen Delivery Method Room Air 01/16/20 08:28 Oxygen Flow Rate 0 01/16/20 08:28 Pain Level 8 01/16/20 08:35 Lab/Test Results Lab/Test Results: Laboratory Tests Range/Units 01/16/20 09:25 Urine Color (Yellow) Yellow Urine Clarity (Clear) Cloudy Urine pH (5-8) 6.0 Ur Specific [place] (1.005-1.025) 1.010 Urine Protein (Negative) mg/dL 100 H Urine Ketones (Negative) mg/dL Negative Urine Blood (Negative) Large H Urine Nitrite (Negative) Negative Urine Bilirubin (Negative) Negative Urine Urobilinogen (Up TO 0.2) EU/dL 0.2 Ur Leukocyte Esterase (Negative) Large H Urine Glucose (Negative) mg/dL Negative
--- NOTE | 2020-01-16 09:37 | NUR.NOTE ---
Nursing Note: re-scan of bladder revealed 22ml retained. Irrigation successful.
[2020-01-16 10:00] VITALS: BP 112/63; PULSE 94; RESP 18; O2SAT 98
[2020-01-16] MEDS: Cephalexin 500 MG CAP PO (10:00)
== END 2020-01-16 10:10 | disposition home or self-care (01) ==
PROVIDERS: Emergency Provider Physician Assistant; PCP Internal Medicine
DX: N39.0 Urinary tract infection, site not specified (principal); R33.9 Retention of urine, unspecified; Z96.0 Presence of urogenital implants; I10 Essential (primary) hypertension; J44.9 Chronic obstructive pulmonary disease, unspecified; Z87.891 Personal history of nicotine dependence
CPT/HCPCS: 51700; 99284; 81003; 81015; 87086; 99283

== ENCOUNTER 2020-01-21 08:49 | Outpatient (CLI) | payer MEDICARE, BC, SELFPAY ==
--- NOTE | 2020-01-21 08:30 | DI.RAD_ITS ---
EXAM: XR ANKLE RT COMPLETE INDICATION: F/U FRACTURE. COMPARISON: CR XR ANKLE RT COMPLETE from 01/03/2020 TECHNIQUE: 2D digital imaging was performed. FINDINGS: The splint has been removed. Soft tissue swelling remains present. There has been no change in alig nment of the fibular fracture or hardware alignment. Vascular calcifications are noted. DATA REPOSITORY: RADIATION DOSE DELIVERED:
== END 2020-01-21 09:09 ==
PROVIDERS: PCP Internal Medicine; Referring Provider Internal Medicine; Visit Provider Orthopaedic Surgery
DX: S82.841D Displaced bimalleolar fracture of right lower leg, subsequent encounter for closed fracture with routine healing; X58.XXXD Exposure to other specified factors, subsequent encounter; Z98.890 Other specified postprocedural states; J44.9 Chronic obstructive pulmonary disease, unspecified
CPT/HCPCS: 73610

== ENCOUNTER → 2020-02-08 10:43 | Outpatient (BNVA) | payer MEDICARE, BC, SELFPAY | PROVIDERS: PCP Internal Medicine; Referring Provider Internal Medicine; Visit Provider Nurse Practitioner Gerontology | DX: N39.490 Overflow incontinence (principal); L89.90 Pressure ulcer of unspecified site, unspecified stage; Z46.6 Encounter for fitting and adjustment of urinary device; J44.9 Chronic obstructive pulmonary disease, unspecified; Z87.891 Personal history of nicotine dependence | CPT/HCPCS: 51702; 99214 ==

== ENCOUNTER 2020-02-16 11:37 | Outpatient (CLI) | payer MEDICARE, BC, SELFPAY ==
--- NOTE | 2020-02-16 11:22 | DI.RAD_ITS ---
EXAM: XR ANKLE RT COMPLETE CLINICAL HISTORY: right ankle fracture TECHNIQUE: COMPARISON: CR XR ANKLE RT COMPLETE from 01/21/2020 FINDINGS: Three views were obtained and show previous described fixation of the distal fibula and tibiofibular joint with a suture anchor in place in the medial malleolus. Mild widening of the ankle mortise is n oted medially. Alignment appears essentially unchanged in comparison with previous examination Chad mbgregg 11th. IMPRESSION: RADIATION DOSE DELIVERED: Total DLP
== END 2020-02-16 11:57 ==
PROVIDERS: PCP Internal Medicine; Referring Provider Internal Medicine; Visit Provider Orthopaedic Surgery
DX: S82.61XA Displaced fracture of lateral malleolus of right fibula, initial encounter for closed fracture (principal); S82.841D Displaced bimalleolar fracture of right lower leg, subsequent encounter for closed fracture with routine healing; X58.XXXD Exposure to other specified factors, subsequent encounter
CPT/HCPCS: 73610

== ENCOUNTER → 2020-03-02 13:49 | Outpatient (BNVA) | payer MEDICARE, BC, SELFPAY | PROVIDERS: PCP Internal Medicine; Referring Provider Internal Medicine; Visit Provider Urology | DX: R31.0 Gross hematuria (principal); J44.9 Chronic obstructive pulmonary disease, unspecified; Z87.891 Personal history of nicotine dependence | CPT/HCPCS: 99213 ==

== ENCOUNTER 2020-03-09 08:07 | Outpatient (CLI) | payer MEDICARE, BC, SELFPAY ==
[2020-03-10 15:09] LABS: SARS-CoV-2 RNA Not Detected (NotDetected); SARS-CoV-2 RNA Source Nasal/Nares
== END 2020-03-09 08:27 ==
PROVIDERS: Nurse Practitioner Gerontology; PCP Internal Medicine; Visit Provider Urology
DX: Z11.59 Encounter for screening for other viral diseases (principal); Z01.818 Encounter for other preprocedural examination
CPT/HCPCS: U0003

== ENCOUNTER 2020-03-13 07:29 | Day surgery (SDC) | payer MEDICARE, BC, SELFPAY ==
[2020-03-13] VITALS (8 sets, daily range): BP systolic 97–130; BP diastolic 39–109; PULSE 84–93; RESP 18–22; TEMP 36.2–36.7; O2SAT 96–99
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
[2020-03-13] MEDS: Lactated Ringers 1,000 ML 80 ML IV (08:38)
[2020-03-13] MEDS: ceFAZolin 2 GM/50 ML BAG IVPB (09:56)
[2020-03-13] MEDS: Lidocaine 2% Jelly 6 ML SYR (10:18)
[2020-03-13] MEDS: Omnipaque 300 MG/ML 50 ML BTL (10:20)
--- NOTE | 2020-03-13 10:29 | W.PM.DSUDISC ---
Discharge Plan Disposition Patient Disposition: HOME Condition: Stable Discharge Details Reason For Visit: Hematuria Attending Provider: Nguyễn Murrieta Primary Care Provider: Sandra Piedra Home Meds and New Rx's Prescriptions: No Action diltiazem HCl 240 mg capsule,extended release 24hr 240 mg PO DAILY Qty: 90 RF: 3 gabapentin 600 mg tablet 600 mg PO TID Qty: 270 RF: 3 tamsulosin 0.4 mg capsule 0.8 mg PO DAILY Qty: 180 RF: 3 finasteride 5 mg tablet 5 mg PO DAILY Qty: 90 RF: 3 multivitamin 1 EACH tablet 1 ea PO DAILY RF: 0 acetaminophen 500 MG tablet 1,000 mg PO Q8H PRN PRNRF: 0 Stiolto Respimat 2.5-2.5 mcg/actuation mist 2 puff IH DAILY RF: 0 levothyroxine 200 mcg tablet 200 mcg PO HS RF: 0 atorvastatin 20 mg tablet 20 mg PO QHS Qty: 90 RF: 3 budesonide-formoterol [Symbicort] 160-4.5 mcg/actuation HFA aerosol inhaler 2 puff Inhalation BID Qty: 3 RF: 3 furosemide 20 mg tablet 20 mg PO DAILY RF: 0 nystatin 100,000 unit/gram powder 1 applic topical BID Qty: 60 RF: 0 pantoprazole 40 mg tablet,delayed release (DR/EC) 40 mg PO DAILY Qty: 90 RF: 3 Eliquis 5 mg tablet 5 mg PO BID Qty: 180 RF: 3 metoprolol succinate 100 mg tablet extended release 24 hr 150 mg PO DAILY Qty: 135 RF: 3 polyethylene glycol 3350 17 gram Powder In Packet 17 g PO BID Qty: 20 RF: 0 oxycodone-acetaminophen 5-325 mg Tablet 1 tab PO Q4H PRN PRNQty: 20 RF: 0 docusate sodium [Colace] 100 mg Capsule 100 mg PO BID PRN PRNQty: 20 RF: 0 levofloxacin [Levaquin] 750 mg Tablet 750 mg PO DAILY@1800 Qty: 7 RF: 0 bupropion HCl 150 mg tablet extended release 24 hr 150 mg PO DAILY RF: 0 magnesium hydroxide [Milk of Magnesia] 400 mg/5 mL Suspension 30 ml PO HS PRNRF: 0 phenazopyridine [Pyridium] 100 mg Tablet 100 mg PO Q6H PRN (Reason: Bladder Spasms) RF: 0 Fleet Enema 19-7 gram/118 mL Enema 118 ml CO ONCE PRN (Reason: Constipation) RF: 0 melatonin 5 mg Tablet 5 mg PO HS RF: 0 albuterol sulfate [ProAir HFA] 90 mcg/actuation HFA aerosol inhaler 2 puff Inhalation Q4H PRN PRNRF: 0 Discharge Instructions Additional Instructions: Followup @ 1 month Dixon to gravity until pt returns to DSU If urine remains clear, may D/C dixon prior to discharge If urine still pink tinged, pain send home with catheter hooked to catheter plug OK to restart Eliquis on 03/14 Activity:: Activity as Tolerated Shower/Bathe:: 24 hours Diet:: As Tolerated Discharge Orders Discharge Orders: Discharge Order (Routine); Ordered 03/13/20 Ordered By: Nguyễn Murrieta DS: Diagnosis Discharge Diagnosis (1) Gross hematuria: Status: Acute
--- NOTE | 2020-03-13 10:34 | ROE_ITS ---
Date of service: 03/13/20 Time of Service: 10:34 Operative Note Operative Note DATE OF PROCEDURE: 03/13/20 PRE-OP DIAGNOSIS: Gross hematuria PROCEDURE: Cystoscopy with bilateral retrograde pyelogram SURGEON: Nguyễn Murrieta ANESTHESIA: STEPH ESTIMATED BLOOD LOSS: 5 PATHOLOGY: none sent COMPLICATIONS: None Patient was transported to: PACU Patient's condition: stable Indications: This is a 80-year-old gentleman who sustained a fall resulting in an ankle fracture. He required a surgical repair. He then developed urinary retention with hematuria. He was evaluated with a CT scan which showed a 2 mm stone in the left kidney but no solid renal masses. Our surgical time hospital staff was unable to place a catheter and I was unable to perform surgery at that time, so he was transferred to the [facility]. He had a catheter placed and continuous bladder irrigation for 24 hours. He was then taken to the operating room for cystoscopy clot evacuation. He has had no further episodes of retention, but has had some hematuria. He presents for cystoscopy and retrograde pyelogram to complete his hematuria work-up Findings: No bladder tumor Vascular prostate Procedure Description: The patient was brought to the operating room on 03/13/2020. After successful induction of general anesthesia, he was placed in the dorsal lithotomy position. His indwelling catheter was removed. His genitalia was prepped and draped. 2% Xylocaine jelly was instilled into the urethra to act as a local anesthetic. A 22 Cypriot rigid cystoscope was then passed through the urethra into the bladder. The urethra and bladder were inspected using the 30 degree lens. The pendulous, bulbous and membranous urethra was appeared normal with no strictures. The prostatic urethra showed some inflammatory changes especially by the verumontanum. These changes were associated with increased vascularity and a very small clot attached to the area. The bladder neck was elevated. Once we entered the bladder neck, the bladder mucosa showed some inflammatory changes just at the trigone. I suspect this is related to catheter cystitis rather than malignancy. The remainder of the bladder wall was smooth with no papillary or nodular lesions. These findings were confirmed on reinspection of the bladder using a 70 degree lens. Each ureteral orifice was identified. No blood was seen coming from either side. A 6 Cypriot access catheter was then utilized to cannulate each orifice. Retrograde films were obtained by injecting Omnipaque through the access catheter under fluoroscopic guidance. Both ureters and collecting systems appeared normal. Both sides drained promptly on 5-minute drainage films. Based on today's examination, the likely source of his hematuria is his vascular prostate. He is already on finasteride. If he continues to have bleeding, we could always cauterize the prostate using bipolar cautery.
--- NOTE | 2020-03-13 10:35 | DI.RAD_ITS ---
EXAM: XR RETROGRADE IN OR CLINICAL HISTORY: stone TECHNIQUE: 2D and realtime digital imaging was performed. CONTRAST MATERIAL: Refer to procedure report. COMPARISON: No exams were available for comparison FINDINGS: Fluoroscopy was provided for Dr. Murrieta during the performance of a retrograde evaluation of the dickson l collecting system. Please refer to the procedure report for complete details. Fluoro time: 41.2 seconds IMPRESSION: RADIATION DOSE DELIVERED:
[2020-03-13] MEDS: Phenazopyridine 200 MG TAB PO (11:36)
== END 2020-03-13 12:45 | disposition home or self-care (01) ==
PROVIDERS: PCP Internal Medicine; Visit Provider Urology
PROC: (CPT 74450; principal; 2020-03-13 09:30)
DX: R31.0 Gross hematuria (principal); I42.9 Cardiomyopathy, unspecified; I48.91 Unspecified atrial fibrillation; J44.9 Chronic obstructive pulmonary disease, unspecified; G47.33 Obstructive sleep apnea (adult) (pediatric); Z79.01 Long term (current) use of anticoagulants; E03.9 Hypothyroidism, unspecified; E88.81 Metabolic syndrome and other insulin resistance
CPT/HCPCS: 52005; NC; 74420; J0690; J2001; Q9967

== ENCOUNTER 2020-03-15 14:30 | Outpatient (CLI) | payer MEDICARE, BC, SELFPAY ==
--- NOTE | 2020-03-15 10:00 | DI.RAD_ITS ---
EXAM: XR ANKLE RT COMPLETE CLINICAL HISTORY: s/p ORIF R ANKLE. TECHNIQUE: 2D digital imaging was performed. COMPARISON: CR,XR XR ANKLE RT 2V from 01/02/2020 CR XR ANKLE RT COMPLETE from 02/16/2020 FINDINGS: BONES: There are stable post operative changes present. No new fracture or dislocation. There is con tinued healing of the distal fibular fracture. JOINTS: The joint spaces are well maintained. No joint effusion is present. SOFT TISSUE: Persistent soft tissue swelling of the ankle. IMPRESSION: Stable postoperative changes. DATA REPOSITORY: RADIATION DOSE DELIVERED:
== END 2020-03-15 14:50 ==
PROVIDERS: PCP Internal Medicine; Referring Provider Internal Medicine; Visit Provider Orthopaedic Surgery
DX: S82.491A Other fracture of shaft of right fibula, initial encounter for closed fracture (principal); S82.841D Displaced bimalleolar fracture of right lower leg, subsequent encounter for closed fracture with routine healing; X58.XXXD Exposure to other specified factors, subsequent encounter
CPT/HCPCS: 99213; 73610

== ENCOUNTER 2020-03-27 00:29 | Outpatient (CLI) | payer MEDICARE, BC, SELFPAY ==
--- NOTE | 2020-03-27 12:45 | DI.CT_ITS ---
EXAM: CT CHEST WO CLINICAL HISTORY: COPD,J44.9 TECHNIQUE: Imaging Protocol: Axial computed tomography images with coronal and sagittal reformatted images were created and reviewed CONTRAST MATERIAL: Intravenous: Omnipaque 350 Contrast volume:structured data in ml. COMPARISON: CT CT CHEST WO from 07/26/[address] CHEST WO from 07/26/2019 CR,XR XR PORTABLE CHEST AP from 01/02/[address] ABDOMEN PELVIS W from 01/12/[address] ABDOMEN PELVIS W from 01/12/2020 FINDINGS: Tracheobronchial tree: Patent where visualized. Mediastinum and Francisca: No dominant adenopathy or fluid collection. The patient is status post thyroide ctomy. Pulmonary parenchyma: No focal consolidation. There is a stable area of nodularity and scarring in t he posterior aspect of the right upper lobe. Bilateral basilar scarring. Pleura: No effusion or pneumothorax. Heart: The heart is not dilated. Mild coronary artery calcification. No significant pericardial effu [place]. Aorta: Thoracic aorta non-dilated. Moderate atherosclerosis. Upper abdomen: Stable bilateral renal cysts. Lymph nodes: Within normal limits. Bones: Degenerative changes. Old sternal fracture. Old L1 compression fracture deformity. Soft tissues: Mild bilateral gynecomastia. IMPRESSION: 1. Stable nodularity and scarring in the posterior aspect of the right upper lobe. 2. No acute pulmonary process. 3. Status post thyroidectomy. RADIATION DOSE DELIVERED: 796.09mGy.cm Total DLP DATA REPOSITORY: All CT scans at this facility are submitted to the National Radiology Data Registry (NRDR) Dose Index Registry (DIR) with the [employer] (A[employer]). RADIATION OPTIMIZATION: All CT scans at this facility use at least one of these dose optimization te chniques: automated exposure control; mA and/or kV adjustment per patient size (includes targeted exa ms where dose is matched to clinical indication); or iterative reconstruction.
== END 2020-03-27 00:49 ==
PROVIDERS: PCP Internal Medicine; Visit Provider Internal Medicine
DX: J44.9 Chronic obstructive pulmonary disease, unspecified (principal)
CPT/HCPCS: 71250

== ENCOUNTER 2020-04-12 13:52 | Outpatient (REF) | payer MEDICARE, BC, SELFPAY ==
[2020-04-12 20:08] LABS: TSH (W/Ref FT4) 1.72 uIU/mL (0.36-3.74)
== END 2020-04-12 14:12 ==
LOC: LBO 13:52
PROVIDERS: PCP Internal Medicine; Visit Provider Internal Medicine
DX: E89.0 Postprocedural hypothyroidism (principal)
CPT/HCPCS: 84443

== ENCOUNTER → 2020-04-20 10:48 | Outpatient (BNVA) | payer MEDICARE, BC, SELFPAY | PROVIDERS: PCP Internal Medicine; Referring Provider Internal Medicine; Visit Provider Urology | DX: R31.0 Gross hematuria (principal) | CPT/HCPCS: 99213 ==

== ENCOUNTER 2020-04-25 18:49 | Outpatient (CLI) | payer MEDICARE, BC, SELFPAY ==
[2020-04-25 10:27] LABS: Abs Immature Grans 0.13 10^3/uL (0.0-0.06); Absolute Basophil Count 0.03 10^3/uL (0.0-0.2); Absolute Lymphocyte Count 1.18 10^3/uL (1.2-3.4); Absolute Monocyte Count 1.12 10^3/uL (0.1-0.8); Basophils % 0.3; Eosinophils % 1.9; HCT 35.6 % (40.0-50.0); HGB 10.3 g/dL (13.5-17.5); Immature Grans % 1.2; MCH 23.8 pg (27.0-33.0); MCHC 28.9 % (32.0-36.0); MCV 82.4 fL (80-95); MPV 9.7 fL (8.0-11.0); Monocytes % 10.4; Neutrophils % 75.2; Nucleated RBC 0 %; Platelet Count 286 10^3/uL (130-400); RBC 4.32 10^6/uL (4.36-5.78); RDW 19.3 % (11.8-14.1); RDW-SD 57.1 fL; WBC 10.76 10^3/uL (4.4-10.8)
[2020-04-25 10:47] LABS: TSH 0.91 uIU/mL (0.36-3.74)
[2020-04-26 12:00] LABS: Thyroglobulin Antibody <1.8 IU/mL (<1.8); Thyroglobulin Tumor Marker 0.5 ng/mL
== END 2020-04-25 19:09 ==
PROVIDERS: PCP Internal Medicine; Visit Provider Preventive Medicine Undersea and Hyperbaric Medicine
DX: C73 Malignant neoplasm of thyroid gland (principal); I48.20 Chronic atrial fibrillation, unspecified; E78.2 Mixed hyperlipidemia; Z79.01 Long term (current) use of anticoagulants; J44.9 Chronic obstructive pulmonary disease, unspecified; Z87.891 Personal history of nicotine dependence
CPT/HCPCS: 36415; 99214; 84432; 84443; 85025; 86800

== ENCOUNTER 2020-05-16 09:05 | Emergency (ER) | payer MEDICARE, BC, SELFPAY ==
[2020-05-16] VITALS (23 sets, daily range): BP systolic 85–134; BP diastolic 47–78; PULSE 73–113; RESP 13–23; TEMP 36.4–37.1; O2SAT 95–98
--- NOTE | 2020-05-16 09:00 | RT.EKG_ITS ---
APPROVED REPORT Exam: Resting ECG Patient Location: E HR:96 bpm ECG Measurements Heart Rate 96 AXIS NH [id number] P [id number] QRSd 100 QRS 54 QT 358 T 95 QTc 452 Conclusion Atrial fibrillation...V-rate 83-112, irreg A-activity Low voltage, extremity leads...all extremity leads <0.5mV I have reviewed and interpreted ECG and agree with software generated interpretation.
--- NOTE | 2020-05-16 09:30 | ED.GENADUL_ITS ---
Discharge Plan Disposition Patient Disposition: HOME Condition: Stable Discharge Details Clinical Impression: Abdominal pain Primary Care Provider: Sandra Piedra ED Provider: Braydon Douglas Home Meds and New Rx's Prescriptions: Continued diltiazem HCl 240 mg capsule,extended release 24hr 240 mg PO DAILY Qty: 90 RF: 3 gabapentin 600 mg tablet 600 mg PO TID Qty: 270 RF: 3 finasteride 5 mg tablet 5 mg PO DAILY Qty: 90 RF: 3 ferrous sulfate 325 mg (65 mg iron) tablet 325 mg PO DAILY RF: 0 metoprolol succinate 100 mg tablet extended release 24 hr 150 mg PO DAILY RF: 0 tamsulosin 0.4 mg capsule 0.4 mg PO DAILY Qty: 90 RF: 3 multivitamin 1 EACH tablet 1 ea PO DAILY RF: 0 acetaminophen 500 MG tablet 1,000 mg PO Q8H PRN PRNRF: 0 Stiolto Respimat 2.5-2.5 mcg/actuation mist 2 puff IH DAILY RF: 0 levothyroxine 200 mcg tablet 200 mcg PO HS RF: 0 atorvastatin 20 mg tablet 20 mg PO QHS Qty: 90 RF: 3 budesonide-formoterol [Symbicort] 160-4.5 mcg/actuation HFA aerosol inhaler 2 puff Inhalation BID Qty: 3 RF: 3 furosemide 20 mg tablet 20 mg PO DAILY RF: 0 nystatin 100,000 unit/gram powder 1 applic topical BID Qty: 60 RF: 0 pantoprazole 40 mg tablet,delayed release (DR/EC) 40 mg PO DAILY Qty: 90 RF: 3 Eliquis 5 mg tablet 5 mg PO BID Qty: 180 RF: 3 duloxetine [Cymbalta] 20 mg capsule,delayed release(DR/EC) 20 mg PO .qod Qty: 30 RF: 0 polyethylene glycol 3350 17 gram Powder In Packet 17 g PO BID Qty: 20 RF: 0 docusate sodium [Colace] 100 mg Capsule 100 mg PO BID PRN PRNQty: 20 RF: 0 bupropion HCl 150 mg tablet extended release 24 hr 150 mg PO DAILY RF: 0 magnesium hydroxide [Milk of Magnesia] 400 mg/5 mL Suspension 30 ml PO HS PRNRF: 0 phenazopyridine [Pyridium] 100 mg Tablet 100 mg PO Q6H PRN (Reason: Bladder Spasms) RF: 0 Fleet Enema 19-7 gram/118 mL Enema 118 ml NH ONCE PRN (Reason: Constipation) RF: 0 albuterol sulfate [ProAir HFA] 90 mcg/actuation HFA aerosol inhaler 2 puff Inhalation Q4H PRN PRNRF: 0 Discharge Instructions Instructions: Abdominal Pain (ED) Additional Instructions: At this time your laboratory values do not reveal any obvious emergent process. No signs of anemia. Your digital rectal examination was negative, no signs of bleeding. Please watch for new or worsening symptoms and return to the ER for any concerns. I would like you to reach out to your primary care provider today for prompt outpatient reevaluation. Medical Decision Making 80-year-old gentleman who is anticoagulated, presents concerned about a GI bleed given his darker stools than usual over the past several days. He did recently start a iron pill. Clinically he appears well, nontoxic. Rectal exam is nontender, heme-negative. Given this, I would tend to believe that his darker stools are likely secondary to his iron. Given his age and multiple comorbidities I do believe initiating a work-up is reasonable. Orthostatic vital signs were obtained and it does appear as though he is orthostatic. Patient to be given Protonix and famotidine. We will give IV fluid as well. Patient given the Laboratory values obtained, white blood cell count of 12.96, patient does appear to have chronic proptosis. Hemoglobin 12.2 which is higher than his baseline. Hematocrit 40.3 platelet count 268. Electrolytes unremarkable. Creatinine 1.11 with a GFR greater than 60. Calcium 8.8 troponin less than 0.05 lipase 52. Blood type O-. Work-up does not reveal any signs of anemia or obvious GI bleed. Again, rectal exam was unremarkable, negative guaiac. Patient was able to tolerate p.o. intake without difficulty. He reports that he is relieved based upon his work-up, feeling asymptomatic and comfortable going home. He does remain mildly orthostatic. Will provide a second liter of IV fluid. Upon reevaluation his orthostatic vital signs are much improved. He appears well, nontoxic. Is able to ambulate steadily using his cane. Abdomen soft, nontender. She remains hemodynamically stable. Patient has no additional questions or concerns and will be discharged at this time. He was encouraged to return to the ER for new or worsening symptoms. Otherwise he will contact his primary care provider for prompt outpatient reevaluation. Medical Records Medical records reviewed: Yes I reviewed the patient's medical records. Lab Data Lab results reviewed: Yes I reviewed the patient's lab results. Labs: Laboratory Tests Range/Units 05/16/20 05/16/20 05/16/20 09:40 09:40 09:40 WBC (4.4-10.8) 10^3/uL 12.96 H RBC (4.36-5.78) 10^6/uL 4.86 Hgb (13.5-17.5) g/dL 12.2 L Hct (40.0-50.0) % 40.3 MCV (80-95) fL 82.9 MCH (27.0-33.0) pg 25.1 L MCHC (32.0-36.0) % 30.3 L RDW (11.8-14.1) % 20.7 H Plt Count (130-400) 10^3/uL 268 MPV (8.0-11.0) fL 10.4 Immature Gran % 1.4 Neutrophils % 80.0 Lymphocytes % 9.3 Monocytes % 8.0 Eosinophils % 1.1 Basophils % 0.2 Nucleated RBC % % 0 Absolute Neutrophils (1.2-6.7) 10^3/uL 10.37 H Absolute Lymphocytes (1.2-3.4) 10^3/uL 1.21 Absolute Monocytes (0.1-0.8) 10^3/uL 1.04 H Absolute Eosinophils (0.0-0.7) 10^3/uL 0.14 Absolute Basophils (0.0-0.2) 10^3/uL 0.03 RBC Morphology See below Polychromasia Present Hypochromasia 2+ Poikilocytosis 1+ Anisocytosis 3+ Microcytosis 1+ Macrocytosis 1+ PT (9.3-11.0) sec 10.4 INR (0.9-1.1) 1.0 Sodium (136-145) mmol/L 138 Potassium (3.5-5.1) mmol/L 3.9 Chloride (98-107) mmol/L 105 Carbon Dioxide (21.0-32.0) mmol/L 26.8 Anion Gap (3-11) mmol/L 6.2 BUN (7-18) mg/dL 12 Creatinine (0.70-1.30) mg/dL 1.11 Estimated GFR/1.73 m2 (mL/min/1.73m2) >= 60.00 Glucose (74-106) mg/dL 118 H Calcium (8.5-10.1) mg/dL 8.8 Magnesium (1.8-2.4) mg/dL 2.1 Total Bilirubin (0.2-1.0) mg/dL 0.9 AST (15-37) U/L 15 ALT (16-63) U/L 18 Alkaline Phosphatase (46-116) U/L 116 Troponin I (<0.06) ng/mL < 0.05 Total Protein (6.4-8.2) g/dL 7.5 Albumin (3.4-5.0) g/dL 3.6 Lipase (73-393) U/L 52 Patient ABO/Rh Antibody Screen Range/Units 05/16/20 05/16/20 09:40 12:25 WBC (4.4-10.8) 10^3/uL RBC (4.36-5.78) 10^6/uL Hgb (13.5-17.5) g/dL Hct (40.0-50.0) % MCV (80-95) fL MCH (27.0-33.0) pg MCHC (32.0-36.0) % RDW (11.8-14.1) % Plt Count (130-400) 10^3/uL MPV (8.0-11.0) fL Immature Gran % Neutrophils % Lymphocytes % Monocytes % Eosinophils % Basophils % Nucleated RBC % % Absolute Neutrophils (1.2-6.7) 10^3/uL Absolute Lymphocytes (1.2-3.4) 10^3/uL Absolute Monocytes (0.1-0.8) 10^3/uL Absolute Eosinophils (0.0-0.7) 10^3/uL Absolute Basophils (0.0-0.2) 10^3/uL RBC Morphology Polychromasia Hypochromasia Poikilocytosis Anisocytosis Microcytosis Macrocytosis PT (9.3-11.0) sec INR (0.9-1.1) Sodium (136-145) mmol/L Potassium (3.5-5.1) mmol/L Chloride (98-107) mmol/L Carbon Dioxide (21.0-32.0) mmol/L Anion Gap (3-11) mmol/L BUN (7-18) mg/dL Creatinine (0.70-1.30) mg/dL Estimated GFR/1.73 m2 (mL/min/1.73m2) Glucose (74-106) mg/dL Calcium (8.5-10.1) mg/dL Magnesium (1.8-2.4) mg/dL Total Bilirubin (0.2-1.0) mg/dL AST (15-37) U/L ALT (16-63) U/L Alkaline Phosphatase (46-116) U/L Troponin I (<0.06) ng/mL Cancelled Total Protein (6.4-8.2) g/dL Albumin (3.4-5.0) g/dL Lipase (73-393) U/L Patient ABO/Rh O Negative Antibody Screen Negative ECG Data Attestation: I personally reviewed and interpreted this ECG (s) as follows: Interpretation: Please see official report by Dr. Hollingsworth. Atrial fibrillation, ventricular rate of 96. No STEMI. HPI General Date/Time Provider Initiated Documentation: 05/16/20 09:05 . Limitations to Documentation: no limitations . Information obtained by: patient . HPI Narrative: This is a 80-year-old gentleman with past medical history that includes alcohol abuse, sober for several years, anxiety, A. fib, BPH, cardiomyopathy, COPD, duodenal ulcer, obesity, PVD, chronic back pain with right-sided sciatica, chronic anticoagulation, presents to the ER for evaluation. He states that he began taking an iron supplement a couple of weeks ago and has noticed for the last several days that his stool has been darker than usual. He has not noticed any black tarry stools or bright red blood in his stools. He had a bleeding ulcer a few years ago that required several units of blood and he is concerned that this could be what happening again. He has had intermittent right-sided abdominal pain he says for many months, primarily with movement, none now. He wonders if the pain he has experienced in the past could have anything to do today with his darker stools. He also complains of his chronic neuropathy in his bilateral feet, this is unchanged. He denies recent illness or trauma. He denies headache, visual change, chest pain, shortness of breath, fever, nausea, vomiting, diarrhea, constipation or dysuria, hematuria. He does report some generalized weakness that is his baseline, potentially slightly worse upon standing. Once he stands for a little while he feels like it goes away. Related Data Home Medications Medication Instructions Recorded Confirmed multivitamin 1 ea PO DAILY 07/20/12 05/16/20 acetaminophen 1,000 mg PO Q8H PRN PRN tab-cap 03/10/17 05/16/20 tiotropium 2.5 mcg-olodaterol 2.5 2 puff IH DAILY 07/22/19 05/16/20 mcg/actuation mist for inhalation levothyroxine 200 mcg tablet 200 mcg PO HS 10/11/19 05/16/20 atorvastatin 20 mg tablet 20 mg PO QHS #90 tab 11/02/19 05/16/20 budesonide-formoterol HFA 160 2 puff INHALATION BID #3 inhaler 11/02/19 05/16/20 mcg-4.5 mcg/actuation aerosol inhaler diltiazem HCl 240 mg 240 mg PO DAILY #90 tab-cap 12/29/19 05/16/20 capsule,extended release 24 hr gabapentin 600 mg tablet 600 mg PO TID #270 tab 12/29/19 05/16/20 docusate sodium [Colace] 100 mg PO BID PRN PRN #20 cap 01/05/20 05/16/20 polyethylene glycol 3350 17 g PO BID #20 ea 01/05/20 05/16/20 Fleet Enema 118 ml NH ONCE PRN 01/12/20 05/10/20 albuterol sulfate [ProAir HFA] 2 puff INHALATION Q4H PRN PRN 01/12/20 05/16/20 bupropion HCl 150 mg PO DAILY 01/12/20 05/16/20 magnesium hydroxide [Milk of 30 ml PO HS PRN 01/12/20 05/16/20 Magnesia] phenazopyridine [Pyridium] 100 mg PO Q6H PRN 01/12/20 05/16/20 furosemide 20 mg tablet 20 mg PO DAILY 01/31/20 05/16/20 nystatin 100,000 unit/gram topical 1 applic TOPICAL BID #60 g 02/02/20 05/16/20 powder finasteride 5 mg tablet 5 mg PO DAILY #90 tab 02/08/20 05/16/20 apixaban 5 mg tablet 5 mg PO BID #180 tab-cap 02/22/20 05/16/20 pantoprazole 40 mg tablet,delayed 40 mg PO DAILY #90 tabcr 02/22/20 05/16/20 release ferrous sulfate 325 mg (65 mg 325 mg PO DAILY 04/13/20 05/16/20 iron) tablet duloxetine 20 mg capsule,delayed 20 mg PO .qod #30 tab-cap 04/17/20 05/16/20 release metoprolol succinate 100 mg 150 mg PO DAILY tab 04/20/20 05/16/20 tablet,extended release 24 hr tamsulosin 0.4 mg capsule 0.4 mg PO DAILY #90 cap 04/20/20 05/16/20 Previous Rx's Medication Instructions Recorded atorvastatin 20 mg tablet 20 mg PO QHS #90 tab 11/02/19 budesonide-formoterol HFA 160 2 puff INHALATION BID #3 inhaler 11/02/19 mcg-4.5 mcg/actuation aerosol inhaler diltiazem HCl 240 mg 240 mg PO DAILY #90 tab-cap 12/29/19 capsule,extended release 24 hr gabapentin 600 mg tablet 600 mg PO TID #270 tab 12/29/19 docusate sodium [Colace] 100 mg PO BID PRN PRN #20 cap 01/05/20 polyethylene glycol 3350 17 g PO BID #20 ea 01/05/20 nystatin 100,000 unit/gram topical 1 applic TOPICAL BID #60 g 02/02/20 powder finasteride 5 mg tablet 5 mg PO DAILY #90 tab 02/08/20 apixaban 5 mg tablet 5 mg PO BID #180 tab-cap 02/22/20 pantoprazole 40 mg tablet,delayed 40 mg PO DAILY #90 tabcr 02/22/20 release duloxetine 20 mg capsule,delayed 20 mg PO .qod #30 tab-cap 04/17/20 release tamsulosin 0.4 mg capsule 0.4 mg PO DAILY #90 cap 04/20/20 Allergies Allergy/AdvReac Type Severity Reaction Status Date / Time No Known Allergies Allergy Verified 05/16/20 09:19 General Stated Complaint: GI Bleed ANDERS: 2 Review of Systems Constitutional Constitutional: Denies fatigue, Denies fever(s), Denies headache(s) and Denies weakness (Generalized) Eyes Eyes: Denies change in vision ENT Ears, Nose, Mouth, and Throat: Denies headache(s) and Denies neck pain Cardiovascular Cardiovascular: Denies chest pain and Denies dyspnea Respiratory Respiratory: Denies cough and Denies dyspnea Gastrointestinal Gastrointestinal: Reports abdominal pain, Denies melena, Denies hematochezia, Denies constipation, Denies diarrhea, Denies loose stools, Denies nausea and Denies vomiting Genitourinary Genitourinary: Denies dysuria Musculoskeletal Musculoskeletal: Denies neck pain, Reports numbness and Reports tingling (Baseline neuropathy) Integumentary/Breasts Skin/Breast: Denies rash Neurologic Neurologic: Denies headache(s), Reports numbness, Reports tingling (Baseline neuropathy) and Denies weakness Endocrine Endocrine: Denies fatigue [facility] Medical History Actinic keratosis Alcohol abuse, episodic Alcohol abuse, unspecified (08/14/11) [place] [facility] [place] DWI PROBATION Anxiety disorder Anxiety disorder (05/22/11) FAMILY WORK ?OCD Atrial fibrillation Atrial fibrillation (05/22/11) 07/2010 CHADS 2 =0 [facility] D/C, ECHO 07/2010 45%, MR; repeat ECHO 08/2011 55%; Rpt [facility] 12/2015 60%, pulm hypertension; [id number] score 1 Basal cell carcinoma Benign prostatic hyperplasia (05/22/11) BPH (benign prostatic hyperplasia) Cardiomyopathy F/U with cardiology Dr. Ortiz Central stenosis of spinal canal Central stenosis of spinal canal (11/11/17) Chronic airway obstruction, not elsewhere classified (05/12/10) emphysema; 04/2013 FEV1 1.5, 43% predicted post bronchodilator GOLD 3 - severe; QUIT SMOKING 08/1968, 2nd hand to 1990 Chronic pruritus Chronic toe pain, bilateral Chronic toe pain, bilateral (01/20/17) peripheral neuropathy: stocking glove COPD (chronic obstructive pulmonary disease) Depression Depressive disorder (05/22/11) Diastasis recti Discharge planning issues Diverticula of colon Dizziness DJD (degenerative joint disease) Duodenal ulcer Duodenal ulcer hemorrhagic DVT prophylaxis Dyslipidemia Dysmetabolic syndrome Dysmetabolic syndrome X (05/22/11) METABOLIC SYNDROME Epididymitis Erectile dysfunction Gout Gout (05/22/11) RT FOOT Gross hematuria History of ETOH abuse 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 Cooper Dsouza Status post thyroidectomy (10/08/19) Limited neck dissection Family History Mother , old age at age 93. No problems noted. Father , CVA at age 82. No problems noted. Brother No problems noted. Brother Age: 77 No problems noted. Brother Age: 70 No problems noted. Other Alcohol abuse Social History Smoking/Tobacco Use Status: Former Tobacco Use Quit Date: 08/10/1968 Smoking risk assessment performed?: Yes Alcohol Intake: former Drug use: Current Sobriety Substance use type: does not use Household members: spouse Housing: house Number of Children: 2 Communication Needs: Corrective Lenses current occupation: Retired [employer] Pets and animals: No Current gender identity: male What is your relationship status?: Panel score (0-1 are the most socially isolated patients): 1 What type of physical activity do you participate in: none Frequency: 1-2 times per week Seatbelt use: always Drive intox or ride w/intox trackless trolley driver: No Working smoke detector in home: Yes Fire extinguisher in home: Yes Carbon monox detector in home: Yes Do you feel safe at home: Yes Do you feel safe in your relationship?: Yes Additional Social history: Lives with in [place]. Former [place] [employer], retired in early . 01/12/2020: Exam Const General: cooperative, healthy appearing, comfortable and no acute distress Orientation: alert, awake and oriented x3 HENMT Head: normal to inspection, normocephalic and atraumatic Mouth: moist mucous membranes abnormal (Slightly dry) Eyes General: appearance normal, both eyes and all related structures Alignment and Position: alignment normal Periorbital: periorbital findings normal Eyelids: eyelids normal Conjunctivae: conjunctivae normal Sclera: sclerae normal Cornea: corneas normal Pupils: PERRL EOM: EOM intact bilaterally Direct ophthalmoscopy: normal light reflex Neck Neck: normal visual inspection, full ROM, no meningeal signs, trachea midline, supple and nontender Resp Effort & Inspection: normal respiratory effort and able to speak in complete sentences Auscultation: clear to auscultation bilaterally Cardio Rate: regular rate Rhythm: regular rhythm GI Inspection: normal to inspection Palpation: soft, not firm, no guarding, no pulsatile masses and nontender Auscultation: normal bowel sounds Rectal Exam: visual inspection normal, heme negative stool and No tenderness Back/Spine/Pelvis Back: No back tenderness Skin General skin exam: no rashes or lesions noted Neuro General: patient alert, patient awake, patient oriented x3, moves all extremities and no focal motor deficits Cognition: normal cognition Speech: speech normal Gait: normal gait (Using a cane) Motor: muscle tone normal throughout Sensory Exam: no sensory deficits noted Extrem General: normal to inspection, full ROM, capillary refill normal and no calf tenderness Psych Appearance: grossly normal Mental Status: mental status grossly normal Course Vital Signs Vital signs: Vital Signs Temperature 36.4 C L 05/16/20 09:13 Pulse 86 05/16/20 09:13 Respiratory Rate 16 05/16/20 09:13 Blood Pressure 133/62 05/16/20 09:13 Pulse Oximetry 98 05/16/20 09:13 Temperature 36.4 C L 05/16/20 09:13 Temperature Source Skin 05/16/20 09:13 Pulse 86 05/16/20 09:13 Respiratory Rate 16 05/16/20 09:13 Respiratory Effort Non-Labored 05/16/20 09:13 Blood Pressure 133/62 05/16/20 09:13 Blood Pressure Position Sitting 05/16/20 09:13 Pulse Oximetry 98 05/16/20 09:13 Oxygen Delivery Method Room Air 05/16/20 09:13 Oxygen Flow Rate 0 05/16/20 09:13 Pain Level 2 05/16/20 09:13
--- OUTSIDE RECORDS SUMMARY | 2020-05-16 09:38 | XMS_ITS ---
:1940 Author Care Team Providers Name Role Phone FRANDY MANJARREZ Primary Care Provider [phone] KATE BLANCO MD Call Specialist [phone] [facility] OTHER [phone] MEGA REINA General Surgeon [phone] PARISH SWARTZ MD Fundraising Consultant [phone] ALVIN RIVERA Hematology/Oncology [phone] Allergies Code Code System Name Reaction Severity Status Onset NKDA ? Medications Name Status Start Date Stop Date ? ? acetaminophen 325 mg tablet Active ? Not available Take 1 tablet every day by oral route. amoxicillin 500 mg tablet Completed ? 2019 Take 4 tablets as needed by oral route. aspirin 81 mg tablet,delayed release Completed ? 11/10/2018 Take 2 tablets every day by oral route. atorvastatin 20 mg tablet Active ? Not av ailable Take 1 tablet every day by oral route. bupropion HCl 150 mg tablet,12 hr sustained-release(smoking dete rrent) Active ? Not available Take 1 tablet twice a day by oral route. Diltiazem HCl CR 240 mg/24hr capsule, extended release Active ? Not available Take 1 capsule every day by oral route. duloxetine 20 mg capsule,delayed release Active ? Not available Take 1 capsule every day by oral route. DuoNeb 0.5 mg-3 mg(2.5 mg base)/3 mL solution for nebulization A ctive ? Not available Inhale 3 mL 4 times a day by nebulization route. Eliquis 5 mg tablet Active ? Not availabl e Take 1 tablet twice a day by oral route. furosemide 20 mg tablet Active ? Not avai lable Take 1 tablet every day by oral route. gabapentin 600 mg tablet Active ? Not siri ilable Take 1 tablet 3 times a day by oral route. lysine 500 mg tablet Completed ? 11/10/2018 Take 1 tablet every day by oral route. metoprolol succinate ER 100 mg capsule sprinkle, ext. release 24 hr Active ? Not available Take 1 capsule every day by oral route. metoprolol succinate ER 200 mg tablet,extended release 24 hr Act ryan ? Not available Take 1 tablet every day by oral route. multivitamin Active ? Not available 1 tab daily Igo 3 Completed ? 11/10/2018 1 cap daily pantoprazole 40 mg tablet,delayed release Active ? Not available Take 1 tablet every day by oral route. paroxetine 40 mg tablet Active ? Not avai lable Take 1 tablet every day by oral route. Stiolto Respimat 2.5 mcg-2.5 mcg/actuation solution for inhalati on Active ? Not available Inhale 2 puffs every day by inhalation route. Symbicort 160 mcg-4.5 mcg/actuation HFA aerosol inhaler Active ? Not available Inhale 2 puffs twice a day by inhalation route. tiotropium bromide 18 mcg capsule with inhalation device Active ? Not available Inhale 1 capsule every day by inhalation route. Ventolin HFA Active ? Not available 2 puff Q4hrs PRN Problems Name Status Onset Date Source ? Hyperlipidemia Active 11/03/2018 ? Gout Active 11/03/2018 ? Obesity Active 11/03/2018 ? Anxiety Active 11/03/2018 ? Alcoholism Active 11/03/2018 ? Depressive Disorder Active 11/03/2018 ? Obstructive Sleep Apnea Syndrome Active 11/03/2018 ? Cardiomyopathy Active 11/03/2018 ? Atrial Fibrillation Active 11/03/2018 ? Chronic Obstructive Lung Disease Active 11/03/2018 ? Benign Prostatic Hyperplasia Active 11/03/2018 ? Osteoarthritis Active 11/03/2018 ? Sciatica Active 11/03/2018 ? Dyspnea Unknown 11/03/2018 ? Insomnia Active 11/10/2018 ? Procedures Date Name Performed by ? 05/12/2011 Colonoscopy Information not avai lable Notes: last one at age 72, negative p er pt. ? Hip Replacement Information not avai lable Notes: [place], around [place] [facility] [place] Tonsillectomy Information not avai lable Notes: as kid ? Appendectomy Information not avai lable Notes: as kid 07/22/2019 CT, Chest, W/o Contrast Xray [facility] [address] [place], [place] [address] (Work [address]) 07/30/2019 CT, Chest, W/ Contrast [facility] [address] [place] [address] (Work Place) 07/30/2019 CT, Chest, W/ Contrast [facility] Radiology (Internal) [address] [place] [address] (Work Place) 08/02/2019 US, Thyroid [facility] [address] [place] [address] (Work Place) 08/09/2019 US, Guidance [facility] (Internal) [address] [place] [address] (Work Place) 09/03/2019 CT, Chest, W/o Contrast Xray [facility] [address] [place], [place] [address] (Work Place) 09/07/2019 US, Head + Neck, Soft Tissue [facility] Radiology (Internal) [address] [place] [address] (Work Place) 09/09/2019 US, Echocardiogram [facility] (Internal) [address] [place] [address] (Work Place) 03/17/2020 CT, Chest, W/o Contrast Xray [facility] [address] [place], [place] [address] (Work Place) Results Lab Results Date Name Specimen Result Interpretation Description Value Range Status Address ? 08/25/2019 Cytology, TISS ? Report (see ? Final [facility] Non-gynecological, below) Hospital Lab Unspecified Specimen (Internal): [address] Past Encounters 04/14/2020 Chronic Obstructive Lung Disease; Obstru ctive Sleep Apnea Syndrome Nessa Garcia MD: [address] [place] [address] Dr ryan Valdes [address] [place] [phone], Ph. 03/17/2020 Chronic Obstructive Lung Disease; Obstru ctive Sleep Apnea Syndrome; Papillary Thyroid Carcinoma Nessa Garcia MD: [address] [place] [address] Dr ryan Valdes [address] [place] [phone], Ph. 09/17/2019 Papillary Thyroid Carcinoma Mega Reina MD: [address] [place] [address], Ph. 09/16/2019 Parish Swartz MD: [address] [place] [address], Ph. 09/07/2019 Papillary Thyroid Carcinoma Mega Reina MD: [address] [place] [address], Ph. 09/03/2019 Papillary Thyroid Carcinoma; Chronic Obs tructive Lung Disease Nessa Garcia MD: [address] [place] [address] Dr ryan aVldes [address] [place] [phone], Ph. 07/30/2019 Mediastinal Mass; Chronic Obstructive Sirisha ng Disease; Obstructive Sleep Apnea Syndrome Nessa Garcia MD: [address] [place] [address] Dr ryan Valdes [address] [place] [phone], Ph. 07/22/2019 Chronic Obstructive Lung Disease; Obstru ctive Sleep Apnea Syndrome Nessa Garcia MD: [address] [place] [address] Dr ryan Valdes [address] [place] [phone], Ph. 01/14/2019 Obstructive Sleep Apnea Syndrome Cheri Velasco CHIEF GREEN OFFICER: [address] [place] [phone], Ph. Social History Tobacco Smoking Status Former Smoker Notes: quit in 1968 Vaccine List Vaccine Type influenza, injectable, quadrivalent 01/20/2019 03/10/2020 pneumococcal conjugate PCV 13 07/22/2014 pneumococcal polysaccharide PPV23 05/23/2006 Tdap 05/08/2012 Plan of Care Reminders Provider Appointments None ? ? recorded. Lab None ? ? recorded. Referral None ? ? recorded. Procedures None ? ? recorded. Surgeries None ? ? recorded. Imaging None ? ? recorded. Vitals 04/14/2020 11:30AM Office 15 Height Weight BMI Blood Pressure 182.88 cm 114 kg 34.1 kg/m2 100/54 mm[Hg] 03/17/2020 03:30PM Office 15 Height Weight BMI Blood Pressure 182.88 cm 113.15 kg 33.8 kg/m2 122/78 mm[Hg] 09/17/2019 01:30PM Acute 15 Height 182.88 cm 09/07/2019 02:15PM Office 15 Height Weight BMI Blood Pressure 182.88 cm 120.25 kg 36 kg/m2 108/60 mm[Hg] 09/03/2019 11:30AM Office 15 Height Weight BMI 182.88 cm 114 kg 34.1 kg/m2 07/30/2019 11:00AM Office 15 Height Weight BMI Blood Pressure 182.88 cm 118 kg 35.3 kg/m2 123/75 mm[Hg] 07/22/2019 09:00AM Office 15 Height Weight BMI Blood Pressure 182.88 cm 117.6 kg 35.2 kg/m2 164/74 mm[Hg] 01/14/2019 10:15AM Office 30 Height Weight BMI Blood Pressure 182.88 cm 112.58 kg 33.7 kg/m2 110/60 mm[Hg] 11/10/2018 12:30PM Office 30 Height Weight BMI Blood Pressure 182.88 cm 112.81 kg 33.7 kg/m2 110/64 mm[Hg]
--- OUTSIDE RECORDS SUMMARY | 2020-05-16 09:38 | XMS_ITS | Encounter Summary ---
:1940 Author Care Team Providers Name Role Phone Sandra Piedra Primary Care Provider [phone] Osiris Gibson MD Correctional Case Records Supervisor [phone] [facility] OTHER [phone] Mega Parrish General Surgeon [phone] Parish Santos MD Batterboard Setter [phone] Marcie Woo Hematology/Oncology [phone] Reason for Visit None recorded. Assessment and Plan 1. Chronic obstructive lung dise ase He has severe COPD and had wor sening symptoms until he was switched to Stiolto. On that he is doing very well, much less short of breath. Therefore we will continue with Stiolto and Symbicort. He has significant bronchodilator respon se on recent pulmonary function testing he also has severe diffusion defect he has fairly minimal previous smoking history and is very distant. Repeat spirometry will be carried out at next visit on the Stiolto, Based on recent testing he does not need supplemental oxygen administration at rest or on exertion, and no oxygen need to be bled into his BiPAP machine At next visit alpha-1 antitrypsin defic iency genetic testing will be offered He needs to go back to pulmonary rehab a s soon as they reopen after the coronavirus outbreak The 7 x 7 mm right upper lobe nodule th at is partially calcified will be followed in 6 months with noncontrast chest CT. This was ordered for January, but it was not carried out as he was still rehabbing from ankle fracture. This is n ow reordered, it will be done in the next week and he will follow-up with me right after 2 review the images with him He already got the flu shot. ? CT, chest, w/o contrast 2. Obstructive sleep apnea syndr ome He has excellent BiPAP complia nce and excellent elimination of the AHI. He will continue with the current setting on his BiPAP. Overnight oximetry 07/28/2019 on BiPAP on room air shows that the patient spent 1 minute and 48 seconds below the saturation of 88%. Based on this, he does not need supplemental oxygen to be bled into his BiPAP Continue with auto BiPAP IMAX 20, E mini mum 10, pressure support 4 3. 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 Subsequent total thyroidectomy 10/08/2019 was successful, neck lymph node dissection showed 6+ lymph nodes. He is now scheduled for radioactive iodine therapy. Discussion Note More than 25 minutes were spent wit h the patient , more than 50% of the time counseling Patient educational handouts: No information available. Plan of Care Reminders Provider Appointments Return to on or around ? Office 04/14/2021 Lab None ? ? recorded. Referral None ? ? recorded. Procedures None ? ? recorded. Surgeries None ? ? recorded. Imaging CT, Chest, 03/17/2020 [facility] X ray W/o Contrast Medications Name Start Date ? ? acetaminophen 325 mg tablet ? Take 1 tablet every day by oral route. atorvastatin 20 mg tablet ? Take 1 tablet every day by oral route. bupropion HCl 150 mg tablet,12 hr sustained-release(sm oking deterrent) ? Take 1 tablet twice a day by oral route. Diltiazem HCl CR 240 mg/24hr capsule, extended release ? Take 1 capsule every day by oral route. duloxetine 20 mg capsule,delayed release ? Take 1 capsule every day by oral route. DuoNeb 0.5 mg-3 mg(2.5 mg base)/3 mL solution for nebu lization ? Inhale 3 mL 4 times a day by nebulization route. Eliquis 5 mg tablet ? Take 1 tablet twice a day by oral route. furosemide 20 mg tablet ? Take 1 tablet every day by oral route. gabapentin 600 mg tablet ? Take 1 tablet 3 times a day by oral route. metoprolol succinate ER 100 mg capsule sprinkle, ext. release 24 hr ? Take 1 capsule every day by oral route. metoprolol succinate ER 200 mg tablet,extended release 24 hr ? Take 1 tablet every day by oral route. multivitamin ? 1 tab daily pantoprazole 40 mg tablet,delayed release ? Take 1 tablet every day by oral route. paroxetine 40 mg tablet ? Take 1 tablet every day by oral route. Stiolto Respimat 2.5 mcg-2.5 mcg/actuation solution fo r inhalation ? Inhale 2 puffs every day by inhalation route. Symbicort 160 mcg-4.5 mcg/actuation HFA aerosol inhale r ? Inhale 2 puffs twice a day by inhalation route. tiotropium bromide 18 mcg capsule with inhalation barney ce ? Inhale 1 capsule every day by inhalation route. Ventolin HFA ? 2 puff Q4hrs PRN Medications Administered None recorded. Vitals Height Weight BMI Blood Pressure 6 ft 113.15 kg 33.8 kg/m2 122/78 mm[Hg] Results Lab Results None recorded. Allergies Code Code System Name Reaction Severity Onset NKDA ? ? ? Problems Name Status Onset Date Source ? [...] Active 11/03/2018 ? Sciatica Active 11/03/2018 ? Insomnia Active 11/10/2018 ? Procedures Date Name Performed by ? 05/12/2011 Colonoscopy Information not avai lable Notes: last one at age 72, negative p er pt. ? Hip Replacement Information not avai lable Notes: left, around 2016 at [facility] [place] ? Tonsillectomy Information not avai lable Notes: as kid ? Appendectomy Information not avai lable Notes: as kid 03/17/2020 CT, Chest, W/o Contrast [facility] [address] [place], [place] [address] (Work Place) Vaccine List Vaccine Type influenza, injectable, quadrivalent 01/20/2019 03/10/2020 pneumococcal conjugate PCV 13 07/22/2014 pneumococcal polysaccharide PPV23 05/23/2006 Tdap 05/08/2012 Social History Tobacco Smoking Status Former Smoker Notes: quit in 1968 Exposure to Asbestos Y Notes: was in se rvice Exposure to Chemicals or Toxins Y Are you currently employed? N Blind or serious difficulty seeing Y Not es: reading glasses Have you had close contact with N someone who travelled internationally and was ill? Most Recent Tobacco Use Screening 11/10/2018 Exposure to Silica N Alcohol intake None Live alone or with others? with others Notes: wif e Pets? N Language Difficulties No Hard of hearing or deaf in one or N both ears? Caffeine intake Notes: large unsw eetened tea 2 weekly Have you traveled internationally? N Occupation retired Functional Status Blind or serious Yes difficulty seeing? Past Encounters 03/17/2020 Chronic Obstructive Lung Disease; Obstru ctive Sleep Apnea Syndrome; Papillary Thyroid Carcinoma Nessa Garcia MD: [address] [place] [address] Dr davis [facility] [address], [place] [address], Ph. History of Present Illness Note: <p>80-year-old man who comes in for follow-up on severe COPD with worsening shortness of breath and on recent ultrasound guided biopsy of the thyroid gland</p><p>
</p& gt;<p>
</p><p>He had worsening shortness of breath a few years ago, but lately once he was switched from Spiriva to Stiolto, his breathing has improved remarkably. He is staying on that as well as on Symbicort and doing quite well. His weight has been stable for the last 5 years. He is needing albuterol once a day. He is very happy with the Stiolto. He does not use his nebulizer.</p><p>He also has underlying atrial fibrillation which is fairly well-controlled now. His real estate transaction coordinator does not think that cardiac dysfunction contributes to his shortness of breath. He is on Eliquis. He has moderate pulmonary hypertension.</p><p>He has severe obstructivesleep apnea, currently on auto BiPAP IMAX 20, a minimum 10, pressure support 4, he is using it very compliantly and benefiting from it. He had an overnight oximetry on room air on BiPAP and did not need supplemental oxygen bled into the BiPAP. Overnight oximetry on 07/28/2019 shows that the patient spen t 1 minute and 48 seconds below the saturation of 88% on room air on BiPAP</p><p>Since the last visit with me, he was found to have papillary carcinoma of the thyroid, underwent total thyroidectomy on 10/08/2019, the neck lymph node dissection showed 6+ lymph nodes. He was then scheduled for radioactive iodine therapy for December,, but unfortunately he broke his ankle and needed surgery for that, so this treatment was postponed. So far he has not gotten the radioactive iodine. He recovered well from the neck surgery. He was supposed to have a follow-up chest CT to follow-up on the previously seen right upper lobe nodule, this was scheduled for January but because of his ankle fracture, this has not gotten done.
</p><p>He is now participating in rehab
</p><p>He offers no other complaints.</p><p>
</p><p>Social history: Quit smoking in August,, smoked from age [age] 1-2 packs a day, overall 90-[id number]-[id number] history. He then had a lot of secondhand smoke exposure throughout the rest of his life. He has no asbestos exposure. 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
</p><p>Family history Father had asthma. No other lung disease in the family.</p> Review of Systems ? Notes: <p>As above
</p> Physical Exam ? Notes: <p>Elderly man in no acute d istress
</p><p>chest: bilateral air entry, with clear breath sounds, no wheezing but he has minimal basal inspiratory crepitation, no crackles. No prolonged expiratory phase on forceful exhalation</p><p>Heart, S1, S2 normal</p><p>Neuro; A/O x 3</p><p>Extremities: No club vicente, no edema, no cyanosis
</p>
--- OUTSIDE RECORDS SUMMARY | 2020-05-16 09:38 | XMS_ITS | Encounter Summary ---
:1940 Author Care Team Providers Name Role Phone Sandra Piedra Primary Care Provider [phone] Osiris Gibson MD Spare Person [phone] [facility] OTHER [phone] Mega Parrish General Surgeon [phone] Parish Santos MD Biochemistry Technician [phone] Marcie Woo Hematology/Oncology [phone] Reason for Visit None recorded. Assessment and Plan 1. Chronic obstructive lung dise ase He has severe COPD and had wor sening symptoms until he was switched to Stiolto. On that he is doing very well, much less short of breath. Therefore we will continue with Stiolto and Symbicort. He feels that the Stiolto was not carryi ng him through the day but his shortness of breath overall has not worsened. Spirometry will be carried out today in the office. I reminded him that it is absolut chelsy okay to use his albuterol even up to 4 times a day. I think his more recent shortness of dora ath may be related to his ongoing anemia. If his blood count is not going up with iron supplementation, he may need a unit of blood. Based on recent testing he does not need supplemental oxygen administration at rest or on exertion, and no oxygen need to be bled into his BiPAP machine He needs to go back to pulmonary rehab a s soon as they reopen after the coronavirus outbreak The 7 x 7 mm right upper lobe nodule th at is partially calcified will be followed in 12 months with [address]. This was ordered for March,. If for follow-up on the thyroid can cer he gets CT of the chest done at a di fferent interval, will use that as the follow-up. If there is no change by March, , no further will need to be done for this abnormality, per se. I did not order that chest CT, we will s ee what imaging gets done in the next year, but he will follow-up with me in March,. He already got the flu shot. Addendum: Spirometry in the office 04/14/2020 shows FEV1/FVC 56, FEV1 46%, 1.46 L, FVC 59%, 2.61 L, while this still shows severe obstruction, is improved from previous one from May, when FEV1 was 37%, 1.20 L 2. Obstructive sleep apnea syndr ome He [...] E mini mum 10, pressure support 4 He will bring in his downloadable card i n the next couple days Discussion Note More than 25 minutes were [...] ? recorded. Imaging None ? ? recorded. Medications Name Start Date ? ? acetaminophen 325 mg tablet ? Take 1 tablet every day by oral route. atorvastatin 20 mg tablet ? Take 1 tablet every day by oral route. bupropion HCl 150 mg tablet,12 hr sustained-release(ede oking deterrent) ? Take 1 tablet twice [...] Height Weight BMI Blood Pressure 6 ft 114 kg 34.1 kg/m2 100/54 mm[Hg] Results Lab Results None recorded. Allergies [...] avai lable Notes[place] [facility] [place] Tonsillectomy Information not avai lable Notes: as kid ? Appendectomy Information not avai lable Notes: as kid 03/17/2020 CT, Chest, W/o Contrast Xray [facility] [address] [place], [place] [address] (Work Place) Vaccine List Vaccine Type influenza, injectable, quadrivalent 01/20/2019 03/10/2020 pneumococcal conjugate PCV 13 07/22/2014 pneumococcal polysaccharide PPV23 05/23/2006 Tdap 05/08/2012 Social History Tobacco Smoking Status Former Smoker Notes: quit in 1969 Exposure to Asbestos Y Notes: was in [...] or serious Yes difficulty seeing? Past Encounters 04/14/2020 Chronic Obstructive Lung Disease; Obstru ctive Sleep Apnea Syndrome Nessa Garcia MD: [address] [place] [address] [address] [phone], Ph. 03/17/2020 Chronic Obstructive Lung Disease; Obstru ctive Sleep Apnea Syndrome; Papillary Thyroid Carcinoma Nessa Garcia MD: [address] [place] [address] [address] [phone], Ph. History of Present Illness Note: <p>80-year-old man who comes in for follow-up on severe COPD with worsening shortness of breath and on recent chest CT.</p><p>
</p><p>
</p>< p>He had worsening shortness of breath a few years ago, but lately once he was switched from Spiriva to Stiolto, his breathing has improved remarkably. He is staying on that as well as on Symbicort and doing quite well. His weight has been stable for the last 5 years. He says that the Stiolto wearsoff a little too early and then he needs albuterol. All in all, he needs 3–4 times a day of albuterol. Overall, he feels that his breathing is stable.
</p><p>He was found recently to be severely anemic, hemoglobin on the low 9 range. He is now on iron supplementation, his blood count has not come up much so far. His baseline was at 13.
</p><p>
</p><p>He does not use his nebulizer.</p><p>He also has underlying atrial fibrillation which is fairly well-controlled now. His wheel borer does not think that cardiac dysfunction contributes to his shortness of breath. He is on Eliquis. He has moderate pulmonary hypertension.</p><p>He has severe obstructive sleep apnea, currently on auto BiPAP IMAX 20, a minimum 10, pressure support 4, he is using it very compliantly and benefiting from it. He had an overnight oximetry on room air on BiPAP and did not need supplemental oxygen bled into the BiPAP. Overnight oximetry on 07/28/2019 shows that the patient spent 1 minute and 48 seconds below the saturation of 88% on room air on BiPAP</p><p>Earlier this year, he was found to have papillary carcinoma ofthe thyroid, underwent total thyroidectomy on 10/08/2019, the [...] his ankle fracture, this has not gotten done, so now he got done in March, and he is here to review images</p><p>
</p><p>He offers no other compla ints.</p><p>
</p><p>Social history: Quit smoking in August,, smoked from age [age] 1-2 packs a day, overall 44-niig-brrg smoking history. He then had a lot of secondhand smoke exposure throughout the rest of his life. He has no asbestos exposure. 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
</p><p>Family history Father had asthma. No other lung disease in the family.</p> Review of Systems ? Notes: <p>As above
</p> Physical Exam ? Notes: <p>Elderly man in no acute d istress</p><p>chest: bilateral air entry, with clear breath sounds, no whee zing but he has minimal basal inspiratory crepitation, no crackles. No prolonged expiratory phase, but slightly prolonged expiratory phase o n forceful exhalation with minimal end expiratory wheezing</p><p>Heart, S1, S2 normal</p><p>Neuro; A/O x 3</p><p>Extremities: No clubbing, no edema, no cy anosis</p>
[2020-05-16] MEDS: Normal Saline 1,000 ML 1000 ML IV (09:41)
[2020-05-16] MEDS: Pantoprazole 40 MG VIAL 80 MG IVP (09:47)
[2020-05-16] MEDS: FAMOTIDINE 20 MG/50 ML BAG 100 MG IVPB (09:47)
[2020-05-16 09:51] LABS: Abs Immature Grans 0.18 10^3/uL (0.0-0.06); Absolute Basophil Count 0.03 10^3/uL (0.0-0.2); Absolute Eosinophil Count 0.14 10^3/uL (0.0-0.7); Absolute Lymphocyte Count 1.21 10^3/uL (1.2-3.4); Absolute Monocyte Count 1.04 10^3/uL (0.1-0.8); Basophils % 0.2; Eosinophils % 1.1; HCT 40.3 % (40.0-50.0); HGB 12.2 g/dL (13.5-17.5); Immature Grans % 1.4; Lymphocytes % 9.3; MCH 25.1 pg (27.0-33.0); MCHC 30.3 % (32.0-36.0); MCV 82.9 fL (80-95); MPV 10.4 fL (8.0-11.0); Nucleated RBC 0 %; RBC 4.86 10^6/uL (4.36-5.78); RDW 20.7 % (11.8-14.1); RDW-SD 61.3 fL; WBC 12.96 10^3/uL (4.4-10.8)
[2020-05-16 09:52] LABS: Absolute Neutrophil Count 10.37 10^3/uL (1.2-6.7)
[2020-05-16 10:03] LABS: Prothrombin Time 10.4 sec (9.3-11.0)
[2020-05-16 10:19] LABS: ALT 18 U/L (16-63); AST 15 U/L (15-37); Albumin 3.6 g/dL (3.4-5.0); Alkaline Phosphatase 116 U/L (46-116); Anion Gap 6.2 mmol/L (3-11); BUN 12 mg/dL (7-18); Bilirubin, Total 0.9 mg/dL (0.2-1.0); CO2 26.8 mmol/L (21.0-32.0); CREATININE 1.11 mg/dL (0.70-1.30); Calcium 8.8 mg/dL (8.5-10.1); Chloride 105 mmol/L (98-107); Glucose 118 mg/dL (74-106); Lipase 52 U/L (73-393); Magnesium 2.1 mg/dL (1.8-2.4); Potassium 3.9 mmol/L (3.5-5.1); Sodium 138 mmol/L (136-145); Total Protein 7.5 g/dL (6.4-8.2)
[2020-05-16 10:21] LABS: Troponin I < 0.05 ng/mL (<0.06)
[2020-05-16 10:22] LABS: Anisocytosis 3+; Diff Comment RBC Morph Reviewed
[2020-05-16 10:23] LABS: Hypochromasia 2+; Macrocytosis 1+; Microcytosis 1+; Platelet Count 268 10^3/uL (130-400); Poikilocytes 1+; Polychromasia Present
== END 2020-05-16 12:15 | disposition home or self-care (01) ==
PROVIDERS: Emergency Provider Physician Assistant; PCP Internal Medicine
DX: R10.11 Right upper quadrant pain (principal); I95.1 Orthostatic hypotension; I48.91 Unspecified atrial fibrillation; Z79.01 Long term (current) use of anticoagulants; J44.9 Chronic obstructive pulmonary disease, unspecified
CPT/HCPCS: 36415; 80053; 83690; 86850; 86900; 86901; 93005; 96361; 96365; 96375; 99284; 83735; 84484; 85025; 85610; 93010; 99285

== ENCOUNTER 2020-08-18 03:02 | Outpatient (CLI) | payer MEDICARE, BC, SELFPAY ==
[2020-08-18 09:27] LABS: HGB 13.6 g/dL (13.5-17.5); MCH 29.1 pg (27.0-33.0); MCHC 32.4 % (32.0-36.0); MCV 89.9 fL (80-95); MPV 9.7 fL (8.0-11.0); Platelet Count 250 10^3/uL (130-400); RBC 4.67 10^6/uL (4.36-5.78); RDW 16.1 % (11.8-14.1); WBC 10.58 10^3/uL (4.4-10.8)
[2020-08-18 14:52] LABS: Anion Gap 10.4 mmol/L (3-11); BUN 9 mg/dL (7-18); CO2 27.6 mmol/L (21.0-32.0); CREATININE 1.1 mg/dL (0.70-1.30); Calcium 8.9 mg/dL (8.5-10.1); Chloride 106 mmol/L (98-107); Digoxin 1.18 ng/mL (0.90-2.00); Glucose 108 mg/dL (74-106); Potassium 4.4 mmol/L (3.5-5.1); Sodium 144 mmol/L (136-145); TSH (W/Ref FT4) 0.85 uIU/mL (0.36-3.74)
== END 2020-08-18 03:03 | disposition home or self-care (01) ==
LOC: LBO 03:02
PROVIDERS: PCP Internal Medicine; Visit Provider Internal Medicine
DX: E03.9 Hypothyroidism, unspecified (principal); D50.0 Iron deficiency anemia secondary to blood loss (chronic); E78.5 Hyperlipidemia, unspecified; E86.1 Hypovolemia; R53.1 Weakness; I95.89 Other hypotension; I48.20 Chronic atrial fibrillation, unspecified; Z79.01 Long term (current) use of anticoagulants
CPT/HCPCS: 36415; 80048; 85027; 80162; 84443

== ENCOUNTER → 2020-10-18 14:39 | Outpatient (BNVA) | payer MEDICARE, BC, SELFPAY | PROVIDERS: PCP Internal Medicine; Referring Provider Internal Medicine; Visit Provider Nurse Practitioner Gerontology | DX: R31.0 Gross hematuria (principal); Z79.899 Other long term (current) drug therapy | CPT/HCPCS: 99214 ==

== ENCOUNTER 2020-10-19 02:57 | Outpatient (CLI) | payer MEDICARE, BC, SELFPAY ==
[2020-10-19 11:28] LABS: TSH 0.25 uIU/mL (0.36-3.74)
[2020-10-20 10:45] LABS: Thyroglobulin Antibody <1.8 IU/mL (<1.8); Thyroglobulin Tumor Marker 0.4 ng/mL
== END 2020-10-19 02:58 | disposition home or self-care (01) ==
LOC: LBO 02:57
PROVIDERS: PCP Internal Medicine; Visit Provider Preventive Medicine Undersea and Hyperbaric Medicine
DX: C73 Malignant neoplasm of thyroid gland (principal)
CPT/HCPCS: 36415; 84432; 84443; 86800

== ENCOUNTER → 2020-10-23 10:44 | Outpatient (BNVA) | payer MEDICARE, BC, SELFPAY | PROVIDERS: PCP Internal Medicine; Referring Provider Internal Medicine; Visit Provider Internal Medicine Cardiovascular Disease | DX: I48.20 Chronic atrial fibrillation, unspecified (principal); Z79.01 Long term (current) use of anticoagulants; J44.9 Chronic obstructive pulmonary disease, unspecified | CPT/HCPCS: 99214 ==

== ENCOUNTER 2021-03-06 13:39 | Outpatient (CLI) | payer MEDICARE, BC, SELFPAY ==
--- NOTE | 2021-03-06 13:30 | RT.EKG_ITS ---
APPROVED REPORT Exam: Resting ECG Reason for Exam: pre op exam Patient Location: O HR:49 bpm ECG Measurements Heart Rate 49 AXIS [place] [id number] P [id number] QRSd 86 QRS 32 QT 430 T 92 QTc 389 Conclusion Atrial fibrillation...V-rate 38- 50, irreg A-activity Low voltage, extremity leads...all extremity leads <0.5mV
== END 2021-03-06 13:40 | disposition home or self-care (01) ==
LOC: DI.KIM 13:45
PROVIDERS: PCP Internal Medicine; Visit Provider Internal Medicine
DX: Z01.818 Encounter for other preprocedural examination (principal)
CPT/HCPCS: 93010

== ENCOUNTER 2021-03-16 03:19 | Outpatient (CLI) | payer MEDICARE, BC, SELFPAY ==
[2021-03-16 12:31] LABS: Source Nasal/Nares
[2021-03-16 17:09] LABS: COVID-19 PCR Negative (Negative)
== END 2021-03-16 03:20 | disposition home or self-care (01) ==
LOC: LBO 03:19
PROVIDERS: PCP Internal Medicine; Visit Provider Ophthalmology
DX: Z20.822 Contact with and (suspected) exposure to COVID-19 (principal); Z01.818 Encounter for other preprocedural examination
CPT/HCPCS: 87635

== ENCOUNTER 2021-03-19 06:55 | Day surgery (SDC) | payer MEDICARE, BC, SELFPAY ==
--- NOTE | 2021-03-19 06:09 | ANES.PREOP_ITS ---
General Info Date of Service Date Performed: 03/19/21 Height: 5 ft 11 in Weight: 109.769 kg Body Mass Index (BMI): 33.7 Surgical Procedure: Operation Date: 03/19/21 08:40 Proposed Procedures Side Surgeon p Cataract Extraction with IOL Implant Right Tj Li MD Meds Allergies and Home Medications Allergies Allergy/AdvReac Type Severity Reaction Status Date / Time No Known Allergies Allergy Verified 03/19/21 07:32 Home Medication Medication Instructions Recorded multivitamin 1 ea PO DAILY 07/20/12 acetaminophen 1,000 mg PO Q8H PRN PRN tab-cap 03/10/17 tiotropium 2.5 mcg-olodaterol 2.5 2 puff IH DAILY 07/22/19 mcg/actuation mist for inhalation albuterol sulfate [ProAir HFA] 2 puff INHALATION Q4H PRN PRN 01/12/20 duloxetine 20 mg capsule,delayed 20 mg PO .qod #45 tab-cap 06/06/20 release furosemide 20 mg tablet 20 mg PO Q OTHER DAY #45 tab 06/06/20 digoxin 125 mcg (0.125 mg) tablet 125 mcg PO DAILY #90 tab 09/19/20 metoprolol succinate 25 mg 25 mg PO DAILY #90 tab 09/26/20 tablet,extended release 24 hr budesonide-formoterol HFA 160 2 puff INHALATION BID #3 inhaler 11/06/20 mcg-4.5 mcg/actuation aerosol inhaler apixaban 5 mg tablet 5 mg PO BID #180 tab-cap 01/24/21 atorvastatin 20 mg tablet 20 mg PO QHS #90 tab 01/24/21 bupropion HCl 150 mg 24 hr tablet, 150 mg PO BID #180 tab 01/24/21 extended release diltiazem HCl 240 mg 240 mg PO DAILY #90 tab-cap 01/24/21 capsule,extended release 24 hr gabapentin 600 mg tablet 600 mg PO TID #270 tab 01/24/21 pantoprazole 40 mg tablet,delayed 40 mg PO DAILY #90 tabcr 01/24/21 release finasteride 5 mg tablet 5 mg PO DAILY #90 tab 02/19/21 tamsulosin 0.4 mg capsule 0.4 mg PO DAILY #90 cap 02/19/21 levothyroxine 200 mcg tablet 200 mcg PO HS #90 tab 03/07/21 Current Visit Medications: Current Medications Generic Name Dose Route Start Last Admin Trade Name Freq PRN Reason Stop Dose Admin Acetaminophen 1,000 mg 03/19/21 06:00 Acetaminophen 500 Mg Tab PO Q4H PRN PRN Miscellaneous Medication 0 ml 03/19/21 06:00 Prednisolone 1%, Moxifloxacin 0.5%, Nepafenac 0.1% 5ml Btl OD DIRECTED [facility] Miscellaneous Medication 0 ml 03/19/21 06:00 Tropicam./Phenyleph. 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 Lung nodule R91.1 BPH NOS w ur obs/LUTS N40.1 Word finding difficulty R47.89 Peripheral sensory neuropathy Alcohol abuse, episodic F10.10 Anxiety disorder 05/22/11 F41.9 Atrial fibrillation 05/22/11 I48.91 Depressive disorder 05/22/11 F32.9 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 Medical History Medical History (Updated 03/16/21 @ 20:47 by Tj Li MD) Actinic keratosis Acute kidney injury Alcohol abuse, episodic Alcohol abuse, unspecified (08/14/11) [place] [facility] [place]300,000; DWI PROBATION Anxiety disorder (05/22/11) FAMILY WORK ?OCD Atrial fibrillation Atrial fibrillation (05/22/11) 07/2010 CHADS 2 =0 WARF[place] D/C, ECHO 07/2010 45%, MR; repeat ECHO 08/2011 55%; Rpt [facility] 12/2015 60%, pulm hypertension; [id number] score 1 Basal cell carcinoma Benign prostatic hyperplasia (05/22/11) BPH (benign prostatic hyperplasia) Cardiomyopathy F/U with cardiology Dr. Ortiz Pt. states last seen 10/2020 Central stenosis of spinal canal Central stenosis of spinal canal (11/11/17) Chronic airway obstruction, not elsewhere classified (05/12/10) emphysema; 04/2013 FEV1 1.5, 43% predicted post bronchodilator GOLD 3 - severe; QUIT SMOKING 08/1968, 2nd hand to 1990 Chronic pruritus Chronic toe pain, bilateral Chronic toe pain, bilateral (01/20/17) peripheral neuropathy: stocking glove COPD (chronic obstructive pulmonary disease) Depression Depressive disorder (05/22/11) Diastasis recti Discharge planning issues Displaced trimalleolar fracture of right ankle Diverticula of colon Dizziness DJD (degenerative joint disease) Duodenal ulcer Duodenal ulcer hemorrhagic DVT prophylaxis Dyslipidemia Dysmetabolic syndrome Dysmetabolic syndrome X (05/22/11) METABOLIC SYNDROME Epididymitis Erectile dysfunction Gout Gout (05/22/11) RT FOOT Gross hematuria History of ETOH abuse 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 mk Left testicular pain Left testicular pain (03/31/17) Lumbar radiculopathy Memory loss or impairment Obesity Obesity (BMI 30-39.9) (05/22/11) GOAL 225-230 Orchitis MARK (obstructive sleep apnea) Osteoarthritis of left hip Osteoarthrosis, unspecified whether generalized or localized, forearm (05/22/11) L HIP LS SPINE; 12/2011 MOD SEV L HIP XRAY; hip inj Dreisbach Overflow incontinence Peripheral sensory neuropathy Peripheral vascular disease of lower extremity (01/20/17) absent DP pulses Pressure ulcer Prostatism Pulmonary emphysema PVD (peripheral vascular disease) Right sided sciatica Sciatica Sciatica (05/22/11) 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 Cooper Dsouza Status post thyroidectomy (10/08/19) Limited neck dissection Tobacco Smoking/Tobacco Use Status: Former Tobacco Use Alcohol Alcohol Intake: former Substance Use Substance use: Current Sobriety Substance use type: does not use Vital Signs and Lab Results Vital Signs Most Recent Vital Signs in EMR: Temp Pulse Resp BP Pulse Ox 36.6 C 96 H 24 120/91 H 95 03/19/21 07:41 03/19/21 07:41 03/19/21 07:41 03/19/21 07:41 03/19/21 07:41 Lab Results Blood Type / Crossmatch: No Data to Display Complete Blood Count: No Data to Display Complete Metabolic Panel: No Data to Display Liver Function Panel: No Data to Display Coagulation Panel: No Data to Display Cardiac Panel: No Data to Display Arterial Blood Gas: No Data to Display Venous Blood Gas: No Data to Display Pancreas Panel: No Data to Display Thyroid Panel: No Data to Display Infectious Disease: Coronavirus (COVID-19)(PCR) Negative (Negative) 03/16/21 11:07 03/16/21 Coronavirus 2019 Source Nasal/Nares 03/16/21 11:07 03/16/21 Blood Cultures: No Data to Display Toxicology Panel: No Data to Display Imaging and Studies Imaging and Studies EKG Summary: 02/2021: atrial fib, V rate 38-50. Echocardiogram Summary: 09/2019: normal LV size/fxn, 2+ TR, PA pressures mildly elevated/35-40 mmhg. lvef 65%. Pulmonary Function Summary: 05/2019: Severe obstructive airways disease with significant bronchodilator response. This is associated with severe diffusion defect and mild to moderate hyperinflation and air trapping. Anesthesia Assessment and Plan Anesthesia History Personal History: No History of Anesthesia Complications Family History: No Family History of Anesthesia Complications Exercise Tolerance Exercise Tolerance: Metabolic Equivalents<4 Cardiac & Pulmonary Exam Cardiac Exam: Normal S1/S2 Heart Sounds Pulmonary Exam: Clear Bilateral Breath Sounds Implantable Cardiac Device Does patient have a Pacemaker or an ICD?: No Airway Exam Known Difficult Airway: No Mallampati Class: 3 Mouth Opening: Normal (> 3cm) Thyromental Distance: Greater than 3 cm Neck Range of Motion: Limited ROM Neck Circumference: Thick Teeth Condition: Normal Dentition ASA Classification ASA Score: ASA 3 Emergency Case?: No NPO Status NPO Status: NPO Clears >2 hours, Solids >8 hours Anesthesia Plan Resuscitation Status: Full Code Anesthesia Technique: MAC Anesthesia Airway Planned: Natural Airway Monitors Used: Standard Monitors Preoperative Comments:: 81 yo male for cataract. Sig PMHx: afib (eliquis, dilt, metoprolol), severe COPD (symbicort/albut), spinal stenosis, GERD (pantoprazole). Previous anes: LMA 4, LMA 5, glide grade 1. Plan: no MKO/MAC
[2021-03-19] MEDS: Tropicam./Phenyleph. (1/2.5%) 5 ML BTL OD ×3 (07:27→07:41)
[2021-03-19 07:41] VITALS: BP 120/91; PULSE 96; RESP 24; TEMP 36.6; O2SAT 95
[2021-03-19 07:54] VITALS: BMI 33.7
[2021-03-19] MEDS: Tetracaine 0.5% 4 ML BTL OD (08:03)
[2021-03-19] MEDS: Lidocaine 1% Pres-Free 5 ML VIAL (08:11)
[2021-03-19] MEDS: Lidocaine 2% Jelly 6 ML SYR (08:12)
[2021-03-19] MEDS: Balanced Salt Soln.-PLUS 500 ML BAG (08:15)
[2021-03-19] MEDS: Duovisc Viscoelastic System EACH 1 EACH (08:15)
[2021-03-19] MEDS: Povidone-Iodine Ophth 30 ML BTL (08:19)
[2021-03-19] MEDS: Trypan Blue 0.06% 0.5 ML SYR (08:19)
--- NOTE | 2021-03-19 08:37 | W.PM.DSUDISC ---
Discharge Plan Disposition Patient Disposition: HOME Condition: Good Discharge Details Attending Provider: Tj Li Primary Care Provider: Sandra Piedra Home Meds and New Rx's Prescriptions: No Action furosemide 20 mg tablet 20 mg PO Q OTHER DAY Qty: 45 RF: 3 duloxetine [Cymbalta] 20 mg capsule,delayed release(DR/EC) 20 mg PO .qod Qty: 45 RF: 3 multivitamin 1 EACH tablet 1 ea PO DAILY RF: 0 acetaminophen 500 MG tablet 1,000 mg PO Q8H PRN PRNRF: 0 Stiolto Respimat 2.5-2.5 mcg/actuation mist 2 puff IH DAILY RF: 0 digoxin 125 mcg (0.125 mg) tablet 125 mcg PO DAILY Qty: 90 RF: 2 metoprolol succinate 25 mg tablet extended release 24 hr 25 mg PO DAILY Qty: 90 RF: 3 budesonide-formoterol [Symbicort] 160-4.5 mcg/actuation HFA aerosol inhaler 2 puff Inhalation BID Qty: 3 RF: 3 bupropion HCl 150 mg tablet extended release 24 hr 150 mg PO BID Qty: 180 RF: 3 diltiazem HCl 240 mg capsule,extended release 24hr 240 mg PO DAILY Qty: 90 RF: 3 gabapentin 600 mg tablet 600 mg PO TID Qty: 270 RF: 3 Eliquis 5 mg tablet 5 mg PO BID Qty: 180 RF: 3 pantoprazole 40 mg tablet,delayed release (DR/EC) 40 mg PO DAILY Qty: 90 RF: 3 atorvastatin 20 mg tablet 20 mg PO QHS Qty: 90 RF: 3 finasteride 5 mg tablet 5 mg PO DAILY Qty: 90 RF: 4 tamsulosin 0.4 mg capsule 0.4 mg PO DAILY Qty: 90 RF: 4 levothyroxine 200 mcg tablet 200 mcg PO HS Qty: 90 RF: 3 albuterol sulfate [ProAir HFA] 90 mcg/actuation HFA aerosol inhaler 2 puff Inhalation Q4H PRN PRNRF: 0 Discharge Instructions Stand Alone Forms: Post-op Topical Cataract, Henrry Ghosh (DSU) Discharge Orders Discharge Orders: Discharge Order (Routine); Ordered 03/19/21 Ordered By: Tj Li DS: Diagnosis Discharge Diagnosis (1) Cortical cataract of right eye: Status: Resolved (2) Nuclear sclerotic cataract of right eye: Status: Resolved
[2021-03-19 08:40] VITALS: BP 130/65; PULSE 86; RESP 16; TEMP 36.4; O2SAT 94
--- NOTE | 2021-03-19 08:40 | ROE_ITS ---
Date of service: 03/19/21 Time of Service: 08:40 Operative Note Operative Note DATE OF PROCEDURE: 03/19/21 PRE-OP DIAGNOSIS: Nuclear/cortical cataract, right eye Poorly dilating pupil, right eye Poor red reflex, right eye POST-OP DIAGNOSIS: same PROCEDURE: Cataract extraction using phacoemulsification with intraocular lens implant, right eye, with pupillary dilation using Malyugin Ring and capsular staining using Vision Blue SURGEON: Tj Li Refer to Anesthesia Record ESTIMATED BLOOD LOSS: 0 PATHOLOGY: none sent COMPLICATIONS: None Patient was transported to: same day Patient's condition: stable Implants: Edd [employer] Ded / [employer] Tecnis [id number] Indications: Progressive decreased vision due to cataract, right eye Procedure Description: CATARACT SURGERY OPERATIVE REPORT PREOPERATIVE DIAGNOSIS: 1. Nuclear/cortical cataract, right eye 2. Poorly dilating pupil, right eye 3. Poor red reflex, right eye POSTOPERATIVE DIAGNOSIS: Same OPERATION: 1. Cataract extraction using phacoemulsification with posterior chamber intraocular lens implant, right eye. 2. Pupillary dilation and iris stabilization using Malyugin Ring 3. Capsular staining with VIsion Blue IOL: IOL Wardrobe Technician/Model: Edd & Edd / BETY Tecnis [id number] IOL Power: + 22.0 diopters IOL Serial Number: [id number] Optic Diameter: 6.0mm Haptic/Overall Diameter: 13.0mm PHACO INFO: Shola [employer]urion Vision System with OZil and Active Fluidics Cumulative Dispersed Energy (CDE): 9.74 seconds SURGEON: Tj Li MD, DARLENE ANESTHESIA: Monitored Anesthesia Care (MAC), with local sub-tenon's anesthetic infiltration COMPLICATIONS: None SPECIMENS: None INDICATIONS FOR PROCEDURE: The patient is an 81-year-old gentleman with history of progressive decreased vision in his right eye. He is noted to have a significant nuclear/cortical cataract of the right eye with a poorly dilating pupil and poor red reflex. 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 PROCEDURE: The correct surgical eye was identified and marked as the right eye and the pupil was dilated in the preoperative area using mydriatics and cycloplegics. The dilated pupil size was 4.0 mm. The patient was brought to the operating room where cardiopulmonary monitoring was instituted and surgical time-out was performed, confirming the correct operative eye and IOL power. Topical anesthesia was administered and ophthalmic povidone-iodine 5% was instilled into the conjunctival fornices. Lidocaine gel was applied to the cornea and the marcelina-ocular area was prepped with Betadine 10% solution and draped in the usual sterile fashion for intraocular surgery, including an aperture drape. A Tegaderm transparent film dressing was cut in half and used to cover the lashes and lid margins. Care was taken to sequester the lashes and lid margins under the Tegaderm dressing. A lid speculum was placed between the lids of the operative eye and the Sony-Magy operating microscope was maneuvered into position. Barrington scissors were then used to make a conjunctival buttonhole approximately 6mm posterior to the limbus in the inferonasal quadrant. Blunt dissection was carried out to expose bare sclera, and a blunt-tipped sub-tenon?s anesthesia cannula was introduced and passed posteriorly along the globe where non- preserved plain lidocaine was injected into posterior sub-Tenon?s space. A sideport knife was used to make a paracentesis port inferiortemporally. Intraocular phenylephrine/lidocaine was injected into the anterior chamber. Air was then injected into anterior chamber, followed by Vision Blue, which was painted over the anterior capsule and then irrigated out with BSS. The anterior chamber was then filled with viscoelastic. A 2.4mm keratome knife was used to create a half-thickness groove at the limbus and then to construct a three-plane near-clear corneal tunnel extending 2.0mm into clear cornea superiortemporally. A 7.0 mm Malyugin Ring was then inserted into the pupillary space and engaged with the Kuglen hook. A flap was raised on the anterior capsule and capsulorhexis forceps were used to complete a continuous curvilinear capsulorhexis of 5.5 mm. Balanced salt solution was then used to perform cortical cleaving hydrodissection and nuclear hydrodelineation until the lens could be freely rotated within the capsular bag. The lens nucleus was then disassembled and removed within the capsular bag and iris plane using phacoemulsification. Residual cortical material was removed using the 45-degree angled silicone I/A tip with 0.3mm port. The posterior capsule was carefully polished to remove as much residual lens epithelial cells as safely possible. The capsular bag was t hen inflated and the anterior chamber deepened with viscoelastic. The lens implant described above was inserted into the capsular bag using the BETY [place] Injector. A Kuglen hook was used to dial the IOL into position. The Malyugin Ring was removed in the reverse order of its insertion. Residual viscoelastic was then removed first from posterior to the IOL, then from the anterior chamber using the I/A handpiece. The lens implant was noted to center nicely within the capsular bag. The incisions were stromally hydrated, and the anterior chamber was reformed using BSS. Then 0.5cc of moxifloxacin 1.0mg/ml were injected into the capsular bag and anterior chamber. The incisions were checked with a Weck spear and found to be secure. Several drops of ophthalmic povidone-iodine 5% were then applied to the eye followed by two drops of Imprimis combination prednisoone/moxifloxacin/nepafenac solution. The drapes were removed and a clear plastic protective eye shield was placed over the eye. The patient was then returned to Same Day Surgery in stable condition.
--- NOTE | 2021-03-19 08:43 | W.ANESPOSTOP ---
Postoperative Evaluation Date, Time and Location Date Performed: 03/19/21 Time Performed: 08:44 Patient Location: Day Surgery Unit Vital Signs Most Recent Imported Vital Signs: Most Recent Vital Signs Temp Pulse Resp BP Pulse Ox 36.4 C L 86 16 130/65 94 03/19/21 08:40 03/19/21 08:40 03/19/21 08:40 03/19/21 08:40 03/19/21 08:40 Pain Score Most Recent Pain Score: Most Recent Pain Score Pain Level 0 03/19/21 08:40 Assessment Mental Status: Awake (Alert & Oriented to Patient Baseline) Airway and Respiratory Function: Patent airway with normal (patient baseline) respiratory exam Cardiovascular Function: Hemodynamically Stable Hydration Status: Adequately Hydrated Nausea & Vomiting: No Nausea or Vomiting Pain: Pt. Denies Any Pain Peripheral Nerve Block: Patient did not receive a nerve block
== END 2021-03-19 09:05 | disposition home or self-care (01) ==
PROVIDERS: PCP Internal Medicine; Visit Provider Ophthalmology
PROC: (CPT 66982; principal; 2021-03-19 08:30)
DX: H25.11 Age-related nuclear cataract, right eye (principal); H57.03 Miosis; I48.91 Unspecified atrial fibrillation; Z79.01 Long term (current) use of anticoagulants
CPT/HCPCS: 66982; V2632

== ENCOUNTER 2021-03-23 03:09 | Outpatient (CLI) | payer MEDICARE, BC, SELFPAY ==
[2021-03-23 13:25] LABS: TSH (W/Ref FT4) 0.36 uIU/mL (0.36-3.74)
== END 2021-03-23 03:10 | disposition home or self-care (01) ==
LOC: LOS 03:09
PROVIDERS: PCP Internal Medicine; Visit Provider Internal Medicine
DX: E03.9 Hypothyroidism, unspecified (principal)
CPT/HCPCS: 36415; 84443

== ENCOUNTER → 2021-04-25 14:37 | Outpatient (BNVA) | payer MEDICARE, BC, SELFPAY | PROVIDERS: PCP Internal Medicine; Visit Provider Nurse Practitioner Gerontology | DX: R31.0 Gross hematuria (principal); N40.1 Benign prostatic hyperplasia with lower urinary tract symptoms; Z79.899 Other long term (current) drug therapy | CPT/HCPCS: 99214 ==

== ENCOUNTER → 2021-04-26 13:01 | Outpatient (BNVA) | payer MEDICARE, BC, SELFPAY | PROVIDERS: PCP Internal Medicine; Visit Provider Internal Medicine Cardiovascular Disease | DX: I48.21 Permanent atrial fibrillation (principal); J44.9 Chronic obstructive pulmonary disease, unspecified; Z79.01 Long term (current) use of anticoagulants | CPT/HCPCS: 99213 ==

== ENCOUNTER 2021-05-02 02:53 | Outpatient (CLI) | payer MEDICARE, BC, SELFPAY ==
[2021-05-02 23:11] LABS: Thyroglobulin Antibody <15 U/mL (<=60)
== END 2021-05-02 02:54 | disposition home or self-care (01) ==
LOC: LBO 02:53
PROVIDERS: PCP Internal Medicine; Visit Provider Preventive Medicine Undersea and Hyperbaric Medicine
DX: C73 Malignant neoplasm of thyroid gland (principal)
CPT/HCPCS: 36415; 84443; 86800

== ENCOUNTER 2021-05-14 15:42 | Outpatient (REF) | payer MEDICARE, BC, SELFPAY ==
[2021-05-16 08:59] LABS: COVID-19 RT-PCR UVMMC Result Negative (Negative)
== END 2021-05-14 15:43 | disposition home or self-care (01) ==
LOC: LBN 15:42
PROVIDERS: PCP Internal Medicine; Visit Provider Nurse Practitioner
DX: R05.9 Cough, unspecified (principal); Z20.822 Contact with and (suspected) exposure to COVID-19
CPT/HCPCS: U0003; U0005

== ENCOUNTER 2021-05-21 18:35 | Outpatient (CLI) | payer MEDICARE, BC, SELFPAY ==
[2021-05-21 12:10] LABS: TSH 0.23 uIU/mL (0.36-3.74)
[2021-05-22 12:19] LABS: Thyroglobulin Antibody <1.8 IU/mL (<1.8); Thyroglobulin Tumor Marker 0.6 ng/mL
== END 2021-05-21 18:36 | disposition home or self-care (01) ==
LOC: LBO 18:37
PROVIDERS: PCP Internal Medicine; Visit Provider Preventive Medicine Undersea and Hyperbaric Medicine
DX: C73 Malignant neoplasm of thyroid gland (principal)
CPT/HCPCS: 36415; 84432; 84443; 86800

== ENCOUNTER 2021-06-04 14:53 | Outpatient (REF) | payer MEDICARE, BC, SELFPAY ==
[2021-06-04 13:19] LABS: Abs Immature Grans 0.11 10^3/uL (0.0-0.06); Absolute Basophil Count 0.04 10^3/uL (0.0-0.2); Absolute Eosinophil Count 0.19 10^3/uL (0.0-0.7); Absolute Lymphocyte Count 1.08 10^3/uL (1.2-3.4); Absolute Monocyte Count 0.74 10^3/uL (0.1-0.8); Absolute Neutrophil Count 7.41 10^3/uL (1.2-6.7); Basophils % 0.4; HCT 36.6 % (40.0-50.0); HGB 11.6 g/dL (13.5-17.5); Immature Grans % 1.1; Lymphocytes % 11.3; MCH 28.3 pg (27.0-33.0); MCHC 31.7 % (32.0-36.0); MCV 89.3 fL (80-95); MPV 10.3 fL (8.0-11.0); Monocytes % 7.7; Neutrophils % 77.5; Nucleated RBC 0 %; Platelet Count 250 10^3/uL (130-400); RDW 15.1 % (11.8-14.1); RDW-SD 48.9 fL; WBC 9.57 10^3/uL (4.4-10.8)
[2021-06-06 10:50] LABS: IgE <2 IU/mL (<158)
== END 2021-06-04 14:54 | disposition home or self-care (01) ==
LOC: LBN 14:53
PROVIDERS: PCP Internal Medicine; Visit Provider Student in an Organized Health Care Education/Training Program
DX: J44.9 Chronic obstructive pulmonary disease, unspecified (principal)
CPT/HCPCS: 82785; 85025

== ENCOUNTER 2021-07-27 01:37 | Outpatient (CLI) | payer MEDICARE, BC, SELFPAY ==
[2021-07-27 14:52] LABS: Anion Gap 8.9 mmol/L (3-11); BUN 14 mg/dL (7-18); CO2 27.1 mmol/L (21.0-32.0); CREATININE 1.1 mg/dL (0.70-1.30); Calcium 8.9 mg/dL (8.5-10.1); Chloride 105 mmol/L (98-107); Digoxin 0.59 ng/mL (0.90-2.00); Glucose 102 mg/dL (74-106); Potassium 4.3 mmol/L (3.5-5.1); Sodium 141 mmol/L (136-145); TSH 0.09 uIU/mL (0.36-3.74)
== END 2021-07-27 01:38 | disposition home or self-care (01) ==
LOC: LBO 01:37
PROVIDERS: PCP Internal Medicine; Visit Provider Internal Medicine
DX: E89.0 Postprocedural hypothyroidism (principal); I10 Essential (primary) hypertension; I48.20 Chronic atrial fibrillation, unspecified
CPT/HCPCS: 36415; 80048; 80162; 84443

== ENCOUNTER 2021-09-19 01:48 | Outpatient (CLI) | payer MEDICARE, BC, SELFPAY ==
[2021-09-19 13:38] LABS: TSH 0.16 uIU/mL (0.36-3.74)
[2021-09-20 14:01] LABS: Thyroglobulin Antibody <1.8 IU/mL (<1.8); Thyroglobulin Tumor Marker 0.5 ng/mL
== END 2021-09-19 01:49 | disposition home or self-care (01) ==
LOC: LBO 01:49
PROVIDERS: PCP Internal Medicine; Visit Provider Internal Medicine
DX: E89.0 Postprocedural hypothyroidism (principal); C73 Malignant neoplasm of thyroid gland
CPT/HCPCS: 36415; 84432; 84443; 86800

== ENCOUNTER → 2021-10-24 14:42 | Outpatient (BNVA) | payer MEDICARE, BC, SELFPAY | PROVIDERS: PCP Internal Medicine; Referring Provider Internal Medicine; Visit Provider Nurse Practitioner Gerontology | DX: N40.1 Benign prostatic hyperplasia with lower urinary tract symptoms (principal); R39.11 Hesitancy of micturition; R31.0 Gross hematuria | CPT/HCPCS: 51798; 99214 ==

== ENCOUNTER 2021-11-07 01:45 | Outpatient (CLI) | payer MEDICARE, BC, SELFPAY ==
[2021-11-07 09:51] LABS: TSH 5.29 uIU/mL (0.36-3.74)
[2021-11-08 18:31] LABS: Thyroglobulin Antibody <1.8 IU/mL (<1.8); Thyroglobulin Tumor Marker 1.6 ng/mL
== END 2021-11-07 01:46 | disposition home or self-care (01) ==
LOC: LBO 01:46
PROVIDERS: PCP Internal Medicine; Visit Provider Internal Medicine Medical Oncology
DX: E89.0 Postprocedural hypothyroidism (principal)
CPT/HCPCS: 36415; 84432; 84443; 86800

== ENCOUNTER 2021-12-04 11:55 | Outpatient (CLI) | payer MEDICARE, BC, SELFPAY | END 2021-12-04 11:56 | disposition home or self-care (01) | LOC: LBO 11:55 | PROVIDERS: PCP Internal Medicine ==

== ENCOUNTER → 2022-01-18 00:29 | Outpatient (CLI) | payer MEDICARE, BC, SELFPAY ==
--- NOTE | 2022-01-18 | DI.DEXA_ITS ---
Exam(s) XR DEXA BONE DENSITY W/WO SHIV EXAM: XR DEXA BONE DENSITY W/WO SHIV CLINICAL HISTORY: THYROID CANCER C73 OSTEOPOROSIS M81.0 H/O ANKLE FX TECHNIQUE: Routine DEXA evaluation of the lumbar spine, hip, or forearm. COMPARISON: CR LEFT HIP COMPLETE from 01/10/2012 FINDINGS: Performed on a Hologic unit. Lateral image: No compression fracture evident. Lumbar Spine total T-score: 0.6 Hip total T-score:0.2 Independent reading at the level of the femoral neck yields at T-score of -0.9. Forearm total T-score: -1.6 IMPRESSION: Bone mineral density measures in the normal range. Fracture risk is low. Note: Any spine fracture indicates 5x risk for subsequent spine fracture and 2x risk for subsequent h ip fracture. World Health Organization criteria for BMD interpretation classify patients: Normal...... T- Score at or above -1.0 Osteopenic... T- Score between -1.0 and -2.5 Osteoporosis... T-Score at or below -2.5
== END ==
PROVIDERS: PCP Internal Medicine; Visit Provider Student in an Organized Health Care Education/Training Program
DX: M81.0 Age-related osteoporosis without current pathological fracture (principal); C73 Malignant neoplasm of thyroid gland
CPT/HCPCS: 77080

== ENCOUNTER → 2022-01-24 15:09 | Outpatient (BNVA) | payer MEDICARE, BC, SELFPAY | PROVIDERS: PCP Internal Medicine; Visit Provider Nurse Practitioner Gerontology | DX: R39.89 Other symptoms and signs involving the genitourinary system (principal); R31.0 Gross hematuria | CPT/HCPCS: 51798; 99214 ==

== ENCOUNTER 2022-03-15 01:51 | Outpatient (CLI) | payer MEDICARE, BC, SELFPAY ==
[2022-03-15 11:20] LABS: HCT 34.9 % (40.0-50.0); HGB 10.7 g/dL (13.5-17.5); MCH 26.2 pg (27.0-33.0); MCHC 30.7 % (32.0-36.0); MCV 85 fL (80-95); Platelet Count 258 10^3/uL (130-400); RBC 4.09 10^6/uL (4.36-5.78); RDW 15.4 % (11.8-14.1); RDW-SD 46.8 fL; WBC 9.81 10^3/uL (4.4-10.8)
[2022-03-15 12:15] LABS: ALT 18 U/L (16-63); AST 20 U/L (15-37); Albumin 3.5 g/dL (3.4-5.0); Alkaline Phosphatase 113 U/L (46-116); BUN 10 mg/dL (7-18); Bilirubin, Total 0.8 mg/dL (0.2-1.0); Calcium 8.7 mg/dL (8.5-10.1); Calculated LDL 66 mg/dL (<100); Chloride 104 mmol/L (98-107); Cholesterol 132 mg/dL (<200); Estimated GFR 75.61 (mL/min/1.73m2); Ferritin 25 ng/mL (26-388); Glucose 128 mg/dL (74-106); HDL Cholesterol 43 mg/dL (40-60); Potassium 3.9 mmol/L (3.5-5.1); Sodium 141 mmol/L (136-145); Total Protein 7.1 g/dL (6.4-8.2); Triglyceride 119 mg/dL (<150); Vitamin B12 806 pg/mL (193-986)
[2022-03-15 12:18] LABS: Folate > 20.0 ng/mL (8.6-20.0)
[2022-03-15 12:31] LABS: Vitamin D 25 Total 41.8 ng/mL (30-100)
== END 2022-03-15 01:52 | disposition home or self-care (01) ==
LOC: LBO 01:51
PROVIDERS: Absent Provider Nurse Practitioner Adult Health; PCP Nurse Practitioner Adult Health; Visit Provider Nurse Practitioner Adult Health
DX: E78.2 Mixed hyperlipidemia (principal); R20.2 Paresthesia of skin; M81.0 Age-related osteoporosis without current pathological fracture; D50.9 Iron deficiency anemia, unspecified; F41.8 Other specified anxiety disorders; J44.9 Chronic obstructive pulmonary disease, unspecified; R23.1 Pallor; G25.81 Restless legs syndrome
CPT/HCPCS: 36415; 80053; 80061; 82306; 85027; 82607; 82728; 82746

== ENCOUNTER 2022-04-03 02:13 | Outpatient (RCR) | payer MEDICARE, BC, SELFPAY ==
[2022-03-20] MEDS: Normal Saline Flush 10 ML SYR IVP (09:24)
[2022-03-20] MEDS: IRON SUCROSE COMPLEX 200 MG in Normal Saline 100 ML 440 MG IVPB (09:24)
[2022-03-29] MEDS: Normal Saline Flush 10 ML SYR IVP (08:58)
[2022-03-29] MEDS: IRON SUCROSE COMPLEX 200 MG in Normal Saline 100 ML 440 MG IVPB (08:58)
[2022-04-03] MEDS: IRON SUCROSE COMPLEX 200 MG in Normal Saline 100 ML 440 MG IVPB (09:25)
[2022-04-03] MEDS: Normal Saline Flush 10 ML SYR IVP (09:25)
== END 2022-04-10 23:59 | disposition home or self-care (01) ==
LOC: INF 02:13
PROVIDERS: PCP Nurse Practitioner Adult Health; Visit Provider Nurse Practitioner Adult Health
DX: D50.9 Iron deficiency anemia, unspecified (principal)
CPT/HCPCS: 96365; J1756

== ENCOUNTER → 2022-04-19 08:52 | Outpatient (BNVA) | payer MEDICARE, BC, SELFPAY | PROVIDERS: PCP Nurse Practitioner Adult Health; Visit Provider Internal Medicine Cardiovascular Disease | DX: I48.20 Chronic atrial fibrillation, unspecified (principal); Z79.01 Long term (current) use of anticoagulants | CPT/HCPCS: 99214 ==

== ENCOUNTER 2022-05-23 04:15 | Outpatient (CLI) | payer MEDICARE, BC, SELFPAY ==
[2022-05-23 09:51] LABS: Abs Immature Grans 0.13 10^3/uL (0.0-0.06); Absolute Basophil Count 0.02 10^3/uL (0.0-0.2); Absolute Monocyte Count 0.94 10^3/uL (0.1-0.8); Absolute Neutrophil Count 8.96 10^3/uL (1.2-6.7); Basophils % 0.2; Eosinophils % 0.9; HCT 36.8 % (40.0-50.0); HGB 11.7 g/dL (13.5-17.5); Immature Grans % 1.1; Lymphocytes % 10.6; MCH 27.2 pg (27.0-33.0); MCHC 31.8 % (32.0-36.0); MCV 86 fL (80-95); MPV 9.9 fL (8.0-11.0); Monocytes % 8.3; Neutrophils % 78.9; Platelet Count 309 10^3/uL (130-400); RDW 15.6 % (11.8-14.1); RDW-SD 48.9 fL; WBC 11.35 10^3/uL (4.4-10.8)
[2022-05-23 11:53] LABS: Ferritin 50 ng/mL (26-388)
== END 2022-05-23 04:16 | disposition home or self-care (01) ==
LOC: LBO 04:15
PROVIDERS: PCP Nurse Practitioner Adult Health; Visit Provider Nurse Practitioner Adult Health
DX: D50.9 Iron deficiency anemia, unspecified (principal); G47.9 Sleep disorder, unspecified; R79.0 Abnormal level of blood mineral
CPT/HCPCS: 36415; 82728; 85025

== ENCOUNTER → 2022-06-05 13:29 | Outpatient (BNVA) | payer MEDICARE, BC, SELFPAY | PROVIDERS: PCP Nurse Practitioner Adult Health; Referring Provider Nurse Practitioner Adult Health; Visit Provider Nurse Practitioner Gerontology | DX: R30.0 Dysuria (principal); R39.12 Poor urinary stream; N40.1 Benign prostatic hyperplasia with lower urinary tract symptoms | CPT/HCPCS: 51702; 51798; 81003; 99213 ==

== ENCOUNTER 2022-06-05 17:40 | Outpatient (REF) | payer MEDICARE, BC, SELFPAY | END 2022-06-05 17:41 | disposition home or self-care (01) | LOC: LBN 17:40 | PROVIDERS: PCP Nurse Practitioner Adult Health; Visit Provider Nurse Practitioner Gerontology | DX: N39.0 Urinary tract infection, site not specified (principal); N40.1 Benign prostatic hyperplasia with lower urinary tract symptoms | CPT/HCPCS: 87077; 87086; 87186 ==

== ENCOUNTER 2022-06-09 08:42 | Inpatient (IN) | payer MEDICARE, BC, SELFPAY ==
[2022-06-09] VITALS (99 sets, daily range): BP systolic 95–165; BP diastolic 36–101; PULSE 79–159; RESP 18–31; TEMP 37.1–37.5; O2SAT 90–100
--- NOTE | 2022-06-09 | DI.CT_ITS ---
Exam(s) CT RENAL COLIC WO EXAM: CT RENAL COLIC WO CLINICAL HISTORY: UTI in a male, concern for nephrolithiasis. TECHNIQUE: Imaging Protocol: Axial computed tomography images with coronal and sagittal reformatted images were created and reviewed. CONTRAST MATERIAL: Noncontrast COMPARISON: CT CT ABDOMEN PELVIS W from 01/12/2020 FINDINGS: ABDOMEN: Exam limited by motion. Lung Bases: Normal where visualized. Liver: Normal attenuation. No measurable mass. Gallbladder and biliary tract: A few tiny stones are noted a. no biliary dilation. Pancreas: Normal density, no calcifications or inflammatory process. Spleen: Normal. Kidneys: Normal size, contour and axis. No radiodense stones or obstructive uropathy. Suspicious rosaline ateral renal cysts. No suspicious masses seen. Adrenal glands: No masses seen. Abdominal Aorta: 3 cm maximal dimension, stable.. Severe atherosclerotic changes. Soft tissues: Diastasis of the rectus muscles, chronic. PELVIS: Bladder: Symmetric distention, no gross wall thickening. No evidence of stones.No visible mass. Bowel: Diverticulosis. No evidence of diverticulitis. No obstruction or bowel wall thickening. Reproductive: Prostate appears mildly enlarged the though partially obscured. It Peritoneal cavity: No ascites, collection or mesenteric inflammatory response. Bones: Degenerative changes right hip. Degenerative changes lumbar spine. Left hip prosthesis creat es artifact in the pelvis partially obscuring the bladder and prostate. Stable mild T12 compression fracture. IMPRESSION: No acute abnormality. New lung multiple chronic findings as mentioned above. RADIATION DOSE DELIVERED: 1,153.53mGy.cm Total DLP DATA REPOSITORY: All CT scans at this facility are submitted to the National Radiology Data Registry (NRDR) Dose Index Registry (DIR) with the [employer] (ACR). RADIATION OPTIMIZATION: All CT scans at this facility use at least one of these dose optimization te chniques: automated exposure control; mA and/or kV adjustment per patient size (includes targeted exa ms where dose is matched to clinical indication); or iterative reconstruction.
--- NOTE | 2022-06-09 08:30 | RT.EKG_ITS ---
APPROVED REPORT Exam: Resting ECG Reason for Exam: SOB Patient Location: E HR:141 bpm ECG Measurements Heart Rate 141 AXIS AL [id number] P [id number] QRSd 94 QRS 71 QT 287 T 73 QTc 441 Conclusion Atrial fibrillation with rapid V-rate. Low voltage, extremity and precordial leads.
--- NOTE | 2022-06-09 08:45 | DI.RAD_ITS ---
Exam(s) XR PORTABLE CHEST AP EXAM: XR PORTABLE CHEST AP CLINICAL HISTORY: SOB TECHNIQUE: 2D digital imaging was performed. COMPARISON: CT CT CHEST WO from 03/27/2020 FINDINGS: A small portion of the lung apices are excluded from view. LUNGS: Fibrotic changes. Mild hyperinflation.. Minimal blunting at the costophrenic angles appears chronic. No overt pulmonary edema. No visible focal infiltrate. HEART: Normal size. AORTA: Normal diameter. BONES: Degenerative changes. Soft tissues: Unremarkable. IMPRESSION: No acute findings. DATA REPOSITORY: RADIATION DOSE DELIVERED:
[2022-06-09] MEDS: Normal Saline 1,000 ML 500 ML IV (09:01)
[2022-06-09] MEDS: Normal Saline Flush 10 ML SYR IVP ×2 (09:02→14:31)
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
[2022-06-09 09:15] LABS: Abs Immature Grans 0.07 10^3/uL (0.0-0.06); Absolute Basophil Count 0.02 10^3/uL (0.0-0.2); Absolute Eosinophil Count 0.01 10^3/uL (0.0-0.7); Absolute Lymphocyte Count 0.54 10^3/uL (1.2-3.4); Absolute Neutrophil Count 10.41 10^3/uL (1.2-6.7); Basophils % 0.2; Eosinophils % 0.1; HCT 33.9 % (40.0-50.0); HGB 10.8 g/dL (13.5-17.5); Immature Grans % 0.6; Lymphocytes % 4.4; MCH 26.8 pg (27.0-33.0); MCHC 31.9 % (32.0-36.0); MCV 84 fL (80-95); Monocytes % 10.5; Neutrophils % 84.2; Platelet Count 218 10^3/uL (130-400); RBC 4.03 10^6/uL (4.36-5.78); RDW 15.3 % (11.8-14.1); RDW-SD 46.8 fL; WBC 12.36 10^3/uL (4.4-10.8)
[2022-06-09 09:30] LABS: ALT 20 U/L (16-63); AST 24 U/L (15-37); Albumin 3.1 g/dL (3.4-5.0); Alkaline Phosphatase 98 U/L (46-116); BUN 17 mg/dL (7-18); Bilirubin, Total 0.8 mg/dL (0.2-1.0); CREATININE 1.2 mg/dL (0.70-1.30); Calcium 9.4 mg/dL (8.5-10.1); Chloride 101 mmol/L (98-107); ETHANOL BLOOD < 3.0 mg/dL (<10); Estimated GFR 60.75 (mL/min/1.73m2); Glucose 125 mg/dL (74-106); NT-proBNP 1951 pg/mL (<300); Potassium 3.7 mmol/L (3.5-5.1); Sodium 137 mmol/L (136-145); Total Protein 7.3 g/dL (6.4-8.2); Troponin I < 50 ng/L (<or=60)
--- NOTE | 2022-06-09 09:34 | DI.VRAD_ITS ---
PROCEDURE INFORMATION: Exam: XR Chest Exam date and time: 06/09/2022 9:00 AM Age: 82 years old Clinical indication: Other: SOB TECHNIQUE: Imaging protocol: Radiologic exam of the chest. Views: 1 view. Total images: 1 COMPARISON: CT CHEST WO 03/27/2020 12:43 PM FINDINGS: Lungs: Lung apices not included on the examination. Bilateral hyperinflation is present. No focal pneumonia or pneumothorax. Pleural spaces: Trace bilateral pleural effusions. Heart/Mediastinum: Unremarkable. No cardiomegaly. Bones/joints: Scoliotic curvature of the thoracic spine with mild degenerative changes. IMPRESSION: 1. Bilateral hyperinflation is present. 2. No focal pneumonia or pneumothorax. 3. Trace bilateral pleural effusions. Dictated and Authenticated by: Scott Godoy MD. Ordering:LEW Steve MD
[2022-06-09] MEDS: dilTIAZem 25 MG/5 ML VIAL 10 MG IVP ×2 (10:01→11:29)
[2022-06-09] MEDS: dilTIAZem 25 MG/5 ML VIAL 15 MG IVP (10:01)
[2022-06-09] MEDS: LORazepam 2 MG/ML VIAL 1 MG IVP (10:01)
[2022-06-09] MEDS: Metoprolol CR 25 MG TABCR PO (10:20)
[2022-06-09] MEDS: dilTIAZem CD 120 MG CAPCR 240 MG PO (10:20)
[2022-06-09] MEDS: dilTIAZem 125 MG in Normal Saline 100 ML IV (10:29)
[2022-06-09 11:03] LABS: Source Nasal/Nares
[2022-06-09 11:42] LABS: COVID-19 PCR Negative (Negative)
[2022-06-09 11:45] LABS: Lab Add On Test COMPLETED
[2022-06-09 12:06] LABS: TSH 0.11 uIU/mL (0.36-3.74)
--- NOTE | 2022-06-09 12:14 | DI.VRAD_ITS ---
PROCEDURE INFORMATION: Exam: CT Abdomen And Pelvis Without Contrast Exam date and time: 06/09/2022 11:39 AM Age: 82 years old Clinical indication: Condition or disease; Kidney or ureter condition; Patient HX: UTI in a male, concern for nephrolithiasis TECHNIQUE: Imaging protocol: Computed tomography of the abdomen and pelvis without contrast. COMPARISON: CT ABDOMEN PELVIS W 01/12/2020 12:27 AM FINDINGS: Lungs: There is minimal scarring or atelectasis at the left lung base also previously noted. There is no new lobar consolidation. A large pleural effusion is not seen. Liver: No focal intrahepatic abnormality is identified on this noncontrast enhanced exam. Gallbladder and bile ducts: There are probable tiny gallstones noted dependently within the gallbladder for example best seen on series 3, image 267. There is no evidence of gallbladder wall thickening or pericholecystic fluid. No significant biliary ductal dilatation. Pancreas: There is a punctate calcification at the pancreatic head for example best seen on series 3, image 291. There is no discrete pancreatic mass. There is no significant pancreatic duct dilatation. No significant peripancreatic inflammation is identified. Spleen: Unremarkable. Adrenal glands: Adrenals are unremarkable Kidneys and ureters: There are bilateral renal cortical cysts also noted on the patient's prior exam. There is some nonspecific perinephric standing noted bilaterally. No radiopaque urinary tract calculi are identified. There is no significant hydronephrosis. Stomach and bowel: There is no evidence of a bowel obstruction. There is no discrete mass or pneumatosis. There are few scattered diverticuli but no findings to suggest acute diverticulitis. Appendix: The appendix is not well visualized but no definite inflammatory changes are identified to suggest acute appendicitis. Intraperitoneal space: No free fluid focal collections or free intraperitoneal air is identified. Vasculature: Vascular calcification is noted in the abdomen, pelvis. Abdominal aorta measures up to 3 cm in maximum diameter. Lymph nodes: No significant adenopathy. Urinary bladder: Evaluation of the bladder is somewhat degraded by artifact from the hip replacement. It is not completely distended. There is probable mild bladder wall thickening. No other significant abnormality identified.. Reproductive: The prostate gland is mildly enlarged. Bones/joints: There is transitional anatomy at the lumbosacral junction. There is minimal compression deformity of the superior endplate of T12, also previously noted. No definite acute or destructive bony abnormality is identified. Left hip replacement is noted with associated metallic artifact. Degenerative changes are seen in the right hip. Soft tissues: There is laxity of the ventral abdominal wall/rectus diastasis. There is a small fat containing umbilical hernia. Other findings: Exam mildly degraded by patient motion. Images are also degraded by artifact in association with the patient's left hip replacement. IMPRESSION: 1. No radiopaque urinary tract calculi. No hydronephrosis. 2. No bladder calculi. Bladder is poorly evaluated due to artifact by the left hip replacement. Possible mild bladder wall thickening. 3. Cholelithiasis. No biliary ductal dilatation. 4. Diverticulosis without evidence of acute diverticulitis. Dictated and Authenticated by: Jovita Villarreal MD. Ordering:KYA Soliz MD
[2022-06-09 12:16] LABS: Procalcitonin 4.8 ng/mL
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
[2022-06-09 12:39] LABS: Lab Add On Test DONE
[2022-06-09 12:59] LABS: BE (Venous) 3 mmol/L (-2-3); HCO3 (Venous) 27 mmol/L (23-28); O2 Sat (Venous) 47 %; TCO2 (Venous) 26 mmol/L (24-29); pCO2 (Venous) 42 mmHg (41-51); pH (Venous) 7.42 (7.31-7.41); pO2 (Venous) 27 mmHg
[2022-06-09 13:01] LABS: C-Reactive Protein > 25.00 mg/dL (0.0-0.3)
[2022-06-09 13:02] LABS: Lactate 1.2 mmol/L (0.6-1.4)
[2022-06-09 13:09] LABS: Bilirubin Negative (Negative); Blood Trace-lysed (Negative); Clarity Clear (Clear); Glucose Negative (Negative); Ketones 15 mg/dL (Negative); Leukocyte Esterase Small (Negative); Nitrite Negative (Negative)
[2022-06-09 13:18] LABS: Bacteria Few HPF (Negative); C & S Indicated? Yes; Casts Negative LPF (Negative); Crystals Negative HPF (Negative); Epithelial Cells Few HPF (Negative); Mucus Negative (Negative); RBC 0-2 HPF (0-2); WBC 20-50 HPF (0-5)
[2022-06-09 13:19] LABS: Troponin I < 50 ng/L (<or=60)
[2022-06-09] MEDS: cefTRIAXone 2 GM/50 ML BAG IVPB (13:57)
[2022-06-09] MEDS: Gabapentin 800 MG TAB PO ×2 (14:28→21:22)
[2022-06-09] MEDS: Acetaminophen 325 MG TAB PO (14:28)
[2022-06-09] MEDS: Furosemide 40 MG/4 ML VIAL IVP (14:30)
[2022-06-09] MEDS: THIAMINE 100 MG in Normal Saline 100 ML 200 MG IVPB (15:16)
[2022-06-09] MEDS: PHENobarbital 140 MG in Normal Saline 50 ML 100 MG IVPB ×2 (17:30→21:23)
[2022-06-09] MEDS: dilTIAZem 125 MG in Normal Saline 100 ML 15 MG IV (17:30)
[2022-06-09] MEDS: Apixaban 5 MG TAB PO (21:22)
[2022-06-09] MEDS: buPROPion-XL 150 MG TABCR PO (21:22)
[2022-06-09] MEDS: Acetylcysteine 600 MG CAP PO (21:22)
[2022-06-09] MEDS: Atorvastatin 20 MG TAB PO (21:22)
[2022-06-09] MEDS: Budesonide/Formoterol 160/4.5 6 GM 60 PUFF INH IH (21:24)
[2022-06-10] VITALS (47 sets, daily range): BP systolic 88–122; BP diastolic 40–74; PULSE 77–129; RESP 18–35; TEMP 36.5–38.2; O2SAT 91–96
--- NOTE | 2022-06-10 01:35 | NUR.NOTE ---
Nursing Note: Spoke with the Pharmacist Kaycee Diop hearing care practitioner regarding the 3rd loading dose of Phenobarbital since patient did not received a second dose. It was started and stopped. Spoke with Dr Jimenes and received a Telephone Order to administer the third dose of loading Phenobarbital 140mg for CIWA of 13.
[2022-06-10] MEDS: Acetaminophen 325 MG TAB PO (02:02)
[2022-06-10] MEDS: dilTIAZem 125 MG in Normal Saline 100 ML 15 MG IV (02:04)
[2022-06-10] MEDS: PHENobarbital 140 MG in Normal Saline 50 ML 100 MG IVPB (02:04)
[2022-06-10] MEDS: Normal Saline Flush 10 ML SYR IVP ×2 (02:06→21:04)
[2022-06-10 04:51] LABS: Abs Immature Grans 0.08 10^3/uL (0.0-0.06); Absolute Basophil Count 0.01 10^3/uL (0.0-0.2); Absolute Eosinophil Count 0.06 10^3/uL (0.0-0.7); Absolute Lymphocyte Count 1.04 10^3/uL (1.2-3.4); Absolute Monocyte Count 1.33 10^3/uL (0.1-0.8); Absolute Neutrophil Count 6.11 10^3/uL (1.2-6.7); Basophils % 0.1; Eosinophils % 0.7; HCT 27.8 % (40.0-50.0); HGB 8.9 g/dL (13.5-17.5); Immature Grans % 0.9; Lymphocytes % 12.1; MCH 26.8 pg (27.0-33.0); MCV 84 fL (80-95); MPV 9.8 fL (8.0-11.0); Monocytes % 15.4; Neutrophils % 70.8; Platelet Count 186 10^3/uL (130-400); RBC 3.32 10^6/uL (4.36-5.78); RDW 15.3 % (11.8-14.1); RDW-SD 46.9 fL; WBC 8.63 10^3/uL (4.4-10.8)
[2022-06-10 05:24] LABS: PHENOBARBITAL 6.8 ug/mL (15.0-40.0)
[2022-06-10 05:29] LABS: Iron 20 ug/dL (65-175); Total Iron Binding Capacity 194 ug/dL (250-450); Transferrin Sat 10 % (20-55)
[2022-06-10 05:37] LABS: Anion Gap 8.9 mmol/L (3-11); BUN 21 mg/dL (7-18); CO2 27.1 mmol/L (21.0-32.0); CREATININE 1.3 mg/dL (0.70-1.30); Calcium 8.6 mg/dL (8.5-10.1); Chloride 103 mmol/L (98-107); Estimated GFR 55.19 (mL/min/1.73m2); Ferritin 229 ng/mL (26-388); Folate 18.6 ng/mL (8.6-20.0); Glucose 104 mg/dL (74-106); Magnesium 1.9 mg/dL (1.8-2.4); Potassium 3.4 mmol/L (3.5-5.1); Sodium 139 mmol/L (136-145)
[2022-06-10] MEDS: Levothyroxine 100 MCG TAB 200 MCG PO (06:06)
[2022-06-10] MEDS: Budesonide/Formoterol 160/4.5 6 GM 60 PUFF INH IH ×2 (07:42→21:04)
[2022-06-10] MEDS: Umeclidinium 7 CAP INHALER 1 CAP IH (07:50)
[2022-06-10] MEDS: Tamsulosin 0.4 MG CAPCR PO ×2 (08:34→21:05)
[2022-06-10] MEDS: Furosemide 20 MG/2 ML VIAL IVP ×2 (08:34→16:03)
[2022-06-10] MEDS: Multivitamin TAB 1 TAB PO (08:34)
[2022-06-10] MEDS: Pantoprazole 40 MG TABCR PO (08:34)
[2022-06-10] MEDS: Acetylcysteine 600 MG CAP PO ×2 (08:34→21:05)
[2022-06-10] MEDS: Finasteride 5 MG TAB PO (08:35)
[2022-06-10] MEDS: buPROPion-XL 150 MG TABCR PO ×2 (08:35→21:05)
[2022-06-10] MEDS: DULoxetine 20 MG CAP PO (08:35)
[2022-06-10] MEDS: Thiamine 100 MG TAB PO (08:35)
[2022-06-10] MEDS: Gabapentin 800 MG TAB PO ×3 (08:35→21:05)
[2022-06-10] MEDS: Apixaban 5 MG TAB PO ×2 (08:35→21:05)
[2022-06-10] MEDS: Metoprolol CR 25 MG TABCR PO ×2 (08:35→21:05)
[2022-06-10] MEDS: Folic Acid 1 MG TAB PO (08:35)
[2022-06-10] MEDS: Potassium Chloride 20 MEQ TABCR 40 MEQ PO (08:37)
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
--- NOTE | 2022-06-10 09:09 | W.PM.PROGNOT ---
Date of Service Date of service: 06/10/22 Time of Service: 09:11 Assessment and Plan Assessment and plan (1) Sepsis: Status: Acute Assessment and plan: Due to a UTI, present on admission. BLood and urine cultures are pending. Trend procalcitonin, CRP. LA ok. Continue empiric ceftriaxone. Monitor bladder scans. (2) Atrial fibrillation with rapid ventricular response: Status: Acute Assessment and plan: Transition to PO cardizem off of diltiazem gtt. Continue toprol XL + metoprolol prn. Await echo. Continue eliquis (3) Acute CHF: Status: Acute Assessment and plan: I suspect R-sided dysfunction. Await echo. Monitor I/Os. Does not appear fluid overloaded this am. (4) Acute anemia: Status: Acute Assessment and plan: Check H/H at noon. Check anemia studies including hematest. Is on eliquis. Not visibly bleeding for us. (5) Pulmonary hypertension: Status: Chronic Assessment and plan: As above Await echo. BiPAP QHS for MARK (6) Alcohol withdrawal: Status: Acute Assessment and plan: Completed phenobarbital load. Monitor w/ phenobarbital prn. Thiamine IV. Monitor CIWA/RASS. 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 (7) Alcohol abuse, unspecified: Assessment and plan: As above (8) Asthma-COPD overlap syndrome: Status: Chronic Assessment and plan: I do not think that the patient's respiratory symptoms are due to this - his lungs are clear with good air movement. Continue outpatient management. (9) Obstructive sleep apnea syndrome: Status: Chronic Assessment and plan: Continue home BiPAP. (10) DVT prophylaxis: Status: Acute Assessment and plan: On therapeutic eliquis (11) Discharge planning issues: Status: Acute Assessment and plan: Full code per my conversation with the patient. Possible transfer out of the ICU later today, depending on heart rates. Total Critical Care Time 40 minutes. Subjective Subjective Interval history since last seen: Mr Gallardo is feeling better today. He did have a fever of 38.2. He has not been noted to be bleeding. Denies dizziness, chest pain, breathing is better - denies SOB, denies nausea. Having breakfast this am. HR 80s-120s. Remains in rapid Afib. On bladder scan, was retaining 250 cc. Exam Narrative Exam Narrative: General: Pleasant elderly male who is A&Ox3, not dyspneic/tachypneic, on RA, looks much better. Mildly tremulous. HEENT: EOMI, MMM Cardiovascular: irregularly irregular rhythm, tachycardic Lungs: CTAB Gastrointestinal: soft, nontender, nondistended Extremities: no edema BLEs, 1+ pedal pulses B Objective Last Vital Signs Temp 36.5 C 06/10/22 06:01 Pulse 91 H 06/10/22 06:00 Resp 23 06/10/22 06:01 BP 92/43 L 06/10/22 06:00 Pulse Ox 91 L 06/10/22 06:01 Laboratory Results - last 24 hr 06/09/22 06/09/22 06/09/22 09:00 09:00 09:00 WBC 12.36 H RBC 4.03 L Hgb 10.8 L Hct 33.9 L MCV 84 MCH 26.8 L MCHC 31.9 L RDW 15.3 H Plt Count 218 MPV 10.0 Immature Gran % 0.6 Neutrophils % 84.2 Lymphocytes % 4.4 Monocytes % 10.5 Eosinophils % 0.1 Basophils % 0.2 Nucleated RBC % 0.0 Absolute Neutrophils 10.41 H Absolute Lymphocytes 0.54 L Absolute Monocytes 1.30 H Absolute Eosinophils 0.01 Absolute Basophils 0.02 VBG pH VBG pCO2 VBG pO2 VBG HCO3 VBG Total CO2 VBG O2 Saturation VBG Base Excess VBG Lactate Sodium 137 Cancelled Potassium 3.7 Cancelled Chloride 101 Cancelled Carbon Dioxide 27.0 Cancelled Anion Gap 9.0 Cancelled BUN 17 Cancelled Creatinine 1.2 Cancelled Est GFR (CKD-EPI 2020) 60.75 Cancelled Glucose 125 H Cancelled Calcium 9.4 Cancelled Magnesium 2.0 Iron TIBC Transferrin % Sat Ferritin Total Bilirubin 0.8 Cancelled AST 24 Cancelled ALT 20 Cancelled Alkaline Phosphatase 98 Cancelled Troponin I < 50 C-Reactive Protein NT-Pro-B Natriuret Pep 1951 H Total Protein 7.3 Cancelled Albumin 3.1 L Cancelled Folate Procalcitonin TSH 0.11 L Urine Color Urine Clarity Urine pH Ur Specific Tarkio Urine Protein Urine Ketones Urine Blood Urine Nitrite Urine Bilirubin Urine Urobilinogen Ur Leukocyte Esterase Urine RBC Urine WBC Ur Epithelial Cells Urine Crystals Urine Bacteria Urine Casts Urine Mucus Ur Culture Indicated? Urine Glucose Phenobarbital Ethyl Alcohol < 3.0 COVID-19 Source SARS-CoV-2 (PCR) Add-On Test Request 06/09/22 06/09/22 06/09/22 09:00 09:00 10:52 WBC RBC Hgb Hct MCV MCH MCHC RDW Plt Count MPV Immature Gran % Neutrophils % Lymphocytes % Monocytes % Eosinophils % Basophils % Nucleated RBC % Absolute Neutrophils Absolute Lymphocytes Absolute Monocytes Absolute Eosinophils Absolute Basophils VBG pH VBG pCO2 VBG pO2 VBG HCO3 VBG Total CO2 VBG O2 Saturation VBG Base Excess VBG Lactate Sodium Potassium Chloride Carbon Dioxide Anion Gap BUN Creatinine Est GFR (CKD-EPI 2020) Glucose Calcium Magnesium Iron TIBC Transferrin % Sat Ferritin Total Bilirubin AST ALT Alkaline Phosphatase Troponin I C-Reactive Protein > 25.00 H NT-Pro-B Natriuret Pep Total Protein Albumin Folate Procalcitonin 4.8 TSH Urine Color Urine Clarity Urine pH Ur Specific Tarkio Urine Protein Urine Ketones Urine Blood Urine Nitrite Urine Bilirubin Urine Urobilinogen Ur Leukocyte Esterase Urine RBC Urine WBC Ur Epithelial Cells Urine Crystals Urine Bacteria Urine Casts Urine Mucus Ur Culture Indicated? Urine Glucose Phenobarbital Ethyl Alcohol COVID-19 Source SARS-CoV-2 (PCR) Add-On Test Request COMPLETED 06/09/22 06/09/22 06/09/22 10:59 11:29 12:50 WBC RBC Hgb Hct MCV MCH MCHC RDW Plt Count MPV Immature Gran % Neutrophils % Lymphocytes % Monocytes % Eosinophils % Basophils % Nucleated RBC % Absolute Neutrophils Absolute Lymphocytes Absolute Monocytes Absolute Eosinophils Absolute Basophils VBG pH VBG pCO2 VBG pO2 VBG HCO3 VBG Total CO2 VBG O2 Saturation VBG Base Excess VBG Lactate Sodium Potassium Chloride Carbon Dioxide Anion Gap BUN Creatinine Est GFR (CKD-EPI 2020) Glucose Calcium Magnesium Iron TIBC Transferrin % Sat Ferritin Total Bilirubin AST ALT Alkaline Phosphatase Troponin I < 50 C-Reactive Protein NT-Pro-B Natriuret Pep Total Protein Albumin Folate Procalcitonin TSH Urine Color Yellow Urine Clarity Clear Urine pH 6.0 Ur Specific Tarkio 1.020 Urine Protein Trace H Urine Ketones 15 H Urine Blood Trace-lysed H Urine Nitrite Negative Urine Bilirubin Negative Urine Urobilinogen 4.0 H Ur Leukocyte Esterase Small H Urine RBC 0-2 Urine WBC 20-50 H Ur Epithelial Cells Few Urine Crystals Negative Urine Bacteria Few Urine Casts Negative Urine Mucus Negative Ur Culture Indicated? Yes Urine Glucose Negative Phenobarbital Ethyl Alcohol COVID-19 Source Nasal/Nares SARS-CoV-2 (PCR) Negative Add-On Test Request 06/09/22 06/09/22 06/09/22 12:50 12:50 Unknown WBC RBC Hgb Hct MCV MCH MCHC RDW Plt Count MPV Immature Gran % Neutrophils % Lymphocytes % Monocytes % Eosinophils % Basophils % Nucleated RBC % Absolute Neutrophils Absolute Lymphocytes Absolute Monocytes Absolute Eosinophils Absolute Basophils VBG pH 7.42 H VBG pCO2 42 VBG pO2 27 VBG HCO3 27 VBG Total CO2 26 VBG O2 Saturation 47 VBG Base Excess 3 VBG Lactate 1.2 Sodium Potassium Chloride Carbon Dioxide Anion Gap BUN Creatinine Est GFR (CKD-EPI 2020) Glucose Calcium Magnesium Iron TIBC Transferrin % Sat Ferritin Total Bilirubin AST ALT Alkaline Phosphatase Troponin I C-Reactive Protein NT-Pro-B Natriuret Pep Total Protein Albumin Folate Procalcitonin TSH Urine Color Urine Clarity Urine pH Ur Specific Tarkio Urine Protein Urine Ketones Urine Blood Urine Nitrite Urine Bilirubin Urine Urobilinogen Ur Leukocyte Esterase Urine RBC Urine WBC Ur Epithelial Cells Urine Crystals Urine Bacteria Urine Casts Urine Mucus Ur Culture Indicated? Urine Glucose Phenobarbital Ethyl Alcohol COVID-19 Source SARS-CoV-2 (PCR) Add-On Test Request DONE 06/10/22 06/10/22 06/10/22 04:35 04:35 04:35 WBC RBC Hgb Hct MCV MCH MCHC RDW Plt Count MPV Immature Gran % Neutrophils % Lymphocytes % Monocytes % Eosinophils % Basophils % Nucleated RBC % Absolute Neutrophils Absolute Lymphocytes Absolute Monocytes Absolute Eosinophils Absolute Basophils VBG pH VBG pCO2 VBG pO2 VBG HCO3 VBG Total CO2 VBG O2 Saturation VBG Base Excess VBG Lactate Sodium 139 Potassium 3.4 L Chloride 103 Carbon Dioxide 27.1 Anion Gap 8.9 BUN 21 H Creatinine 1.3 Est GFR (CKD-EPI 2020) 55.19 Glucose 104 Calcium 8.6 Magnesium 1.9 Iron 20 L TIBC 194 L Transferrin % Sat 10 L Ferritin 229 Total Bilirubin AST ALT Alkaline Phosphatase Troponin I C-Reactive Protein NT-Pro-B Natriuret Pep Total Protein Albumin Folate 18.6 Procalcitonin TSH Urine Color Urine Clarity Urine pH Ur Specific Tarkio Urine Protein Urine Ketones Urine Blood Urine Nitrite Urine Bilirubin Urine Urobilinogen Ur Leukocyte Esterase Urine RBC Urine WBC Ur Epithelial Cells Urine Crystals Urine Bacteria Urine Casts Urine Mucus Ur Culture Indicated? Urine Glucose Phenobarbital 6.8 L Ethyl Alcohol COVID-19 Source SARS-CoV-2 (PCR) Add-On Test Request 06/10/22 04:35 WBC 8.63 RBC 3.32 L Hgb 8.9 L Hct 27.8 L MCV 84 MCH 26.8 L MCHC 32.0 RDW 15.3 H Plt Count 186 MPV 9.8 Immature Gran % 0.9 Neutrophils % 70.8 Lymphocytes % 12.1 Monocytes % 15.4 Eosinophils % 0.7 Basophils % 0.1 Nucleated RBC % 0.0 Absolute Neutrophils 6.11 Absolute Lymphocytes 1.04 L Absolute Monocytes 1.33 H Absolute Eosinophils 0.06 Absolute Basophils 0.01 VBG pH VBG pCO2 VBG pO2 VBG HCO3 VBG Total CO2 VBG O2 Saturation VBG Base Excess VBG Lactate Sodium Potassium Chloride Carbon Dioxide Anion Gap BUN Creatinine Est GFR (CKD-EPI 2020) Glucose Calcium Magnesium Iron TIBC Transferrin % Sat Ferritin Total Bilirubin AST ALT Alkaline Phosphatase Troponin I C-Reactive Protein NT-Pro-B Natriuret Pep Total Protein Albumin Folate Procalcitonin TSH Urine Color Urine Clarity Urine pH Ur Specific [place] Urine Protein Urine Ketones Urine Blood Urine Nitrite Urine Bilirubin Urine Urobilinogen Ur Leukocyte Esterase Urine RBC Urine WBC Ur Epithelial Cells Urine Crystals Urine Bacteria Urine Casts Urine Mucus Ur Culture Indicated? Urine Glucose Phenobarbital Ethyl Alcohol COVID-19 Source SARS-CoV-2 (PCR) Add-On Test Request PAWSS Have you Been Recently Intoxicated or Drunk Within the Last 30 days?: Yes Have you Ever Experienced Previous Episodes of Alcohol Withdrawal?: No Have you ever Experienced Withdrawal Seizures?: No Have you ever Experienced Delirium Tremens(DT)s?: Yes Have you ever undergone Alcohol Rehabilitation Treatment (i.e, inpt ot outpatient treatment programs)?: Yes Have you ever Experienced Blackouts?: Yes Have you ever Combined Alcohol with other Downers within the last 90 days?: No Have you ever Combined Alcohol with any other Substance of Abuse during the last 90 days?: No Positive Blood Alcohol level on Presentation? [PCS.BAL]: Yes Evidence of Increased Autonomic Activity (i.e. HR>120, tremor, sweating, agitation, nausea)?: No Result: 5 Multi-Disciplinary Checklist Lines/Tubes CENTRAL LINE: no ARTERIAL LINE: no CARIAS: no ENDOTRACHEAL TUBE: no ICU Maintenance GLUCOSE 140-180mg/dL: no, Reason/Intervention: not diabetic NUTRITION AT GOAL: yes PRESSURE ULCER: no RESTRAINTS: no ANTIBIOTICS(if yes, consider Stewardship): Yes Social Issues FAMILY UPDATED: no, Reason/Intervention: able to update family PT/OT: yes GOALS/DISPOSITION/CASHIER AND WAITER/WAITRESS: yes CODE STATUS: Full Prophylaxis DVT PROPHYLAXIS: yes GI PROPHYLAXIS: no Time Spent with Patient Time Spent with Patient: 35-49 minutes Time was spent: preparing to see the patient(eg.review tests), obtaining and/or reviewing separately otained hiistory, ordering medications,tests, procedures, referring, communicating with other health career technical education teacher, indepentently interpreting results, counseling the patient and care coordination
--- NOTE | 2022-06-10 09:15 | DI.US_ITS ---
APPROVED REPORT EXAM: Comprehensive 2D, Doppler, and color-flow Echocardiogram Patient Location: In-Patient Room/Bed: [id number] Combination Welder: Victoria Brooks RDCS (AE) Indications: A Fib Other Information Study Quality: Fair. Technically limited study due to body habitus, inability to position patient exa m done suipine bedside icu. Conclusion Normal left ventricular wall thickness and chamber size. Estimated ejection fraction is 60%. Wall m otion is normal Normal right ventricular size and systolic function Both atria are moderately dilated There is no structural or hemodynamically significant valvular disease Estimated right ventricular systolic pressure is 35 mmHg Wall motion Left Ventricle The left ventricle is normal size. The left ventricular systolic function is normal. The left ventric ular ejection fraction is within the normal range. There is normal left ventricular wall thickness. T here is normal LV segmental wall motion. There is no ventricular septal defect visualized. LVEF is 60 %. Right Ventricle The right ventricle is normal size. The right ventricular systolic function is normal. The RVSP is 35 .2mmHg. Atria Left atrium is moderately dilated. Right atrium is moderately dilated. The interatrial septum is inta ct with no evidence for an atrial septal defect. Aortic Valve The aortic valve is normal in structure. Aortic valve is trileaflet. There is no aortic valvular sten osis. No aortic regurgitation is present. Mitral Valve The mitral valve is normal in structure. No evidence of mitral valve stenosis. Trace to mild mitral r egurgitation. Tricuspid Valve The tricuspid valve is normal in structure. There is no tricuspid valve stenosis. Trace to mild tric uspid regurgitation. Pulmonic Valve Pulmonic valve is not well visualized. There is no pulmonic valvular stenosis. There is no pulmonic v alvular regurgitation. Great Vessels The aortic root is normal in size. Ascending aorta is not well visualized. Aortic arch is not well vi sualized. IVC is normal in size and collapses >50% with inspiration. Pericardium There is no pericardial effusion. 2D Dimensions IVSD d PLAX 1.03 cm M: 0.6-1.2 LV Vol A2C d MOD 110.4 mL LVPW d PLAX 1.03 cm M: 0.6 - 1.2 LV Vol A4C d MOD 116.1 mL LVID d PLAX 4.91 cm M: 4.2 - 5.8 LA vol/ BSA A2C s A-L 43.3 mL/m2 LVDs 3.40 cm M: 2.5 - 4.0 LA vol/ BSA A4C s A-L 40.0 mL/m2 Ao Root d 3.12 cm M: 3.1 - 3.7 LA Vol/ BSA Biplane s A-L 42.7 mL/m2 RA Area A4C 25.11 cm2 LA Area A4C s MOD 25.88 cm2 RA Vol/ BSA A4C s A-L 33.9 mL/m2 LA Area A2C s MOD 27.58 cm2 LV EF Teichholz 57.6 % LV EF A4C MOD 58.0 % LVEF (Salgado's) 61.20 % M: 52 - 72 LV EF A2C MOD 59.7 % LV Volume 87.49 mL M: 62 - 150 LV EF Biplane MOD 61.2 % LV Volume Index 39.76 mL/m2 M: 34 - 74 SV 73.59 mL LV Vol Biplane MOD 120.2 mL SV Index 33.50 mL/m2 FS 30.35 % M-Mode TAPSE 1.53 cm (M/F) >1.7 LV Diastology MV E Vmax 1.06 (0.4-1.3 m/s) Aortic Valve LVOT Area 3.25 cm2 AoV Area Vmax 2.46 cm2 LVOT Vmax 1.30 m/s AoV Area/ BSA (Vmax) 1.12 cm2/m2 LVOT Mean Gordon. 0.83 m/s ARASELI Mean Gordon. 2.35 cm2 LVOT Peak Grad 6.7 mmHg ARASELI Mean Gordon. Index 1.07 cm2/m2 LVOT Mean Grad 3.3 mmHg LVOT VTI 0.227 m LVOT Diam s 2.00 cm AoV Vmax 1.72 m/s Velocity Ratio 0.76 AoV Mean Gordon. 1.14 m/s AoV Peak Grad 11.8 mmHg LVOT SV 73.89 mL AoV Mean Grad 6.0 mmHg AoV VTI 0.234 m AoV Area VTI 3.16 cm2 AoV Area/ BSA (VTI) 1.44 cm/m2 Mitral Valve MV DT 195 (160-240 msec) MV PHT 57 msec MV Area PHT 3.88 cm2 MV VTI 0.279 m MV Area VTI 2.65 (4.0-6.0 cm2) Pulmonary Valve PV Vmax 1.17 (0.5-1.5 m/s) RVOT Peak Gr. 4.89 mmHg PV Peak Grad 5.5 mmHg RVOT Mean Gr. 2.00 mmHg PV Mean Grad 3.1 mmHg RVOT VTI 0.167 m PV VTI 0.186 m RVOT Vmax 1.11 m/s Tricuspid Valve TR Peak Grad 32.1 mmHg TR Vmax 2.84 m/s RA Pressure 3.00 mmHg RVSP (TR) 35.2 mmHg
[2022-06-10] MEDS: dilTIAZem 60 MG TAB PO ×3 (10:29→22:24)
--- NOTE | 2022-06-10 11:24 | IN_ITS ---
Date of service: 06/10/22 Time of Service: 10:45 PT Notes Visit Reasons: Rapid Afib,UTI,Alcohol Withdrawal Inpatient Physical Therapy Evaluation Date: 06/10/22 Referring Doctor: Heydi Chadwick MD PT Orders: PT CONSULT: limited ability Precautions: fall risk, standard Patient Profile/Admitting Diagnosis: 82 y o M with MD request of PT intervention for limited ability due to complications of admitting diagnosis of sepsis and UTI, in setting of COPD, A-Fib, Acute CHF, and pulmonary hypotension. PMHX: (Updated 06/09/22 @ 15:03 by Heydi Chadwick MD) Sepsis (Acute) Discharge planning issues (Acute) DVT prophylaxis (Acute) Acute CHF (Acute) Pulmonary hypertension (Chronic) Alcohol withdrawal (Acute) Atrial fibrillation with rapid ventricular response (Acute) Nail dystrophy (Acute) Hypochromic anemia (Acute) History of papillary adenocarcinoma of thyroid (Acute ~2019) Age related osteoporosis (Chronic ~11/2021) 12/06/21 Endocrinology note. Dexa/labs orderedAtrial fibrillation (Chronic 05/22/11) 07/2010 CHADS 2 =0 WARFARIN D/C, ECHO 07/2010 45%, MR; repeat ECHO 08/2011 55%; Rpt [facility] 12/2015 60%, pulm hypertension; [id number] score 1 Chronic anticoagulation (Chronic 05/24/16) started Dr. Gibson for A Fib Asthma-COPD overlap syndrome (Chronic) Obstructive sleep apnea syndrome (Chronic 07/17/13) Severe,? on auto BI-PAP [id number] Hypothyroidism associated with surgical procedure (Chronic) s/p thyroidectomy 2019 secondary to papillary thyroid cancerHyperlipidemia (Chronic 05/22/11) LDL<130? LOW HDL 30; Atorvastatin begun 03/2016 BPH NOS w ur obs/LUTS (Chronic) UrologyPeripheral sensory neuropathy (Chronic) RX gabapentinAlcohol abuse, episodic (Chronic) Anxiety disorder (Chronic 05/22/11) FAMILY WORK? ?OCD Depressive disorder (Acute 05/22/11) Medical History? Abdominal distension, gaseous Actinic keratosis Acute kidney injury Alcohol abuse, unspecified (08/14/11) [place] [facility] [place] DWI PROBATION Atrial fibrillation Basal cell carcinoma 12/07/21 F/u with Dr Wyatt prostatic hyperplasia (05/22/11) BPH (benign prostatic hyperplasia) Cardiomyopathy F/U with cardiology Dr. Ortiz Pt. states last seen entral stenosis of spinal canal Central stenosis of spinal canal (11/11/17) Chronic airway obstruction, not elsewhere classified (05/12/10) emphysema; 04/2013? FEV1? 1.5, 43% predicted post bronchodilator? GOLD 3 - severe; QUIT SMOKING 08/1968, 2nd hand to 1990 Chronic pruritus Chronic toe pain, bilateral Chronic toe pain, bilateral (01/20/17) peripheral neuropathy:? 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 mk 11/14/21 f/u St[facility] Onc - referred to EndocrinologyLeft testicular pain (03/31/17) Lumbar radiculopathy Lung nodule 7x7 MM rgt upper lobe, partially calcified note dated 04/14/20Memory loss or impairment Obesity Obesity (BMI 30-39.9) (05/22/11) GOAL 225-230 Orchitis MARK (obstructive sleep apnea) Osteoarthritis of left hip Osteoarthrosis, unspecified whether generalized or localized, forearm (05/22/11) L HIP LS SPINE; 12/2011 MOD SEV L HIP XRAY; hip inj Dreisbach Overflow incontinence Peripheral vascular disease of lower extremity (01/20/17) absent DP pulses Pressure ulcer Prostatism Pulmonary emphysema PVD (peripheral vascular disease) Right sided sciatica Sciatica Sciatica (05/22/11) 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 etoh; 45%; imp 55% 08/26/11 Tubular adenoma UTI (urinary tract infection) Word finding difficulty Surgical History? 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 Cooper El post thyroidectomy (10/08/19) Limited neck dissection secondary to papillary thyroid cancer Social History/Home Situation: Lives in a private ranch style home, one floor living, with his . No longer drives Premorbid level of function: Ambulates w/SPC inside home, avoids community ambulation. Unsteady on his feet, with no recent fall history, but many clos falls. Independent with self care, assisting with some shoe donning. He is unable to assist with geophysical computer. Can not carry objects while walking. Current Functional Limitations: CG for all transfers and unsteady on feet Equipment Owned/DME: RW, SPC Subjective: Denies pain, SOB. Feels much better than he did not admission Objective: General Observation: Lying in hospital bed, urine soaked bed. IV's, telemetry, BP cuff, and O2 sat attached Mental Status: A & O x3 Pain: 0/10 Vital Signs: BP stable, HR hovering around 125-130 with activity of standing ROM: Extremity mobility grossly WFL Strength: B UE and LE's grossly 4+/5 throughout Sensation: Intact Bed Mobility/Transfers: Bed mobility: Independent STS CG x 1 Static standing x 5 min, CG to close supervision x 1 at RW Gait: Deferred at present time due to HR increase with standing and IV set up. Balance: Static Sitting: Fair Dynamic Sitting: Poor Static Standing: Poor with RW Dynamic Standing: Poor with RW Stage 4 Balance Test Time (seconds) Feet together 2 sec with RW Partial tandem 0 Tandem 0 One foot 0 Special Tests: Mobility Limitations Standardized Measure [facility]-PAC 6 clicks Basic Mobility Inpatient Short Form: 41% disability Informed Consent/Education: Patient instructed in purpose of PT consult and plan of care. Assessment: 82 y o M with MD request of PT intervention due to limited ability from complications of admitting diagnosis of sepsis and UTI, in setting of COPD, A-Fib, Acute CHF, and pulmonary hypotension. Demands PT intervention to attend to primary impairment of poor balance and unsteadiness on feet post medical complications as listed, contributing to unsafe dynamic movement ambulation without assist. PT treatment indicated to improve balance and stability, improving safety of gait, standing tasks, and transfers for safe return at premorbid level of function. Patient is assessed as a Low 28180 complexity based on the following: History: As listed in comorbidities Examination: Per assessment Presentation: Stable Decision Making: Easy Goals: Goals X1 week 1. Supine-Sit independent 2. Sit-Supine independent 3. Sit-Stand independent at RW 4. Stand-Sit independent at RW 5. Bed-Chair independent at RW 6. Chair-Bed independent at RW 7. Gait 40 ft RW distant supervision 8. Independent with home exercise program 10. Balance: steady with use of RW for ambulation and transfers, only requiring supervision 11. [facility] 35% disability Plan of Care/Treatment Plan: 1-2x/day, 7 days/week x 1 week. Plan of care has been reviewed with the TERRITORY REPRESENTATIVE providing the service under Physical Therapy direction. Initiate Physical Therapy intervention for strengthening, transfer training, gait, balance training, use of RW assistive device to improve stabilty. DISCHARGE RECOMMENDATIONS: Discharge home with HHPT services TREATMENT CODE/TIME: 50738, 20 min direct and total
[2022-06-10 12:11] LABS: HCT 31.5 % (40.0-50.0)
[2022-06-10] MEDS: cefTRIAXone 2 GM/50 ML BAG IVPB (13:58)
[2022-06-10] MEDS: Nystatin POWDER 60 GM JAR TP (14:00)
--- NOTE | 2022-06-10 14:51 | PT.INTREAT ---
Date of service: 06/10/22 Time of Service: 13:59 PT Notes Visit Reasons: Rapid Afib,UTI,Alcohol Withdrawal Inpatient Physical Therapy Treatment Note [facility] Date: 06/10/2022 PRECAUTIONS: Activity as tolerated, Fall, ETOH withdrawl SUBJECTIVE: Mario is pleasant and agreeable to participating in PT. He reports that he is feeling better today. He states that he feels unsteady on his feet and is agreeable to using FWW support with gait training. OBJECTIVE: PAIN: Patient c/o cervical neck and upper trap pain, bilaterally (reportedly his baseline) BED MOBILITY/TRANSFERS Supine-sit: I with HOB at 50 degrees Sit-stand: SBA Stand-sit: SBA GAIT Assistive Device: FWW Weight bearing: Full Assist: SBA Distance: 100' Deviation: Stand rest due to neck pain, slow pacing, short step height and length THEREX: Patient was instructed in a LE strengthening program, completed in a seated position, to include: ankle pumps, heel raises, LAQ, hip flexion and hip abduction. ASSESSMENT: Patient tolerated session well, although with c/o cervical neck and upper trap pain, worsening with gait training. He demonstrates improved stability with use of FWW with gait training, although continues to demonstrate slow pacing and step step height and length. PLAN: Continue with global strengthening and general conditioning for improved activity tolerance. TREATMENT CODE/TIME: 30 minutes; [id number], [id number] (13:59)
[2022-06-10] MEDS: Atorvastatin 20 MG TAB PO (22:24)
[2022-06-11] VITALS (12 sets, daily range): BP systolic 110–133; BP diastolic 65–77; PULSE 77–114; RESP 16–20; TEMP 36–37.7; O2SAT 95–96
[2022-06-11] MEDS: dilTIAZem 60 MG TAB PO ×2 (03:58→10:21)
[2022-06-11] MEDS: Levothyroxine 100 MCG TAB 200 MCG PO (06:17)
[2022-06-11 06:45] LABS: Abs Immature Grans 0.11 10^3/uL (0.0-0.06); Absolute Basophil Count 0.03 10^3/uL (0.0-0.2); Absolute Eosinophil Count 0.12 10^3/uL (0.0-0.7); Absolute Lymphocyte Count 1.44 10^3/uL (1.2-3.4); Absolute Monocyte Count 1.22 10^3/uL (0.1-0.8); Absolute Neutrophil Count 5.47 10^3/uL (1.2-6.7); Basophils % 0.4; Eosinophils % 1.4; HCT 32.2 % (40.0-50.0); HGB 10.3 g/dL (13.5-17.5); Immature Grans % 1.3; Lymphocytes % 17.2; MCH 26.9 pg (27.0-33.0); MCV 84 fL (80-95); Monocytes % 14.5; Neutrophils % 65.2; Platelet Count 221 10^3/uL (130-400); RBC 3.83 10^6/uL (4.36-5.78); RDW 15.3 % (11.8-14.1); RDW-SD 47.3 fL; WBC 8.39 10^3/uL (4.4-10.8)
[2022-06-11 07:02] LABS: Anion Gap 9.9 mmol/L (3-11); BUN 23 mg/dL (7-18); C-Reactive Protein 10.57 mg/dL (0.0-0.3); CO2 26.1 mmol/L (21.0-32.0); CREATININE 1.3 mg/dL (0.70-1.30); Calcium 8.9 mg/dL (8.5-10.1); Chloride 103 mmol/L (98-107); Estimated GFR 55.19 (mL/min/1.73m2); Glucose 104 mg/dL (74-106); Magnesium 2.1 mg/dL (1.8-2.4); Potassium 3.9 mmol/L (3.5-5.1); Sodium 139 mmol/L (136-145)
[2022-06-11 07:20] LABS: Procalcitonin 0.1 ng/mL
[2022-06-11] MEDS: Budesonide/Formoterol 160/4.5 6 GM 60 PUFF INH IH ×2 (07:39→19:09)
[2022-06-11] MEDS: Umeclidinium 7 CAP INHALER 1 CAP IH (07:39)
[2022-06-11 07:43] LABS: Vitamin B12 583 pg/mL (193-986)
--- NOTE | 2022-06-11 08:37 | PDOC.CMPRO ---
- If Service Date Differs Date of service: 06/11/22 Time of Service: 08:37 Care Management Progress Note S/O: Mario remains inpatient and continues to work well with PT, though was limited today due to respiratory status and neck pain. CM continues to follow. A: 82 year old male admitted to [facility] for Rapid Afib, UTI, Alcohol withdrawal. P: Mario will return home with new orders for VNA PT through [facility]. He will follow up with his PCP and plan of care as prescribed. He will transport via private vehicle with family.
[2022-06-11] MEDS: Tamsulosin 0.4 MG CAPCR PO ×2 (08:38→19:10)
[2022-06-11] MEDS: Acetylcysteine 600 MG CAP PO ×2 (08:38→19:10)
[2022-06-11] MEDS: buPROPion-XL 150 MG TABCR PO ×2 (08:39→19:10)
[2022-06-11] MEDS: Folic Acid 1 MG TAB PO (08:39)
[2022-06-11] MEDS: Thiamine 100 MG TAB PO (08:39)
[2022-06-11] MEDS: Multivitamin TAB 1 TAB PO (08:39)
[2022-06-11] MEDS: Finasteride 5 MG TAB PO (08:39)
[2022-06-11] MEDS: Gabapentin 800 MG TAB PO ×3 (08:39→19:10)
[2022-06-11] MEDS: Metoprolol CR 25 MG TABCR PO ×2 (08:39→19:10)
[2022-06-11] MEDS: Pantoprazole 40 MG TABCR PO (08:39)
[2022-06-11] MEDS: Apixaban 5 MG TAB PO ×2 (08:39→19:10)
[2022-06-11] MEDS: Nystatin POWDER 60 GM JAR TP ×2 (09:19→19:09)
--- NOTE | 2022-06-11 10:20 | PT.INTREAT ---
PT Notes Visit Reasons: Rapid Afib,UTI,Alcohol Withdrawal Inpatient Physical Therapy Treatment Note [facility] Date: 06/11/22 PRECAUTIONS: SUBJECTIVE: Pt reports he wont be able to walk very far today his neck and COPD are bothersome today. OBJECTIVE: Sit-stand: SBA Stand-sit: SBA GAIT Assistive Device: FWW Weight bearing: Full Assist: CGA/SBA Distance: Approx 150ft one seated rest due to SOB. THEREX: Seated hip abd x 10, marching x 10B, HR/TR x 10, and LAQ x 10. ASSESSMENT: Pt tolerated today's session well breathing seems to be his most limiting factor with ambulation. PLAN: Cont as per PT POC. TREATMENT CODE/TIME: 9:55-10:18 (23) ESTEPHANIE MONIQUE
[2022-06-11] MEDS: Normal Saline Flush 10 ML SYR IVP ×3 (10:21→19:09)
[2022-06-11] MEDS: dilTIAZem CD 120 MG CAPCR 240 MG PO (12:34)
--- NOTE | 2022-06-11 13:46 | CHAPLAIN ---
Mario was up in the chair when I visited, he was pleasant and easily engaged in a conversation. He said his and daughter have both been into visit today. 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 He lives in [place] with his . Mario said he's feeling better and may be discharged tomorrow. 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
[2022-06-11] MEDS: Normal Saline 500 ML 100 ML IV (14:03)
[2022-06-11] MEDS: cefTRIAXone 2 GM/50 ML BAG IVPB (14:04)
--- NOTE | 2022-06-11 17:44 | PGE_ITS ---
Date of Service Date of service: 06/11/22 Time of Service: 17:44 Assessment and Plan Assessment and plan (1) Sepsis: Status: Acute Assessment and plan: secondary to urinary source; growing E. coli in blood and urine on initial cultures from 06/09 but now on Ceftriaxone 2 gm daily, day#3, repeat blood cultures pending (2) Atrial fibrillation with rapid ventricular response: Status: Acute Assessment and plan: He has been transitioned back to long acting Diltiazem and Toprol XL; cont. Eliquis (3) Acute CHF: Status: Acute Assessment and plan: Echo results as below: Conclusion Normal left ventricular wall thickness and chamber size.? Estimated ejection fraction is 60%.? Wall motion is normal Normal right ventricular size and systolic function Both atria are moderately dilated There is no structural or hemodynamically significant valvular disease Estimated right ventricular systolic pressure is 35 mmHg He appears to be euvolemic, no JVD and no peripheral edema. iv lasix stopped. (4) Acute anemia: Status: Acute Assessment and plan: stable anemia (5) Pulmonary hypertension: Status: Chronic Assessment and plan: mild PHTN per echo BiPAP QHS for MARK (6) Alcohol withdrawal: Status: Acute Assessment and plan: Completed phenobarbital load. Monitor w/ phenobarbital prn. Thiamine IV. Monitor CIWA/RASS. 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 (7) Alcohol abuse, unspecified: Assessment and plan: As above (8) Asthma-COPD overlap syndrome: Status: Chronic Assessment and plan: I do not think that the patient's respiratory symptoms are due to this - his lungs are clear with good air movement. Continue outpatient management. (9) Obstructive sleep apnea syndrome: Status: Chronic Assessment and plan: Continue home BiPAP. (10) DVT prophylaxis: Status: Acute Assessment and plan: On therapeutic eliquis (11) Discharge planning issues: Status: Acute Assessment and plan: Full code per Dr. Chadwick's conversation with the patient. plan for dc home when he has completed iv antibiotics for urosepsis/ bacteremia. I would treat for at least 5 days of pareneteral antibiotics and then complete the last 5 days w/ oral antibiotics Subjective Subjective Interval history since last seen: Patient states that he is feeling better. Prior to admission he was having dysuria but no hematuria. He denies any fever or chills and denies any dyspnea or chest pains today. His repeat blood cultures were done today and are pending results. He remains on Ceftriaxone 2 gm daily since 06/10. Initial urine and blood cultures from 06/09 came back positive for E. coli. As for his atrial fibrillation he has been reasonably controlled in the 80's to low 100's. I have switched him back to his diltiazem CD 240 mg daily, continue Toprol XL 25 mg bid Exam Narrative Exam Narrative: Alert and oriented x 3, no discomfort, not dyspneic LUngs: clear Heart: irregularly irregular at controlled rate, no murmur Abdomen: soft, nontender Legs: no edema or cyanosis Objective Last Vital Signs Temp 36.7 C 06/11/22 14:34 Pulse 108 H 06/11/22 15:00 Resp 16 06/11/22 14:34 BP 133/77 06/11/22 14:34 Pulse Ox 96 06/11/22 14:34 Laboratory Results - last 24 hr 06/11/22 06/11/22 06/11/22 06:20 06:20 06:30 WBC 8.39 RBC 3.83 L Hgb 10.3 L Hct 32.2 L MCV 84 MCH 26.9 L MCHC 32.0 RDW 15.3 H Plt Count 221 MPV 10.0 Immature Gran % 1.3 Neutrophils % 65.2 Lymphocytes % 17.2 Monocytes % 14.5 Eosinophils % 1.4 Basophils % 0.4 Nucleated RBC % 0.0 Absolute Neutrophils 5.47 Absolute Lymphocytes 1.44 Absolute Monocytes 1.22 H Absolute Eosinophils 0.12 Absolute Basophils 0.03 Sodium 139 Potassium 3.9 Chloride 103 Carbon Dioxide 26.1 Anion Gap 9.9 BUN 23 H Creatinine 1.3 Est GFR (CKD-EPI 2020) 55.19 Glucose 104 Calcium 8.9 Magnesium 2.1 C-Reactive Protein 10.57 H Vitamin B12 583 Procalcitonin 0.1 PAWSS Have you Been Recently Intoxicated or Drunk Within the Last 30 days?: Yes Have you Ever Experienced Previous Episodes of Alcohol Withdrawal?: No Have you ever Experienced Withdrawal Seizures?: No Have you ever Experienced Delirium Tremens(DT)s?: Yes Have you ever undergone Alcohol Rehabilitation Treatment (i.e, inpt ot outpatient treatment programs)?: Yes Have you ever Experienced Blackouts?: Yes Have you ever Combined Alcohol with other Downers within the last 90 days?: No Have you ever Combined Alcohol with any other Substance of Abuse during the last 90 days?: No Positive Blood Alcohol level on Presentation? [PCS.BAL]: Yes Evidence of Increased Autonomic Activity (i.e. HR>120, tremor, sweating, agitation, nausea)?: No Result: 5 Time Spent with Patient Time Spent with Patient: 25-34 minutes Time was spent: preparing to see the patient(eg.review tests), obtaining and/or reviewing separately otained hiistory, ordering medications,tests, procedures, indepentently interpreting results, counseling the patient and care coordination
[2022-06-11] MEDS: Atorvastatin 20 MG TAB PO (19:36)
[2022-06-11] MEDS: Acetaminophen 325 MG TAB PO (19:36)
[2022-06-12] VITALS (7 sets, daily range): BP systolic 100–130; BP diastolic 60–77; PULSE 68–101; RESP 15–20; TEMP 36–36.7; O2SAT 95–100
[2022-06-12] MEDS: Levothyroxine 100 MCG TAB 200 MCG PO (05:24)
[2022-06-12] MEDS: Budesonide/Formoterol 160/4.5 6 GM 60 PUFF INH IH ×2 (07:40→19:46)
[2022-06-12] MEDS: Umeclidinium 7 CAP INHALER 1 CAP IH (07:40)
[2022-06-12] MEDS: DULoxetine 20 MG CAP PO (08:01)
[2022-06-12] MEDS: Folic Acid 1 MG TAB PO (08:01)
[2022-06-12] MEDS: Acetylcysteine 600 MG CAP PO ×2 (08:01→19:35)
[2022-06-12] MEDS: Finasteride 5 MG TAB PO (08:01)
[2022-06-12] MEDS: Tamsulosin 0.4 MG CAPCR PO ×2 (08:01→19:36)
[2022-06-12] MEDS: Pantoprazole 40 MG TABCR PO (08:02)
[2022-06-12] MEDS: Gabapentin 800 MG TAB PO ×3 (08:02→19:35)
[2022-06-12] MEDS: Apixaban 5 MG TAB PO ×2 (08:02→19:35)
[2022-06-12] MEDS: Metoprolol CR 25 MG TABCR PO (08:02)
[2022-06-12] MEDS: buPROPion-XL 150 MG TABCR PO ×2 (08:02→19:36)
[2022-06-12] MEDS: dilTIAZem CD 120 MG CAPCR 240 MG PO (08:03)
[2022-06-12] MEDS: Normal Saline Flush 10 ML SYR IVP ×2 (08:03→13:09)
[2022-06-12] MEDS: Thiamine 100 MG TAB PO (08:03)
[2022-06-12] MEDS: Multivitamin TAB 1 TAB PO (08:03)
[2022-06-12] MEDS: Nystatin POWDER 60 GM JAR TP (10:07)
--- NOTE | 2022-06-12 11:27 | CMPROGNOTE_ITS ---
- If Service Date Differs Date of service: 06/12/22 Time of Service: 11:27 Care Management Progress Note S/O: Mario remains inpatient, per MD anticipate at least a few more days of IV ABX, prior to transitioning to orals and returning home. CM continues to follow. A: 82 year old male admitted to [facility] for Rapid Afib, UTI, Alcohol withdrawal. P: Mario will return home with new orders for VNA PT through [facility]. He will follow up with his PCP and plan of care as prescribed. He will transport via private vehicle with family.
--- NOTE | 2022-06-12 12:34 | PT.INTREAT ---
Date of service: 06/12/22 Time of Service: 09:30 PT Notes Visit Reasons: Rapid Afib,UTI,Alcohol Withdrawal Inpatient Physical Therapy Treatment Note [facility] Date: 06/12/2022 PRECAUTIONS: Activity as tolerated, Fall, ETOH withdrawal SUBJECTIVE: Mario is pleasant and agreeable to participating in PT. He reports that he is feeling better today. OBJECTIVE: Set up and applied Aqua-K heating pad to neck and upper traps for decreased pain, post-ambulation PAIN: Patient c/o cervical neck and upper trap pain, bilaterally with gait training (reportedly his baseline) BED MOBILITY/TRANSFERS Sit-stand: S Stand-sit: S GAIT Assistive Device: FWW Weight bearing: Full Assist: SBA Distance: 150' in a.m.; 75' x2 in p.m. Deviation: Neck pain, slow pacing, improved step height and length, anteroflexed posture; seated rest due to SOB in p.m. THEREX: Patient was instructed in a LE strengthening program, completed in a seated position, to include: ankle pumps, heel raises, LAQ, hip flexion and hip abduction. STAIRS: Patient reports that he has ramp to enter. Stair training not needed at this time. ASSESSMENT: Patient tolerated session well, although with c/o cervical neck and upper trap pain, worsening with gait training. He demonstrates improved stability with use of FWW with gait training, and demonstrates improved pacing and gait mechanics. PLAN: Continue with global strengthening and general conditioning for improved activity tolerance. TREATMENT CODE/TIME: Session 1: 25 minutes; [id number], [id number] (09:30) Session 2: 15 minutes; 71094 (13:15)
[2022-06-12] MEDS: cefTRIAXone 2 GM/50 ML BAG IVPB (13:08)
--- NOTE | 2022-06-12 14:20 | W.PM.PROGNOT ---
Date of Service Date of service: 06/12/22 Time of Service: 14:20 Assessment and Plan Assessment and plan (1) Sepsis: Status: Resolved Assessment and plan: secondary to urinary source; growing E. coli in blood and urine on initial cultures from 06/09 but now on Ceftriaxone 2 gm daily, day#4, repeat blood cultures no growth x24 hours. Like him to continue ceftriaxone for 1-2 more days and then he can transition to oral antibiotics and go home. Professional time spent interviewing and examining patient, discussion of goals of care with hospital team (care management, nursing and consulting professionals) was 35 minutes. (2) Atrial fibrillation with rapid ventricular response: Status: Acute Assessment and plan: Continue Eliquis Cardizem CD and Toprol-XL. I have tweaked his Toprol-XL to 37.5 mg twice daily. (3) Acute CHF: Status: Acute Assessment and plan: Echo results as below: Conclusion Normal left ventricular wall thickness and chamber size.? Estimated ejection fraction is 60%.? Wall motion is normal Normal right ventricular size and systolic function Both atria are moderately dilated There is no structural or hemodynamically significant valvular disease Estimated right ventricular systolic pressure is 35 mmHg He appears to be euvolemic, no JVD and no peripheral edema. iv lasix stopped. (4) Acute anemia: Status: Acute Assessment and plan: stable anemia (5) Pulmonary hypertension: Status: Chronic Assessment and plan: mild PHTN per echo BiPAP QHS for MARK (6) Alcohol withdrawal: Status: Acute Assessment and plan: Completed phenobarbital load. Monitor w/ phenobarbital prn. Thiamine IV. Monitor CIWA/RASS. 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 (7) Alcohol abuse, unspecified: Assessment and plan: As above (8) Asthma-COPD overlap syndrome: Status: Chronic Assessment and plan: I do not think that the patient's respiratory symptoms are due to this - his lungs are clear with good air movement. Continue outpatient management. (9) Obstructive sleep apnea syndrome: Status: Chronic Assessment and plan: Continue home BiPAP. (10) DVT prophylaxis: Status: Acute Assessment and plan: On therapeutic eliquis (11) Discharge planning issues: Status: Acute Assessment and plan: Full code per Dr. Chadwick's conversation with the patient. plan for dc home when he has completed iv antibiotics for urosepsis/ bacteremia. Continue parenteral antibiotics for 1-2 more days and transition oral antibiotics for 5 more days. Continue titration of AV ana blocking medications for optimal A-fib rate control Subjective Subjective Interval history since last seen: Mario is feeling better he has no complaints of fever chills shortness of breath chest pain or palpitations. I met with Mario and his explain that we are treating him for urosepsis with antibiotics I explained to him and his that he is responding to the antibiotics he grew E. coli in his urine and his blood but his repeat blood cultures have shown no growth since yesterday and I anticipate a couple more days of IV antibiotics and he can then return home on 5 more days of oral antibiotics. His urine culture was pansensitive therefore I think he would be able to go home on oral ciprofloxacin. He is currently on high-dose ceftriaxone 2 g daily. Second concern is I explained to Mario and his that he has atrial fibrillation and that I put him on metoprolol and Cardizem to adjust his atrial fibrillation rate. And thirdly we talked about whether or not he has heart failure. I went over the results in detail regarding his echocardiogram which shows preserved left ventricular systolic function and normal right ventricular function although he has some mild increased RVSP of 35 mm and he has moderately dilated left and right atria. Mitral inflow velocities were not calculated as mitral annular velocities were also not calculated therefore cannot say for certain whether he has diastolic heart failure but I suspect based on his biatrial enlargement and his leg edema that he does have HFpEF. Exam Narrative Exam Narrative: Mario alert and oriented to place time circumstance and up in his chair. Lungs are clear to auscultation Heart is irregularly irregular but I reasonably controlled rate Abdomen soft nontender nondistended Lower extremities no pitting edema Objective Last Vital Signs Temp 36.2 C L 06/12/22 10:58 Pulse 95 H 06/12/22 10:58 Resp 16 06/12/22 10:58 BP 107/64 06/12/22 10:58 Pulse Ox 95 06/12/22 10:58 PAWSS Have you Been Recently Intoxicated or Drunk Within the Last 30 days?: Yes Have you Ever Experienced Previous Episodes of Alcohol Withdrawal?: No Have you ever Experienced Withdrawal Seizures?: No Have you ever Experienced Delirium Tremens(DT)s?: Yes Have you ever undergone Alcohol Rehabilitation Treatment (i.e, inpt ot outpatient treatment programs)?: Yes Have you ever Experienced Blackouts?: Yes Have you ever Combined Alcohol with other Downers within the last 90 days?: No Have you ever Combined Alcohol with any other Substance of Abuse during the last 90 days?: No Positive Blood Alcohol level on Presentation? [PCS.BAL]: Yes Evidence of Increased Autonomic Activity (i.e. HR>120, tremor, sweating, agitation, nausea)?: No Result: 5 Time Spent with Patient Time Spent with Patient: 25-34 minutes Time was spent: preparing to see the patient(eg.review tests), obtaining and/or reviewing separately otained hiistory, ordering medications,tests, procedures, indepentently interpreting results, counseling the patient and care coordination
--- NOTE | 2022-06-12 18:00 | PT.INDS ---
PT Notes Visit Reasons: Rapid Afib,UTI,Alcohol Withdrawal Physical Therapy Inpatient Discharge Summary Date: 06/12/2022 Dates of service: 06/10/2022 through 06/12/2022 This is a clinical summary of care provided for the duration of dates listed above. No charge was made in the completion of this documentation. Referring Doctor:? Heydi Chadwick MD PT Orders: PT CONSULT: limited ability Precautions: fall risk, standard Patient Profile/Admitting Diagnosis:??82 y o M with MD request of PT intervention for limited ability due to complications of admitting diagnosis of sepsis and UTI, in setting of COPD, A-Fib, Acute CHF, and pulmonary hypotension.? PMHX: (Updated 06/09/22 @ 15:03 by Heydi Chadwick MD) Sepsis (Acute) Discharge planning issues (Acute) DVT prophylaxis (Acute) Acute CHF (Acute) Pulmonary hypertension (Chronic) Alcohol withdrawal (Acute) Atrial fibrillation with rapid ventricular response (Acute) Nail dystrophy (Acute) Hypochromic anemia (Acute) History of papillary adenocarcinoma of thyroid (Acute ~2019) Age related osteoporosis (Chronic ~11/2021) 12/06/21 Endocrinology note. Dexa/labs orderedAtrial fibrillation (Chronic 05/22/11) 07/2010 CHADS 2 =0 WARFARIN D/C, ECHO 07/2010 45%, MR; repeat ECHO 08/2011 55%; Rpt [facility] 12/2015 60%, pulm hypertension; [id number] score 1 Chronic anticoagulation (Chronic 05/24/16) started Dr. Gibson for A Fib Asthma-COPD overlap syndrome (Chronic) Obstructive sleep apnea syndrome (Chronic 07/17/13) Severe,? on auto BI-PAP [id number] Hypothyroidism associated with surgical procedure (Chronic) s/p thyroidectomy 2019 secondary to papillary thyroid cancerHyperlipidemia (Chronic 05/22/11) LDL<130? LOW HDL 30; Atorvastatin begun 03/2016 BPH NOS w ur obs/LUTS (Chronic) UrologyPeripheral sensory neuropathy (Chronic) RX gabapentinAlcohol abuse, episodic (Chronic) Anxiety disorder (Chronic 05/22/11) FAMILY WORK? ?OCD Depressive disorder (Acute 05/22/11) Medical History? Abdominal distension, gaseous Actinic keratosis Acute kidney injury Alcohol abuse, unspecified (08/14/11) [place] [facility] [place]300,000; DWI PROBATION Atrial fibrillation Basal cell carcinoma 12/07/21 F/u with Dr Wyatt prostatic hyperplasia (05/22/11) BPH (benign prostatic hyperplasia) Cardiomyopathy F/U with cardiology Dr. Ortiz Pt. states last seen entral stenosis of spinal canal Central stenosis of spinal canal (11/11/17) Chronic airway obstruction, not elsewhere classified (05/12/10) emphysema; 04/2013? FEV1? 1.5, 43% predicted post bronchodilator? GOLD 3 - severe; QUIT SMOKING 08/1968, 2nd hand to 1990 Chronic pruritus Chronic toe pain, bilateral Chronic toe pain, bilateral (01/20/17) peripheral neuropathy:? 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 mk 11/14/21 f/u [facility] Onc - referred to EndocrinologyLeft testicular pain (03/31/17) Lumbar radiculopathy Lung nodule 7x7 MM rgt upper lobe, partially calcified note dated 04/14/20Memory loss or impairment Obesity Obesity (BMI 30-39.9) (05/22/11) GOAL 225-230 Orchitis MARK (obstructive sleep apnea) Osteoarthritis of left hip Osteoarthrosis, unspecified whether generalized or localized, forearm (05/22/11) L HIP LS SPINE; 12/2011 MOD SEV L HIP XRAY; hip inj Dreisbach Overflow incontinence Peripheral vascular disease of lower extremity (01/20/17) absent DP pulses Pressure ulcer Prostatism Pulmonary emphysema PVD (peripheral vascular disease) Right sided sciatica Sciatica Sciatica (05/22/11) 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 etoh; 45%; imp 55% 08/26/11 Tubular adenoma UTI (urinary tract infection) Word finding difficulty Surgical History? 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 Cooper El post thyroidectomy (10/08/19) Limited neck dissection secondary to papillary thyroid cancer Social History/Home Situation: Lives in a private ranch style home, one floor living, with his . No longer drives Equipment Owned/DME: RW, SPC Subjective:? NT. See most recent TREKKING GUIDE notes. Objective:? General Observation: NT. See most recent TREKKING GUIDE notes. Mental Status: NT. See most recent TREKKING GUIDE notes. Pain: NT. See most recent TREKKING GUIDE notes. Vital Signs: NT. See most recent TREKKING GUIDE notes. ROM: Extremity mobility grossly WFL Strength: B UE and LE's grossly 4+/5 throughout Sensation:?Intact BED MOBILITY/TRANSFERS? Sit-stand: S? Stand-sit: S? GAIT? Assistive Device: FWW? Weight bearing: Full Assist: SBA? Distance:? 150' in a.m.; 75' x2 in p.m.? Deviation: Neck pain, slow pacing, improved step height and length, anteroflexed posture; seated rest due to SOB in p.m. ? Balance:? Static Sitting: Fair Dynamic Sitting: Poor Static Standing: Poor with RW Dynamic Standing: Poor with RW Special Tests: Mobility Limitations Standardized Measure [facility] 6 clicks Basic Mobility Inpatient Short Form: 11% disability Informed Consent/Education:? Patient instructed in purpose of PT consult and plan of care. Assessment:?? 82 y o M with MD request of PT intervention due to limited ability from complications of admitting diagnosis of sepsis and UTI, in setting of COPD, A-Fib, Acute CHF, and pulmonary hypotension.? Goals: Goals X1 week 1. Supine-Sit independent NOT MET 2. Sit-Supine independent NOT MET 3. Sit-Stand independent at RW NOT MET 4. Stand-Sit independent at RW NOT MET 5. Bed-Chair independent at RW NOT MET 6. Chair-Bed independent at RW NOT MET 7. Gait 40 ft RW distant supervision NOT MET 8. Independent with home exercise program NOT MET 10. Balance: steady with use of RW for ambulation and transfers, only requiring supervision NOT MET 11. [facility] 35% disability MET DISCHARGE RECOMMENDATIONS: Discharge home with HHPT services TREATMENT CODE/TIME: TX Thank you for the opportunity to participate in the care of this patient. Basia Urrutia PT, DPT, CLT [facility] [place], [place]
[2022-06-12] MEDS: Acetaminophen 325 MG TAB PO (19:36)
[2022-06-12] MEDS: Metoprolol CR 25 MG TABCR 37.5 MG PO (19:46)
[2022-06-12] MEDS: Atorvastatin 20 MG TAB PO (22:22)
[2022-06-12] MEDS: Melatonin 3 MG TAB 6 MG PO (23:54)
[2022-06-13] VITALS: PULSE 87
--- NOTE | 2022-06-13 | DI.US_ITS ---
Exam(s) US RENAL EXAM: US RENAL CLINICAL HISTORY: urosepsis, renal cysts. TECHNIQUE: Kern scale, color and spectral Doppler were used. COMPARISON: CT CT RENAL COLIC WO from 06/09/2022 FINDINGS: Renal size in cm: Right: 12.2 left: 12.3 Echogenicity: Normal Hydronephrosis: No Cyst or mass: 4.1 x 3.1 x 2.8 centimeters simple cyst upper to mid right kidney. 3.3 x 2.6 x 2.7 tanner timeters simple cyst mid pole right kidney. 1.3 centimeter cyst superior pole left kidney. 2.6 by 2 .4 x 1.8 centimeter parapelvic cyst mid left kidney. Nephrolithiasis: No No perinephric collections. Bladder:Mild wall thickening. Prevoid vol: 302 cc Postvoid vol:Patient unable to void. Prostate volume 21 mL. IMPRESSION: Bilateral renal cysts. Mild thickening of the bladder wall. DATA REPOSITORY:
[2022-06-13 03:31] VITALS: BP 130/77; PULSE 98; RESP 16; TEMP 36; O2SAT 95
[2022-06-13] MEDS: Levothyroxine 100 MCG TAB 200 MCG PO (05:45)
[2022-06-13 07:00] VITALS: PULSE 98
[2022-06-13 07:35] VITALS: BP 128/78; PULSE 89; RESP 18; TEMP 36.2; O2SAT 98
[2022-06-13] MEDS: Budesonide/Formoterol 160/4.5 6 GM 60 PUFF INH IH (07:55)
[2022-06-13] MEDS: Umeclidinium 7 CAP INHALER 1 CAP IH (07:55)
--- NOTE | 2022-06-13 09:01 | RESPIRATORY ---
Rt checked out patient own home unit, DreamStation AutoBipap max IPAP 22/min EPAP 10 PS min/max 4 on RA. Patient's DME is [facility] and they use a ResMed AirFit N20 Nasal Mask size Small. The patient us currently not using the device and hasn't lately due to some personal issues, plans to start using device again once home.
[2022-06-13] MEDS: Acetylcysteine 600 MG CAP PO (10:10)
[2022-06-13] MEDS: buPROPion-XL 150 MG TABCR PO (10:10)
[2022-06-13] MEDS: Apixaban 5 MG TAB PO (10:10)
[2022-06-13] MEDS: Folic Acid 1 MG TAB PO (10:11)
[2022-06-13] MEDS: dilTIAZem CD 120 MG CAPCR 240 MG PO (10:11)
[2022-06-13] MEDS: Gabapentin 800 MG TAB PO (10:11)
[2022-06-13] MEDS: Finasteride 5 MG TAB PO (10:11)
[2022-06-13] MEDS: Multivitamin TAB 1 TAB PO (10:12)
[2022-06-13] MEDS: Metoprolol CR 25 MG TABCR 37.5 MG PO (10:12)
[2022-06-13] MEDS: Tamsulosin 0.4 MG CAPCR PO (10:13)
[2022-06-13] MEDS: Thiamine 100 MG TAB PO (10:13)
[2022-06-13] MEDS: Pantoprazole 40 MG TABCR PO (10:13)
[2022-06-13] MEDS: Normal Saline Flush 10 ML SYR IVP ×2 (10:13→11:48)
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
[2022-06-13 11:27] VITALS: BP 118/74; PULSE 97; RESP 18; TEMP 36.8; O2SAT 96
[2022-06-13] MEDS: cefTRIAXone 2 GM/50 ML BAG IVPB (11:49)
--- NOTE | 2022-06-13 11:52 | CMDISCH_ITS ---
- If Service Date Differs Date of service: 06/13/22 Time of Service: 11:52 LACE Index Scoring Tool - Questions: Length of Stay (in days): 4 - 6 Acuity (Admit via E.D.?): Yes Comorbidities: Chronic Pulmonary Disease E.D. Visits: 1 - Answers: Total Score: 10 Risk of Readmission: High Risk Care Management Discharge Reason for Hospitalization: Rapid Afib, UTI, Alcohol withdrawal Discharge Plan: Mario is discharged home with a cardiac event recorder and New RX is transmitted to [facility]. He is driven via private vehicle with [place]. Mario will follow up with community providers and discharge plan of care as prescribed. No new services are ordered. Follow up with primary care on 06/24/22, as scheduled. Patient/Family Education Needs: Review discharge instructions, limitations and plan to follow up with community provider. Discuss ask me three and goals of self care.
[2022-06-13] MEDS: Acetaminophen 325 MG TAB PO (11:57)
== END 2022-06-13 14:06 | disposition home or self-care (01) | DRG 872 ==
LOC: ER 11:40 → ICU 12:09 → MS 06-10 20:32
PROVIDERS: Admitting Provider Internal Medicine; Emergency Provider Emergency Medicine; PCP Nurse Practitioner Adult Health; Visit Provider Internal Medicine
DX: A41.51 Sepsis due to Escherichia coli [E. coli] (principal); N39.0 Urinary tract infection, site not specified; F10.139 Alcohol abuse with withdrawal, unspecified; I48.20 Chronic atrial fibrillation, unspecified; N13.8 Other obstructive and reflux uropathy; Z79.01 Long term (current) use of anticoagulants; I27.20 Pulmonary hypertension, unspecified; I50.9 Heart failure, unspecified; G47.33 Obstructive sleep apnea (adult) (pediatric); J44.9 Chronic obstructive pulmonary disease, unspecified; N40.0 Benign prostatic hyperplasia without lower urinary tract symptoms; G62.9 Polyneuropathy, unspecified; D50.9 Iron deficiency anemia, unspecified; E89.0 Postprocedural hypothyroidism; Z85.850 Personal history of malignant neoplasm of thyroid; F41.9 Anxiety disorder, unspecified; F32.A Depression, unspecified; M81.0 Age-related osteoporosis without current pathological fracture; E78.5 Hyperlipidemia, unspecified; N40.1 Benign prostatic hyperplasia with lower urinary tract symptoms; I73.9 Peripheral vascular disease, unspecified; M54.31 Sciatica, right side; R41.3 Other amnesia; E88.81 Metabolic syndrome and other insulin resistance; K57.30 Diverticulosis of large intestine without perforation or abscess without bleeding
CPT/HCPCS: 36410; 36415; 76770; 80048; 80053; 82805; 84145; 87040; 87077; 87635; 93005; 93306; 94640; 96361; 96374; 96375; 97110; 97116; 97161; 97530; 99285; 71045; 74176; 80184; 80320; 81003; 81015; 82607; 82728; 82746; 83540; 83550; 83605; 83735; 83880; 84443; 84484; 85014; 85018; 85025; 86140; 87086; 87186; 93010; 99232; 99238; 99291; J1940; J1941; J2060; J2560

== ENCOUNTER 2022-06-13 11:50 | Outpatient (RCR) | payer MEDICARE, BC, SELFPAY | END 2022-07-09 23:59 | disposition home or self-care (01) | LOC: RT 11:50 | PROVIDERS: PCP Nurse Practitioner Adult Health; Visit Provider Nurse Practitioner Adult Health | DX: I48.91 Unspecified atrial fibrillation (principal) | CPT/HCPCS: 93270 ==

== ENCOUNTER → 2022-06-21 10:26 | Outpatient (BNVA) | payer MEDICARE, BC, SELFPAY | PROVIDERS: PCP Nurse Practitioner Adult Health; Referring Provider Nurse Practitioner Adult Health; Visit Provider Internal Medicine Cardiovascular Disease | DX: I48.91 Unspecified atrial fibrillation (principal); J44.9 Chronic obstructive pulmonary disease, unspecified | CPT/HCPCS: 99214 ==

== ENCOUNTER 2022-06-27 02:05 | Outpatient (CLI) | payer MEDICARE, BC, SELFPAY ==
[2022-06-27 10:02] LABS: Albumin 3.5 g/dL (3.4-5.0); Anion Gap 8.4 mmol/L (3-11); BUN 14 mg/dL (7-18); CO2 27.6 mmol/L (21.0-32.0); CREATININE 1.3 mg/dL (0.70-1.30); Calcium 9.3 mg/dL (8.5-10.1); Chloride 102 mmol/L (98-107); Estimated GFR 55.19 (mL/min/1.73m2); Glucose 115 mg/dL (74-106); Magnesium 2.2 mg/dL (1.8-2.4); PHOSPHORUS 3.8 mg/dL (2.6-4.7); Potassium 4.9 mmol/L (3.5-5.1); Sodium 138 mmol/L (136-145); TSH 0.24 uIU/mL (0.36-3.74)
[2022-06-27 10:12] LABS: Vitamin D 25 Total 47.3 ng/mL (30-100)
[2022-06-27 17:55] LABS: Parathyroid Hormone,Intact 39 pg/mL (19-88)
[2022-06-28 18:20] LABS: Thyroglobulin Antibody <1.8 IU/mL (<1.8); Thyroglobulin Tumor Marker 1.1 ng/mL
== END 2022-06-27 02:06 | disposition home or self-care (01) ==
PROVIDERS: PCP Nurse Practitioner Adult Health; Visit Provider Student in an Organized Health Care Education/Training Program
DX: C73 Malignant neoplasm of thyroid gland (principal); E20.8 Other hypoparathyroidism
CPT/HCPCS: 36415; 80048; 82306; 82040; 83735; 83970; 84100; 84432; 84443; 86800

== ENCOUNTER 2022-07-02 15:43 | Outpatient (REF) | payer MEDICARE, BC, SELFPAY ==
[2022-07-02 11:53] LABS: Bilirubin Negative (Negative); Blood Negative (Negative); Clarity Clear (Clear); Glucose Negative (Negative); Ketones Negative (Negative); Leukocyte Esterase Negative (Negative); Nitrite Negative (Negative); pH 6.5 (5-8)
== END 2022-07-02 15:44 | disposition home or self-care (01) ==
LOC: LBN 15:43
PROVIDERS: PCP Nurse Practitioner Adult Health; Visit Provider Nurse Practitioner Adult Health
DX: R30.0 Dysuria (principal)
CPT/HCPCS: 81003

== ENCOUNTER → 2022-07-25 14:09 | Outpatient (BNVA) | payer MEDICARE, BC, SELFPAY | PROVIDERS: PCP Nurse Practitioner Adult Health; Visit Provider Nurse Practitioner Gerontology | DX: R31.0 Gross hematuria (principal) | CPT/HCPCS: 51798; 81003; 99213 ==

== ENCOUNTER 2022-07-26 19:08 | Outpatient (REF) | payer MEDICARE, BC, SELFPAY ==
[2022-07-26 17:09] LABS: Bilirubin Negative (Negative); Blood Negative (Negative); Clarity Clear (Clear); Glucose Negative (Negative); Ketones Negative (Negative); Leukocyte Esterase Negative (Negative); Nitrite Negative (Negative); Specific Gravity 1.025 (1.005-1.025); Urobilinogen 0.2 mg/dL (Up to 0.2)
== END 2022-07-26 19:09 | disposition home or self-care (01) ==
LOC: LBN 19:08
PROVIDERS: PCP Nurse Practitioner Adult Health; Visit Provider Nurse Practitioner Gerontology
DX: N40.1 Benign prostatic hyperplasia with lower urinary tract symptoms (principal); R31.0 Gross hematuria
CPT/HCPCS: 81003; 87086

== ENCOUNTER 2022-09-24 03:03 | Outpatient (CLI) | payer MEDICARE, BC, SELFPAY ==
[2022-09-24 14:53] LABS: TSH 0.03 uIU/mL (0.36-3.74)
[2022-09-26 19:26] LABS: Thyroglobulin Antibody <1.8 IU/mL (<1.8); Thyroglobulin Tumor Marker 1.2 ng/mL
== END 2022-09-24 03:04 | disposition home or self-care (01) ==
LOC: LBO 03:03
PROVIDERS: PCP Nurse Practitioner Adult Health; Visit Provider Preventive Medicine Undersea and Hyperbaric Medicine
DX: C73 Malignant neoplasm of thyroid gland (principal)
CPT/HCPCS: 36415; 84432; 84443; 86800

== ENCOUNTER 2022-09-27 09:38 | Outpatient (CLI) | payer MEDICARE, BC, SELFPAY ==
--- NOTE | 2022-09-27 09:45 | RT.EKG_ITS ---
APPROVED REPORT Exam: Resting ECG Reason for Exam: evaluation of cardiac status Patient Location: O HR:64 bpm ECG Measurements Heart Rate 64 AXIS SD [id number] P [id number] QRSd 112 QRS 44 QT 412 T 78 QTc 425 Conclusion Atrial fibrillation...V-rate 40- 58, irreg A-activity Poor R wave progression Low voltage, extremity leads...all extremity leads <0.5mV
== END 2022-09-27 09:39 | disposition home or self-care (01) ==
LOC: DI.CARD 09:51
PROVIDERS: PCP Nurse Practitioner Adult Health; Visit Provider Internal Medicine Cardiovascular Disease
DX: Z79.01 Long term (current) use of anticoagulants (principal)
CPT/HCPCS: 93010

== ENCOUNTER → 2022-09-27 09:38 | Outpatient (BNVA) | payer MEDICARE, BC, SELFPAY | PROVIDERS: PCP Nurse Practitioner Adult Health; Referring Provider Nurse Practitioner Adult Health; Visit Provider Internal Medicine Cardiovascular Disease | DX: I48.21 Permanent atrial fibrillation (principal); Z79.01 Long term (current) use of anticoagulants | CPT/HCPCS: 93005; 99213 ==

== ENCOUNTER 2022-12-25 02:54 | Outpatient (CLI) | payer MEDICARE, BC, SELFPAY ==
[2022-12-25 11:03] LABS: HCT 37.5 % (40.0-50.0); HGB 11.8 g/dL (13.5-17.5); MCH 26.3 pg (27.0-33.0); MCHC 31.5 % (32.0-36.0); MCV 84 fL (80-95); MPV 9.5 fL (8.0-11.0); Platelet Count 248 10^3/uL (130-400); RBC 4.49 10^6/uL (4.36-5.78); RDW 14.6 % (11.8-14.1); RDW-SD 44.6 fL; WBC 9.31 10^3/uL (4.4-10.8)
[2022-12-25 12:22] LABS: Ferritin 25 ng/mL (26-388)
== END 2022-12-25 02:55 | disposition home or self-care (01) ==
LOC: LBO 02:54
PROVIDERS: PCP Nurse Practitioner Adult Health; Referring Provider Nurse Practitioner Adult Health; Visit Provider Nurse Practitioner Adult Health
DX: D50.9 Iron deficiency anemia, unspecified (principal)
CPT/HCPCS: 36415; 85027; 82728

== ENCOUNTER 2023-02-05 03:10 | Outpatient (CLI) | payer MEDICARE, BC, SELFPAY ==
[2023-02-05 13:42] LABS: TSH 0.03 uIU/mL (0.36-3.74)
[2023-02-07 10:23] LABS: Thyroglobulin Antibody <1.8 IU/mL (<1.8); Thyroglobulin Tumor Marker 1.9 ng/mL
== END 2023-02-05 03:11 | disposition home or self-care (01) ==
LOC: LBO 03:10
PROVIDERS: PCP Nurse Practitioner Adult Health; Visit Provider Preventive Medicine Undersea and Hyperbaric Medicine
DX: C73 Malignant neoplasm of thyroid gland (principal)
CPT/HCPCS: 36415; 84432; 84443; 86800

== ENCOUNTER 2023-02-11 02:24 | Outpatient (CLI) | payer MEDICARE, BC, SELFPAY ==
[2023-02-11] MEDS: Inhaler, Assist Device 1 EACH MC (11:07)
[2023-02-11] MEDS: Levalbuterol HFA 15 GM INH 4 PUFF IH (11:07)
--- NOTE | 2023-02-11 13:03 | W.PFT ---
Date of service: 02/11/23 Time of Service: 10:03 Pulmonary Function Test Result Indications: Asthma COPD Interpretation Spirometry: There is severe airflow limitation. There is a significant bronchodilator response. Lung Volumes: There is hyperinflation and air trapping Diffusion Capacity: Decreased diffusion Airway Pressure: Increased airways resistance Impression Severe airflow obstruction with air trapping, decreased diffusion and a bronchodilator response. Note: When compared to 02/06/22, FEV1 and FVC are stable. Clinical Correlation therefore is recommended.
== END 2023-02-11 02:25 | disposition home or self-care (01) ==
LOC: RT 02:24
PROVIDERS: PCP Nurse Practitioner Adult Health; Visit Provider Student in an Organized Health Care Education/Training Program
DX: J44.9 Chronic obstructive pulmonary disease, unspecified (principal)
CPT/HCPCS: 94060; 94726; 94729

== ENCOUNTER → 2023-02-20 13:45 | Outpatient (BNVA) | payer MEDICARE, BC, SELFPAY | PROVIDERS: PCP Nurse Practitioner Adult Health; Visit Provider Nurse Practitioner Gerontology | DX: R31.0 Gross hematuria (principal); R39.89 Other symptoms and signs involving the genitourinary system | CPT/HCPCS: 51798; 99213 ==

== ENCOUNTER → 2023-03-27 09:46 | Outpatient (BNVA) | payer MEDICARE, BC, SELFPAY | PROVIDERS: PCP Nurse Practitioner Adult Health; Referring Provider Nurse Practitioner Adult Health; Visit Provider Podiatrist | DX: L60.3 Nail dystrophy (principal); G62.89 Other specified polyneuropathies; E89.0 Postprocedural hypothyroidism; Z92.29 Personal history of other drug therapy; R26.89 Other abnormalities of gait and mobility | CPT/HCPCS: 11719; G0127 ==

== ENCOUNTER → 2023-04-09 08:04 | Outpatient (BNVA) | payer MEDICARE, BC, SELFPAY | PROVIDERS: PCP Nurse Practitioner Adult Health; Referring Provider Nurse Practitioner Adult Health; Visit Provider Physician Assistant Surgical | DX: R06.02 Shortness of breath (principal); G47.33 Obstructive sleep apnea (adult) (pediatric); J44.9 Chronic obstructive pulmonary disease, unspecified; Z79.51 Long term (current) use of inhaled steroids; Z79.899 Other long term (current) drug therapy | CPT/HCPCS: 99213 ==

== ENCOUNTER 2023-06-25 03:57 | Outpatient (CLI) | payer MEDICARE, BC, SELFPAY ==
[2023-06-25 11:37] LABS: Abs Immature Grans 0.05 10^3/uL (0.0-0.06); Absolute Basophil Count 0.03 10^3/uL (0.0-0.2); Absolute Eosinophil Count 0.11 10^3/uL (0.0-0.7); Absolute Lymphocyte Count 1.13 10^3/uL (1.2-3.4); Absolute Monocyte Count 0.76 10^3/uL (0.1-0.8); Absolute Neutrophil Count 6.21 10^3/uL (1.2-6.7); Basophils % 0.4; Eosinophils % 1.3; HCT 38.6 % (40.0-50.0); HGB 12.6 g/dL (13.5-17.5); Immature Grans % 0.6; Lymphocytes % 13.6; MCH 28.4 pg (27.0-33.0); MCHC 32.6 % (32.0-36.0); MCV 87 fL (80-95); MPV 9.7 fL (8.0-11.0); Monocytes % 9.2; Neutrophils % 74.9; Platelet Count 239 10^3/uL (130-400); RBC 4.43 10^6/uL (4.36-5.78); RDW 13.8 % (11.8-14.1); RDW-SD 44.3 fL; WBC 8.29 10^3/uL (4.4-10.8)
[2023-06-25 12:35] LABS: ALT 19 U/L (16-63); AST 18 U/L (15-37); Albumin 3.6 g/dL (3.4-5.0); Alkaline Phosphatase 106 U/L (46-116); Anion Gap 10.2 mmol/L (3-11); BUN 12 mg/dL (7-18); CO2 30.8 mmol/L (21.0-32.0); CREATININE 1.1 mg/dL (0.70-1.30); Calcium 9.3 mg/dL (8.5-10.1); Chloride 105 mmol/L (98-107); Estimated GFR 67.02 (mL/min/1.73m2); Ferritin 53 ng/mL (26-388); Glucose 110 mg/dL (74-106); Potassium 3.8 mmol/L (3.5-5.1); Sodium 146 mmol/L (136-145); Total Protein 7.2 g/dL (6.4-8.2); Vitamin B12 520 pg/mL (193-986)
[2023-06-25 12:38] LABS: Folate > 20.0 ng/mL (8.6-20.0)
== END 2023-06-25 03:58 | disposition home or self-care (01) ==
LOC: LBO 03:57
PROVIDERS: PCP Nurse Practitioner Adult Health; Visit Provider Nurse Practitioner Adult Health
DX: D50.9 Iron deficiency anemia, unspecified (principal); E89.0 Postprocedural hypothyroidism
CPT/HCPCS: 36415; 80053; 82607; 82728; 82746; 85025

== ENCOUNTER → 2023-07-10 11:40 | Outpatient (BNVA) | payer MEDICARE, BC, SELFPAY | PROVIDERS: PCP Nurse Practitioner Adult Health; Referring Provider Nurse Practitioner Adult Health; Visit Provider Podiatrist | DX: L60.3 Nail dystrophy (principal); E89.0 Postprocedural hypothyroidism; G62.9 Polyneuropathy, unspecified; Z92.29 Personal history of other drug therapy; R26.89 Other abnormalities of gait and mobility | CPT/HCPCS: 11719 ==

== ENCOUNTER → 2023-08-07 09:32 | Outpatient (BNVA) | payer MEDICARE, BC, SELFPAY | PROVIDERS: PCP Nurse Practitioner Adult Health; Referring Provider Nurse Practitioner Adult Health; Visit Provider Physician Assistant Surgical | DX: J44.9 Chronic obstructive pulmonary disease, unspecified (principal); R06.02 Shortness of breath; G47.33 Obstructive sleep apnea (adult) (pediatric) | CPT/HCPCS: 99214 ==

== ENCOUNTER → 2023-08-21 14:02 | Outpatient (BNVA) | payer MEDICARE, BC, SELFPAY | PROVIDERS: PCP Nurse Practitioner Adult Health; Referring Provider Nurse Practitioner Adult Health; Visit Provider Nurse Practitioner Gerontology | DX: R31.0 Gross hematuria (principal) | CPT/HCPCS: 51798; 99213 ==

== ENCOUNTER 2023-09-15 05:12 | Outpatient (CLI) | payer MEDICARE, BC, SELFPAY ==
[2023-09-15 10:39] LABS: TSH 0.38 uIU/Ml (0.36-3.74)
[2023-09-17 12:10] LABS: Thyroglobulin Antibody <1.8 IU/mL (<1.8); Thyroglobulin Tumor Marker 4.8 ng/mL
== END 2023-09-15 05:13 | disposition home or self-care (01) ==
PROVIDERS: PCP Nurse Practitioner Adult Health; Visit Provider Student in an Organized Health Care Education/Training Program
DX: C73 Malignant neoplasm of thyroid gland (principal)
CPT/HCPCS: 36415; 84432; 84443; 86800

== ENCOUNTER → 2023-09-26 09:20 | Outpatient (BNVA) | payer MEDICARE, BC, SELFPAY | PROVIDERS: PCP Nurse Practitioner Adult Health; Visit Provider Internal Medicine Cardiovascular Disease | DX: I48.21 Permanent atrial fibrillation (principal); J44.9 Chronic obstructive pulmonary disease, unspecified; Z79.01 Long term (current) use of anticoagulants | CPT/HCPCS: 99213 ==

== ENCOUNTER 2024-02-03 09:54 | Outpatient (CLI) | payer MEDICARE, BC, SELFPAY ==
--- NOTE | 2024-02-03 09:45 | DI.RAD_ITS ---
Exam(s) XR HIP LT COMPLETE AP PELVIS EXAM: XR HIP LT COMPLETE AP PELVIS CLINICAL HISTORY: s/p L SUREKHA--worsened pain, M25.552. TECHNIQUE: 2D digital imaging was performed. Three images were obtained. AP pelvis, AP and lateral hip views were obtained. COMPARISON: CR LEFT HIP COMPLETE from 01/10/2012 FINDINGS: BONES: There are stable post operative changes of a left total hip replacement present. Dystrophic c alcification is seen around the left hip. No fracture or dislocation. JOINTS: The orthopedic hardware is in good position. No evidence of hardware loosening. Marked dege nerative changes are seen in the right hip characterized by joint space narrowing and osteophytes. S ubchondral sclerosis and cysts are also noted. SOFT TISSUE: Normal. IMPRESSION: 1. Stable left total hip replacement. 2. Marked degenerative changes of the right hip. DATA REPOSITORY: RADIATION DOSE DELIVERED:
== END 2024-02-03 10:14 ==
LOC: DI 09:55
PROVIDERS: PCP Nurse Practitioner Adult Health; Visit Provider Nurse Practitioner Adult Health
DX: M25.552 Pain in left hip (principal)
CPT/HCPCS: 73502

== ENCOUNTER → 2024-02-19 14:04 | Outpatient (BNVA) | payer MEDICARE, BC, SELFPAY | PROVIDERS: PCP Nurse Practitioner Adult Health; Visit Provider Nurse Practitioner Gerontology | DX: R31.0 Gross hematuria (principal); R39.89 Other symptoms and signs involving the genitourinary system | CPT/HCPCS: 51798; 99213 ==

== ENCOUNTER 2024-03-02 02:07 | Outpatient (CLI) | payer MEDICARE, BC, SELFPAY ==
[2024-03-02 16:14] LABS: TSH 0.27 uIU/mL (0.36-3.74)
[2024-03-03 11:03] LABS: Thyroglobulin Antibody <15 U/mL (<=60)
== END 2024-03-02 02:08 | disposition home or self-care (01) ==
PROVIDERS: PCP Nurse Practitioner Adult Health; Visit Provider Physician Assistant
DX: C73 Malignant neoplasm of thyroid gland (principal)
CPT/HCPCS: 36415; 84443; 86800

== ENCOUNTER → 2024-03-10 13:02 | Outpatient (BNVA) | payer MEDICARE, BC, SELFPAY | PROVIDERS: PCP Nurse Practitioner Adult Health; Referring Provider Nurse Practitioner Adult Health; Visit Provider Podiatrist | DX: L60.3 Nail dystrophy (principal); E89.0 Postprocedural hypothyroidism; G62.9 Polyneuropathy, unspecified; Z92.29 Personal history of other drug therapy; R26.89 Other abnormalities of gait and mobility | CPT/HCPCS: 11719 ==

== ENCOUNTER 2024-03-30 11:04 | Inpatient (IN) | payer MEDICARE, BC, SELFPAY ==
--- NOTE | 2024-03-30 11:00 | RT.EKG_ITS ---
APPROVED REPORT Exam: Resting ECG Reason for Exam: high heart rate Patient Location: E HR:109 bpm ECG Measurements Heart Rate 109 AXIS [place] [id number] P [id number] QRSd 98 QRS 52 QT 364 T 88 QTc 492 Conclusion Atrial fibrillation...V-rate 82-106, irreg A-activity Ventricular premature complex...V complex w/ short R-R interval Low voltage, precordial leads...precordial leads <1.0mV Consider anterior infarct...Q >30mS in V2-V5 Minimal ST depression, diffuse leads...ST <-0.03mV, ant/lat/inf Rate controlled atrial fibrillation at a rate of 109. Normal axis. T wave inversion in aVL. Poor R wave progression. No acute injury pattern. Appears similar to prior dated last year.
[2024-03-30 11:02] VITALS: BP 165/79; PULSE 96; RESP 18; TEMP 36.9; O2SAT 100
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
--- NOTE | 2024-03-30 11:30 | DI.CT_ITS ---
Exam(s) CT HEAD WO EXAM: CT HEAD WO CLINICAL HISTORY: Acute encephalopathy. TECHNIQUE: Imaging Protocol: Axial computed tomography images with coronal and sagittal reformatted images were created and reviewed COMPARISON: No exams were available for comparison FINDINGS: Ventricles and Extra axial spaces: Normal in size and morphology for the patient's age. Hemorrhage: None. Cerebral parenchyma: No evidence of acute infarct or mass. Mild atrophy. Mild white matter changes microvascular disease. Midline shift: None. Brainstem/Cerebellum: Normal. Calvarium: Normal. Visualized Paranasal sinuses:Clear. Mastoids: Clear. Soft Tissues: Unremarkable. ORBITS: Unremarkable. PITUITARY: Not enlarged. IMPRESSION: No acute intracranial process. RADIATION DOSE DELIVERED: Total DLP DATA REPOSITORY: All CT scans at this facility are submitted to the National Radiology Data Registry (NRDR) Dose Index Registry (DIR) with the [employer] (A[employer]). RADIATION OPTIMIZATION: All CT scans at this facility use at least one of these dose optimization te chniques: automated exposure control; mA and/or kV adjustment per patient size (includes targeted exa ms where dose is matched to clinical indication); or iterative reconstruction.
--- NOTE | 2024-03-30 11:30 | DI.CT_ITS ---
Exam(s) CT ABDOMEN PELVIS W EXAM: CT ABDOMEN PELVIS W CLINICAL HISTORY: Left-sided abdominal pain hip pain. TECHNIQUE: Imaging Protocol: Axial computed tomography images with coronal and sagittal reformatted images were created and reviewed CONTRAST MATERIAL: Intravenous: Omnipaque 350 Contrast volume:100 ml Oral: no COMPARISON: CT CT RENAL COLIC WO from 06/09/2022 FINDINGS: ABDOMEN and PELVIS: Exam is mildly limited by motion. There is streak artifact related to patient arm positioning. Norm al quantity of stool. Lung Bases: No acute findings. Liver: Normal density. No suspicious mass. Gallbladder and biliary tract: A few tiny stones are again noted in the dependent portion of the blad gustavo. No wall thickening. No biliary dilation. Pancreas: Normal density. No abnormal calcifications or inflammatory process. No evidence of mass. Spleen: Normal. Kidneys: Normal size, contour and axis. No radiodense stones. No obstructive uropathy. Bilateral re nal cysts again noted. No follow-up recommended. No suspicious masses seen. Adrenal glands: No masses seen. Vasculature: Abdominal aorta non-dilated. Atherosclerotic changes. Stable mild dilatation of the in frarenal aorta to 3 cm. Soft tissues: Chronic dehiscence of the anterior abdominal wall musculature. Bladder: Mild wall thickening. No calculi.No focal mass. Bowel: No obstruction. No bowel wall thickening. Extensive diverticulosis. No evidence of diverti culitis. Peritoneal cavity: No ascites. No focal collection. No mesenteric inflammatory response. Bones: Left hip prosthesis. Degenerative changes in the right hip and lower lumbar spine. Stable mi ld T12 compression fracture. Reproductive organs: Minimal prostate enlargement. Lymph nodes: No pathologically enlarged lymph nodes. IMPRESSION:: No acute abnormality in the abdomen or pelvis. Diverticulosis without evidence of diverticulitis. RADIATION DOSE DELIVERED: Total DLP DATA REPOSITORY: All CT scans at this facility are submitted to the National Radiology Data Registry (NRDR) Dose Index Registry (DIR) with the [employer] (ACR). RADIATION OPTIMIZATION: All CT scans at this facility use at least one of these dose optimization te chniques: automated exposure control; mA and/or kV adjustment per patient size (includes targeted exa ms where dose is matched to clinical indication); or iterative reconstruction.
[2024-03-30 12:38] LABS: Abs Immature Grans 0.06 10^3/uL (0.0-0.06); Absolute Basophil Count 0.03 10^3/uL (0.0-0.2); Absolute Lymphocyte Count 1.25 10^3/uL (1.2-3.4); Absolute Monocyte Count 1.17 10^3/uL (0.1-0.8); Basophils % 0.3 %; Eosinophils % 0.3 %; HCT 38.2 % (40.0-50.0); HGB 12.6 g/dL (13.5-17.5); Immature Grans % 0.5 %; Lymphocytes % 10.9 %; MCV 88 fL (80-95); MPV 9.6 fL (8.0-11.0); Monocytes % 10.2 %; Neutrophils % 77.8 %; Platelet Count 275 10^3/uL (130-400); RBC 4.34 10^6/uL (4.36-5.78); RDW 13.2 % (11.8-14.1); RDW-SD 42.7 fL; WBC 11.44 10^3/uL (4.4-10.8)
[2024-03-30 12:39] LABS: Absolute Eosinophil Count 0.03 10^3/uL (0.0-0.7)
[2024-03-30 12:52] LABS: Ammonia < 10 umol/L (11-32)
[2024-03-30] MEDS: ceFAZolin 2 GM/50 ML BAG IVPB (13:02)
[2024-03-30 13:04] LABS: Bilirubin Negative (Negative); Blood Large (Negative); Clarity Sl Cloudy (Clear); Glucose Negative (Negative); Ketones 80 mg/dL (Negative); Leukocyte Esterase Small (Negative); Nitrite Negative (Negative); Specific Gravity 1.015 (1.005-1.025); Urobilinogen 0.2 mg/dL (Up to 0.2); pH 5.5 (5-8)
[2024-03-30 13:09] LABS: ALT 19 U/L (16-63); AST 31 U/L (15-37); Albumin 3.8 g/dL (3.4-5.0); Alkaline Phosphatase 92 U/L (46-116); Anion Gap 10.7 mmol/L (3-11); BUN 15 mg/dL (7-18); Bilirubin, Total 1.25 mg/dL (0.2-1.0); CO2 25.3 mmol/L (21.0-32.0); Calcium 9.2 mg/dL (8.5-10.1); Chloride 105 mmol/L (98-107); Creatine Kinase 243 U/L (39-308); Estimated GFR 74.68 (mL/min/1.73m2); Glucose 94 mg/dL (74-106); Potassium 4.2 mmol/L (3.5-5.1); Sodium 141 mmol/L (136-145); Total Protein 7.3 g/dL (6.4-8.2)
[2024-03-30 13:23] LABS: Bacteria Moderate HPF (Negative); Epithelial Cells Rare HPF (Negative); Mucus Negative (Negative); Other Cells Negative (Negative); RBC >50 HPF (0-2); WBC 20-50 HPF (0-5)
[2024-03-30 13:24] LABS: C & S Indicated? Yes; Casts Negative LPF (Negative)
[2024-03-30 13:36] LABS: TSH (W/Ref FT4) 0.51 uIU/mL (0.36-3.74)
[2024-03-30] MEDS: Omnipaque 350 MG/ML 100 ML BTL IJ (13:41)
[2024-03-30] MEDS: Normal Saline - Diluent 50 ML VIAL IJ (13:43)
--- NOTE | 2024-03-30 14:13 | DI.RAD_ITS ---
Exam(s) XR CHEST 1V IN DI DEPT EXAM: XR CHEST 1V IN DI DEPT CLINICAL HISTORY: Weakness TECHNIQUE: 2D digital imaging was performed. COMPARISON: CR,XR XR PORTABLE CHEST AP from 06/09/2022 FINDINGS: Exam is limited by under penetration at the lung bases. LUNGS: Hyperinflated but clear. Chronic mild blunting at the left costophrenic angle.. HEART: Normal size. AORTA: Normal diameter. BONES: Degenerative changes in the spine. Soft tissues: Surgical clips left lower neck. IMPRESSION: No acute findings. DATA REPOSITORY: RADIATION DOSE DELIVERED:
[2024-03-30 14:24] LABS: Crystals Moderate Amorphous HPF (Negative)
[2024-03-30] MEDS: MORPHine 4 MG/ML SYR IVP (14:39)
[2024-03-30] MEDS: cefTRIAXone 1 GM/50 ML BAG IVPB (14:39)
[2024-03-30] MEDS: Mupirocin 2% Oint. 22 GM TUBE TP ×2 (14:40→19:27)
[2024-03-30 15:14] VITALS: BP 142/86; PULSE 89; RESP 18; TEMP 36.4; O2SAT 95
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
[2024-03-30 16:26] LABS: Vitamin B12 646 pg/mL (193-986)
--- NOTE | 2024-03-30 17:37 | W.PC.ACHO ---
Registration Status: Primary Language: Preferred Language: ED Information & Data Chief Complaint Orthopedic 03/30/24 11:24 Triage Note Patient complaining of left 03/30/24 11:02 leg pain for months. Patient had hip replacement about 4 years ago at [facility] [place]. Pain has been increasing. Has an appt with Ortho on Friday for the hip problem Medical / Surgical History (Last Reviewed 03/10/24 @ 16:13 by Saloni Ballard DPM) Metastasis from thyroid cancer History of basal cell carcinoma Pulmonary hypertension Atrial fibrillation with rapid ventricular response Abdominal distension, gaseous Cough Word finding difficulty Lung nodule Gross hematuria Pressure ulcer Overflow incontinence Acute kidney injury Discharge planning issues DVT prophylaxis UTI (urinary tract infection) Generalized weakness Dizziness Displaced trimalleolar fracture of right ankle Hurthle cell carcinoma of thyroid (~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) Memory loss or impairment Erectile dysfunction Lumbar radiculopathy 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) Sciatica (05/22/11) Peripheral vascular disease of lower extremity (01/20/17) Obesity (BMI 30-39.9) (05/22/11) Osteoarthrosis, unspecified whether generalized or localized, forearm (05/22/11) Left testicular pain (03/31/17) Gout (05/22/11) Dysmetabolic syndrome X (05/22/11) Chronic toe pain, bilateral (01/20/17) Central stenosis of spinal canal (11/11/17) Chronic airway obstruction, not elsewhere classified (05/12/10) Benign prostatic hyperplasia (05/22/11) Alcohol abuse, unspecified (08/14/11) Obesity Prostatism Central stenosis of spinal canal Cardiomyopathy COPD (chronic obstructive pulmonary disease) History of ETOH abuse Diastasis recti PVD (peripheral vascular disease) Pulmonary emphysema Dysmetabolic syndrome DJD (degenerative joint disease) Orchitis Chronic toe pain, bilateral Epididymitis Diverticula of colon Depression Atrial fibrillation Tubular adenoma Dyslipidemia Actinic keratosis Gout Sciatica MARK (obstructive sleep apnea) Basal cell carcinoma BPH (benign prostatic hyperplasia) Chronic pruritus Right sided sciatica Osteoarthritis of left hip Duodenal ulcer hemorrhagic Duodenal ulcer (Last Reviewed 03/10/24 @ 16:13 by Saloni Ballard DPM) H/O thyroidectomy (~09/2021) Cortical cataract of right eye Nuclear sclerotic cataract of right eye Bimalleolar fracture of right ankle Status post thyroidectomy (10/08/19) egd/KELLI test, cauterization of ulcer (12/30/15) Shave C and D, biopsy proven BCCA (08/04/14) L ant Total Hip Arthroplasty (03/03/17) EGD w/ BX 04/18/16 Most Recent Vital Signs Temperature 36.4 C 03/30/24 15:14 Temperature Source Temporal Artery Scan 03/30/24 15:14 Pulse 89 03/30/24 15:14 Respiratory Rate 18 03/30/24 15:14 Respiratory Effort Normal, Non-Labored 03/30/24 11:11 Blood Pressure 142/86 H 03/30/24 15:14 Blood Pressure Mean 104 03/30/24 15:14 Blood Pressure Position Sitting 03/30/24 15:14 Pulse Oximetry 95 03/30/24 15:14 Oxygen Delivery Method Room Air 03/30/24 15:14 Oxygen Flow Rate 0 03/30/24 15:14 Allergies No Known Allergies Allergy (Verified 03/30/24 11:09) Precautions Isolation Standard precaution 03/30/24 11:11 Active Medications Generic Name Dose Route Start Last Admin Trade Name Naveed PRN Reason Stop Dose Admin Iohexol 100 ml 03/30/24 13:45 03/30/24 13:41 Omnipaque 350 Mg/Ml 100 Ml Btl IJ 04/29/24 23:59 100 ml DIRECTED JULIOCESAR Administration Mupirocin 22 gm 03/30/24 11:45 03/30/24 14:41 Mupirocin 2% Oint. 22 Gm Tube TP Not Given TID JULIOCESAR Nystatin 15 gm 03/30/24 11:45 03/30/24 14:40 Nystatin Oint 15 Gm Tube TP Not Given BID JULIOCESAR Sodium Chloride 50 ml 03/30/24 13:45 03/30/24 13:43 Normal Saline - Diluent 50 Ml Vial IJ 50 ml .FOR DI USE JULIOCESAR Administration IV IV Catheter Type [Left Saline Lock Antecubital] IV Catheter Type [Right Saline Lock Antecubital] IV Catheter Gauge [Left 18 Antecubital] IV Catheter Gauge [Right 18 Antecubital] Diagnostics 03/30/24 03/30/24 03/30/24 Range/Units 15:37 12:58 12:25 WBC 11.44 H (4.4-10.8) 10^3/uL RBC 4.34 L (4.36-5.78) 10^6/uL Hgb 12.6 L (13.5-17.5) g/dL Hct 38.2 L (40.0-50.0) % MCV 88 (80-95) fL MCH 29.0 (27.0-33.0) pg MCHC 33.0 (32.0-36.0) % RDW 13.2 (11.8-14.1) % Plt Count 275 (130-400) 10^3/uL MPV 9.6 (8.0-11.0) fL Immature Gran % 0.5 % Neutrophils % 77.8 % Lymphocytes % 10.9 % Monocytes % 10.2 % Eosinophils % 0.3 % Basophils % 0.3 % Nucleated RBC % 0.0 (0.0-0.3) % Absolute Neutrophils 8.90 H (1.2-6.7) 10^3/uL Absolute Lymphocytes 1.25 (1.2-3.4) 10^3/uL Absolute Monocytes 1.17 H (0.1-0.8) 10^3/uL Absolute Eosinophils 0.03 (0.0-0.7) 10^3/uL Absolute Basophils 0.03 (0.0-0.2) 10^3/uL Sodium 141 (136-145) mmol/L Potassium 4.2 (3.5-5.1) mmol/L Chloride 105 (98-107) mmol/L Carbon Dioxide 25.3 (21.0-32.0) mmol/L Anion Gap 10.7 (3-11) mmol/L BUN 15 (7-18) mg/dL Creatinine 1.0 (0.70-1.30) mg/dL Est GFR (CKD-EPI 2020) 74.68 (mL/min/1.73m2) Glucose 94 (74-106) mg/dL Calcium 9.2 (8.5-10.1) mg/dL Magnesium 2.0 (1.8-2.4) mg/dL Total Bilirubin 1.25 H (0.2-1.0) mg/dL AST 31 (15-37) U/L ALT 19 (16-63) U/L Alkaline Phosphatase 92 (46-116) U/L Ammonia < 10 L (11-32) umol/L Creatine Kinase 243 (39-308) U/L Total Protein 7.3 (6.4-8.2) g/dL Albumin 3.8 (3.4-5.0) g/dL Vitamin B12 Cancelled 646 (193-986) pg/mL TSH 0.51 (0.36-3.74) uIU/mL Urine Color Yellow (Yellow) Urine Clarity Sl Cloudy (Clear) Urine pH 5.5 (5-8) Ur Specific [place] 1.015 (1.005-1.025) Urine Protein Negative (Neg-Trace) mg/dL Urine Ketones 80 H (Negative) mg/dL Urine Blood Large H (Negative) Urine Nitrite Negative (Negative) Urine Bilirubin Negative (Negative) Urine Urobilinogen 0.2 (Up to 0.2) mg/dL Ur Leukocyte Esterase Small H (Negative) Urine RBC >50 H (0-2) HPF Urine WBC 20-50 H (0-5) HPF Ur Epithelial Cells Rare (Negative) HPF Urine Crystals Moderate Amorphous (Negative) HPF Urine Bacteria Moderate (Negative) HPF Urine Casts Negative (Negative) LPF Urine Mucus Negative (Negative) Urine Other Negative (Negative) Ur Culture Indicated? Yes Urine Glucose Negative (Negative) mg/dL 03/30/24 12:58 Urine Culture - Pending Urine - Reflex from Ua 03/30/24 12:15 Skin Culture - Pending Perirectal Intake and Output - 24 Hour Total 03/30/24 10:54 thru 03/30/24 17:35 Intake Total 100 Balance 100 Weight 95.254 kg Intake: IV 100 Falls Risk Assessment History of Falls Previous History 03/30/24 11:34 Contributing Factors Impairments 03/30/24 11:34 Ambulatory Aids Uses ambulatory device + 03/30/24 11:34 Tubes/Lines With any additional score 03/30/24 11:34 Fall Total Score 68 03/30/24 11:34 Level of Risk High Risk 03/30/24 11:34 Problems (Last Reviewed 03/10/24 @ 16:13 by Saloni Ballard DPM) Encephalopathy (Acute) Diaper dermatitis (Acute) Acute UTI (Acute) Hypochromic anemia (Acute) Atrial fibrillation (Chronic 05/22/11) Chronic anticoagulation (Chronic 05/24/16) Hyperlipidemia (Chronic 05/22/11) BPH NOS w ur obs/LUTS (Chronic) Anxiety disorder (Chronic 05/22/11) Depressive disorder (Acute 05/22/11) v v v v v v v v v Sending and/or Receiving Nurses: Please use comment section below to note any information pertinent to the patient hand-off not included above. Information / Comments: Report received from: jhoan TODD given to westley TODD at 2524, going to 228
[2024-03-30] MEDS: Acetaminophen 500 MG TAB 1000 MG PO (17:55)
[2024-03-30 17:57] VITALS: BP 170/110; PULSE 119; RESP 20; TEMP 36.7; O2SAT 95
[2024-03-30 18:30] VITALS: BP 170/110; PULSE 119; RESP 20; TEMP 36.7; O2SAT 95
[2024-03-30] MEDS: MORPHine 2 MG/ML SYR 1 MG IVP (18:30)
[2024-03-30] MEDS: hydrALAZINE 20 MG/ML VIAL 10 MG IVP (18:31)
[2024-03-30 18:38] VITALS: BP 165/78; PULSE 93
[2024-03-30 19:04] VITALS: BP 137/91
[2024-03-30] MEDS: Tamsulosin 0.4 MG CAPCR PO (19:16)
[2024-03-30] MEDS: Gabapentin 800 MG TAB PO (19:16)
[2024-03-30] MEDS: Apixaban 5 MG TAB PO (19:16)
[2024-03-30] MEDS: Atorvastatin 20 MG TAB PO (19:16)
[2024-03-30] MEDS: Nystatin OINT 15 GM TUBE TP (19:26)
[2024-03-30 23:56] LABS: *AMPHETAMINES SCREEN URINE Negative (Negative); *BARBITURATES SCREEN URINE Negative (Negative); *BENZODIAZEPINES SCREEN URINE Negative (Negative); Cannabinoids THC Negative (Negative); Cocaine Screen,Urine Negative (Negative); METHADONE URINE SCREEN Negative (Negative); OPIATES URINE SCREEN Positive (Negative); Tricyclic Antidepressants Negative (Negative)
[2024-03-31 03:14] VITALS: BP 133/85; PULSE 60; RESP 14; TEMP 36.6; O2SAT 96
[2024-03-31] MEDS: Levothyroxine 175 MCG TAB PO (06:15)
[2024-03-31 07:24] LABS: Creatine Kinase 391 U/L (39-308); TSH (W/Ref FT4) 0.81 uIU/mL (0.36-3.74)
[2024-03-31] MEDS: Mupirocin 2% Oint. 22 GM TUBE TP ×3 (07:30→20:29)
[2024-03-31 07:31] VITALS: BP 104/70; PULSE 104; RESP 16; TEMP 36.8; O2SAT 96
[2024-03-31] MEDS: Gabapentin 800 MG TAB PO ×3 (07:31→19:53)
[2024-03-31] MEDS: Tamsulosin 0.4 MG CAPCR PO ×2 (07:31→19:52)
[2024-03-31] MEDS: Pantoprazole 40 MG TABCR PO (07:31)
[2024-03-31] MEDS: Apixaban 5 MG TAB PO ×2 (07:31→19:52)
[2024-03-31] MEDS: Nystatin OINT 15 GM TUBE TP ×2 (07:31→19:54)
[2024-03-31 09:34] VITALS: BP 133/79
[2024-03-31] MEDS: Metoprolol CR 25 MG TABCR PO (09:35)
[2024-03-31] MEDS: Calcium Citrate 950 MG TAB 1900 MG PO (09:35)
[2024-03-31] MEDS: dilTIAZem CD 180 MG CAPCR PO (09:35)
[2024-03-31] MEDS: Thiamine 100 MG TAB PO (09:35)
[2024-03-31] MEDS: buPROPion-XL 150 MG TABCR 300 MG PO (09:35)
[2024-03-31] MEDS: Ferrous Gluconate 324 MG TAB PO (09:35)
[2024-03-31] MEDS: DULoxetine 20 MG CAP PO (09:36)
[2024-03-31] MEDS: Finasteride 5 MG TAB PO (09:36)
[2024-03-31] MEDS: Multivitamin TAB 1 TAB PO (09:36)
[2024-03-31] MEDS: MORPHine 2 MG/ML SYR 1 MG IVP ×2 (11:00→18:22)
[2024-03-31 11:38] VITALS: BP 151/75; PULSE 109; RESP 16; TEMP 36.6; O2SAT 98
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
--- NOTE | 2024-03-31 13:56 | PGE_ITS ---
Date of Service Date of service: 03/31/24 Time of Service: 13:57 Assessment and Plan Assessment and plan (1) Acute UTI: Status: Acute Assessment and plan: -Patient was started on I believe Rocephin in the ER and has since had improvement in his symptoms -transitioned to PO cefpodozime -f/u urine culture results (2) Encephalopathy: Status: Acute Assessment and plan: -likely due to UTI as noted above -no resolved, patient back to baseline mental status (3) Atrial fibrillation: Status: Chronic Assessment and plan: -continue home metoprolol, diltiazem and wliquis Qualifiers: Atrial fibrillation type: chronic Qualified Code(s): I48.2 - Chronic atrial fibrillation (4) Chronic anticoagulation: Status: Chronic Assessment and plan: -as noted above (5) Hyperlipidemia: Status: Chronic Assessment and plan: -continue home statin Qualifiers: Hyperlipidemia type: mixed hyperlipidemia Qualified Code(s): E78.2 - Mixed hyperlipidemia (6) Anxiety disorder: Status: Chronic Assessment and plan: -Continue with his home medications which include Wellbutrin, as well as duloxetine. As Qualifiers: Anxiety disorder type: other anxiety disorder Qualified Code(s): F41.8 - Other specified anxiety disorders (7) Depressive disorder: Status: Acute Assessment and plan: -As above (8) Alcohol abuse, episodic: Status: Resolved Assessment and plan: Patient does have a history of alcohol use so I will check a urine drug screen. I will also add thiamine and a multivitamin (9) BPH NOS w ur obs/LUTS: Status: Chronic Assessment and plan: -Continue with his current medical regimen which include finasteride riding Flomax (10) Hypochromic anemia: Status: Acute Assessment and plan: -Patient is noted to have mild anemia and will defer to the outpatient setting in the discretion of his PCP. (11) Cardiomyopathy: Assessment and plan: As mentioned above the patient does see Dr. Zarate. In reviewing his records I do not see a echocardiogram at least as far back as our system goes. (12) DVT prophylaxis: Assessment and plan: Will continue with his Eliquis. (13) History of ETOH abuse: Assessment and plan: -EtOH negative on admission (14) Hurthle cell carcinoma of thyroid: Assessment and plan: The did mention a possible nodule but was also stating that he had a complete thyroidectomy. At any rate I will check a TSH as him being underdosed or overdose could cause confusion. Subjective Subjective Interval history since last seen: Patient states that he is feeling much better today and has no other complaints or concerns at this time. Exam Narrative Exam Narrative: Well-appearing older gentleman sitting up in the bed no acute distress, ANO x 4, heart regular rhythm, lungs, auscultation bilaterally, abdomen soft, nontender, nondistended Objective Last Vital Signs Temp 97.9 F 03/31/24 11:38 Pulse 109 H 03/31/24 11:38 Resp 16 03/31/24 11:38 BP 151/75 H 03/31/24 11:38 Pulse Ox 98 03/31/24 11:38 Laboratory Results - last 24 hr 03/30/24 03/30/24 03/30/24 12:25 12:58 15:37 Creatine Kinase Vitamin B12 646 Cancelled TSH Urine Crystals Moderate Amorphous Urine Opiates Screen Urine Methadone Screen Ur Barbiturates Screen Ur Tricyclics Screen Ur Amphetamines Screen U Benzodiazepines Scrn Urine Cocaine Screen Ur THC Screen 03/30/24 03/31/24 23:32 06:14 Creatine Kinase 391 H Vitamin B12 TSH 0.81 Urine Crystals Urine Opiates Screen Positive A Urine Methadone Screen Negative Ur Barbiturates Screen Negative Ur Tricyclics Screen Negative Ur Amphetamines Screen Negative U Benzodiazepines Scrn Negative Urine Cocaine Screen Negative Ur THC Screen Negative Time Spent with Patient Time Spent with Patient: >50 minutes Time was spent: preparing to see the patient(eg.review tests), obtaining and/or reviewing separately otained hiistory, ordering medications,tests, procedures, referring, communicating with other health hearing care practitioner, indepentently interpreting results, counseling the patient and care coordination
[2024-03-31 15:11] VITALS: BP 121/64; PULSE 81; RESP 18; TEMP 36.6; O2SAT 97
[2024-03-31] MEDS: Celecoxib 100 MG CAP PO (15:22)
[2024-03-31 19:51] VITALS: BP 114/73; PULSE 100; RESP 14; TEMP 36.7; O2SAT 95
[2024-03-31] MEDS: Atorvastatin 20 MG TAB PO (19:52)
[2024-03-31] MEDS: Cefpodoxime 200 MG TAB PO (19:54)
[2024-03-31] MEDS: Normal Saline Flush 10 ML SYR IVP (19:54)
[2024-04-01 02:02] VITALS: BP 92/59; PULSE 74; RESP 14; TEMP 36.4; O2SAT 92
[2024-04-01] MEDS: Levothyroxine 175 MCG TAB PO (05:57)
[2024-04-01] MEDS: Calcium Citrate 950 MG TAB 1900 MG PO (07:51)
[2024-04-01] MEDS: Tamsulosin 0.4 MG CAPCR PO (07:51)
[2024-04-01] MEDS: Cefpodoxime 200 MG TAB PO (07:51)
[2024-04-01] MEDS: buPROPion-XL 150 MG TABCR 300 MG PO (07:52)
[2024-04-01] MEDS: Gabapentin 800 MG TAB PO (07:52)
[2024-04-01] MEDS: Metoprolol CR 25 MG TABCR PO (07:52)
[2024-04-01] MEDS: Pantoprazole 40 MG TABCR PO (07:52)
[2024-04-01] MEDS: Multivitamin TAB 1 TAB PO (07:52)
[2024-04-01] MEDS: Thiamine 100 MG TAB PO (07:52)
[2024-04-01] MEDS: dilTIAZem CD 180 MG CAPCR PO (07:52)
[2024-04-01] MEDS: Finasteride 5 MG TAB PO (07:52)
[2024-04-01] MEDS: Normal Saline Flush 10 ML SYR IVP (07:53)
[2024-04-01] MEDS: Apixaban 5 MG TAB PO (07:53)
[2024-04-01] MEDS: Mupirocin 2% Oint. 22 GM TUBE TP (08:00)
[2024-04-01 08:01] VITALS: BP 113/74; PULSE 94; RESP 16; TEMP 36.7; O2SAT 95
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
[2024-04-01] MEDS: Nystatin OINT 15 GM TUBE TP (09:44)
--- NOTE | 2024-04-01 12:59 | CMDISCH_ITS ---
Date of service: 04/01/24 Time of Service: 12:59 LACE Index Scoring Tool Questions: Length of Stay (in days): 2 Was the patient admitted via the E.D.?: Yes Comorbidities: Chronic Pulmonary Disease and Any Tumor E.D. Visits: 0 Answers: Total Score: 10 Risk of Readmission: High Risk Care Management Discharge Plan Reason for Hospitalization: UTI Discharge Plan: Mario will return home today with new orders for HH RN. His will drive him home via private vehicle. He will follow up with his PCP and discharge plan of care. He is happy with his care at [facility], and is happy to be going home. Patient/Family Education Needs: Review discharge instructions and limitations, discussion of self care needs including ask me three. Services Needed at Discharge: Home Health Care Services (new HH RN) SDOH Health Related Social Needs: Health related social needs housing instability, house d, with risk of homelessness(Z59.811), transportation insecurity(Z59.82) Health related social needs: housing instability, housed, with risk of homelessness(Z59.811) and transportation insecurity(Z59.82)
--- NOTE | 2024-04-01 14:22 | PDOC.HHF2F ---
Home Health Referral Home Health Orders Clinical synopsis of why skilled professionals are needed: UTI, a-fib, CA, sacral wound Registered Nurse: Check all that apply Assess wound for signs and symptoms of infection, instruct on wound care and/or provide skilled wound care consisting of: sacral wound Encounter Date and Reason: I certify that a FTF encounter for this patient was performed on April 01, 2024 and that such encounter was related to the primary reason the patient requires home health services. The encounter was conducted in the following manner: By me as the certifying physician, WOOL HANDLER, PA or By an inpatient physician, WOOL HANDLER or PA during an inpatient stay who communicated findings to me, Certification And Authentication I certify that I composed the above information based on my clinical judgment relating to this patient's medical condition and, if applicable, clinical findings communicated to me by the NPP or inpatient physician who performed the FTF encounter. Name of Provider that will be monitoring home health services: Ofe Carlson
== END 2024-04-01 12:41 | disposition home or self-care (01) | DRG 690 ==
LOC: ER 11:19 → MS 17:41
PROVIDERS: Admitting Provider Hospitalist; Emergency Provider Emergency Medicine; PCP Nurse Practitioner Adult Health; Visit Provider Hospitalist
DX: N39.0 Urinary tract infection, site not specified; I48.20 Chronic atrial fibrillation, unspecified; I42.9 Cardiomyopathy, unspecified; G93.40 Encephalopathy, unspecified; C77.9 Secondary and unspecified malignant neoplasm of lymph node, unspecified; Z59.811 Housing instability, housed, with risk of homelessness; E78.2 Mixed hyperlipidemia; Z79.01 Long term (current) use of anticoagulants; F32.A Depression, unspecified; F10.10 Alcohol abuse, uncomplicated; F41.8 Other specified anxiety disorders; N40.1 Benign prostatic hyperplasia with lower urinary tract symptoms; N13.8 Other obstructive and reflux uropathy; E89.0 Postprocedural hypothyroidism; Z85.850 Personal history of malignant neoplasm of thyroid; D64.9 Anemia, unspecified; K59.00 Constipation, unspecified; J44.9 Chronic obstructive pulmonary disease, unspecified; M85.80 Other specified disorders of bone density and structure, unspecified site; I27.20 Pulmonary hypertension, unspecified; I73.9 Peripheral vascular disease, unspecified; E88.810 Metabolic syndrome; Z96.642 Presence of left artificial hip joint; Z59.82 Transportation insecurity
CPT/HCPCS: 00123; 36415; 80053; 80307; 82550; 87077; 93005; 94640; 96365; 96366; 96367; 96375; 99285; 70450; 71045; 74177; 81003; 81015; 82140; 82607; 83735; 84443; 85025; 87070; 87081; 87086; 93010; 94664; 99222; 99233; 99239; J0360; J0690; J0696; J2270; J3490

== ENCOUNTER 2024-04-02 02:43 | Outpatient (CLI) | payer MEDICARE, BC, SELFPAY ==
[2024-04-02 13:19] LABS: TSH 1.58 uIU/mL (0.36-3.74)
[2024-04-05 10:23] LABS: Thyroglobulin Antibody <1.8 IU/mL (<1.8); Thyroglobulin Tumor Marker 1.3 ng/mL
== END 2024-04-02 02:44 | disposition home or self-care (01) ==
LOC: LBO 02:44
PROVIDERS: PCP Nurse Practitioner Adult Health; Visit Provider Physician Assistant
DX: C73 Malignant neoplasm of thyroid gland (principal)
CPT/HCPCS: 84432; 84443; 86800

== ENCOUNTER → 2024-04-05 09:24 | Outpatient (BNVA) | payer MEDICARE, BC, SELFPAY | PROVIDERS: PCP Nurse Practitioner Adult Health; Referring Provider Nurse Practitioner Adult Health; Visit Provider Student in an Organized Health Care Education/Training Program | DX: M70.62 Trochanteric bursitis, left hip (principal) | CPT/HCPCS: 20610; 99214; J1010 ==

== ENCOUNTER 2024-05-03 14:07 | Outpatient (CLI) | payer MEDICARE, BC, SELFPAY ==
--- NOTE | 2024-05-03 14:00 | RT.EKG_ITS ---
APPROVED REPORT Exam: Resting ECG Reason for Exam: Afib, SOB Patient Location: O HR:78 bpm ECG Measurements Heart Rate 78 AXIS NV [id number] P [id number] QRSd 93 QRS -2 QT 381 T 79 QTc 434 Conclusion Atrial fibrillation...V-rate 53-101, irreg A-activity Low voltage, extremity leads...all extremity leads <0.5mV
== END 2024-05-03 14:08 | disposition home or self-care (01) ==
LOC: DI.KIM 14:09
PROVIDERS: PCP Nurse Practitioner Adult Health; Visit Provider Nurse Practitioner Adult Health
DX: I48.21 Permanent atrial fibrillation (principal)
CPT/HCPCS: 93010

== ENCOUNTER 2024-05-06 19:12 | Outpatient (REF) | payer MEDICARE, BC, SELFPAY ==
[2024-05-07 14:10] LABS: Bilirubin Negative (Negative); Blood Negative (Negative); Clarity Clear (Clear); Glucose Negative (Negative); Ketones Negative (Negative); Leukocyte Esterase Negative (Negative); Nitrite Negative (Negative); Specific Gravity 1.015 (1.005-1.025); Urobilinogen 0.2 mg/dL (Up to 0.2)
== END 2024-05-06 19:13 | disposition home or self-care (01) ==
LOC: LBN 19:12
PROVIDERS: Nurse Practitioner Gerontology; PCP Nurse Practitioner Adult Health; Visit Provider Urology
DX: N39.0 Urinary tract infection, site not specified (principal); R82.89 Other abnormal findings on cytological and histological examination of urine
CPT/HCPCS: 87077; 81003; 87086; 87186

== ENCOUNTER 2024-07-03 12:11 | Emergency (ER) | payer MEDICARE, BC, SELFPAY ==
--- NOTE | 2024-07-03 12:00 | DI.RAD_ITS ---
Exam(s) XR TIB/FIB LT EXAM: XR TIB/FIB LT CLINICAL HISTORY: Left anderson pain. TECHNIQUE: 2D digital imaging was performed of the left tibia and fibula. Four images were obtained. AP and lateral views were obtained. COMPARISON: There are no priors for comparison. FINDINGS: BONES: No acute fracture is present. There is an old healed fibular fracture. No bony destructive l esion is seen. Visualized portion of knee and ankle joints are unremarkable. SOFT TISSUE: Atherosclerotic calcification is present. IMPRESSION: No acute fracture or dislocation. DATA REPOSITORY: RADIATION DOSE DELIVERED:
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
[2024-07-03 12:20] VITALS: BP 128/82; PULSE 71; RESP 15; TEMP 36.5; O2SAT 94
--- NOTE | 2024-07-03 13:58 | DI.VRAD_ITS ---
PROCEDURE INFORMATION: Exam: XR Left Tibia and Fibula Exam date and time: 07/03/2024 12:51 PM Age: 84 years old Clinical indication: Other: Left anderson pain TECHNIQUE: Imaging protocol: Radiologic exam of the left tibia and fibula. Views: 2 views. COMPARISON: No relevant prior studies available. FINDINGS: Bones/joints: Healed mid fibular shaft fracture. No acute fracture or dislocation. Soft tissues: Normal. Vasculature: Vascular calcifications are noted. IMPRESSION: No acute abnormality. Dictated and Authenticated by: Xiao Garcia MD. Orderin Luma Alfred MD
[2024-07-03] MEDS: Acetaminophen 500 MG TAB 1000 MG PO (14:11)
[2024-07-03] MEDS: Cephalexin 500 MG CAP PO (14:12)
[2024-07-03 14:32] VITALS: BP 137/87; PULSE 77; RESP 19; O2SAT 96
== END 2024-07-03 14:28 | disposition home or self-care (01) ==
PROVIDERS: Emergency Provider Emergency Medicine; PCP Nurse Practitioner Adult Health
DX: L03.116 Cellulitis of left lower limb (principal); M79.662 Pain in left lower leg; W22.8XXA Striking against or struck by other objects, initial encounter
CPT/HCPCS: 99283; 73590

== ENCOUNTER → 2024-07-06 13:48 | Outpatient (BNVA) | payer MEDICARE, BC, SELFPAY | PROVIDERS: PCP Nurse Practitioner Adult Health; Referring Provider Nurse Practitioner Adult Health; Visit Provider Podiatrist | DX: L60.3 Nail dystrophy (principal); G62.9 Polyneuropathy, unspecified; R26.89 Other abnormalities of gait and mobility; D50.9 Iron deficiency anemia, unspecified; I73.89 Other specified peripheral vascular diseases; R60.0 Localized edema; R09.89 Other specified symptoms and signs involving the circulatory and respiratory systems; L65.9 Nonscarring hair loss, unspecified; R23.8 Other skin changes; L60.2 Onychogryphosis | CPT/HCPCS: 11721 ==

== ENCOUNTER 2024-07-09 12:40 | Emergency (ER) | payer MEDICARE, BC, SELFPAY ==
[2024-07-09 12:55] VITALS: BP 91/57; PULSE 77; RESP 20; TEMP 36.7; O2SAT 98
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
[2024-07-09 13:45] VITALS: BP 86/51; PULSE 80; RESP 16; O2SAT 95
[2024-07-09 13:46] VITALS: BP 87/44
[2024-07-09 13:47] VITALS: BP 87/44; PULSE 80; RESP 16; TEMP 36.7; O2SAT 95
== END 2024-07-09 13:47 | disposition home or self-care (01) ==
PROVIDERS: Emergency Provider Physician Assistant; PCP Nurse Practitioner Adult Health
DX: L03.116 Cellulitis of left lower limb (principal)
CPT/HCPCS: 99281; 99282

== ENCOUNTER 2024-07-25 12:19 | Emergency (ER) | payer MEDICARE, BC, SELFPAY ==
[2024-07-25 12:23] VITALS: BP 122/67; PULSE 93; TEMP 37; O2SAT 93
--- NOTE | 2024-07-25 12:36 | DI.RAD_ITS ---
Exam(s) XR FOOT RT COMPLETE EXAM: XR FOOT RT COMPLETE CLINICAL HISTORY: r foot injury. TECHNIQUE: 2D digital imaging was performed of the right foot. Three images were obtained. AP, obl ique and lateral views were obtained. COMPARISON: CR XR ANKLE RT COMPLETE from 03/15/2020 FINDINGS: BONES: There are fractures involving the 4th and 5th metatarsals. There is callus formation about the fracture suggesting old healed fractures. There is a bipartite medial sesamoid at the head of the 1s t metatarsal bone. There is a lucency through the medial aspect of the base proximal phalanx of the great toe. This may represent a small nondisplaced fracture. Please correlate clinically. There is an oblique lucency through the proximal phalanx of the 2nd toe which may be residual from an old fra cture.. No bony destructive lesion is seen. Orthopedic hardware is again seen in the distal tibia an d fibula. It appears stable. JOINTS: No dislocation present. SOFT TISSUE: Vascular calcifications are present. IMPRESSION: 1. Oblique lucency through the medial aspect of the base of the proximal phalanx of the great toe whi ch may represent a nondisplaced fracture. Please correlate clinically. 2. Oblique lucency through the proximal phalanx of the 2nd toe which may be residual from old fractur e. 3. Old healed 4th and 5th metatarsal fractures. DATA REPOSITORY: RADIATION DOSE DELIVERED:
--- NOTE | 2024-07-25 12:36 | DI.RAD_ITS ---
Exam(s) XR ANKLE RT COMPLETE EXAM: XR ANKLE RT COMPLETE CLINICAL HISTORY: r ankle injury. TECHNIQUE: 2D digital imaging was performed of the right ankle. Three images were obtained. AP, la teral and oblique views were obtained. COMPARISON: CR XR ANKLE RT COMPLETE from 03/15/2020 FINDINGS: BONES: No acute fracture is present. No bony destructive lesion is seen. There are old well corticat ed osseous densities adjacent to the medial malleolus. The orthopedic hardware in the distal tibia a nd fibula are stable. There is a small plantar calcaneal spur. There is stable old densities adjace nt to the cuboid and base of the 5th metacarpal on the lateral view. JOINTS: The ankle mortise is normally aligned. SOFT TISSUE: Vascular calcifications are present. There is soft tissue swelling around the ankle. IMPRESSION: No acute fracture or dislocation. DATA REPOSITORY: RADIATION DOSE DELIVERED:
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
--- NOTE | 2024-07-25 14:40 | DI.VRAD_ITS ---
PROCEDURE INFORMATION: Exam: XR Right Foot Exam date and time: 07/25/2024 1:16 PM Age: 84 years old Clinical indication: Injury or trauma; Fall; Blunt trauma; Foot; Right TECHNIQUE: Imaging protocol: Radiologic exam of the right foot. Views: 3 or more views. COMPARISON: CR XR ANKLE RT COMPLETE 07/25/2024 1:14 PM FINDINGS: Bones/joints: Plate and screws in the distal fibula and distal tibia. Degenerative changes in the 1st metatarsal phalangeal joint and IP joint. Minimally displaced fractures of the shaft of the 4th and 5th metatarsals. . Soft tissues: Soft tissue swelling of the foot IMPRESSION: 1. Degenerative changes in the 1st metatarsal phalangeal joint and IP joint. 2. Minimally displaced fractures of the shaft of the 4th and 5th metatarsals. . Dictated and Authenticated by: Vida Wells MD. Orderin Adalgisa Colorado MD
--- NOTE | 2024-07-25 14:41 | DI.VRAD_ITS ---
PROCEDURE INFORMATION: Exam: XR Right Ankle Exam date and time: 07/25/2024 1:14 PM Age: 84 years old Clinical indication: Injury or trauma; Fall; Blunt trauma; Ankle; Right; Prior surgery; Surgery date: 6+ months; Surgery type: FX TECHNIQUE: Imaging protocol: Radiologic exam of the right ankle. Views: 3 or more views. COMPARISON: CR XR ANKLE RT COMPLETE 03/15/2020 10:16 AM FINDINGS: Bones/joints: Plate and screws along the distal fibula. Surgical device in the medial malleolus. Old avulsion fractures off the distal aspect of the medial malleolus.. There is no evidence of acute fracture of the ankle.There is no evidence of malalignment or dislocation. Soft tissues: Soft tissue swelling of the ankle IMPRESSION: 1. Plate and screws along the distal fibula. Surgical device in the medial malleolus. Old avulsion fractures off the distal aspect of the medial malleolus.. 2. There is no evidence of acute fracture of the ankle.There is no evidence of malalignment or dislocation. Dictated and Authenticated by: Vida Wells MD. Orderin Adalgisa Colorado MD
== END 2024-07-25 15:08 | disposition home or self-care (01) ==
PROVIDERS: Emergency Provider Emergency Medicine; PCP Nurse Practitioner Adult Health
DX: M79.671 Pain in right foot; W19.XXXA Unspecified fall, initial encounter; S92.344A Nondisplaced fracture of fourth metatarsal bone, right foot, initial encounter for closed fracture; S92.354A Nondisplaced fracture of fifth metatarsal bone, right foot, initial encounter for closed fracture
CPT/HCPCS: 28470; 99284; 73610; 73630; 99283

== ENCOUNTER → 2024-07-29 09:07 | Outpatient (BNVA) | payer MEDICARE, BC, SELFPAY | PROVIDERS: PCP Nurse Practitioner Adult Health; Referring Provider Nurse Practitioner Adult Health; Visit Provider Podiatrist | DX: S92.411A Displaced fracture of proximal phalanx of right great toe, initial encounter for closed fracture (principal); S92.511A Displaced fracture of proximal phalanx of right lesser toe(s), initial encounter for closed fracture; R26.89 Other abnormalities of gait and mobility; R29.6 Repeated falls; S90.511A Abrasion, right ankle, initial encounter; W07.XXXA Fall from chair, initial encounter; R60.0 Localized edema; L65.9 Nonscarring hair loss, unspecified; L60.2 Onychogryphosis; R23.8 Other skin changes; R20.2 Paresthesia of skin | CPT/HCPCS: 99214 ==

== ENCOUNTER → 2024-08-19 14:47 | Outpatient (BNVA) | payer MEDICARE, BC, SELFPAY | PROVIDERS: PCP Nurse Practitioner Adult Health; Visit Provider Nurse Practitioner Gerontology | DX: R31.0 Gross hematuria (principal); R39.9 Unspecified symptoms and signs involving the genitourinary system | CPT/HCPCS: 51798; 99213 ==

== ENCOUNTER 2024-08-24 01:54 | Outpatient (CLI) | payer MEDICARE, BC, SELFPAY ==
--- NOTE | 2024-08-24 07:30 | DI.RAD_ITS ---
Exam(s) XR FOOT RT COMPLETE EXAM: XR FOOT RT COMPLETE CLINICAL HISTORY: ? HEALING,FX PROX PHALANX,S92,411A,S92.511A. TECHNIQUE: 2D digital imaging was performed. COMPARISON: CR,XR XR FOOT RT COMPLETE from 07/25/2024 FINDINGS: 3 views Again noted is the previously described oblique fracture on the medial aspect of the base of the prox imal phalanx of the great toe. This exhibits mild displacement, more so than previous. There are mo derate degenerative changes in the great toe metatarsophalangeal joint. No other acute fractures edita ntified. Previously described healed oblique fractures in the mid distal diaphyses of the 4th and 5t h metatarsals are again noted. Hardware at the level the ankle also again noted. No osseous lesions. No erosions. IMPRESSION: The previously described oblique fracture site on the medial base of the proximal phalanx of the grea t toe is again noted and exhibits mild displacement at this time. DATA REPOSITORY: RADIATION DOSE DELIVERED:
== END 2024-08-24 02:14 ==
LOC: DI 01:54
PROVIDERS: PCP Nurse Practitioner Adult Health; Visit Provider Podiatrist
DX: S92.411D Displaced fracture of proximal phalanx of right great toe, subsequent encounter for fracture with routine healing (principal); S92.511D Displaced fracture of proximal phalanx of right lesser toe(s), subsequent encounter for fracture with routine healing; X58.XXXD Exposure to other specified factors, subsequent encounter
CPT/HCPCS: 73630

== ENCOUNTER 2024-09-01 02:34 | Outpatient (CLI) | payer MEDICARE, BC, SELFPAY ==
--- NOTE | 2024-09-01 11:16 | DI.RAD_ITS ---
Exam(s) XR LUMBAR SPINE COMPLETE EXAM: XR LUMBAR SPINE COMPLETE CLINICAL HISTORY: ? OA,LOW BACK PAIN,M54.50. TECHNIQUE: 2D digital imaging was performed. COMPARISON: CR XR SACROILIAC JOINTS from 09/01/2024 FINDINGS: Six views No evidence of acute fracture or listhesis. There is slight anterior wedging of superior endplate of L5 which does not have obvious acute appearance. There is disc space narrowing at this level as wel l as advanced disc space narrowing at L5-S1. Upper disc spaces exhibit normal height. There are mil d degenerative changes in the facet joints. SI joints appear unremarkable. There is no scoliosis. Bone density appears age-appropriate. No obvious osseous lesions in the lumbar vertebral bodies. Calcification noted in the abdominal aorta which exhibits mild aneurysmal dilatation. IMPRESSION: Multilevel chronic degenerative disc disease in the lower lumbar spine. Also some facet arthropathy. Calcified and dilated abdominal aorta. Priors CT scan March 2024 indicated mild dilatation of the infrarenal abdominal aorta to 3 cm. Left hip prosthesis noted. DATA REPOSITORY: RADIATION DOSE DELIVERED:
--- NOTE | 2024-09-01 11:16 | DI.RAD_ITS ---
Exam(s) XR SACROILIAC JOINTS EXAM: XR SACROILIAC JOINTS CLINICAL HISTORY: SI joint pain left sided,M25.50. TECHNIQUE: 2D digital imaging was performed. Four images were obtained. COMPARISON: CR XR HIP LT COMPLETE AP PELVIS from 02/03/2024 FINDINGS: Bones: No fracture is present. No bony destructive lesion is seen. Alignment is satisfactory. The sammie angela are osteopenic. SI Joint:No fusion, erosions or sclerosis is seen. The patient's left total hip arthroplasty is parti ally visualized. Visualized portions are grossly unremarkable. There are degenerative changes seen in the right hip characterized by joint space narrowing and osteophytes. There are degenerative morris ges seen in the lower lumbar spine. Soft Tissue: Normal. IMPRESSION: Normal radiographs of the SI Joints. No evidence of erosions, fusion or sclerosis. DATA REPOSITORY: RADIATION DOSE DELIVERED:
== END 2024-09-01 02:54 ==
LOC: DI 02:34
PROVIDERS: PCP Nurse Practitioner Adult Health; Visit Provider Nurse Practitioner Family
DX: M54.42 Lumbago with sciatica, left side (principal); M25.552 Pain in left hip
CPT/HCPCS: 72110; 72202

== ENCOUNTER → 2024-09-02 09:45 | Outpatient (BNVA) | payer MEDICARE, BC, SELFPAY | PROVIDERS: PCP Nurse Practitioner Adult Health; Visit Provider Internal Medicine Cardiovascular Disease | DX: I48.20 Chronic atrial fibrillation, unspecified (principal); C73 Malignant neoplasm of thyroid gland; R26.89 Other abnormalities of gait and mobility | CPT/HCPCS: 99214 ==

== ENCOUNTER 2024-09-06 22:47 | Observation (INO) | payer MEDICARE, BC, SELFPAY ==
[2024-09-06] VITALS (10 sets, daily range): BP systolic 118–157; BP diastolic 45–71; PULSE 70–95; RESP 15–22; TEMP 36.1; O2SAT 92–96
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
[2024-09-06] MEDS: MORPHine 4 MG/ML SYR IVP ×2 (23:16→23:52)
[2024-09-06 23:23] LABS: HCT 34.6 % (40.0-50.0); HGB 11.1 g/dL (13.5-17.5); MCH 28.5 pg (27.0-33.0); MCHC 32.1 % (32.0-36.0); MCV 89 fL (80-95); MPV 9.7 fL (8.0-11.0); Platelet Count 250 10^3/uL (130-400); RBC 3.89 10^6/uL (4.36-5.78); RDW 14.2 % (11.8-14.1); RDW-SD 45.9 fL; WBC 10.71 10^3/uL (4.4-10.8)
[2024-09-06 23:33] LABS: Anion Gap 9.9 mmol/L (3-11); BUN 17 mg/dL (7-18); CO2 28.1 mmol/L (21.0-32.0); CREATININE 1.4 mg/dL (0.70-1.30); Calcium 9.3 mg/dL (8.5-10.1); Chloride 105 mmol/L (98-107); Estimated GFR 49.87 (mL/min/1.73m2); Glucose 98 mg/dL (74-106); Potassium 4.3 mmol/L (3.5-5.1); Sodium 143 mmol/L (136-145)
[2024-09-07] VITALS (19 sets, daily range): BP systolic 97–139; BP diastolic 49–72; PULSE 63–88; RESP 13–23; TEMP 36.6–36.9; O2SAT 92–95
[2024-09-07] MEDS: Omnipaque 350 MG/ML 100 ML BTL IJ (00:38)
[2024-09-07] MEDS: Normal Saline - Diluent 50 ML VIAL IJ (00:39)
--- NOTE | 2024-09-07 00:39 | DI.CT_ITS ---
Exam(s) CT LUMBAR SPINE RECONS CT ABDOMEN PELVIS W EXAM: CT ABDOMEN PELVIS W CLINICAL HISTORY: Frequent falls, anticoagulated, left back/pelvic p. TECHNIQUE: Imaging Protocol: Axial computed tomography images with coronal and sagittal reformatted images were created and reviewed. Acid, coronal and sagittal images of the lumbar spine reconstructed from the abdomen and pelvic CT. CONTRAST MATERIAL: Intravenous: Omnipaque 350 Contrast volume:100 ml Oral: no COMPARISON: CT CT ABDOMEN PELVIS W from 03/30/2024 CR XR LUMBAR SPINE COMPLETE from 09/01/2024 MR MR LUMBAR SPINE WO/W from 09/07/[address] LUMBAR SPINE RECONS from 09/07/2024 FINDINGS: ABDOMEN and PELVIS: Lung Bases: No acute findings. Liver: Normal density. No suspicious mass. Gallbladder and biliary tract: Mildly distended. Suggestion of a few tiny dependent stones. No wall thickening or pericholecystic fluid. No biliary dilation. Pancreas: Normal density. No abnormal calcifications or inflammatory process. No evidence of mass. Spleen: Normal. Kidneys: Normal size, contour and axis. No radiodense stones. No obstructive uropathy. Bilateral cy sts. No suspicious masses seen. Adrenal glands: No masses seen. Vasculature: Abdominal aorta mildly dilated 2.9 cm. Soft tissues: Small fat containing left inguinal hernia. Dehiscence of the anterior abdominal wall. Bladder: Partially show obscured by artifact from hip prosthesis. No gross wall thickening. No calcu li.No focal mass. Bowel: No obstruction. No bowel wall thickening. Appendix is not visualized. Diverticulosis greate st in the descending and sigmoid. The colon is quite redundant. Peritoneal cavity: No ascites. No focal collection. No mesenteric inflammatory response. No free air . Bones: Spine: Transitional type vertebral body at the lumbosacral junction. Small T12 ribs. Stable mild comp ression of the superior endplate of T12 with small Schmorl's node. Sclerotic lesion in the left side of the T 11 vertebral body is unchanged. Degenerative disc changes at L3-4 and L4-5 with endplate osteophytes which project greater anteriorl y. Facet degenerative changes also present which contribute to mild central canal stenosis and mild-t o-moderate bilateral neural foraminal narrowing at these levels. Rudimentary disc at L5-S1 which shows transitional type vertebral body. Pelvis: Left hip prosthesis. Degenerative changes in the right hip. Old lower sacral fracture deformi ty. Reproductive organs: Partially obscured by artifact from hip prosthesis. Lymph nodes: No pathologically enlarged lymph nodes. IMPRESSION:: No evidence of acute fracture. Old mild T12 compression fracture. Old S4 fracture. Degenerative changes in the lumbar spine and righ t hip. Cholelithiasis. No evidence of acute cholecystitis. RADIATION DOSE DELIVERED: 594.88mGy.cm Total DLP DATA REPOSITORY: All CT scans at this facility are submitted to the National Radiology Data Registry (NRDR) Dose Index Registry (DIR) with the [employer] (ACR). RADIATION OPTIMIZATION: All CT scans at this facility use at least one of these dose optimization te chniques: automated exposure control; mA and/or kV adjustment per patient size (includes targeted exa ms where dose is matched to clinical indication); or iterative reconstruction.
[2024-09-07] MEDS: Normal Saline 50 ML 100 ML (01:12)
[2024-09-07] MEDS: Orphenadrine 60 MG/2 ML VIAL IVP (01:12)
--- NOTE | 2024-09-07 01:17 | DI.VRAD_ITS ---
PROCEDURE INFORMATION: Exam: CT Lumbar Spine Without Contrast Exam date and time: 09/07/2024 12:07 AM Age: 84 years old Clinical indication: Injury or trauma; Blunt trauma (contusions or hematomas); Injury date: 09/06/24; Prior surgery; Surgery date: 6+ months; Surgery type: Hip replacement; Frequent falls, anticoagulated, mid ls tender TECHNIQUE: Imaging protocol: Computed tomography of the lumbar spine without contrast. Radiation optimization: All CT scans at this facility use at least one of these dose optimization techniques: automated exposure control; mA and/or kV adjustment per patient size (includes targeted exams where dose is matched to clinical indication); or iterative reconstruction. COMPARISON: CR XR LUMBAR SPINE COMPLETE 09/01/2024 11:04 AM FINDINGS: Bones/joints: Given 5 lumbar vertebral bodies, tiny bilateral vestigial ribs at L1 and a preserved rudimentary disc at S1-S2. Please note that vertebral body numbering is not definitive in the absence of complete spinal visualization. Given this numbering system, old superior endplate compression fracture deformity at L1 with mild loss of central vertebral height and a Schmorl's node extending through the superior endplate. No acute fracture or malalignment seen. Suggestion of an old tailbone fracture at the S4 level. T12-L1: Disc height preserved. Vacuum disc deformity. Anterior osteophytes. No focal disc herniation, central canal narrowing, or neural foraminal narrowing. L1-L2: Disc height preserved. No focal disc herniation. No central canal narrowing or significant neural foraminal narrowing. Anterior vertebral osteophytes. L2-L3: Disc height preserved. Mild anterior osteophytic ridging. Mild central canal narrowing. Mild bilateral foraminal narrowing. L3-L4: Disc height preserved. Small anterior osteophytes. Small broad-based posterior disc bulge with ligamentum flavum thickening resulting in moderate central canal narrowing. Moderate bilateral facet arthrosis. Moderate bilateral foraminal narrowing. L4-L5: Loss of disc height with a vacuum disc deformity. Anterior osteophytes. Posterior osteophytic ridging. Moderate bilateral facet arthrosis. Severe central canal narrowing, image 62 of series 7. Moderate-severe bilateral foraminal narrowing. L5-S1: L5-S1. Loss of disc height with a vacuum disc deformity. Anterior osteophytes. Posterior osteophytic ridging extending laterally into the neural foramina bilaterally. Moderate bilateral facet arthrosis. Moderate-severe central canal narrowing, image 71 of series 6. Moderate-severe bilateral foraminal narrowing with osteophytic material abutting and mildly deforming the L5 nerve roots bilaterally, worse on the right. Soft tissues: No gross superficial soft tissue fluid collection or mass is seen through the visualized lumbar region. Notes: CT imaging through the abdomen and pelvis was obtained concurrently and will be dictated separately. IMPRESSION: 1. Old superior endplate compression fracture deformity at L1. No acute fracture seen. 2. Degenerative changes, as detailed level by level above. Dictated and Authenticated by: Alex Hoskins MD. Orderin Nicho Jay MD
--- NOTE | 2024-09-07 01:22 | DI.VRAD_ITS ---
PROCEDURE INFORMATION: Exam: CT Abdomen And Pelvis With Contrast Exam date and time: 09/07/2024 12:07 AM Age: 84 years old Clinical indication: Injury or trauma; Blunt; Generalized; Injury date: 09/06/24; Prior surgery; Surgery date: 6+ months; Surgery type: Hip replacement; Frequent falls, anticoagulated, left back/pelvic pain TECHNIQUE: Imaging protocol: Computed tomography of the abdomen and pelvis with contrast. Radiation optimization: All CT scans at this facility use at least one of these dose optimization techniques: automated exposure control; mA and/or kV adjustment per patient size (includes targeted exams where dose is matched to clinical indication); or iterative reconstruction. Contrast material: [id number]; Contrast volume: 100 ml; Contrast route: INTRAVENOUS (IV); COMPARISON: CT ABDOMEN PELVIS W 03/30/2024 1:48 PM FINDINGS: Liver: Normal appearing liver. Gallbladder and biliary ducts: Prominent gallbladder distention. Tiny gallstones suggested in the gallbladder neck versus radiodense sludge. No biliary dilatation. Pancreas: Normal appearing pancreas. Spleen: Normal appearing spleen. Adrenal glands: Normal appearing adrenal glands. Kidneys and ureters: 3.5 cm right renal cyst with a density of 3.8 Hounsfield units on image 32 of series 4. Additional smaller hypoattenuating renal lesions, not well characterized but statistically most likely additional small cysts. No hydronephrosis or proximal ureterectasis. Distal ureters obscured. Stomach and bowel: No oral contrast. Stomach partially decompressed. No small bowel dilatation to suggest obstruction. Colon largely well evacuated of fecal material. Scattered colonic diverticula but no evidence of diverticulitis or colitis. Appendix: Appendix not identified, obscured if present. Correlation with surgical history recommended. Intraperitoneal space: No gross ascites or free air. 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 Diffuse atherosclerotic calcification throughout the abdominal aorta and extending into the pelvic arteries. Lymph nodes: No pathologically enlarged mesenteric, retroperitoneal, or pelvic sidewall lymph nodes. Urinary bladder: Urinary bladder partially obscured by artifact but grossly unremarkable, as seen. Reproductive: Prostate gland and seminal vesicles partially obscured by artifact and not well evaluated but grossly normal in size. Bones/joints: Given 5 lumbar vertebral bodies, tiny bilateral vestigial ribs at L1 and a preserved rudimentary disc at S1-S2. Please note that vertebral body numbering is not definitive in the absence of complete spinal visualization. Given this numbering system, old superior endplate compression fracture deformity at L1 with mild loss of central vertebral height and a Schmorl's node extending through the superior endplate. No acute fracture or malalignment seen. Suggestion of an old tailbone fracture at the S4 level. Prior left hip arthroplasty with streak artifact created by the metallic prosthesis partially obscuring the lower pelvis. Soft tissues: Diastasis recti. No significant ventral or inguinal hernia. Notes: CT imaging through the lumbar spine obtained concurrently, dictated separately. IMPRESSION: 1. No acute bowel pathology demonstrated. 2. Prominent gallbladder distention. Suggestion of tiny stones and/or sludge in the gallbladder neck. Clinical correlation is recommended. No biliary dilatation. Dictated and Authenticated by: Alex Hoskins MD. Orderin Nicho Jay MD
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
--- NOTE | 2024-09-07 03:20 | W.PC.ACHO ---
Registration Status: Primary Language: Preferred Language: ED Information & Data Chief Complaint Orthopedic 09/06/24 23:07 Triage Note arrives via EMS from home, 09/06/24 22:48 has been falling a lot recently, typically does not transport to hospital. No new fall tonight but increasing pain in L hip through buttocks and down his L leg. normally walks with a walker. Pain gets worse when sitting for long periods of time. Given 1g tylenol and nitrous by EMS. Took aleve at home about 9pm . pain 02/18. 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) Sciatica (05/22/11) Peripheral vascular disease of lower extremity (01/20/17) Obesity (BMI 30-39.9) (05/22/11) Osteoarthrosis, unspecified whether generalized or localized, forearm (05/22/11) Gout (05/22/11) Dysmetabolic syndrome X (05/22/11) Chronic toe pain, bilateral (01/20/17) Central stenosis of spinal canal (11/11/17) Chronic airway obstruction, not elsewhere classified (05/12/10) Benign prostatic hyperplasia (05/22/11) Alcohol abuse, unspecified (08/14/11) Obesity Prostatism Central stenosis of spinal canal Cardiomyopathy COPD (chronic obstructive pulmonary disease) History of ETOH abuse Diastasis recti PVD (peripheral vascular disease) Pulmonary emphysema Dysmetabolic syndrome DJD (degenerative joint disease) Orchitis Chronic toe pain, bilateral Epididymitis Diverticula of colon Depression Atrial fibrillation Tubular adenoma Dyslipidemia Actinic keratosis Gout Sciatica MARK (obstructive sleep apnea) Basal cell carcinoma BPH (benign prostatic hyperplasia) Chronic pruritus Right sided sciatica Osteoarthritis of left hip Duodenal ulcer hemorrhagic Duodenal ulcer (Last Reviewed 09/07/24 @ 02:04 by Sherman Franco) H/O thyroidectomy (~09/2021) Cortical cataract of right eye Nuclear sclerotic cataract of right eye Bimalleolar fracture of right ankle Status post thyroidectomy (10/08/19) egd/KELLI test, cauterization of ulcer (12/30/15) Shave C and D, biopsy proven BCCA (08/04/14) L ant Total Hip Arthroplasty (03/03/17) EGD w/ BX 04/18/16 Most Recent Vital Signs Temperature 36.1 C L 09/06/24 22:48 Pulse 63 09/07/24 00:01 Pulse 74 09/07/24 01:50 Respiratory Rate 20 09/07/24 01:50 Blood Pressure 139/56 L 09/07/24 00:01 Blood Pressure Mean 82 09/07/24 00:01 Blood Pressure Position Supine 09/06/24 22:48 Pulse Oximetry 94 09/07/24 00:01 Oxygen Delivery Method Room Air 09/06/24 22:48 Oxygen Flow Rate 0 09/06/24 22:48 Pain Level 10 09/06/24 23:16 Allergies No Known Allergies Allergy (Verified 09/06/24 22:58) Precautions Isolation Standard precaution 09/06/24 22:55 Active Medications Generic Name Dose Route Start Last Admin Trade Name Freq PRN Reason Stop Dose Admin Iohexol 100 ml 09/07/24 00:45 09/07/24 00:38 Omnipaque 350 Mg/Ml 100 Ml Btl IJ 10/07/24 23:59 100 ml DIRECTED JULIOCESAR Administration Sodium Chloride 50 ml 09/07/24 00:45 09/07/24 00:39 Normal Saline - Diluent 50 Ml Vial IJ 50 ml .FOR DI USE JULIOCESAR Administration IV IV Catheter Type [Left Peripheral IV Antecubital] IV Catheter Gauge [Left 18 Antecubital] Diagnostics 09/06/24 Range/Units 23:18 WBC 10.71 (4.4-10.8) 10^3/uL RBC 3.89 L (4.36-5.78) 10^6/uL Hgb 11.1 L (13.5-17.5) g/dL Hct 34.6 L (40.0-50.0) % MCV 89 (80-95) fL MCH 28.5 (27.0-33.0) pg MCHC 32.1 (32.0-36.0) % RDW 14.2 H (11.8-14.1) % Plt Count 250 (130-400) 10^3/uL MPV 9.7 (8.0-11.0) fL Sodium 143 (136-145) mmol/L Potassium 4.3 (3.5-5.1) mmol/L Chloride 105 (98-107) mmol/L Carbon Dioxide 28.1 (21.0-32.0) mmol/L Anion Gap 9.9 (3-11) mmol/L BUN 17 (7-18) mg/dL Creatinine 1.4 H (0.70-1.30) mg/dL Est GFR (CKD-EPI 2020) 49.87 (mL/min/1.73m2) Glucose 98 (74-106) mg/dL Calcium 9.3 (8.5-10.1) mg/dL Intake and Output - 24 Hour Total 09/06/24 22:39 thru 09/06/24 22:48 Weight 97.8 kg Falls Risk Assessment History of Falls Previous History 09/06/24 22:56 Contributing Factors Impairments 09/06/24 22:56 Ambulatory Aids Uses ambulatory device + 09/06/24 22:56 Tubes/Lines With any additional score 09/06/24 22:56 Gait Evaluation W/any additional score 09/06/24 22:56 Cognition No cognitive impairment 09/06/24 22:56 Fall Total Score 88 09/06/24 22:56 Level of Risk Maximum Risk 09/06/24 22:56 Problems (Last Reviewed 09/07/24 @ 02:04 by Sherman Franco) Depression with anxiety (Chronic) Intractable back pain (Acute) Left lumbar radiculopathy (Acute) Acute exacerbation of chronic low back pain (Acute) 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 Information / Comments: came in with EMS, reports of recent falls, no fall tonight, increase pain in left hip and buttocks and left leg and lower back. Usually walks with walker, unable to. ABD/PELVIS/LUMBAR spine CT done-nothing acute, needs an MRI. 8mg morphine given and 60mg norflex, more comfortable but is still in pain. Hx of Afib, #18 LAC, hover mat under patient, patient is able to pivot and assist in movement. Has not voided. Alert and oriented, lives at home with . Report received from: Мария Rodriguez @ [phone]
[2024-09-07] MEDS: MORPHine 4 MG/ML SYR IVP (04:46)
[2024-09-07] MEDS: Normal Saline Flush 10 ML SYR IVP ×2 (04:47→07:35)
[2024-09-07] MEDS: Levothyroxine 175 MCG TAB PO (05:05)
[2024-09-07 06:30] LABS: HCT 33.9 % (40.0-50.0); HGB 10.7 g/dL (13.5-17.5); MCH 28.2 pg (27.0-33.0); MCHC 31.6 % (32.0-36.0); MCV 89 fL (80-95); MPV 9.9 fL (8.0-11.0); Platelet Count 233 10^3/uL (130-400); RDW 14.1 % (11.8-14.1); RDW-SD 45.6 fL; WBC 9.51 10^3/uL (4.4-10.8)
[2024-09-07 06:45] LABS: Bilirubin Small (Negative); Blood Negative (Negative); Clarity Clear (Clear); Glucose Negative (Negative); Ketones 15 mg/dL (Negative); Leukocyte Esterase Negative (Negative); Nitrite Negative (Negative); Specific Gravity <= 1.005 (1.005-1.025); Urobilinogen 0.2 mg/dL (Up to 0.2)
[2024-09-07 06:56] LABS: *AMPHETAMINES SCREEN URINE Negative (Negative); *BARBITURATES SCREEN URINE Negative (Negative); *BENZODIAZEPINES SCREEN URINE Negative (Negative); Bacteria Few HPF (Negative); C & S Indicated? No; Cannabinoids THC Negative (Negative); Casts Negative LPF (Negative); Cocaine Screen,Urine Negative (Negative); Crystals Negative HPF (Negative); Epithelial Cells Moderate HPF (Negative); METHADONE URINE SCREEN Negative (Negative); Mucus Trace (Negative); OPIATES URINE SCREEN Positive (Negative); RBC 0-2 HPF (0-2)
[2024-09-07 06:56] LABS: ALT 21 U/L (16-63); AST 26 U/L (15-37); Albumin 3.6 g/dL (3.4-5.0); Alkaline Phosphatase 90 U/L (46-116); Anion Gap 7.3 mmol/L (3-11); BUN 17 mg/dL (7-18); Bilirubin, Total 0.9 mg/dL (0.2-1.0); CO2 29.7 mmol/L (21.0-32.0); CREATININE 1.4 mg/dL (0.70-1.30); Calcium 9.1 mg/dL (8.5-10.1); Chloride 105 mmol/L (98-107); Estimated GFR 49.87 (mL/min/1.73m2); Glucose 81 mg/dL (74-106); Magnesium 1.8 mg/dL (1.8-2.4); Potassium 3.9 mmol/L (3.5-5.1); Sodium 142 mmol/L (136-145); Total Protein 6.5 g/dL (6.4-8.2)
[2024-09-07 06:59] LABS: Tricyclic Antidepressants Positive (Negative)
[2024-09-07 07:04] LABS: TSH (W/Ref FT4) 0.83 uIU/mL (0.36-3.74)
[2024-09-07] MEDS: Pantoprazole 40 MG TABCR PO (07:34)
[2024-09-07] MEDS: Apixaban 5 MG TAB PO (07:34)
[2024-09-07] MEDS: dilTIAZem CD 180 MG CAPCR PO (07:34)
[2024-09-07] MEDS: Metoprolol CR 25 MG TABCR PO (07:34)
[2024-09-07] MEDS: buPROPion-XL 150 MG TABCR 300 MG PO (07:35)
[2024-09-07] MEDS: DULoxetine 20 MG CAP PO (07:35)
[2024-09-07] MEDS: Gabapentin 600 MG TAB PO (07:35)
[2024-09-07] MEDS: Finasteride 5 MG TAB PO (07:35)
[2024-09-07] MEDS: Calcium Citrate 950 MG TAB 1900 MG PO (08:05)
[2024-09-07] MEDS: Acetylcysteine 600 MG CAP PO (08:05)
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
--- NOTE | 2024-09-07 09:29 | NUR.NOTE ---
Nursing Note: pt states he will be able to tolerate laying flat on his back for MRI without pain, pt refused PRN pain medication prior to going to MRI.
[2024-09-07] MEDS: Gadoterate meglumine 20 ML SYRINGE IVP (10:36)
--- NOTE | 2024-09-07 11:05 | DI.MRI_ITS ---
Exam(s) MR LUMBAR SPINE WO/W EXAM: MR LUMBAR SPINE WO/W CLINICAL HISTORY: Intractable lumbar back pain/thyroid cancer. TECHNIQUE: Multiplanar multisequence MRI of the Lumbar spine was performed. Post gadolinium T1 axial and fat suppressed T1 axial and sagittal sequences and were performed. COMPARISON: MR MRI - LUMBAR SPINE WO CONTRAST from 11/10/2017 CR XR LUMBAR SPINE COMPLETE from 09/01/[address] LUMBAR SPINE RECONS from 09/07/2024 FINDINGS: Bones: The last intervertebral disc space is designated the L5/S1 level for the numbering purpose of this ex amination. This is a transitional type vertebral body. Stable appearance of old mild compression of the superior endplate of T12. Stable appearance of j luis ngioma in the T11 vertebral body. Alignment: Unremarkable. The marrow signal characteristics are unremarkable. No suspicious lesions. Cord: The conus tip ends at the T12 level. It is of normal size and signal intensity. T12-L1: No focal disc herniation is present. No central spinal canal stenosis.No neural foraminal st enosis. L1-2: No focal disc herniation is present. No central spinal canal stenosis.No neural foraminal sten osis. L2-3:Mild disc bulging, similar to prior. Mild facet degenerative changes. No focal disc herniation is present. Moderate central spinal canal stenosis, worsening from prior..Mild bilateral neural fo raminal stenosis. L3-4: Mild loss of disc height. Broad-based disc osteophytes. Facet degenerative changes and ligame ntous hypertrophy causing mild central canal stenosis. Mild left neural foraminal narrowing. L4-5:Moderate loss of disc height. Broad-based disc osteophytes. Facet degenerative changes. Sligh t central canal stenosis. Neural foraminal narrowing, greater on the left. No focal disc herniation is present. L5-S1: Rudimentary disc. No focal disc herniation is present. No central spinal canal stenosis.No neural foraminal stenosis. The visualized SI joints and sacrum are unremarkable. Soft tissues: The paraspinal soft tissues are unremarkable. No suspicious enhancement. IMPRESSION: Degenerative disc changes and facet degenerative changes combine to produce moderate central canal st enosis at L2-3 and mild central canal stenosis at L3-4 and L4-5. No evidence of acute fracture or suspicious bony lesions.. Stable mild compression deformity of supe rior endplate of T12.. Stable appearance of hemangioma of T11. DATA REPOSITORY:
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
--- NOTE | 2024-09-07 13:01 | PDOC.HHF2F_ITS ---
Home Health Referral Home Health Orders Clinical synopsis of why skilled professionals are needed: Intractable back pain, left lumbar rediculopathy, lumbar sine DJD Physical Therapist: Check all that apply Increase strength & endurance for safe mobility at home: Ordered To design/establish home maintenance program: Ordered Fall reduction therapy program for patient with history of frequent falls: Jeannine luu Home safety evaluation and teaching/gait training including stair management (if applicable): Ordered Encounter Date and Reason: I certify that a FTF encounter for this patient was performed on September 07, 2024 and that such encounter was related to the primary reason the patient requires home health services. The encounter was conducted in the following manner: * By me as the certifying physician, WEB UI DEVELOPER, PA or * By an inpatient physician, WEB UI DEVELOPER or PA during an inpatient stay who communicated findings to me, Certification And Authentication I certify that I composed the above information based on my clinical judgment relating to this patient's medical condition and, if applicable, clinical findings communicated to me by the NPP or inpatient physician who performed the FTF encounter. Name of Provider that will be monitoring home health services: Ofe Carlson
--- NOTE | 2024-09-07 13:10 | CMDISCH_ITS ---
Date of service: 09/07/24 Time of Service: 13:10 LACE Index Scoring Tool Questions: Length of Stay (in days): 1 Was the patient admitted via the E.D.?: Yes Comorbidities: PVD, Chronic Pulmonary Disease and Metastatic Solid Tumor E.D. Visits: 5 Answers: Total Score: 13 Risk of Readmission: High Risk Care Management Discharge Plan Reason for Hospitalization: back pain Discharge Plan: Mario will be discharged home with new home health PT services. He will follow up with his community providers and plan of care and transport with family. Patient/Family Education Needs: Review of discharge instructions, limitations, follow up plan and discuss Ask Me Three Services Needed at Discharge: Home Health Care Services SDOH Health Related Social Needs: Health related social needs feeling lonely/isolated (Z 60.8) Health related social needs details doesn't get out as much as used to, brothers are sick/ Health related social needs details: doesn't get out as much as used to, brothers are sick/
== END 2024-09-07 13:25 | disposition home health service (06) ==
LOC: ER 09-07 02:41 → MS 09-07 03:36
PROVIDERS: Admitting Provider Family Medicine; Emergency Provider Emergency Medicine; PCP Nurse Practitioner Adult Health; Responsible Provider Family Medicine; Visit Provider Family Medicine
DX: M48.061 Spinal stenosis, lumbar region without neurogenic claudication; M51.16 Intervertebral disc disorders with radiculopathy, lumbar region; G89.29 Other chronic pain; C77.9 Secondary and unspecified malignant neoplasm of lymph node, unspecified; E89.0 Postprocedural hypothyroidism; I48.20 Chronic atrial fibrillation, unspecified; J44.9 Chronic obstructive pulmonary disease, unspecified; I73.9 Peripheral vascular disease, unspecified; I42.9 Cardiomyopathy, unspecified; G47.33 Obstructive sleep apnea (adult) (pediatric); E78.2 Mixed hyperlipidemia; F10.10 Alcohol abuse, uncomplicated; F41.8 Other specified anxiety disorders; R29.6 Repeated falls; Z79.01 Long term (current) use of anticoagulants; Z85.850 Personal history of malignant neoplasm of thyroid; Z79.899 Other long term (current) drug therapy; G62.9 Polyneuropathy, unspecified; N40.1 Benign prostatic hyperplasia with lower urinary tract symptoms; N13.8 Other obstructive and reflux uropathy; Z96.642 Presence of left artificial hip joint
CPT/HCPCS: 00123; 36415; 72158; 80048; 80053; 80307; 85027; 96374; 96375; 96376; 97530; 99285; J2360; 74177; 81003; 81015; 83735; 84443; 99236; G0378; J2270; J3490

== ENCOUNTER 2024-09-08 21:35 | Emergency (ER) | payer MEDICARE, BC, SELFPAY ==
[2024-09-08 21:34] VITALS: BP 157/88; PULSE 81; RESP 20; TEMP 36.6; O2SAT 96
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
[2024-09-08] MEDS: HYDROmorphone 2 MG/ML SYR 1 MG IVP (21:54)
[2024-09-08] MEDS: Dexamethasone 10 MG/ML VIAL IVP (21:54)
[2024-09-08] MEDS: Lidocaine 5% Patch 1 PATCH TP (21:54)
[2024-09-08] MEDS: Cyclobenzaprine 10 MG TAB PO (21:55)
[2024-09-08] MEDS: Gabapentin 300 MG CAP PO (21:55)
[2024-09-08 22:00] VITALS: O2SAT 95
[2024-09-08 22:32] VITALS: PULSE 85; O2SAT 95
[2024-09-08 22:42] VITALS: PULSE 84; O2SAT 97
[2024-09-08 23:30] VITALS: O2SAT 95
[2024-09-09 00:15] VITALS: BP 148/78; PULSE 78; RESP 20; O2SAT 95
== END 2024-09-09 00:57 | disposition home or self-care (01) ==
PROVIDERS: Emergency Provider Physician Assistant; PCP Nurse Practitioner Adult Health
DX: M54.32 Sciatica, left side (principal); E78.5 Hyperlipidemia, unspecified; E89.0 Postprocedural hypothyroidism; J44.9 Chronic obstructive pulmonary disease, unspecified; Z79.01 Long term (current) use of anticoagulants; Z87.891 Personal history of nicotine dependence
CPT/HCPCS: 96374; 96375; 99284; J1100; J1171

== ENCOUNTER 2024-09-23 01:13 | Outpatient (CLI) | payer MEDICARE, BC, SELFPAY ==
--- NOTE | 2024-09-23 12:27 | DI.RAD_ITS ---
Exam(s) XR FOOT RT COMPLETE EXAM: XR FOOT RT COMPLETE CLINICAL HISTORY: ? healing,fx prox phalanx rt great toe,lesser toe rt foot. TECHNIQUE: 2D digital imaging was performed of the right foot. Three images were obtained. AP, obl ique and lateral views were obtained. COMPARISON: CR XR FOOT RT COMPLETE from 08/24/2024 FINDINGS: BONES: There has been no change in alignment of the oblique fracture through the medial aspect of the base of the proximal phalanx of the great toe. The fracture line is still visualized. There are ol d healed fracture deformities again seen of the 4th and 5th metatarsals. No bony destructive lesion is seen. Orthopedic screws in a sideplate are seen in the distal fibula and tibia. JOINTS: No dislocation present. Mild degenerative changes are seen in the foot. There is a plantar c alcaneal spur. SOFT TISSUE: Atherosclerotic calcification is present. IMPRESSION: Stable alignment of the fracture involving the proximal phalanx of the great toe. DATA REPOSITORY: RADIATION DOSE DELIVERED:
== END 2024-09-23 01:33 ==
LOC: DI 01:14
PROVIDERS: PCP Nurse Practitioner Adult Health; Visit Provider Podiatrist
DX: S92.411D Displaced fracture of proximal phalanx of right great toe, subsequent encounter for fracture with routine healing (principal); S92.511D Displaced fracture of proximal phalanx of right lesser toe(s), subsequent encounter for fracture with routine healing; X58.XXXD Exposure to other specified factors, subsequent encounter
CPT/HCPCS: 73630

== ENCOUNTER → 2024-09-27 09:43 | Outpatient (BNVA) | payer MEDICARE, BC, SELFPAY | PROVIDERS: PCP Nurse Practitioner Adult Health; Referring Provider Nurse Practitioner Adult Health; Visit Provider Podiatrist | DX: S92.411D Displaced fracture of proximal phalanx of right great toe, subsequent encounter for fracture with routine healing (principal); S92.511D Displaced fracture of proximal phalanx of right lesser toe(s), subsequent encounter for fracture with routine healing; X58.XXXD Exposure to other specified factors, subsequent encounter; R26.89 Other abnormalities of gait and mobility; R29.6 Repeated falls | CPT/HCPCS: 99213 ==

== ENCOUNTER → 2024-10-21 09:46 | Outpatient (BNVA) | payer MEDICARE, BC, SELFPAY | PROVIDERS: PCP Nurse Practitioner Adult Health; Referring Provider Nurse Practitioner Adult Health; Visit Provider Internal Medicine Cardiovascular Disease | DX: I95.1 Orthostatic hypotension (principal); I48.20 Chronic atrial fibrillation, unspecified | CPT/HCPCS: 99214 ==

== ENCOUNTER 2024-10-27 02:23 | Outpatient (CLI) | payer MEDICARE, BC, SELFPAY ==
--- NOTE | 2024-10-27 09:46 | DI.RAD_ITS ---
Exam(s) XR TOE RT GREAT EXAM: XR TOE RT GREAT CLINICAL HISTORY: ? healed, fx proximal phalanx rt great toe,[id number]. TECHNIQUE: 2D digital imaging was performed. Three images were obtained. COMPARISON: CR XR FOOT RT COMPLETE from 09/23/2024 FINDINGS: BONES: There has been no change in alignment of the fracture of the base of the proximal phalanx of the great toe. The fracture line is less well visualized suggesting some interval healing. Old healed 4th and 5th metatarsal fractures are seen. Orthopedic Sideplate and screws are seen in the distal tibia and fibula. No bony destructive lesion is seen. JOINTS: No dislocation present. SOFT TISSUE: Normal. IMPRESSION: Some interval healing is noted of the fracture of the proximal phalanx of the great toe. DATA REPOSITORY: RADIATION DOSE DELIVERED:
== END 2024-10-27 02:43 ==
LOC: DI 02:23
PROVIDERS: PCP Nurse Practitioner Adult Health; Visit Provider Podiatrist
DX: S92.411D Displaced fracture of proximal phalanx of right great toe, subsequent encounter for fracture with routine healing (principal); X58.XXXD Exposure to other specified factors, subsequent encounter
CPT/HCPCS: 73660

== ENCOUNTER → 2024-11-01 13:45 | Outpatient (BNVA) | payer MEDICARE, BC, SELFPAY | PROVIDERS: PCP Nurse Practitioner Adult Health; Referring Provider Nurse Practitioner Adult Health; Visit Provider Podiatrist | DX: L60.3 Nail dystrophy (principal); R26.89 Other abnormalities of gait and mobility; G62.9 Polyneuropathy, unspecified; D50.9 Iron deficiency anemia, unspecified; I73.89 Other specified peripheral vascular diseases; R09.89 Other specified symptoms and signs involving the circulatory and respiratory systems; R60.0 Localized edema; R20.8 Other disturbances of skin sensation; L65.9 Nonscarring hair loss, unspecified; L53.8 Other specified erythematous conditions; R23.8 Other skin changes; L60.2 Onychogryphosis | CPT/HCPCS: 99213; 11721 ==

== ENCOUNTER → 2024-11-25 11:17 | Outpatient (BNVA) | payer MEDICARE, BC, SELFPAY | PROVIDERS: PCP Nurse Practitioner Adult Health; Referring Provider Nurse Practitioner Adult Health; Visit Provider Internal Medicine Pulmonary Disease | DX: J44.9 Chronic obstructive pulmonary disease, unspecified (principal); R91.1 Solitary pulmonary nodule; G47.33 Obstructive sleep apnea (adult) (pediatric); Z87.891 Personal history of nicotine dependence | CPT/HCPCS: 99215 ==

== ENCOUNTER 2024-12-02 08:03 | Outpatient (CLI) | payer MEDICARE, BC, SELFPAY ==
[2024-12-02 08:10] VITALS: BP 127/81; PULSE 99; RESP 19; TEMP 36.5; O2SAT 96
[2024-12-02 08:59] VITALS: PULSE 93; PULSE 94; RESP 21; O2SAT 96
[2024-12-02 09:00] VITALS: BP 155/111; PULSE 88; PULSE 93; RESP 13; O2SAT 97
[2024-12-02 09:01] VITALS: PULSE 103; PULSE 96; RESP 15; O2SAT 98
[2024-12-02 09:14] VITALS: BP 149/80; PULSE 78
--- NOTE | 2024-12-02 09:14 | DI.RAD_ITS ---
Exam(s) XR PAIN CLINIC LUMBAR SP 2V EXAM: XR PAIN CLINIC LUMBAR SP 2V CLINICAL HISTORY: DX: Lumbar Radiculopathy. TECHNIQUE: Fluoroscopy was provided for the referring physician for guidance with performing pain clinic injection procedure. COMPARISON: No exams were available for comparison FINDINGS: Please see procedure note for details. Fluoro time: 19.9 seconds RADIATION DOSE DELIVERED: Ka,r=10.6 mGy
[2024-12-02] MEDS: Omnipaque 240 MG/ML 50 ML BTL IJ (09:17)
[2024-12-02] MEDS: Epidural Tray 1 EACH MC (09:17)
[2024-12-02] MEDS: methylPREDNISolone ACETATE 80 MG/ML VIAL IJ (09:17)
--- NOTE | 2024-12-02 15:34 | PDOC.PAIN ---
Date of service: 12/02/24 Time of Service: 08:45 Pain Managment Procedure Note Procedure Note Procedure Note: PROCEDURE NOTE LUMBAR EPIDURAL STEROID INJECTION Date of Service: December 02, 2024 Patient:Mario Zaragoza? Provider: Sherman Card DO, MPH Mario Gallardo has been referred to the [facility] for a lumbar epidural steroid injection. Pre-operative diagnosis: Lumbosacral Radiculopathy ICD-10 M54.16 Post-operative diagnosis: Same Pre-Procedure Pain: VAS= 9 /10 Comments: His Eliquis has been held. No change from his last office visit in terms of symptoms. Mario was interviewed and the medical record was reviewed.? There were no medical, pharmacologic, radiographic or other structural contraindications to attempting fluoroscopically guided Lumbar epidural steroid injection.? Risks, potential side effects, indications, and potential benefits of the procedure were reviewed with Mario.? Questions and concerns were addressed.? After it was clear that Mario was fully informed about the procedure, the printed consent form was signed by the patient and myself.? Mario was placed in the prone position on the fluoroscopy table and automated blood pressure cuff and pulse oximeter applied. The skin entry point for entering/approaching the epidural space for the lumbar epidural steroid injection was marked. Following thorough chlorhexadine preparation of the skin and draping and 1% lidocaine infiltration of the skin entry point and subcutaneous tissues, an 18 gauge Touhy needle was placed and advanced under fluoroscopic guidance and with loss of resistance technique into the L5-S1 epidural space. Needle tip placement and depth were aided and confirmed by fluoroscopy. There was no paresthesia or return of blood or CSF through the needle. 1 mls of Omnipaque 240 was injected with clear epidural spread confirmed with fluoroscopy. 80 mg of Depo-Medrol was? injected. This was followed by 1 ml of preservative-free normal saline to flush the steroid out of the needle. There was no unusual discomfort expressed by Mario. The needle was withdrawn without difficulty. (49 mls of Omnipaque was wasted) Mario was observed and was without hemodynamic, neurologic, or allergic reactions.? Fluoroscopic images were digitally archived. Mario's vital signs were stable throughout the procedure and were as recorded in nursing records. Follow up plans and appointments were discussed with Mario. Post procedure instruction was given as documented in nursing records and having met discharge criteria Mario was discharged from the [facility]. COMMENTS: No apparent complications. Post-procedure pain: VAS= 1/10. Mario to contact [facility] as needed. If at least 50% improvement in pain and/or function for at least 3 months is achieved, this procedure can be repeated. I personally performed this entire procedure. SHERMAN CARD DO, MPH ABPMR-subspecialty board certification in Pain Medicine [facility] Coding Conscious Sedation used for procedure: No CPT Codes: Inj Spine L/S w/Imaging - [id number] ([id number] ~G) Additional Codes: Date of Service (39087) Date of service: 12/02/24 Diagnoses: Lumbar radiculopathy
== END 2024-12-02 08:04 | disposition home or self-care (01) ==
LOC: PC 08:04
PROVIDERS: PCP Nurse Practitioner Adult Health; Visit Provider Preventive Medicine Occupational Medicine
DX: M54.50 Low back pain, unspecified (principal); M54.16 Radiculopathy, lumbar region
CPT/HCPCS: 62323; 72100; J1010; Q9967

== ENCOUNTER 2025-01-12 12:35 | Outpatient (CLI) | payer MEDICARE, BC, SELFPAY ==
--- NOTE | 2025-01-12 14:09 | DI.RAD_ITS ---
Exam(s) XR FOOT RT COMPLETE EXAM: XR FOOT RT COMPLETE CLINICAL HISTORY: Right foot pain, displaced fracture rt great toe, rt lesser toe. TECHNIQUE: 2D digital imaging was performed. Three views. COMPARISON: CR XR FOOT RT COMPLETE from 08/24/2024 CR XR FOOT RT COMPLETE from 09/23/2024 CR XR TOE RT GREAT from 10/27/2024 FINDINGS: BONES: There has been continued healing at the fracture at the medial in basilar corner of the proximal phalanx of the great toe. Old 4th and 5th metatarsal fractures are again noted. No acute fracture is present. No bony destructive lesion is seen. There is hardware in the distal tibia and fibula. JOINTS: No dislocation present. Mild degenerative changes. SOFT TISSUE: Vascular calcifications. IMPRESSION: Continued healing of fracture at the base of the proximal phalanx of the great toe. DATA REPOSITORY: RADIATION DOSE DELIVERED:
== END 2025-01-12 12:55 ==
PROVIDERS: PCP Nurse Practitioner Adult Health; Visit Provider Podiatrist
DX: M79.671 Pain in right foot (principal); S92.411D Displaced fracture of proximal phalanx of right great toe, subsequent encounter for fracture with routine healing; S92.511D Displaced fracture of proximal phalanx of right lesser toe(s), subsequent encounter for fracture with routine healing; X58.XXXD Exposure to other specified factors, subsequent encounter; L60.3 Nail dystrophy; G62.9 Polyneuropathy, unspecified; G57.91 Unspecified mononeuropathy of right lower limb; R26.89 Other abnormalities of gait and mobility; I73.89 Other specified peripheral vascular diseases; M20.21 Hallux rigidus, right foot
CPT/HCPCS: 20600; J0702; J1100; 73630

== ENCOUNTER 2025-01-21 03:46 | Outpatient (CLI) | payer MEDICARE, BC, SELFPAY ==
--- NOTE | 2025-01-21 06:00 | DI.CT_ITS ---
Exam(s) CT CHEST WO EXAM: CT CHEST WO CLINICAL HISTORY: pulmonary lung nodule,r91.1. TECHNIQUE: Multi planar reconstructions were performed. CONTRAST MATERIAL: None COMPARISON: CT CT CHEST WO from 03/27/2020 FINDINGS: CHEST: LUNGS: There is continued stable appearance of the previously described partially calcified scarring in the posterior aspect of the right upper lobe. There is stable mild scarring in the opposite-left lung base again noted. There are no new infiltrates nor pleural effusions. A tiny granuloma in the right lower lobe just above the hemidiaphragm is unchanged. There are no new concerning lung nodules. MEDIASTINUM: There is no obvious hilar nor mediastinal adenopathy. 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 CARDIAC: Heart size is normal. There is no pericardial effusion.Caliber of the thoracic aorta is within normal limits. VISUALIZED UPPER ABDOMEN:No adrenal masses. Spleen size normal. Benign cysts noted in the partially included kidneys. OSSEOUS: No new fractures. No osseous lesions. There is a healed sternal fracture again noted as well as slight loss of height of the superior endplate of T7 and L1, both unchanged.. IMPRESSION: 1. Compared to the CT scan of March 2020 there is stable appearance of the previously described scarring in the right upper lobe. There are no new significant pulmonary findings and there are no pleural effusions nor intrathoracic adenopathy. 2. Previous thyroidectomy again noted. No abnormal tissue seen in this region. 3. Other findings as above. RADIATION DOSE DELIVERED: 348.47mGy.cm Total DLP DATA REPOSITORY: All CT scans at this facility are submitted to the National Radiology Data Registry (NRDR) Dose Index Registry (DIR) with the [employer] ([employer]). RADIATION OPTIMIZATION: All CT scans at this facility use at least one of these dose optimization techniques: automated exposure control; mA and/or kV adjustment per patient size (includes targeted exams where dose is matched to clinical indication); or iterative reconstruction.
== END 2025-01-21 04:06 ==
PROVIDERS: PCP Nurse Practitioner Adult Health; Visit Provider Internal Medicine Pulmonary Disease
DX: R91.1 Solitary pulmonary nodule (principal); S92.411D Displaced fracture of proximal phalanx of right great toe, subsequent encounter for fracture with routine healing
CPT/HCPCS: 71250

== ENCOUNTER → 2025-01-26 09:37 | Outpatient (BNVA) | payer MEDICARE, BC, SELFPAY | PROVIDERS: PCP Nurse Practitioner Adult Health; Referring Provider Nurse Practitioner Adult Health; Visit Provider Internal Medicine Pulmonary Disease | DX: J44.9 Chronic obstructive pulmonary disease, unspecified (principal); Z87.891 Personal history of nicotine dependence | CPT/HCPCS: 99214 ==

== ENCOUNTER 2025-02-04 10:37 | Emergency (ER) | payer MEDICARE, BC, SELFPAY ==
--- NOTE | 2025-02-04 10:30 | RT.EKG_ITS ---
APPROVED REPORT Exam: Resting ECG Reason for Exam: weakness Patient Location: E HR:108 bpm ECG Measurements Heart Rate 108 AXIS AR [id number] P [id number] QRSd 86 QRS 45 QT 343 T 101 QTc 461 Conclusion Atrial fibrillation...V-rate 78-138, irreg A-activity Ventricular premature complex...V complex w/ short R-R interval Probable anterior infarct, age indeterminate...Q >35mS, T neg, V2-V5 No STEMI
[2025-02-04 10:38] VITALS: BP 145/74; PULSE 128; RESP 20; TEMP 36.9; O2SAT 96
--- NOTE | 2025-02-04 11:00 | DI.RAD_ITS ---
Exam(s) XR PORTABLE CHEST AP EXAM: XR PORTABLE CHEST AP CLINICAL HISTORY: weakness TECHNIQUE: 2D digital imaging was performed. COMPARISON: CT CT CHEST WO from 01/21/2025 FINDINGS: LUNGS: Clear. No pleural abnormality seen. HEART: Normal size. AORTA: Normal diameter. BONES: Unremarkable for age. Soft tissues: Unremarkable. IMPRESSION: No acute findings. DATA REPOSITORY: RADIATION DOSE DELIVERED:
[2025-02-04 11:17] LABS: Abs Immature Grans 0.03 10^3/uL (0.0-0.06); HCT 33.0 % (40.0-50.0); HGB 10.8 g/dL (13.5-17.5); Immature Grans % 0.5 %; MCH 28.6 pg (27.0-33.0); MCHC 32.7 % (32.0-36.0); MCV 88 fL (80-95); MPV 9.1 fL (8.0-11.0); Platelet Count 188 10^3/uL (130-400); RBC 3.77 10^6/uL (4.36-5.78); RDW 14.6 % (11.8-14.1); RDW-SD 46.7 fL; WBC 6.46 10^3/uL (4.4-10.8)
[2025-02-04] MEDS: Apixaban 5 MG TAB PO (11:19)
[2025-02-04] MEDS: DULoxetine 20 MG CAP PO (11:19)
[2025-02-04] MEDS: Normal Saline 1,000 ML 1000 ML IV (11:19)
[2025-02-04] MEDS: Metoprolol 25 MG TAB PO (11:19)
[2025-02-04] MEDS: ACETAMINOPHEN 1,000 MG/100 ML BAG 400 MG IVPB (11:19)
[2025-02-04] MEDS: Gabapentin 300 MG CAP 600 MG PO (11:19)
[2025-02-04] MEDS: Droperidol 5 MG/2 ML VIAL 1.25 MG IVP (11:28)
[2025-02-04] MEDS: dilTIAZem CD 120 MG CAPCR PO (11:28)
[2025-02-04] MEDS: Atorvastatin 20 MG TAB PO (11:28)
[2025-02-04 11:31] LABS: INR 1.1 (0.9-1.1); PTT Activated 25.4 sec (20.6-30.2); Prothrombin Time 11.0 sec (9.1-11.1)
[2025-02-04 11:37] LABS: ALT 18 U/L (16-63); AST 20 U/L (15-37); Albumin 3.4 g/dL (3.4-5.0); Alkaline Phosphatase 89 U/L (46-116); Anion Gap 7.5 mmol/L (3-11); BUN 9 mg/dL (7-18); Bilirubin, Total 1.0 mg/dL (0.2-1.0); CO2 27.5 mmol/L (21.0-32.0); Calcium 8.5 mg/dL (8.5-10.1); Chloride 105 mmol/L (98-107); Estimated GFR 74.21 (mL/min/1.73m2); Glucose 110 mg/dL (74-106); Magnesium 2.0 mg/dL (1.8-2.4); Potassium 4.0 mmol/L (3.5-5.1); Sodium 140 mmol/L (136-145); Total Protein 6.3 g/dL (6.4-8.2); Troponin I 19 ng/L (<or=76)
--- NOTE | 2025-02-04 11:37 | W.ED.GENAD ---
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 Former [place] [employer], retired in early . 01/12/2020:
[2025-02-04 11:39] VITALS: BP 145/74; PULSE 128; RESP 20; TEMP 36.9; O2SAT 96
[2025-02-04 12:08] LABS: Troponin I 20 ng/L (<or=76)
[2025-02-04] MEDS: MORPHine 4 MG/ML SYR IVP (12:20)
[2025-02-04 12:24] LABS: COVID-19 PCR Negative (Negative); RSV PCR Negative (Negative)
[2025-02-04 13:44] LABS: Glucose Negative (Negative)
[2025-02-04 13:50] LABS: C & S Indicated? No; RBC 0-2 HPF (0-2); WBC Negative HPF (0-5)
== END 2025-02-04 14:18 | disposition home or self-care (01) ==
PROVIDERS: Emergency Provider General Practice; PCP Nurse Practitioner Adult Health
DX: M54.30 Sciatica, unspecified side (principal); I48.20 Chronic atrial fibrillation, unspecified; G62.9 Polyneuropathy, unspecified; Z79.01 Long term (current) use of anticoagulants; Z60.0 Problems of adjustment to life-cycle transitions
CPT/HCPCS: 36415; 80053; 87040; 87637; 93005; 96374; 96375; 99284; 71045; 81003; 81015; 83605; 83735; 84484; 85025; 85610; 85730; 93010; J0131; J1790; J2270

== ENCOUNTER 2025-02-05 01:24 | Observation (INO) | payer MEDICARE, BC, SELFPAY ==
[2025-02-05] VITALS (70 sets, daily range): BP systolic 106–164; BP diastolic 46–135; PULSE 0–152; RESP 12–26; TEMP 36.5–36.7; O2SAT 93–100
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
--- NOTE | 2025-02-05 01:30 | DI.CT_ITS ---
Exam(s) CT ABDOMEN PELVIS CTA EXAM: CT ABDOMEN PELVIS CTA CLINICAL HISTORY: gi bleed. TECHNIQUE: Imaging Protocol: Axial CT angiography was performed with multi- slice acquisition and multi-planar and/or 3D reconstructions. CONTRAST MATERIAL: Intravenous: Omnipaque 350 Contrast volume:100 ml Oral: no COMPARISON: CT CT LUMBAR SPINE RECONS from 09/07/[address] ABDOMEN PELVIS W from 09/07/2024 FINDINGS: Aorta: Atherosclerotic changes. Mildly ectatic measuring 3 cm maximally. No dissection. No significant stenosis. Iliac Arteries: No evidence of stenosis. Common Femoral Arteries: No evidence of stenosis. Celiac Blairs:No evidence of stenosis. SMA: No evidence of stenosis. Renal Arteries: No evidence of stenosis. There is a single renal artery perfusing each kidney. [place]: Patent. Venous structures: Patent. Lung bases:No acute findings. Liver: Normal size. Normal density. No measurable mass. Gallbladder and biliary tract: No evidence of calculi. No gallbladder wall thickening. No biliary dilation. Pancreas: Normal density, no abnormal calcifications or inflammatory process. Spleen: Normal. Kidneys: Normal size, contour and axis. No obstructive uropathy. Bilateral simple renal cysts again noted. No suspicious masses seen. No evidence of calculi. Adrenal glands: No masses seen. Bladder: No gross wall thickening. No evidence of calculi. No evidence of mass. Bowel: The stomach is empty and not well evaluated. There is a question of a roughly 2 centimeter rounded mass in the antrum. No surrounding hemorrhage is visible. No small-bowel obstruction or bowel wall thickening. The colon is redundant. There are scattered diverticula in the descending and sigmoid colon. No evidence of diverticulitis. No area of active GI bleed visible. Peritoneal cavity: No ascites. No focal collection. No mesenteric inflammatory response. Lymph nodes: Within normal limits. Reproductive: Unremarkable. Soft Tissues:Dehiscence of the anterior midline abdominal wall without discrete hernia. Bones: Left hip prosthesis which creates artifact. Degenerative changes in the right hip and lumbar spine. IMPRESSION: No evidence of active GI bleed. Roughly 2 centimeter soft tissue density in the antrum of the stomach. Endoscopy recommended for further evaluation. Diverticulosis of the descending and sigmoid colon. No evidence of diverticulitis. Mild dilatation of the infrarenal abdominal aorta to 3 cm. No evidence dissection. No evidence vascular occlusion or significant stenosis. The preliminary [facility] report was reviewed. RADIATION DOSE DELIVERED: Total DLP DATA REPOSITORY: All CT scans at this facility are submitted to the National Radiology Data Registry (NRDR) Dose Index Registry (DIR) with the [employer] (ACR). RADIATION OPTIMIZATION: All CT scans at this facility use at least one of these dose optimization techniques: automated exposure control; mA and/or kV adjustment per patient size (includes targeted exams where dose is matched to clinical indication); or iterative reconstruction.
[2025-02-05 01:49] LABS: Abs Immature Grans 0.03 10^3/uL (0.0-0.06); HCT 33.3 % (40.0-50.0); HGB 10.9 g/dL (13.5-17.5); Immature Grans % 0.4 %; MCH 29.1 pg (27.0-33.0); MCHC 32.7 % (32.0-36.0); MCV 89 fL (80-95); MPV 9.5 fL (8.0-11.0); Platelet Count 220 10^3/uL (130-400); RBC 3.74 10^6/uL (4.36-5.78); RDW 14.7 % (11.8-14.1); RDW-SD 47.8 fL; WBC 8.37 10^3/uL (4.4-10.8)
[2025-02-05] MEDS: Normal Saline - Diluent 50 ML VIAL IJ (02:41)
[2025-02-05] MEDS: Omnipaque 350 MG/ML 100 ML BTL IJ (02:42)
--- NOTE | 2025-02-05 03:31 | DI.[facility]_ITS ---
PROCEDURE INFORMATION: Exam: CTA Abdomen and Pelvis With Contrast Exam date and time: 02/05/2025 2:33 AM Age: 85 years old Clinical indication: Other: Gi bleed? TECHNIQUE: Imaging protocol: Computed tomographic angiography of the abdomen and pelvis with contrast. Exam focused on the arteries. 3D rendering (Not supervised by radiologist): MIP and/or 3D reconstructed images were created by the technologist. Contrast material: 350; Contrast volume: 100 ml; Contrast route: INTRAVENOUS (IV); COMPARISON: CT ABDOMEN PELVIS W 09/07/2024 12:07 AM FINDINGS: Limitations: Images degraded due to artifact caused by patient motion and metallic hardware. Lungs: Scarring/atelectasis in the visualized lungs. Coronary arteries: Coronary artery calcifications. Aorta: Atherosclerotic changes in the aorta and its branches. Infrarenal abdominal aorta ectatic to 3 cm. Celiac and mesenteric arteries: No occlusion or significant stenosis. Renal arteries: No occlusion or significant stenosis. Right iliac arteries: No occlusion or significant stenosis. Left iliac arteries: No occlusion or significant stenosis. Liver: No mass. Gallbladder and biliary ducts: No gallbladder calculi seen. Distended gallbladder. Pancreas: No evidence for acute pancreatitis. Spleen: No splenomegaly. Adrenal glands: Male mass. Kidneys and ureters: Bilateral renal cysts. Stomach and bowel: There is a 2 cm soft tissue density mass in the distal stomach. No active gastrointestinal hemorrhage appreciated at this time. Fluid in nondilated small and large bowel, nonspecific. Colonic diverticula. Mild thickening of the sigmoid colon, commensurate with underdistention. Appendix: No evidence of appendicitis. Intraperitoneal space: No free air. Lymph nodes: Nonspecific mesenteric lymph nodes. Urinary bladder: No bladder wall thickening. Reproductive: No acute abnormality. Bones/joints: Left hip prosthesis. Artifact limits evaluation of the surrounding tissues. Soft tissues: Unremarkable. IMPRESSION: 1. No active gastrointestinal hemorrhage appreciated at this time. 2. Gastric mass suspicious for neoplasm. Follow-up advised. 3. Mild thickening of the sigmoid colon commensurate with underdistention. Cannot exclude mild underlying colitis. Clinical correlation advised. 4. Additional findings as above. Dictated and Authenticated by: Mckayla Frank MD. Orderin Nicho Jay MD
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
[2025-02-05 05:49] LABS: Abs Immature Grans 0.03 10^3/uL (0.0-0.06); HCT 32.0 % (40.0-50.0); HGB 10.3 g/dL (13.5-17.5); Immature Grans % 0.3 %; MCH 28.8 pg (27.0-33.0); MCHC 32.2 % (32.0-36.0); MCV 89 fL (80-95); MPV 9.8 fL (8.0-11.0); Platelet Count 195 10^3/uL (130-400); RBC 3.58 10^6/uL (4.36-5.78); RDW 14.6 % (11.8-14.1); RDW-SD 48.2 fL; WBC 9.01 10^3/uL (4.4-10.8)
[2025-02-05] MEDS: Pantoprazole 40 MG TABCR PO (06:01)
[2025-02-05 06:03] LABS: ALT 14 U/L (16-63); AST 25 U/L (15-37); Albumin 3.2 g/dL (3.4-5.0); Alkaline Phosphatase 81 U/L (46-116); Anion Gap 8.6 mmol/L (3-11); BUN 10 mg/dL (7-18); Bilirubin, Total 0.8 mg/dL (0.2-1.0); CO2 27.4 mmol/L (21.0-32.0); Calcium 8.4 mg/dL (8.5-10.1); Chloride 105 mmol/L (98-107); Estimated GFR 74.21 (mL/min/1.73m2); Glucose 115 mg/dL (74-106); Magnesium 2.2 mg/dL (1.8-2.4); Potassium 3.4 mmol/L (3.5-5.1); Sodium 141 mmol/L (136-145); Total Protein 5.9 g/dL (6.4-8.2)
[2025-02-05] MEDS: Levothyroxine 175 MCG TAB PO (06:15)
[2025-02-05] MEDS: Tamsulosin 0.4 MG CAPCR PO ×2 (08:31→20:32)
[2025-02-05] MEDS: DULoxetine 20 MG CAP PO (08:31)
[2025-02-05] MEDS: dilTIAZem CD 120 MG CAPCR PO (09:24)
[2025-02-05] MEDS: Gabapentin 600 MG TAB PO ×2 (09:24→20:32)
[2025-02-05] MEDS: buPROPion-XL 150 MG TABCR 300 MG PO (09:24)
[2025-02-05] MEDS: Finasteride 5 MG TAB PO (09:24)
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
--- NOTE | 2025-02-05 12:19 | W.PC.ACHO ---
Registration Status: ADM ALEJANDRINA Primary Language: Preferred Language: Ukrainian ED Information & Data Chief Complaint GI Bleed 02/05/25 01:29 Chief Complaint GI Bleed 02/05/25 01:25 Other Complaint Abd Prob 02/05/25 01:25 Triage Note PT reports rumbling in abd 02/05/25 01:25 along with loose stools. PT concerned about red streaks after wiping. Medical / Surgical History (Last Reviewed 02/05/25 @ 03:43 by Pierre Torre MD) Orthostatic hypotension Depressive disorder (05/22/11) Anxiety disorder (05/22/11) Hip pain, left Fracture of proximal phalanx of lesser toe of right foot Fracture of proximal phalanx of right great toe History of papillary adenocarcinoma of thyroid (~2019) Metastasis from thyroid cancer History of basal cell carcinoma Pulmonary hypertension Atrial fibrillation with rapid ventricular response Lung nodule Pressure ulcer Generalized weakness Dizziness Displaced trimalleolar fracture of right ankle Hurthle cell carcinoma of thyroid (~09/01/19) Memory loss or impairment Erectile dysfunction 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) Sciatica (05/22/11) Obesity (BMI 30-39.9) (05/22/11) Osteoarthrosis, unspecified whether generalized or localized, forearm (05/22/11) Gout (05/22/11) Dysmetabolic syndrome X (05/22/11) Chronic toe pain, bilateral (01/20/17) Central stenosis of spinal canal (11/11/17) Chronic airway obstruction, not elsewhere classified (05/12/10) Benign prostatic hyperplasia (05/22/11) Alcohol abuse, unspecified (08/14/11) Obesity Prostatism Central stenosis of spinal canal Cardiomyopathy History of ETOH abuse Diastasis recti PVD (peripheral vascular disease) Pulmonary emphysema Dysmetabolic syndrome DJD (degenerative joint disease) Orchitis Chronic toe pain, bilateral Epididymitis Diverticula of colon Depression Atrial fibrillation Tubular adenoma Dyslipidemia Actinic keratosis Gout Sciatica MARK (obstructive sleep apnea) Basal cell carcinoma BPH (benign prostatic hyperplasia) Chronic pruritus Right sided sciatica Osteoarthritis of left hip Duodenal ulcer hemorrhagic Duodenal ulcer (Last Reviewed 02/05/25 @ 03:43 by Pierre Torre MD) H/O thyroidectomy (~09/2021) Cortical cataract of right eye Nuclear sclerotic cataract of right eye Bimalleolar fracture of right ankle Status post thyroidectomy (10/08/19) egd/KELLI test, cauterization of ulcer (12/30/15) Shave C and D, biopsy proven BCCA (08/04/14) L ant Total Hip Arthroplasty (03/03/17) EGD w/ BX 04/18/16 Most Recent Vital Signs Temperature 36.7 C 02/05/25 11:55 Pulse 96 H 02/05/25 11:55 Pulse Rhythm Irregular 02/05/25 11:55 Pulse 76 02/05/25 11:15 Respiratory Rate 20 02/05/25 11:55 Respiratory Effort Normal 02/05/25 11:55 Respiratory Depth Normal 02/05/25 11:55 Respiratory Pattern Normal 02/05/25 11:55 Blood Pressure 119/80 02/05/25 11:55 Blood Pressure Mean 79 02/05/25 11:15 Blood Pressure Position Sitting 02/05/25 01:25 Pulse Oximetry 100 02/05/25 11:55 Oxygen Delivery Method Room Air 02/05/25 11:55 Oxygen Flow Rate 0 02/05/25 11:55 Pain Level 2 02/05/25 11:55 Allergies No Known Allergies Allergy (Verified 02/05/25 01:31) Active Medications Generic Name Dose Route Start Last Admin Trade Name Freq PRN Reason Stop Dose Admin Bupropion HCl 300 mg 02/05/25 08:30 02/05/25 09:24 Bupropion-Xl 150 Mg Tabcr PO 300 mg DAILY JULIOCESAR Administration Diltiazem HCl 120 mg 02/05/25 08:30 02/05/25 09:24 Diltiazem Cd 120 Mg Capcr PO 120 mg DAILY JULIOCESAR Administration Duloxetine HCl 20 mg 02/05/25 08:30 02/05/25 08:31 Duloxetine 20 Mg Cap PO 20 mg DAILY JULIOCESAR Administration Finasteride 5 mg 02/05/25 08:30 02/05/25 09:24 Finasteride 5 Mg Tab PO 5 mg DAILY JULIOCESAR Administration Gabapentin 600 mg 02/05/25 08:30 02/05/25 09:24 Gabapentin 600 Mg Tab PO 600 mg TID JULIOCESAR Administration Iohexol 100 ml 02/05/25 02:45 02/05/25 02:42 Omnipaque 350 Mg/Ml 100 Ml Btl IJ 03/07/25 23:59 100 ml DIRECTED JULIOCESAR Administration Levothyroxine Sodium 175 mcg 02/05/25 06:00 02/05/25 06:15 Levothyroxine 175 Mcg Tab PO 175 mcg DAILY@0600 JULIOCESAR Administration Sodium Chloride 0 ml 02/05/25 08:30 02/05/25 09:11 Normal Saline Flush 10 Ml Syr IVP Not Given BID JULIOCESAR Sodium Chloride 50 ml 02/05/25 02:45 02/05/25 02:41 Normal Saline - Diluent 50 Ml Vial IJ 50 ml DIRECTED JULIOCESAR Administration Tamsulosin HCl 0.4 mg 02/05/25 08:30 02/05/25 08:31 Tamsulosin 0.4 Mg Capcr PO 0.4 mg BID JULIOCESAR Administration IV IV Catheter Type [Left Saline Lock Antecubital] IV Catheter Gauge [Left 18 Antecubital] Diet Orders Category Date Time Status Nothing Per Oral [DIET] Nutrition 02/05/25 03:43 Active Diagnostics 02/05/25 02/05/25 02/05/25 Range/Units 16:00 05:35 05:30 WBC Cancelled 9.01 (4.4-10.8) 10^3/uL RBC Cancelled 3.58 L (4.36-5.78) 10^6/uL Hgb Pending Cancelled 10.3 L (13.5-17.5) g/dL Hct Pending Cancelled 32.0 L (40.0-50.0) % MCV Cancelled 89 (80-95) fL MCH Cancelled 28.8 (27.0-33.0) pg MCHC Cancelled 32.2 (32.0-36.0) % RDW Cancelled 14.6 H (11.8-14.1) % Plt Count Cancelled 195 (130-400) 10^3/uL MPV Cancelled 9.8 (8.0-11.0) fL Immature Gran % Cancelled 0.3 % Neutrophils % Cancelled 76.0 % Band Neutrophils % Cancelled Lymphocytes % Cancelled 12.4 % Atypical Lymphs % Cancelled Monocytes % Cancelled 10.0 % Eosinophils % Cancelled 1.2 % Basophils % Cancelled 0.1 % Metamyelocytes % Cancelled Myelocytes % Cancelled Promyelocytes % Cancelled Other Cells % Cancelled Nucleated RBC % Cancelled 0.0 (0.0-0.3) % Absolute Neutrophils Cancelled 6.84 H (1.2-6.7) 10^3/uL Absolute Lymphocytes Cancelled 1.12 L (1.2-3.4) 10^3/uL Absolute Monocytes Cancelled 0.90 H (0.1-0.8) 10^3/uL Absolute Eosinophils Cancelled 0.11 (0.0-0.7) 10^3/uL Absolute Basophils Cancelled 0.01 (0.0-0.2) 10^3/uL RBC Morphology Cancelled Polychromasia Cancelled Hypochromasia Cancelled Poikilocytosis Cancelled Basophilic Stippling Cancelled Anisocytosis Cancelled Microcytosis Cancelled Macrocytosis Cancelled Spherocytes Cancelled Tear Drop Cells Cancelled Ovalocytes Cancelled Stomatocytes Cancelled Cortes-Hartwick Bodies Cancelled Pinetop Cells/Echinocytes Cancelled Acanthocytes (Spur) Cancelled Schistocytes Cancelled Sodium 141 (136-145) mmol/L Potassium 3.4 L (3.5-5.1) mmol/L Chloride 105 (98-107) mmol/L Carbon Dioxide 27.4 (21.0-32.0) mmol/L Anion Gap 8.6 (3-11) mmol/L BUN 10 (7-18) mg/dL Creatinine 1.0 (0.70-1.30) mg/dL Est GFR (CKD-EPI 2020) 74.21 (mL/min/1.73m2) Glucose 115 H (74-106) mg/dL Calcium 8.4 L (8.5-10.1) mg/dL Magnesium 2.2 (1.8-2.4) mg/dL Total Bilirubin 0.8 (0.2-1.0) mg/dL AST 25 (15-37) U/L ALT 14 L (16-63) U/L Alkaline Phosphatase 81 (46-116) U/L Total Protein 5.9 L (6.4-8.2) g/dL Albumin 3.2 L (3.4-5.0) g/dL ABO/Rh Antibody Screen Crossmatch 02/05/25 02/05/25 Range/Units 01:50 01:35 WBC 8.37 (4.4-10.8) 10^3/uL RBC 3.74 L (4.36-5.78) 10^6/uL Hgb 10.9 L (13.5-17.5) g/dL Hct 33.3 L (40.0-50.0) % MCV 89 (80-95) fL MCH 29.1 (27.0-33.0) pg MCHC 32.7 (32.0-36.0) % RDW 14.7 H (11.8-14.1) % Plt Count 220 (130-400) 10^3/uL MPV 9.5 (8.0-11.0) fL Immature Gran % 0.4 % Neutrophils % 73.9 % Band Neutrophils % Lymphocytes % 14.9 % Atypical Lymphs % Monocytes % 8.6 % Eosinophils % 2.0 % Basophils % 0.2 % Metamyelocytes % Myelocytes % Promyelocytes % Other Cells % Nucleated RBC % 0.0 (0.0-0.3) % Absolute Neutrophils 6.18 (1.2-6.7) 10^3/uL Absolute Lymphocytes 1.25 (1.2-3.4) 10^3/uL Absolute Monocytes 0.72 (0.1-0.8) 10^3/uL Absolute Eosinophils 0.17 (0.0-0.7) 10^3/uL Absolute Basophils 0.02 (0.0-0.2) 10^3/uL RBC Morphology Polychromasia Hypochromasia Poikilocytosis Basophilic Stippling Anisocytosis Microcytosis Macrocytosis Spherocytes Tear Drop Cells Ovalocytes Stomatocytes Cortes-Hartwick Bodies Pinetop Cells/Echinocytes Acanthocytes (Spur) Schistocytes Sodium (136-145) mmol/L Potassium (3.5-5.1) mmol/L Chloride (98-107) mmol/L Carbon Dioxide (21.0-32.0) mmol/L Anion Gap (3-11) mmol/L BUN (7-18) mg/dL Creatinine (0.70-1.30) mg/dL Est GFR (CKD-EPI 2020) (mL/min/1.73m2) Glucose (74-106) mg/dL Calcium (8.5-10.1) mg/dL Magnesium (1.8-2.4) mg/dL Total Bilirubin (0.2-1.0) mg/dL AST (15-37) U/L ALT (16-63) U/L Alkaline Phosphatase (46-116) U/L Total Protein (6.4-8.2) g/dL Albumin (3.4-5.0) g/dL ABO/Rh O Negative Antibody Screen NEGATIVE Crossmatch See Detail Intake and Output - 24 Hour Total 02/05/25 01:11 thru 02/05/25 08:24 Intake Total 80 Output Total 300 Balance -220 Weight 90.718 kg Intake: IV 80 Output: Urine 300 Other: # Voids 1 Falls Risk Assessment History of Falls No History 02/05/25 11:55 Contributing Factors No Factors 02/05/25 11:55 Ambulatory Aids Independent 02/05/25 11:55 Tubes/Lines None 02/05/25 11:55 Gait Evaluation No gait disturbance 02/05/25 11:55 Cognition No cognitive impairment 02/05/25 01:29 Fall Total Score 0 02/05/25 11:55 Level of Risk Standard/Low Risk 02/05/25 11:55 Problems (Last Reviewed 02/05/25 @ 03:43 by Pierre Torre MD) Anticoagulated on apixaban (Acute) Abnormal CT of the abdomen (Acute) Lower GI bleed (Acute) Depression with anxiety (Chronic) Atrial fibrillation (Chronic 05/22/11) 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 Information / Comments: Pt arrived to unit at 11:40. On RA, IVs in LAC and RAC. Pt now sitting in recliner. Report received from: Monica @[id number]
[2025-02-05] MEDS: Lactated Ringers 1,000 ML 125 ML IV ×2 (13:25→20:36)
[2025-02-05 16:02] LABS: HCT 31.3 % (40.0-50.0); HGB 10.3 g/dL (13.5-17.5)
[2025-02-05] MEDS: Normal Saline Flush 10 ML SYR IVP (20:32)
[2025-02-05] MEDS: Pantoprazole 40 MG VIAL IVP (20:32)
[2025-02-05] MEDS: Atorvastatin 20 MG TAB PO (20:32)
[2025-02-05 21:02] LABS: HCT 29.3 % (40.0-50.0); HGB 9.6 g/dL (13.5-17.5); MCH 28.8 pg (27.0-33.0); MCHC 32.8 % (32.0-36.0); MCV 88 fL (80-95); MPV 9.7 fL (8.0-11.0); Platelet Count 173 10^3/uL (130-400); RBC 3.33 10^6/uL (4.36-5.78); RDW 14.6 % (11.8-14.1); RDW-SD 46.9 fL; WBC 9.11 10^3/uL (4.4-10.8)
[2025-02-06 03:13] VITALS: BP 100/58; PULSE 78; RESP 16; TEMP 37; O2SAT 92
[2025-02-06] MEDS: Levothyroxine 175 MCG TAB PO (05:36)
[2025-02-06] MEDS: Lactated Ringers 1,000 ML 125 ML IV ×2 (05:37→22:28)
[2025-02-06 06:39] LABS: Abs Immature Grans 0.04 10^3/uL (0.0-0.06); HCT 27.0 % (40.0-50.0); HGB 8.8 g/dL (13.5-17.5); Immature Grans % 0.6 %; MCH 28.9 pg (27.0-33.0); MCHC 32.6 % (32.0-36.0); MCV 89 fL (80-95); MPV 9.7 fL (8.0-11.0); Platelet Count 166 10^3/uL (130-400); RBC 3.05 10^6/uL (4.36-5.78); RDW 14.7 % (11.8-14.1); RDW-SD 47.7 fL; WBC 6.56 10^3/uL (4.4-10.8)
[2025-02-06 07:17] LABS: ALT 17 U/L (16-63); AST 23 U/L (15-37); Albumin 2.8 g/dL (3.4-5.0); Alkaline Phosphatase 67 U/L (46-116); Anion Gap 8.0 mmol/L (3-11); BUN 8 mg/dL (7-18); Bilirubin, Total 0.9 mg/dL (0.2-1.0); CO2 27.0 mmol/L (21.0-32.0); Calcium 8.1 mg/dL (8.5-10.1); Chloride 108 mmol/L (98-107); Estimated GFR 74.21 (mL/min/1.73m2); Glucose 85 mg/dL (74-106); Potassium 3.4 mmol/L (3.5-5.1); Sodium 143 mmol/L (136-145); Total Protein 5.2 g/dL (6.4-8.2)
[2025-02-06 07:21] VITALS: BP 100/52; PULSE 91; RESP 18; TEMP 36.8; O2SAT 96
[2025-02-06] MEDS: buPROPion-XL 150 MG TABCR 300 MG PO (07:58)
[2025-02-06] MEDS: DULoxetine 20 MG CAP PO (07:58)
[2025-02-06] MEDS: Gabapentin 600 MG TAB PO ×3 (07:59→20:16)
[2025-02-06] MEDS: Pantoprazole 40 MG VIAL IVP ×2 (07:59→20:16)
[2025-02-06] MEDS: dilTIAZem CD 120 MG CAPCR PO (07:59)
[2025-02-06] MEDS: Normal Saline Flush 10 ML SYR IVP ×2 (07:59→20:17)
[2025-02-06] MEDS: Tamsulosin 0.4 MG CAPCR PO ×2 (07:59→20:16)
[2025-02-06] MEDS: Finasteride 5 MG TAB PO (07:59)
[2025-02-06 11:21] VITALS: BP 122/60; PULSE 92; RESP 20; TEMP 36.8; O2SAT 96
--- NOTE | 2025-02-06 13:40 | W.PM.PROGNOT ---
Date of Service Date of service: 02/06/25 Time of Service: 13:40 Assessment and Plan Assessment and plan (1) Lower GI bleed: Status: Acute Assessment and plan: H&H slowly trending downwards with no evidence of active acute bleeding ongoing. apixaban on hold surgery following with diet recommendations of full liquids and NPO after midnight with upper and lower endoscopy per surgery continue to closely monitor. No indication for transfusion at this time. Has been typed and crossmatched. (2) Abnormal CT of the abdomen: Status: Acute Assessment and plan: Gastric mass seen on CT Consult general surgery for advice on workup Note history of metastatic papillary thyroid cancer (3) Atrial fibrillation: Status: Chronic Assessment and plan: Longstanding apixaban and diltiazem Continue diltiazem Hold apixaban for GI bleed (4) Anticoagulated on apixaban: Status: Acute Assessment and plan: Held as above (5) Depression with anxiety: Status: Chronic Assessment and plan: Continue home regimen (6) Hypothyroidism associated with surgical procedure: Status: Chronic Assessment and plan: Continue home levothyroxine (7) BPH NOS w ur obs/LUTS: Status: Chronic Assessment and plan: Continue home tamsulosin no evidence of retention, monitor (8) Peripheral sensory neuropathy: Status: Chronic Assessment and plan: Continue home gabapentin (9) Asthma-COPD overlap syndrome: Status: Chronic Assessment and plan: PRN josue discussed with DR Thomas Subjective Subjective Patient reports: no new complaints, tolerating liquids well and afebrile; denies shortness of breath Exam Narrative Exam Narrative: Elderly male of stated age in no acute distress head is atraumatic eyes nonicteric noninjected mucosas moist neck full range of motion cardiovascular regular rate and rhythm respirations regular unlabored diminished nontender skin is pale and dry, abdomen round soft nontender moves all extremities equally no peripheral edema Objective Last Vital Signs Temp 36.8 C 02/06/25 11:21 Pulse 92 H 02/06/25 11:21 Resp 20 02/06/25 11:21 BP 122/60 02/06/25 11:21 Pulse Ox 96 02/06/25 11:21 Laboratory Results - last 24 hr 02/05/25 02/05/25 02/06/25 15:56 20:55 06:24 WBC 9.11 6.56 RBC 3.33 L 3.05 L Hgb 10.3 L 9.6 L 8.8 L Hct 31.3 L 29.3 L 27.0 L MCV 88 89 MCH 28.8 28.9 MCHC 32.8 32.6 RDW 14.6 H 14.7 H Plt Count 173 166 MPV 9.7 9.7 Immature Gran % 0.6 Neutrophils % 69.1 Lymphocytes % 16.5 Monocytes % 11.6 Eosinophils % 2.0 Basophils % 0.2 Nucleated RBC % 0.0 Absolute Neutrophils 4.54 Absolute Lymphocytes 1.08 L Absolute Monocytes 0.76 Absolute Eosinophils 0.13 Absolute Basophils 0.01 Sodium 143 Potassium 3.4 L Chloride 108 H Carbon Dioxide 27.0 Anion Gap 8.0 BUN 8 Creatinine 1.0 Est GFR (CKD-EPI 2020) 74.21 Glucose 85 Calcium 8.1 L Total Bilirubin 0.9 AST 23 ALT 17 Alkaline Phosphatase 67 Total Protein 5.2 L Albumin 2.8 L Time Spent with Patient Time Spent with Patient: 35-49 minutes Time was spent: preparing to see the patient(eg.review tests), obtaining and/or reviewing separately otained hiistory, referring, communicating with other health hospice care transitions coordinator, indepentently interpreting results and counseling the patient
[2025-02-06 16:01] VITALS: BP 116/74; PULSE 110; RESP 16; TEMP 36.6; O2SAT 95
[2025-02-06] MEDS: Nulytely 4000 ML BTL PO (16:54)
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
[2025-02-06] MEDS: Atorvastatin 20 MG TAB PO (20:16)
[2025-02-07] VITALS (63 sets, daily range): BP systolic 93–147; BP diastolic 36–85; PULSE 60–145; RESP 15–22; TEMP 36–37; O2SAT 95–100; BMI 27.1
[2025-02-07] MEDS: Levothyroxine 175 MCG TAB PO (05:39)
[2025-02-07 06:43] LABS: Abs Immature Grans 0.04 10^3/uL (0.0-0.06); HCT 28.7 % (40.0-50.0); HGB 9.3 g/dL (13.5-17.5); Immature Grans % 0.6 %; MCH 28.4 pg (27.0-33.0); MCHC 32.4 % (32.0-36.0); MCV 88 fL (80-95); MPV 10.0 fL (8.0-11.0); Platelet Count 177 10^3/uL (130-400); RBC 3.27 10^6/uL (4.36-5.78); RDW 14.4 % (11.8-14.1); RDW-SD 46.6 fL; WBC 6.91 10^3/uL (4.4-10.8)
[2025-02-07 07:00] LABS: ALT 23 U/L (16-63); AST 26 U/L (15-37); Albumin 3.1 g/dL (3.4-5.0); Alkaline Phosphatase 77 U/L (46-116); Anion Gap 9.4 mmol/L (3-11); BUN 7 mg/dL (7-18); Bilirubin, Total 0.8 mg/dL (0.2-1.0); CO2 26.6 mmol/L (21.0-32.0); Calcium 8.5 mg/dL (8.5-10.1); Chloride 109 mmol/L (98-107); Estimated GFR 74.21 (mL/min/1.73m2); Glucose 87 mg/dL (74-106); Potassium 3.0 mmol/L (3.5-5.1); Sodium 145 mmol/L (136-145); Total Protein 5.8 g/dL (6.4-8.2)
[2025-02-07] MEDS: Lactated Ringers 1,000 ML 125 ML IV ×2 (07:24→14:45)
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
--- NOTE | 2025-02-07 09:25 | PDOC.CMPRO ---
Date of service: 02/07/25 Time of Service: 16:10 Care Management Progress Note Progress Note Text Progress Note Text: Mario was lying in bed and visiting with his when CM met with him. Per report, he will have an EGD and a colonoscopy today, which he reports took place this afternoon. Mario reports receiving support for sciatica through the pain clinic, with his most recent visit occurring approximately two months ago. Today, he is experiencing pain that he believes is related to his sciatica; the RN has been made aware. Mario expressed that he is hopeful to return home soon. Palliative Care and PT would be beneficial to support his comfort and functional goals. CM will continue to follow. Discharge Potential Discharge Needs: Consult Consult Services Needed: Palliative, PT Evaluation, PCP F/U Appt and Surgical F/U Appt Anticipated Barriers to Discharge: None Identified Patient/Family Education Needs: Review discharge instructions, discuss Ask Me Three Transportation: Private vehicle Plan: Anticipate Mario will be discharged home once medically ready, with new PT/RN/[facility] [employer]. PT consult requested as appropriate. It is recommended that Mario follow up with his community providers, palliative, surgical and continue per his discharge plan of care. He will be transported via private vehicle. CM will follow. Social Determinants of Health Screening Social Determinants of health last assessed in clinic: 02/07/25 Will the Patient Participate in the Screening?: Yes Do you worry about having a steady place to live?: no Problems where you live: no known problems In the past 12 months, have you had to go without electric, gas, oil or water in your home?: no 1. Within the past 12 months, we worried whether our food would run out before we got money to buy more.: Never true 2. Within the past 12 months, the food we bought just didn't last and we didn't have money to get more.: Never true Has lack of transportation kept you from medical appointments or from doing things needed for daily living?: no Has anyone in your life made you feel unsafe or unsupported?: no How hard is it for you to pay for the very basics like food, housing, medical care, and heating? Would you say it is:: Not hard at all Do you want help finding or keeping work or a job?: I do not need or want help If for any reason you need help with day-to-day activities such as bathing, preparing meals, shopping, managing finances, etc., do you get the help you need?: I don?t need any help How often do you feel lonely or isolated from those around you?: Never Do you speak a language other than Pashto at home?: No
[2025-02-07] MEDS: Normal Saline Flush 10 ML SYR IVP ×2 (12:07→17:20)
--- NOTE | 2025-02-07 12:27 | W.PM.PROGNOT ---
Date of Service Date of service: 02/07/25 Time of Service: 12:27 Subjective Subjective Interval history since last seen: Patient in OR during rounds Objective Last Vital Signs Temp 36.4 C 02/07/25 11:14 Pulse 100 H 02/07/25 11:14 Resp 18 02/07/25 11:14 BP 132/82 02/07/25 11:14 Pulse Ox 96 02/07/25 11:14 Laboratory Results - last 24 hr 02/07/25 06:00 WBC 6.91 RBC 3.27 L Hgb 9.3 L Hct 28.7 L MCV 88 MCH 28.4 MCHC 32.4 RDW 14.4 H Plt Count 177 MPV 10.0 Immature Gran % 0.6 Neutrophils % 68.4 Lymphocytes % 19.1 Monocytes % 9.4 Eosinophils % 2.2 Basophils % 0.3 Nucleated RBC % 0.0 Absolute Neutrophils 4.73 Absolute Lymphocytes 1.32 Absolute Monocytes 0.65 Absolute Eosinophils 0.15 Absolute Basophils 0.02 Sodium 145 Potassium 3.0 L Chloride 109 H Carbon Dioxide 26.6 Anion Gap 9.4 BUN 7 Creatinine 1.0 Est GFR (CKD-EPI 2020) 74.21 Glucose 87 Calcium 8.5 Total Bilirubin 0.8 AST 26 ALT 23 Alkaline Phosphatase 77 Total Protein 5.8 L Albumin 3.1 L Time Spent with Patient Time Spent with Patient: <25 minutes Time was spent: preparing to see the patient(eg.review tests)
--- NOTE | 2025-02-07 13:04 | NUR.NOTE ---
Nursing Note: Documentation by YAKOV Lozano student reviewed.
--- NOTE | 2025-02-07 13:40 | BOWEL_PTH ---
PATIENT: Mario Gallardo LOC: U#:[id number] AGE/SX: 85/M ROOM: 225 RE02/05/[address]: Tobin Benton : 1940 BED: A DIS: 02/08/2025 SPEC #: [id number] RECD: 02/07/25 17:58 STATUS: MITCH REQ #: [id number] RIKKI: 02/07/25 13:[address]: Tobin Benton DEPT: Surgical Specimen RECD BY: Elizabeth Christian ENTERED: 02/07/25 17:59 SP TYPE: Bowel OTHR DR: JEFFY Smith MD Tissues: 1 - BIOPSY BOWEL Procedures: GROSS AND MICRO LEVEL 4 Comments: [id number]
--- NOTE | 2025-02-07 14:35 | W.ANESPOSTOP ---
Postoperative Evaluation Date, Time and Location Date Performed: 02/07/25 Time Performed: 14:28 Patient Location: PACU Vital Signs Most Recent Imported Vital Signs: Most Recent Vital Signs Temp Pulse Resp BP Pulse Ox 36.4 C 91 H 18 108/45 L 98 02/07/25 11:14 02/07/25 14:26 02/07/25 14:26 02/07/25 14:02/07/25 14:26 Pain Score Most Recent Pain Score: Most Recent Pain Score Pain Level 0 02/06/25 03:13 Assessment Mental Status: Awake (Alert & Oriented to Patient Baseline) Airway and Respiratory Function: Patent airway with normal (patient baseline) respiratory exam Cardiovascular Function: Hemodynamically Stable Hydration Status: Adequately Hydrated Nausea & Vomiting: No Nausea or Vomiting Pain: Pt. Denies Any Pain Peripheral Nerve Block: Patient did not receive a nerve block
--- NOTE | 2025-02-07 14:42 | ROE_ITS ---
Operative Note Operative Note PRE-OP DIAGNOSIS: hematochezia duodenal mass PROCEDURE: EGD with biopsy and colonoscopy SURGEON: Driss Christianson ANESTHESIA TYPE: General:No Airway Refer to Anesthesia Record ESTIMATED BLOOD LOSS: 10 PATHOLOGY: other (duodenal mass) COMPLICATIONS: None Patient was transported to: PACU Patient's condition: stable Indications: Mario is an 85-year-old male with acute blood loss anemia from hematochezia Findings: Duodenal mass, colonic diverticulosis Procedure Description: After the initiation of anesthesia, and with the assistance of a bite block, I advanced a standard gastroscope through the mouth past the hypopharynx and into the esophagus.? Under the direct vision of the scope, I advanced down the esophagus towards the stomach.? The upper, mid, and lower esophagus were all normal in course and caliber. The GE junction measures approximately 40 cm beyond the incisors. The Z-line is regular, and there are no features raising any concern for Leon's esophagus. I traversed the GE junction with ease and entered the stomach. I insufflated into the rugae were obliterated. I perfo rmed retroflexion. I did not appreciate any signs of hiatal herniation. There are a few benign-appearing fundic gland polyps in the main body of the stomach. None of them have any stigmata of recent bleeding. The antrum is spared of any polyps. I advanced down through the pylorus into the duodenal bulb. There is a large sessile type mass within the duodenal bulb. This raises concern for mal ignancy. There is no signs of any active bleeding, but the mucosa is certainly friable and manipulated with the endoscope. Using a medium energize to snare, I was able to remove a portion of this. The removed segment is about 1 cm in size. This was removed and retrograde along the length of the esophagus, and the specimen was preserved for formal analysis. I returned the camera back down into the duodenum. There was a small amount of bleeding that was easily controlled with the cautery. the remainder of the duodenum was normal and healthy. I then brought the camera back up into the stomach and emptied it completely before removing the gastroscope. We then rolled Mario into the left lateral decubitus position. Great care was taken to ensure that he was padded and supported throughout the procedure. I began by performing an external anorectal exam.? Perineum and skin were normal, as was the anal verge.? There was no evidence of external hemorrhoids.? Next, I performed a digital rectal exam.? I did not appreciate any abnormal findings.? Next, I advanced a colonoscope into the rectal vault.? I performed retroflexion.? This appeared normal.? Using irrigation, I then advanced the colonoscope beyond the rectal folds and into the sigmoid colon before advancing towards the cecum.? The scope was noted to be in the cecum by identification of the ileocecal valve and appendiceal orifice.? I then began withdrawing the colonoscope using repeated irrigation as necessary for full evaluation of the colonic mucosa. There is extensive diverticulosis involving the splenic flexure and the descending colon. Interestingly, the sigmoid is relatively spared, although there are few diverticula here. None show evidence of recent bleeding. once the scope was withdrawn to the level of the rectum, great care was taken to examine portions of the rectal folds.? No other abnormalities were appreciated. The colonoscope was then removed, and Mario was allowed to awaken from the anesthetic and transferred to the recovery unit. Date of Procedure: 02/07/25
[2025-02-07] MEDS: dilTIAZem CD 120 MG CAPCR PO (15:23)
[2025-02-07] MEDS: DULoxetine 20 MG CAP PO (15:24)
[2025-02-07] MEDS: Tamsulosin 0.4 MG CAPCR PO ×2 (15:24→20:06)
[2025-02-07] MEDS: buPROPion-XL 150 MG TABCR 300 MG PO (15:24)
[2025-02-07] MEDS: Finasteride 5 MG TAB PO (15:25)
[2025-02-07] MEDS: Pantoprazole 40 MG VIAL IVP ×2 (15:26→20:06)
[2025-02-07] MEDS: Gabapentin 600 MG TAB PO ×2 (15:32→20:05)
[2025-02-07] MEDS: Atorvastatin 20 MG TAB PO (20:06)
[2025-02-08 03:36] VITALS: BP 120/62; PULSE 84; RESP 22; TEMP 36.7; O2SAT 94
[2025-02-08] MEDS: Lactated Ringers 1,000 ML 125 ML IV (04:01)
[2025-02-08] MEDS: Levothyroxine 175 MCG TAB PO (05:55)
[2025-02-08 06:51] LABS: HCT 26.5 % (40.0-50.0); HGB 8.6 g/dL (13.5-17.5); MCH 28.6 pg (27.0-33.0); MCHC 32.5 % (32.0-36.0); MCV 88 fL (80-95); MPV 10.0 fL (8.0-11.0); Platelet Count 180 10^3/uL (130-400); RBC 3.01 10^6/uL (4.36-5.78); RDW 14.4 % (11.8-14.1); RDW-SD 46.0 fL; WBC 6.40 10^3/uL (4.4-10.8)
[2025-02-08 06:56] VITALS: BP 143/75; PULSE 93; RESP 22; TEMP 36.4; O2SAT 96
[2025-02-08 07:09] LABS: ALT 19 U/L (16-63); AST 26 U/L (15-37); Albumin 2.8 g/dL (3.4-5.0); Alkaline Phosphatase 68 U/L (46-116); Anion Gap 8.7 mmol/L (3-11); BUN 3 mg/dL (7-18); Bilirubin, Total 0.9 mg/dL (0.2-1.0); CO2 28.3 mmol/L (21.0-32.0); Calcium 8.0 mg/dL (8.5-10.1); Chloride 108 mmol/L (98-107); Estimated GFR 87.27 (mL/min/1.73m2); Glucose 80 mg/dL (74-106); Magnesium 1.7 mg/dL (1.8-2.4); Sodium 145 mmol/L (136-145); Total Protein 5.4 g/dL (6.4-8.2)
[2025-02-08 07:13] LABS: Potassium 2.9 mmol/L (3.5-5.1)
--- NOTE | 2025-02-08 09:04 | PDOC.CMPRO ---
Date of service: 02/08/25 Time of Service: 09:04 Care Management Progress Note Discharge Potential Discharge Needs: Surgical F/U Appt Anticipated Barriers to Discharge: None Identified Patient/Family Education Needs: Review discharge instructions, discuss Ask Me Three Transportation: Private vehicle Plan: Anticipate Mario will be discharged home once medically ready, with new PT/RN/[employer] CONTROLLER. PT consult requested as appropriate. It is recommended that Mario follow up with his community providers, palliative, surgical and continue per his discharge plan of care. He will be transported via private vehicle. CM will follow. S Social Determinants of Health Screening Social Determinants of health last assessed in clinic: 02/07/25 Will the Patient Participate in the Screening?: Yes Do you worry about having a steady place to live?: no Problems where you live: no known problems In the past 12 months, have you had to go without electric, gas, oil or water in your home?: no Has lack of transportation kept you from medical appointments or from doing things needed for daily living?: no Has anyone in your life made you feel unsafe or unsupported?: no How hard is it for you to pay for the very basics like food, housing, medical care, and heating? Would you say it is:: Not hard at all Do you want help finding or keeping work or a job?: I do not need or want help If for any reason you need help with day-to-day activities such as bathing, preparing meals, shopping, managing finances, etc., do you get the help you need?: I don?t need any help How often do you feel lonely or isolated from those around you?: Never Do you speak a language other than [place] Citizen at home?: No
[2025-02-08] MEDS: MAGNESIUM SULFATE 1 GM/100 ML BAG IV_INF (09:27)
[2025-02-08] MEDS: buPROPion-XL 150 MG TABCR 300 MG PO (09:30)
[2025-02-08] MEDS: Pantoprazole 40 MG VIAL IVP (09:31)
[2025-02-08] MEDS: Normal Saline Flush 10 ML SYR IVP (09:31)
[2025-02-08] MEDS: dilTIAZem CD 120 MG CAPCR PO (09:33)
[2025-02-08] MEDS: Finasteride 5 MG TAB PO (09:33)
[2025-02-08] MEDS: Tamsulosin 0.4 MG CAPCR PO (09:33)
[2025-02-08] MEDS: Gabapentin 600 MG TAB PO ×2 (09:34→13:51)
[2025-02-08] MEDS: DULoxetine 20 MG CAP PO (09:35)
[2025-02-08] MEDS: Potassium Chloride 20 MEQ TABCR 40 MEQ PO ×2 (09:39→13:50)
[2025-02-08] MEDS: POTASSIUM CHLORIDE 20 MEQ/100 ML BAG 50 MEQ IV_INF ×2 (09:52→11:57)
--- NOTE | 2025-02-08 10:26 | W.PM.PROGNOT ---
Objective Last Vital Signs Temp 36.4 C L 02/08/25 06:56 Pulse 93 H 02/08/25 06:56 Resp 22 02/08/25 06:56 BP 143/75 H 02/08/25 06:56 Pulse Ox 96 02/08/25 06:56 Laboratory Results - last 24 hr 02/08/25 06:00 WBC 6.40 RBC 3.01 L Hgb 8.6 L Hct 26.5 L MCV 88 MCH 28.6 MCHC 32.5 RDW 14.4 H Plt Count 180 MPV 10.0 Sodium 145 Potassium 2.9 L* Chloride 108 H Carbon Dioxide 28.3 Anion Gap 8.7 BUN 3 L Creatinine 0.8 Est GFR (CKD-EPI 2020) 87.27 Glucose 80 Calcium 8.0 L Magnesium 1.7 L Total Bilirubin 0.9 AST 26 ALT 19 Alkaline Phosphatase 68 Total Protein 5.4 L Albumin 2.8 L
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
[2025-02-08 11:34] VITALS: BP 140/68; PULSE 104; RESP 16; TEMP 37.1; O2SAT 95
[2025-02-08 13:19] VITALS: PULSE 109; RESP 16; O2SAT 95
[2025-02-08] MEDS: Albuterol/Ipratropium 3 ML UPD VIAL UPD (13:19)
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
--- NOTE | 2025-02-08 14:25 | CHAPLAIN ---
Mario was resting in bed when I visited this morning. His Scarlet was with him. Scarlet and I remembered meeting each other a few years ago with Mario was in the ICU. Their daughter Cinthya works at [email or web address]. Mario is a former [place] [employer] and shared some stories about serving at the [place] [employer] many years ago. Mario was pleasant and easily engaged in a conversation and story telling. He talked about having difficulty with his feet and hands with neuropathy, and is here because of a GI bleed.,
--- NOTE | 2025-02-08 15:02 | PDOC.HHF2F ---
Date of service: 02/08/25 Time of Service: 15:02 Home Health Referral Home Health Orders Clinical synopsis of why skilled professionals are needed: Mario Gallardo is an 85 year old man who presented on February 04 with weakness, back pain and abdominal pain, went home prior to imaging. He returned February 05 after midnight, after an episode of profuse bloody stool. Patient reported feeling and hearing a rumbling in his stomach before producing a large amount of loose stool mixed with dark red blood. He feels slightly nauseated but has not vomited. He is on apixaban for atrial fibrilation. No chest pain, no shortness of breath. In the ED tonight his vitals were unremarkable. Hemoglobin in the 10's unchanged from earlier in the day. CTA abdomen/pelvis showed no active bleed, however a gastric mass is suspicious for malignancy, and sigmoid colon thickening suggests colitis, with diverticular disease. Apixaban was reversed with Kcentra and held on admission to the medical surgical floor for further evaluation and management PMH includes 2019 thyroid cancer s/p thyroidectomy with probable recurrence and deferred radiation; stable pulmonary nodule; COPD; afib on apixaban, BPH, depression. The patient received 2 PRBC transfusion during the stay with H&H remaining stable. Surgical consult with Dr. Driss Christianson resulted with the completion of an upper and lower endoscopy wtih findings of Large sessile type mass within the duodenal bulb with concern for malignancy w/o signs of any active bleeding, but the mucosa is certainly friable and manipulated with the endoscope; 1 cm in size was removed and preserved for formal analysis.Other findings included benign-appearing fundic gland polyps in the main body of the stomach without stigmata of recent bleeding. As per discussion with patient regarding HASBLED score around 8.9% and [id number] Score 7.3% in the setting of thyroid CA with probable recurrence and GI findings, recommendation for resumption of Eliquis in AM was agreed upon. The patient mentioned interest in Watchman device and will discussed this during his follow-up with PCP within the next 7 days. Follow-up blood work ordered. The patient is hemodynamycally stable and will be discharged home with home health PT. Discussed with Dr. Cameron Physical Therapist: Check all that apply Increase strength & endurance for safe mobility at home: Ordered To design/establish home maintenance program: Ordered Fall reduction therapy program for patient with history of frequent falls: Ordered Home safety evaluation and teaching/gait training including stair management (if applicable): Ordered Home Bound Status Requires the aid of supportive device (check all that apply): Walker Describe why leaving home would require a considerable and taxing effort: Requires frequent rest periods Encounter Date and Reason: I certify that a FTF encounter for this patient was performed on February 08, 2025 and that such encounter was related to the primary reason the patient requires home health services. The encounter was conducted in the following manner: By me as the certifying physician, REGIONAL DIRECTOR OF FINANCE, PA or By an inpatient physician, REGIONAL DIRECTOR OF FINANCE or PA during an inpatient stay who communicated findings to me, Certification And Authentication I certify that I composed the above information based on my clinical judgment relating to this patient's medical condition and, if applicable, clinical findings communicated to me by the NPP or inpatient physician who performed the FTF encounter. Name of Provider that will be monitoring home health services: Ofe Carlson
--- NOTE | 2025-02-08 15:32 | PDOC.CMDIS ---
Date of service: 02/08/25 Time of Service: 15:32 LACE Index Scoring Tool Questions: Length of Stay (in days): 3 Was the patient admitted via the E.D.?: Yes Comorbidities: PVD, Chronic Pulmonary Disease and Metastatic Solid Tumor E.D. Visits: 4 Answers: Total Score: 15 Risk of Readmission: High Risk Care Management Discharge Plan Reason for Hospitalization: GI Bleed Discharge Plan: Mario will be discharged home with new PT. He will follow up with his community providers and plan of care and will be transported via private vehicle. Patient/Family Education Needs: Review discharge instructions, limitations, follow up plan and discuss Ask Me Three SDOH Health Related Social Needs: Health related social needs lonely/isolated Health related social needs details doesn't get out as much as used to, brothers are sick/
== END 2025-02-08 15:29 | disposition home health service (06) ==
LOC: ER 01:33 → EDHOLD 03:59 → MS 11:47
PROVIDERS: Surgery; Admitting Provider Family Medicine; Emergency Provider Emergency Medicine; PCP Nurse Practitioner Adult Health; Responsible Provider Nurse Practitioner Acute Care; Visit Provider Family Medicine
PROC: (CPT 45378; principal; 2025-02-07 13:30)
DX: K92.1 Melena (principal); I48.20 Chronic atrial fibrillation, unspecified; K31.89 Other diseases of stomach and duodenum; C77.0 Secondary and unspecified malignant neoplasm of lymph nodes of head, face and neck; E89.0 Postprocedural hypothyroidism; N40.1 Benign prostatic hyperplasia with lower urinary tract symptoms; G62.9 Polyneuropathy, unspecified; J44.9 Chronic obstructive pulmonary disease, unspecified; M54.16 Radiculopathy, lumbar region; F41.8 Other specified anxiety disorders; R29.6 Repeated falls; Z79.01 Long term (current) use of anticoagulants; Z79.899 Other long term (current) drug therapy; N13.8 Other obstructive and reflux uropathy; Z85.850 Personal history of malignant neoplasm of thyroid; R91.1 Solitary pulmonary nodule; G47.33 Obstructive sleep apnea (adult) (pediatric); E78.5 Hyperlipidemia, unspecified; D62 Acute posthemorrhagic anemia; K57.30 Diverticulosis of large intestine without perforation or abscess without bleeding; D13.2 Benign neoplasm of duodenum
CPT/HCPCS: 45378; 43239; 00123; 36415; 80053; 85027; 86850; 86900; 86901; 86920; 88305; 96361; 96365; 96374; 96375; 96376; 97162; 99222; 99291; 74174; 83735; 85014; 85018; 85025; 99231; 99232; 99239; G0378; J0131; J2003; J2371; J2470; J2704; J3475; J3480; J3490; J7168; J7620

== ENCOUNTER 2025-02-11 19:12 | Observation (INO) | payer MEDICARE, BC, SELFPAY ==
[2025-02-11] VITALS (33 sets, daily range): BP systolic 100–124; BP diastolic 39–65; PULSE 68–119; RESP 14–24; TEMP 36.2–37; O2SAT 93–98
--- NOTE | 2025-02-11 19:15 | DI.CT_ITS ---
Exam(s) CT ABDOMEN PELVIS CTA EXAM: CT ABDOMEN PELVIS CTA CLINICAL HISTORY: BRBPR. TECHNIQUE: Imaging Protocol: Axial computed tomography images with coronal and sagittal reformatted images were created and reviewed CONTRAST MATERIAL: Intravenous: Omnipaque 350 Contrast volume:100 ml Oral: None COMPARISON: CT CT ABDOMEN PELVIS CTA from 02/05/2025 FINDINGS: AORTA: There is a fusiform infrarenal abdominal aortic aneurysm with maximum external diameter of 3.1 cm.There is mild arteriomegaly of the common iliac arteries which measure up to 1 point 5 cm. There is no significant stenosis in the common and external iliac arteries nor in the common femoral arteries. There are no incidental aneurysms evident in the internal iliac arteries. Some plaque but no tight stenosis at the site iliac and SMA origins and no evidence of embolus within the SMA. The inferior mesenteric artery is patent. No significant stenosis at the origin of the main renal arteries. ABDOMEN: GI: There is no ascites. No evidence of bowel obstruction, free air, nor abscess. There is no intraluminal extravasation of injected IV contrast in the bowel lumen to suggest a focus of active intestinal bleeding. There is also no evidence of obvious vascular may anderson in the got wall nor obvious ang iodysplasia. LIVER: There are no focal hepatic lesions nor dilatation of intrahepatic ducts. GALLBLADDER/BILIARY: No obvious gallbladder pathology. CBD is not dilated. PANCREAS: No evidence of pancreatic mass nor dilatation of the pancreatic duct. SPLEEN: Spleen is not enlarged. There are no intrasplenic lesions. Splenic and portal veins are patent. ADRENALS: There are no significant adrenal masses. KIDNEYS: There are benign cysts in both kidneys which do not require further imaging workup. The largest cyst in the right kidney is in the lateral cortex and measures 4 cm. The largest cyst in the left kidney is parapelvic and measures 3 cm. There are no solid lesions are in either kidney. There are no calculi nor hydronephrosis in either kidney. No hydroureter.. ABDOMINAL AORTA: See above LYMPH NODES: There is no retroperitoneal nor para-aortic adenopathy. No obvious mesenteric masses. ABDOMINAL WALL: No evidence of significant anterior abdominal wall hernia. PELVIS: LYMPH NODES: There is no intrapelvic nor inguinal adenopathy. GI: No evidence of appendicitis.There diverticuli in left side of the colon; less so in the very redundant sigmoid. There is no evidence of acute diverticulitis. URINARY BLADDER: Partially obscured by beam hardening artifact from left hip prosthesis. Indented bladder base by enlarged prostate gland. REPRODUCTIVE: Enlarged prostate gland indents the urinary bladder base. Seminal vesicles are obscured by beam hardening artifact from left hip prosthesis. OSSEOUS: Left hip prosthesis. Degenerative changes in the right hip. No acute fractures. Indentation of superior endplate T12 or L1 noted, similar to 02/05/2025 CT scan. IMPRESSION: 1. No evidence of acute ongoing active GI bleed 2. Diverticulosis of the left side of the colon but no evidence of acute diverticulitis. No appendicitis. 3. Enlarged prostate gland. 4. Other findings as above. Preliminary virtual Radiology report was reviewed. RADIATION DOSE DELIVERED: 1,938.28mGy.cm Total DLP DATA REPOSITORY: All CT scans at this facility are submitted to the National Radiology Data Registry (NRDR) Dose Index Registry (DIR) with the [employer] (ACR). RADIATION OPTIMIZATION: All CT scans at this facility use at least one of these dose optimization techniques: automated exposure control; mA and/or kV adjustment per patient size (includes targeted exams where dose is matched to clinical indication); or iterative reconstruction.
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
[2025-02-11 19:42] LABS: Abs Immature Grans 0.08 10^3/uL (0.0-0.06); HCT 31.6 % (40.0-50.0); HGB 10.0 g/dL (13.5-17.5); Immature Grans % 1.1 %; MCH 28.5 pg (27.0-33.0); MCHC 31.6 % (32.0-36.0); MCV 90 fL (80-95); MPV 9.8 fL (8.0-11.0); Platelet Count 287 10^3/uL (130-400); RBC 3.51 10^6/uL (4.36-5.78); RDW 14.5 % (11.8-14.1); RDW-SD 47.1 fL; WBC 7.59 10^3/uL (4.4-10.8)
[2025-02-11] MEDS: Normal Saline Flush 10 ML SYR IVP ×3 (19:50→23:02)
[2025-02-11] MEDS: Normal Saline - Diluent 50 ML VIAL IJ (19:54)
[2025-02-11] MEDS: Omnipaque 350 MG/ML 100 ML BTL IJ (19:54)
[2025-02-11 20:02] LABS: ALT 23 U/L (16-63); AST 19 U/L (15-37); Albumin 3.3 g/dL (3.4-5.0); Alkaline Phosphatase 89 U/L (46-116); Anion Gap 10.8 mmol/L (3-11); BUN 9 mg/dL (7-18); Bilirubin, Total 0.7 mg/dL (0.2-1.0); CO2 28.2 mmol/L (21.0-32.0); Calcium 8.8 mg/dL (8.5-10.1); Chloride 105 mmol/L (98-107); Estimated GFR 54.17 (mL/min/1.73m2); Glucose 103 mg/dL (74-106); Magnesium 1.9 mg/dL (1.8-2.4); Potassium 3.5 mmol/L (3.5-5.1); Sodium 144 mmol/L (136-145); Total Protein 6.1 g/dL (6.4-8.2); Troponin I 16 ng/L (<or=76)
[2025-02-11 20:03] LABS: INR 1.1 (0.9-1.1); Prothrombin Time 11.1 sec (9.1-11.1)
[2025-02-11 20:52] LABS: Troponin I 14 ng/L (<or=76)
--- NOTE | 2025-02-11 21:18 | DI.VRAD_ITS ---
PROCEDURE INFORMATION: Exam: CTA Abdomen and Pelvis With Contrast Exam date and time: 02/11/2025 19:49 Age: 85 years old Clinical indication: Other: Brbpr; Prior surgery; Surgery date: 6+ months; Surgery type: Hip replacement TECHNIQUE: Imaging protocol: Computed tomographic angiography of the abdomen and pelvis with contrast. Exam focused on the arteries. 3D rendering (Not supervised by radiologist): MIP and/or 3D reconstructed images were created by the technologist. Radiation optimization: All CT scans at this facility use at least one of these dose optimization techniques: automated exposure control; mA and/or kV adjustment per patient size (includes targeted exams where dose is matched to clinical indication); or iterative reconstruction. Contrast material: [id number]; Contrast volume: 100 ml; Contrast route: INTRAVENOUS (IV); COMPARISON: CT ABDOMEN PELVIS CTA 02/05/2025 02:33 FINDINGS: Lungs: The lungs appear hyperinflated. Aorta: Minor infrarenal aortic dilation. Celiac and mesenteric arteries: No occlusion or significant stenosis. Renal arteries: No occlusion or significant stenosis. Right iliac arteries: No occlusion or significant stenosis. Left iliac arteries: No occlusion or significant stenosis. Other arteries: Atherosclerosis. Liver: No mass. Gallbladder and biliary ducts: No calcified stones. No ductal dilation. Pancreas: No mass. No ductal dilation. Spleen: No splenomegaly. Adrenal glands: No mass. Kidneys and ureters: Benign-appearing renal cyst(s) and/or probable cyst(s). No renal masses or hydronephrosis bilaterally. Stomach and bowel: colonic diverticulosis without diverticulitis. No focal pathology in the small bowel. No hypervascular lesions in the GI tract. No focal pathology in the rectum on CT. Trace hyperdensity layering along the dependent transverse colon on noncontrast images without significant change in morphology on postcontrast imaging. No focal pathology in the stomach or duodenum. Appendix: No evidence of appendicitis. Intraperitoneal space: No free air. No significant fluid collection. Lymph nodes: No enlarged lymph nodes. Urinary bladder: No mass. Reproductive: Unremarkable as visualized. Bones/joints: Chronic bony changes with no acute fracture. No acute fracture or subluxation. Left total hip arthroplasty, intact as visualized. Soft tissues: Diastasis recti. Mild dependent subcutaneous edema. IMPRESSION: 1. Colonic diverticulosis without diverticulitis. 2. Trace hyperdensities layering along the dependent transverse colon without associated extravasation or other hypervascular lesion. This could reflect dense ingested material or trace foci of blood products given the history. Could relate to diverticulosis. 3. Incidental findings as above. Dictated and Authenticated by: Pavithra Cam MD. Orderin St. Steven Moralez MD
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
--- NOTE | 2025-02-11 22:14 | W.PC.ACHO ---
Registration Status: REG ER Primary Language: Preferred Language: Maori ED Information & Data Chief Complaint Abd Prob 02/11/25 19:32 Triage Note PT had not made a bowel 02/11/25 19:15 movement for several days but made one today, bright red blood present on toilet paper while sanitizing. PT reports weakness, dizziness with walking. Medical / Surgical History (Last Reviewed 02/05/25 @ 03:43 by Pierre Torre MD) Abnormal CT of the abdomen Orthostatic hypotension Depressive disorder (05/22/11) Anxiety disorder (05/22/11) Hip pain, left Fracture of proximal phalanx of lesser toe of right foot Fracture of proximal phalanx of right great toe History of papillary adenocarcinoma of thyroid (~2019) Metastasis from thyroid cancer History of basal cell carcinoma Pulmonary hypertension Atrial fibrillation with rapid ventricular response Lung nodule Pressure ulcer Generalized weakness Dizziness Displaced trimalleolar fracture of right ankle Hurthle cell carcinoma of thyroid (~09/01/19) Memory loss or impairment Erectile dysfunction 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) Sciatica (05/22/11) Obesity (BMI 30-39.9) (05/22/11) Osteoarthrosis, unspecified whether generalized or localized, forearm (05/22/11) Gout (05/22/11) Dysmetabolic syndrome X (05/22/11) Chronic toe pain, bilateral (01/20/17) Central stenosis of spinal canal (11/11/17) Chronic airway obstruction, not elsewhere classified (05/12/10) Benign prostatic hyperplasia (05/22/11) Alcohol abuse, unspecified (08/14/11) Obesity Prostatism Central stenosis of spinal canal Cardiomyopathy History of ETOH abuse Diastasis recti PVD (peripheral vascular disease) Pulmonary emphysema Dysmetabolic syndrome DJD (degenerative joint disease) Orchitis Chronic toe pain, bilateral Epididymitis Diverticula of colon Depression Atrial fibrillation Tubular adenoma Dyslipidemia Actinic keratosis Gout Sciatica MARK (obstructive sleep apnea) Basal cell carcinoma BPH (benign prostatic hyperplasia) Chronic pruritus Right sided sciatica Osteoarthritis of left hip Duodenal ulcer hemorrhagic Duodenal ulcer (Last Reviewed 02/05/25 @ 03:43 by Pierre Torre MD) H/O thyroidectomy (~09/2021) Cortical cataract of right eye Nuclear sclerotic cataract of right eye Bimalleolar fracture of right ankle Status post thyroidectomy (10/08/19) egd/KELLI test, cauterization of ulcer (12/30/15) Shave C and D, biopsy proven BCCA (08/04/14) L ant Total Hip Arthroplasty (03/03/17) EGD w/ BX 04/18/16 Most Recent Vital Signs Temperature 36.2 C L 02/11/25 19:18 Pulse 94 H 02/11/25 20:10 Pulse 77 02/11/25 19:46 Respiratory Rate 14 02/11/25 19:46 Blood Pressure 121/53 L 02/11/25 20:09 Blood Pressure Mean 77 02/11/25 20:09 Blood Pressure Position Supine 02/11/25 19:18 Pulse Oximetry 95 02/11/25 20:10 Oxygen Delivery Method Room Air 02/11/25 19:18 Oxygen Flow Rate 0 02/11/25 19:18 Allergies No Known Allergies Allergy (Verified 02/11/25 19:19) Active Medications Generic Name Dose Route Start Last Admin Trade Name Freq PRN Reason Stop Dose Admin Iohexol 100 ml 02/11/25 20:00 02/11/25 19:54 Omnipaque 350 Mg/Ml 100 Ml Btl IJ 03/13/25 23:59 100 ml DIRECTED JULIOCESAR Administration Sodium Chloride 0 ml 02/11/25 19:49 02/11/25 19:55 Normal Saline Flush 10 Ml Syr IVP 10 ml PRN PRN Administration Sodium Chloride 50 ml 02/11/25 20:00 02/11/25 19:54 Normal Saline - Diluent 50 Ml Vial IJ 50 ml DIRECTED JULIOCESAR Administration IV IV Catheter Type [Left Saline Lock Antecubital] IV Catheter Gauge [Left 20 Antecubital] Diet Orders Category Date Time Status Heart Healthy Eating [DIET] Nutrition 02/12/25 Breakfast Ordered Diagnostics 02/11/25 02/11/25 02/11/25 Range/Units 22:24 20:24 19:30 WBC 7.59 (4.4-10.8) 10^3/uL RBC 3.51 L (4.36-5.78) 10^6/uL Hgb 10.0 L (13.5-17.5) g/dL Hct 31.6 L (40.0-50.0) % MCV 90 (80-95) fL MCH 28.5 (27.0-33.0) pg MCHC 31.6 L (32.0-36.0) % RDW 14.5 H (11.8-14.1) % Plt Count 287 (130-400) 10^3/uL MPV 9.8 (8.0-11.0) fL Immature Gran % 1.1 % Neutrophils % 68.7 % Lymphocytes % 16.9 % Monocytes % 10.4 % Eosinophils % 2.8 % Basophils % 0.1 % Nucleated RBC % 0.0 (0.0-0.3) % Absolute Neutrophils 5.22 (1.2-6.7) 10^3/uL Absolute Lymphocytes 1.28 (1.2-3.4) 10^3/uL Absolute Monocytes 0.79 (0.1-0.8) 10^3/uL Absolute Eosinophils 0.21 (0.0-0.7) 10^3/uL Absolute Basophils 0.01 (0.0-0.2) 10^3/uL PT 11.1 (9.1-11.1) sec INR 1.1 (0.9-1.1) Sodium 144 (136-145) mmol/L Potassium 3.5 (3.5-5.1) mmol/L Chloride 105 (98-107) mmol/L Carbon Dioxide 28.2 (21.0-32.0) mmol/L Anion Gap 10.8 (3-11) mmol/L BUN 9 (7-18) mg/dL Creatinine 1.3 (0.70-1.30) mg/dL Est GFR (CKD-EPI 2020) 54.17 (mL/min/1.73m2) Glucose 103 (74-106) mg/dL Calcium 8.8 (8.5-10.1) mg/dL Magnesium 1.9 (1.8-2.4) mg/dL Total Bilirubin 0.7 (0.2-1.0) mg/dL AST 19 (15-37) U/L ALT 23 (16-63) U/L Alkaline Phosphatase 89 (46-116) U/L Troponin I Cancelled 14 16 (<or=76) ng/L Total Protein 6.1 L (6.4-8.2) g/dL Albumin 3.3 L (3.4-5.0) g/dL ABO/Rh O Negative Antibody Screen NEGATIVE Intake and Output - 24 Hour Total 02/11/25 19:07 thru 02/11/25 19:15 Weight 90.718 kg Falls Risk Assessment History of Falls Previous History 02/11/25 19:18 Contributing Factors Impairments 02/11/25 19:18 Ambulatory Aids Uses ambulatory device 02/11/25 19:18 Tubes/Lines None 02/11/25 19:18 Gait Evaluation W/any additional score 02/11/25 19:18 Cognition No cognitive impairment 02/11/25 19:18 Fall Total Score 53 02/11/25 19:18 Level of Risk High Risk 02/11/25 19:18 v v v v v v v v v Sending and/or Receiving Nurses: Please use comment section below to note any information pertinent to the patient hand-off not included above. Information / Comments: Just restarted Eliquis today. CT scan - no active bleeding noted. 20g LAC. AOx4. 2 person assist, uses ambulatory device (cane) at baseline. Shaky and c/o dizziness. Med rec completed. Report received from:Gustavo Ramirez
[2025-02-12 06:38] LABS: HCT 29.2 % (40.0-50.0); HGB 9.4 g/dL (13.5-17.5); MCH 29.4 pg (27.0-33.0); MCHC 32.2 % (32.0-36.0); MCV 91 fL (80-95); MPV 9.9 fL (8.0-11.0); Platelet Count 224 10^3/uL (130-400); RBC 3.20 10^6/uL (4.36-5.78); RDW 14.5 % (11.8-14.1); RDW-SD 48.2 fL; WBC 6.88 10^3/uL (4.4-10.8)
[2025-02-12 07:34] VITALS: BP 127/73; PULSE 78; RESP 18; TEMP 36.4; O2SAT 96
[2025-02-12] MEDS: Pantoprazole 40 MG TABCR PO (08:06)
[2025-02-12] MEDS: Tamsulosin 0.4 MG CAPCR PO (08:07)
[2025-02-12] MEDS: Finasteride 5 MG TAB PO (08:07)
[2025-02-12] MEDS: buPROPion-XL 150 MG TABCR 300 MG PO (08:07)
[2025-02-12] MEDS: Acetylcysteine 600 MG CAP PO (08:07)
[2025-02-12] MEDS: Gabapentin 600 MG TAB PO (08:07)
[2025-02-12] MEDS: dilTIAZem CD 120 MG CAPCR PO (08:07)
[2025-02-12] MEDS: Normal Saline Flush 10 ML SYR IVP (08:08)
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
--- NOTE | 2025-02-12 13:57 | PDOC.CMDIS ---
Date of service: 02/12/25 Time of Service: 13:57 LACE Index Scoring Tool Questions: Length of Stay (in days): 1 Was the patient admitted via the E.D.?: Yes Comorbidities: PVD, Chronic Pulmonary Disease and Metastatic Solid Tumor E.D. Visits: 5 Answers: Total Score: 13 Risk of Readmission: High Risk Care Management Discharge Plan Reason for Hospitalization: GIB Discharge Plan: Mario will be discharged home with a resumption of home health services for PT. He will follow up with his PCP and plan of care and transport with family. Mario has a new cancer diagnosis and will follow up with surgery and Oncology. Patient/Family Education Needs: Review discharge instructions, discuss Ask Me Three Services Needed at Discharge: Home Health Care Services SDOH Health Related Social Needs: Health related social needs lonely/isolated Health related social needs details doesn't get out as much as used to, brothers are sick/
--- NOTE | 2025-02-13 09:06 | PDOC.HHF2F_ITS ---
Date of service: 02/12/25 Time of Service: 14:00 Home Health Referral Home Health Orders Clinical synopsis of why skilled professionals are needed: Newly diagnosed colon cancer, GI bleed, generalized weakness Physical Therapist: Check all that apply Increase strength & endurance for safe mobility at home: Ordered To design/establish home maintenance program: Ordered Fall reduction therapy program for patient with history of frequent falls: Ordered Home safety evaluation and teaching/gait training including stair management (if applicable): Ordered Home Bound Status Requires the aid of supportive device (check all that apply): Walker Encounter Date and Reason: I certify that a FTF encounter for this patient was performed on February 13, 2025 and that such encounter was related to the primary reason the patient requires home health services. The encounter was conducted in the following manner: * By me as the certifying physician, BULK PLANT OPERATOR, PA or * By an inpatient physician, BULK PLANT OPERATOR or PA during an inpatient stay who communicated findings to me, Certification And Authentication I certify that I composed the above information based on my clinical judgment relating to this patient's medical condition and, if applicable, clinical findings communicated to me by the NPP or inpatient physician who performed the FTF encounter. Name of Provider that will be monitoring home health services: Ofe Carlson
== END 2025-02-12 09:44 | disposition home health service (06) ==
LOC: ER 21:52 → MS 22:19
PROVIDERS: Admitting Provider Family Medicine; Emergency Provider Emergency Medicine; PCP Nurse Practitioner Adult Health; Responsible Provider Family Medicine; Visit Provider Family Medicine
DX: K62.5 Hemorrhage of anus and rectum (principal); D13.2 Benign neoplasm of duodenum; K31.89 Other diseases of stomach and duodenum; I48.20 Chronic atrial fibrillation, unspecified; F41.8 Other specified anxiety disorders; E89.0 Postprocedural hypothyroidism; N40.1 Benign prostatic hyperplasia with lower urinary tract symptoms; G62.9 Polyneuropathy, unspecified; J44.9 Chronic obstructive pulmonary disease, unspecified; G47.33 Obstructive sleep apnea (adult) (pediatric); E78.5 Hyperlipidemia, unspecified; K57.30 Diverticulosis of large intestine without perforation or abscess without bleeding; Z79.01 Long term (current) use of anticoagulants; R45.89 Other symptoms and signs involving emotional state; N13.8 Other obstructive and reflux uropathy; Z85.850 Personal history of malignant neoplasm of thyroid; M54.16 Radiculopathy, lumbar region; Z79.899 Other long term (current) drug therapy; C79.9 Secondary malignant neoplasm of unspecified site; I42.9 Cardiomyopathy, unspecified
CPT/HCPCS: 00123; 36415; 80053; 85027; 86850; 86900; 86901; 99285; 74174; 83735; 84484; 85025; 85610; 99222; 99238; G0378; J3490

== ENCOUNTER → 2025-02-14 10:06 | Outpatient (BNVA) | payer MEDICARE, BC, SELFPAY | PROVIDERS: PCP Nurse Practitioner Adult Health; Referring Provider Nurse Practitioner Adult Health; Visit Provider Urology | DX: N40.1 Benign prostatic hyperplasia with lower urinary tract symptoms (principal) | CPT/HCPCS: 99214 ==

== ENCOUNTER 2025-02-15 14:39 | Outpatient (REF) | payer MEDICARE, BC, SELFPAY ==
[2025-02-15 17:27] LABS: HCT 29.8 % (40.0-50.0); HGB 9.6 g/dL (13.5-17.5); MCH 28.6 pg (27.0-33.0); MCHC 32.2 % (32.0-36.0); MCV 89 fL (80-95); MPV 10.0 fL (8.0-11.0); Platelet Count 265 10^3/uL (130-400); RBC 3.36 10^6/uL (4.36-5.78); RDW 14.4 % (11.8-14.1); RDW-SD 46.3 fL; WBC 6.46 10^3/uL (4.4-10.8)
== END 2025-02-15 14:40 | disposition home or self-care (01) ==
LOC: LBN 14:39
PROVIDERS: PCP Nurse Practitioner Adult Health; Visit Provider Family Medicine
DX: K92.2 Gastrointestinal hemorrhage, unspecified (principal)
CPT/HCPCS: 85027; 85025

== ENCOUNTER 2025-02-16 01:23 | Outpatient (CLI) | payer MEDICARE, BC, SELFPAY ==
[2025-02-16 12:03] LABS: Abs Immature Grans 0.06 10^3/uL (0.0-0.06); HCT 30.4 % (40.0-50.0); HGB 9.8 g/dL (13.5-17.5); Immature Grans % 0.9 %; MCH 28.7 pg (27.0-33.0); MCHC 32.2 % (32.0-36.0); MCV 89 fL (80-95); MPV 9.2 fL (8.0-11.0); Platelet Count 252 10^3/uL (130-400); RBC 3.41 10^6/uL (4.36-5.78); RDW 14.4 % (11.8-14.1); RDW-SD 46.5 fL; WBC 6.92 10^3/uL (4.4-10.8)
[2025-02-16 12:54] LABS: Anion Gap 9.8 mmol/L (3-11); BUN 9 mg/dL (7-18); CO2 27.2 mmol/L (21.0-32.0); Calcium 8.6 mg/dL (8.5-10.1); Chloride 106 mmol/L (98-107); Estimated GFR 66.19 (mL/min/1.73m2); Glucose 131 mg/dL (74-106); Magnesium 1.7 mg/dL (1.8-2.4); Potassium 3.9 mmol/L (3.5-5.1); Sodium 143 mmol/L (136-145)
[2025-02-16 13:26] LABS: Iron 36 ug/dL (65-175); Total Iron Binding Capacity 252 ug/dL (250-450); Transferrin Sat 14 % (20-55)
== END 2025-02-16 01:24 | disposition home or self-care (01) ==
LOC: LBO 01:23
PROVIDERS: Nurse Practitioner Acute Care; PCP Nurse Practitioner Adult Health; Visit Provider Surgery
DX: E87.8 Other disorders of electrolyte and fluid balance, not elsewhere classified (principal); K92.2 Gastrointestinal hemorrhage, unspecified; D62 Acute posthemorrhagic anemia
CPT/HCPCS: 36415; 80048; 83540; 83550; 83735; 85025

== ENCOUNTER → 2025-02-17 12:45 | Outpatient (BNVA) | payer MEDICARE, BC, SELFPAY | PROVIDERS: PCP Nurse Practitioner Adult Health; Referring Provider Nurse Practitioner Adult Health; Visit Provider Surgery | DX: D13.30 Benign neoplasm of unspecified part of small intestine (principal); K31.89 Other diseases of stomach and duodenum; Z79.01 Long term (current) use of anticoagulants | CPT/HCPCS: 99214 ==

== ENCOUNTER → 2025-03-03 10:46 | Outpatient (BNVA) | payer MEDICARE, BC, SELFPAY | PROVIDERS: PCP Nurse Practitioner Adult Health; Referring Provider Nurse Practitioner Adult Health; Visit Provider Internal Medicine Cardiovascular Disease | DX: I48.20 Chronic atrial fibrillation, unspecified (principal); K92.2 Gastrointestinal hemorrhage, unspecified | CPT/HCPCS: 99213 ==

== ENCOUNTER 2025-03-16 07:48 | Outpatient (CLI) | payer MEDICARE, BC, SELFPAY ==
--- NOTE | 2025-03-16 06:00 | DI.RAD_ITS ---
Exam(s) XR PAIN CLINIC LUMBAR SP 2V EXAM: XR PAIN CLINIC LUMBAR SP 2V CLINICAL HISTORY: Dx: Lumbar Radiculopathy TECHNIQUE: 2D and realtime digital imaging was performed. CONTRAST MATERIAL: Refer to procedure report. COMPARISON: No exams were available for comparison FINDINGS: Fluoroscopy was provided for Dr. Card during the performance of a transforaminal epidural steroid injection. Please refer to the procedure report for complete details. Ka,r=17.3 mGy IMPRESSION: RADIATION DOSE DELIVERED: 0.0 0.0 0
[2025-03-16 08:04] VITALS: BP 101/78; PULSE 113; RESP 18; TEMP 36.5; O2SAT 94
[2025-03-16 08:30] VITALS: PULSE 112; RESP 31
[2025-03-16] MEDS: Omnipaque 240 MG/ML 50 ML BTL IJ (08:35)
[2025-03-16 08:40] VITALS: PULSE 104; PULSE 116; RESP 17; O2SAT 94
--- NOTE | 2025-03-16 08:46 | PDOC.PAIN_ITS ---
Date of service: 03/16/25 Time of Service: 08:46 Pain Managment Procedure Note Procedure Note Procedure Note: PROCEDURE NOTE LEFT L5 TRANSFORAMINAL EPIDURAL STEROID INJECTION Chief Complaint: LEFT leg pain. Date of Service: March 16, 2025 Patient: Mario Gallardo Provider: Sherman Card DO, MPH Mario Gallardo has been referred to the [facility] for a transforaminal epidural steroid injection. Pre-operative diagnosis: Lumbosacral Radiculopathy ICD-10 M54.17 Post-operative diagnosis: Same Pre-Procedure Pain to the left leg: VAS= 8/10 Comments: I previously evaluated the patient in our clinic and their symptoms remain the same as they were at that time. Mario was interviewed and the medical record reviewed. There were no medical, pharmacologic, radiographic or other structural contraindications to attempting a fluoroscopically-guided transforaminal lumbar epidural steroid injection. The risks, benefits, and potential side effects were reviewed with the patient. Risks include, but are not limited to, [id number] headache, infection, bleeding, nerve injury, spinal cord damage, allergic reaction, possible increase in symptoms over the ensuing 24 to 48 hours, paralysis, and . The patient appeared to understand, questions were answered to the patient?s satisfaction and the patient agreed to proceed. Once I obtained informed verbal consent, the printed consent form was signed by the patient and myself. A standard time-out procedure was performed. Mario was placed in the prone position on the fluoroscopy table and automated blood pressure cuff, three lead EKG, and pulse oximeter were applied. The skin entry point for entering/approaching the left L5 space for the transforaminal epidural steroid injection was marked. Following thorough chlorhexadine preparation of the skin and draping, 2 ml of 1% lidocaine was infiltrated into the skin over the entry point and subcutaneous tissues. Under fluoroscopic guidance, in ipsilateral oblique view, a co-axial approach using a 3.5 22G spinal needle was advanced to the base of the left L5 pedicle. The needle was advanced to the superio-posterior aspect of the neural foramen under lateral view. Oblique and AP views were rechecked. Under AP and lateral views, 1 ml of Omnipaque-240 was injected while visualized with fluoroscopy. There was no evidence of intravascular or intrathecal uptake, the epidural space was delineated. Next 1.5 ml of preservative-free Dexamethasone (10 mg/ml) was injected after negative aspiration. This was followed by 1 ml of preservative- free 1% lidocaine. (49 mls of Omnipaque-240 was wasted) There was no unusual discomfort expressed by Mario. The needle was withdrawn without difficulty. Mario was observed and was without hemodynamic, neurologic, or allergic reactions.? Fluoroscopic images were digitally archived. Mario's vital signs were stable throughout the procedure and were as recorded in the docflowsheet by the nursing staff.? If given, dosages of intravenous drugs for anxiolysis and analgesia were documented in MAR. Follow up plans and appointments were discussed with Mario. Post procedure instruction was given as documented in nursing records and having met discharge criteria Mario was [facility] from the [facility]. COMMENTS: Post-procedure pain to the left leg: VAS= 0/10. Mario to contact [facility] as needed. If at least 50% improvement in pain and/or function for at least 3 months is achieved, this procedure can be repeated. I personally performed this entire procedure. SHERMAN CARD DO, MPH ABPMR-subspecialty board certification in Pain Medicine [facility] Coding Conscious Sedation used for procedure: No CPT Codes: Transforaminal Lumbar/Sacral (includes fluoro) - 00517 ([id number] ~G) Additional Codes: Date of Service () Diagnoses: Lumbar radiculopathy
[2025-03-16] MEDS: Nerve Block Tray 1 EACH MC (12:12)
[2025-03-16] MEDS: Dexamethasone Sod. Phos./Pres-Free 10 MG/ML VIAL IJ (12:52)
== END 2025-03-16 07:49 | disposition home or self-care (01) ==
LOC: PC 07:48
PROVIDERS: PCP Nurse Practitioner Adult Health; Visit Provider Preventive Medicine Occupational Medicine
DX: M79.605 Pain in left leg (principal); M54.17 Radiculopathy, lumbosacral region
CPT/HCPCS: 64483; 72100; J1100; Q9967